=== PATIENT | female | born 1940 | race Caucasian/White ===

== ENCOUNTER → 2017-10-23 08:30 | Outpatient (CLI) | payer MEDICARE, SELFPAY ==
[2017-10-23 12:29] LABS: Absolute Lymphocyte Count 3.02 X10^3/ul (0.83-4.51); Absolute Neutrophil Count 4.3 X10^3/uL (2.0-7.7); Basophil# 0.04 X10^3/uL; Basophil% 0.5 % (0-1); Eosinophils% 2.4 % (0-5); Hematocrit 40.4 % (37-47); Hemoglobin 13.6 g/dl (12.0-15.0); Lymphocyte # 3.02 X10^3/ul (4.0); Lymphocyte % 36.7 % (19-41); Mean Corp Hgb Conc 33.7 g/gl (32-36); Mean Corpuscular Hgb 28.6 pg (27.0-32.0); Mean Corpuscular Volume 85.1 fL (81-99); Monocyte# 0.61 X10^3/uL; Monocyte% 7.4 % (0-10); Neutrophil # 4.33 X10^3/uL (2.7-7.7); Neutrophil % 52.8 % (47-70); Platelet Count 252 K/mm3 (150-450); RBC Distribution Width CV 14.7 % (11.6-14.6); RBC Distribution Width SD 44.9 fl (35.1-43.9); Red Blood Count 4.75 M/mm3 (4.2-5.4); White Blood Count 8.2 K/mm3 (4.4-11.0)
[2017-10-23 12:44] LABS: POSITIVE COUNT NO; POSITIVE DIFFERENTIAL NO; POSITIVE MORPHOLOGY NO
[2017-10-23 13:09] LABS: ALB/GLOB Ratio 1.1 RATIO (0.9-2.4); AST(SGOT) 16 U/L (15-37); Alanine Aminotransfer ALT/SGPT 32 U/L (13-56); Albumin, Serum 3.6 g/dL (3.2-5.0); Alkaline Phosphatase 85 U/L (45-117); Anion Gap 11 (5-15); BUN 12 mg/dL (7-18); BUN/Creat Ratio 17.2 RATIO (10-20); Calcium,Total 8.6 mg/dL (8.5-10.1); Chloride 99 mmol/L (98-107); Cholesterol 186 mg/dL (200); EST Glomerular Filtration Rate 86 mL/min (>60); Est Glom Filt Rate - Afr Amer 104 mL/min (>60); Globulin 3.3 g/dL (2.2-4.2); Glucose 109 mg/dL (74-106); High Density Lipoprotein 68 mg/dL; Potassium 3.7 mmol/L (3.5-5.1); Protein, Total 6.9 g/dL (6.4-8.2); Sodium Level 135 mmol/L (136-145); Thyroid Stim Hormone (TSH) 3.43 uIU/mL (0.358-3.74); Triglycerides 59 mg/dL; Very Low Density Lipoprotein 12 mg/dL (5-40)
== END ==
PROVIDERS: Family Provider Family Medicine; PCP Family Medicine; Visit Provider Family Medicine
DX: I10 Essential (primary) hypertension (principal); R53.83 Other fatigue; E78.5 Hyperlipidemia, unspecified; Z51.81 Encounter for therapeutic drug level monitoring
CPT/HCPCS: 36415; 80053; 80061; 84443; 85025

== ENCOUNTER → 2018-10-04 09:23 | Outpatient (CLI) | payer MEDICARE, SELFPAY ==
[2018-10-04 12:41] LABS: Absolute Lymphocyte Count 2.63 X10^3/ul (0.83-4.51); Absolute Neutrophil Count 4.4 X10^3/uL (2.0-7.7); Basophil# 0.04 X10^3/uL; Basophil% 0.5 % (0-1); Eosinophil# 0.22 X10^3/uL; Eosinophils% 2.8 % (0-5); Hematocrit 42.3 % (37-47); Hemoglobin 13.9 g/dl (12.0-15.0); Lymphocyte # 2.63 X10^3/ul (4.0); Lymphocyte % 33.4 % (19-41); Mean Corp Hgb Conc 32.9 g/gl (32-36); Mean Corpuscular Hgb 28.8 pg (27.0-32.0); Mean Corpuscular Volume 87.6 fL (81-99); Mean Platelet Vol. 9.7 fl (6.2-12.0); Monocyte# 0.61 X10^3/uL; Monocyte% 7.7 % (0-10); Neutrophil # 4.37 X10^3/uL (2.7-7.7); Neutrophil % 55.5 % (47-70); Platelet Count 267 K/mm3 (150-450); RBC Distribution Width CV 13.7 % (11.6-14.6); RBC Distribution Width SD 43.7 fl (35.1-43.9); Red Blood Count 4.83 M/mm3 (4.2-5.4); White Blood Count 7.9 K/mm3 (4.4-11.0)
[2018-10-04 12:42] LABS: POSITIVE COUNT NO; POSITIVE DIFFERENTIAL NO; POSITIVE MORPHOLOGY NO
[2018-10-04 12:57] LABS: AST(SGOT) 14 U/L (15-37); Alanine Aminotransfer ALT/SGPT 27 U/L (13-56); Albumin, Serum 3.5 g/dL (3.2-5.0); Alkaline Phosphatase 84 U/L (45-117); Anion Gap 8 (5-15); BUN 11 mg/dL (7-18); BUN/Creat Ratio 16.2 RATIO (10-20); Calcium,Total 8.3 mg/dL (8.5-10.1); Chloride 103 mmol/L (98-107); Cholesterol 191 mg/dL (200); Creatinine, Serum 0.68 mg/dL (0.55-1.02); EST Glomerular Filtration Rate 88 mL/min (>60); Est Glom Filt Rate - Afr Amer 107 mL/min (>60); Globulin 3.5 g/dL (2.2-4.2); Glucose 105 mg/dL (74-106); High Density Lipoprotein 63 mg/dL; Potassium 3.6 mmol/L (3.5-5.1); Sodium Level 136 mmol/L (136-145); Thyroid Stim Hormone (TSH) 2.52 uIU/mL (0.358-3.74); Triglycerides 73 mg/dL; Very Low Density Lipoprotein 15 mg/dL (5-40)
== END ==
PROVIDERS: Family Provider Family Medicine; PCP Family Medicine; Visit Provider Family Medicine
DX: E04.9 Nontoxic goiter, unspecified (principal); I10 Essential (primary) hypertension; E78.5 Hyperlipidemia, unspecified; Z51.81 Encounter for therapeutic drug level monitoring
CPT/HCPCS: 36415; 80053; 80061; 84443; 85025

== ENCOUNTER → 2019-05-25 | Outpatient (CLI) | payer MEDICARE, SELFPAY ==
[2019-05-25 11:05] LABS: Bacteria 0 SEEN /hpf (None Seen); Mucous, Urine 0 SEEN /hpf (<or=2+); Red Blood Cells-Urine 0 SEEN /hpf (0-5); Squamous Epithelial Cells - UA 0 SEEN /hpf (5-10)
[2019-05-25 12:31] LABS: Color, Urine Yellow (Yellow); Glucose, Dipstick Normal (Normal); Ketone-Dipstick Negative (Negative); Leukocyte Esterase-Dipstick 25 /ul (Negative); Nitrite-Dipstick Negative (Negative); Occult Blood-Urine Negative /ul (Negative); Protein-Dipstick Negative (Negative); Urine Bilirubin Dipstick Negative (Negative); Urine Clarity Clear (Clear); Urine Urobilinogen Normal (Normal)
[2019-05-25 12:48] LABS: White Blood Cells 0-5 SEEN /hpf (0-5)
[2019-05-25 12:56] LABS: ALB/GLOB Ratio 1.1 RATIO (0.9-2.4); AST(SGOT) 11 U/L (15-37); Alanine Aminotransfer ALT/SGPT 25 U/L (13-56); Albumin, Serum 3.7 g/dL (3.2-5.0); Alkaline Phosphatase 91 U/L (45-117); Anion Gap 6 (5-15); BUN 12 mg/dL (7-18); Calcium,Total 8.9 mg/dL (8.5-10.1); Chloride 101 mmol/L (98-107); EST Glomerular Filtration Rate 85 mL/min (>60); Est Glom Filt Rate - Afr Amer 103 mL/min (>60); Globulin 3.5 g/dL (2.2-4.2); Glucose 113 mg/dL (74-106); Potassium 3.9 mmol/L (3.5-5.1); Protein, Total 7.2 g/dL (6.4-8.2); Sodium Level 135 mmol/L (136-145)
== END | disposition home or self-care (01) ==
LOC: BFHLAB 11:01
PROVIDERS: Family Provider Family Medicine; PCP Family Medicine; Visit Provider Family Medicine
DX: I10 Essential (primary) hypertension (principal); R30.0 Dysuria; Z51.81 Encounter for therapeutic drug level monitoring
CPT/HCPCS: 36415; 80053; 81001; 87086; 87088; 87186

== ENCOUNTER → 2020-03-26 12:07 | Outpatient (CLI) | payer MEDICARE, SELFPAY ==
[2020-03-26 15:05] LABS: Absolute Lymphocyte Count 2.19 X10^3/uL (0.83-4.51); Basophil# 0.05 X10^3/uL; Basophil% 0.6 % (0-1); Eosinophil# 0.13 X10^3/uL; Eosinophils% 1.4 % (0-5); Hematocrit 42.9 % (37-47); Hemoglobin 14.3 g/dL (12.0-15.0); Lymphocyte # 2.19 X10^3/ul (4.0); Lymphocyte % 24.3 % (19-41); Mean Corp Hgb Conc 33.3 g/dL (32-36); Mean Corpuscular Hgb 28.5 pg (27.0-32.0); Mean Corpuscular Volume 85.6 fL (81-99); Mean Platelet Vol. 9.3 fl (6.2-12.0); Monocyte# 0.63 X10^3/uL; NRBC Flagged by Analyzer 0 % (0-5); Neutrophil % 66.5 % (47-70); Platelet Count 294 K/mm3 (150-450); RBC Distribution Width CV 13.5 % (11.6-14.6); Red Blood Count 5.01 M/mm3 (4.2-5.4)
[2020-03-26 15:31] LABS: ALB/GLOB Ratio 1.1 RATIO (0.9-2.4); AST(SGOT) 14 U/L (15-37); Alanine Aminotransfer ALT/SGPT 36 U/L (13-56); Albumin, Serum 3.9 g/dL (3.2-5.0); Alkaline Phosphatase 89 U/L (45-117); Anion Gap 4 (5-15); BUN 10 mg/dL (7-18); BUN/Creat Ratio 16.1 RATIO (10-20); Calcium,Total 8.9 mg/dL (8.5-10.1); Chloride 94 mmol/L (98-107); Creatinine, Serum 0.62 mg/dL (0.55-1.02); EST Glomerular Filtration Rate 98 mL/min (>60); Est Glom Filt Rate - Afr Amer 119 mL/min (>60); Globulin 3.6 g/dL (2.2-4.2); Glucose 119 mg/dL (74-106); Iron 66 ug/dL (50-170); Magnesium 2.4 mg/dL (1.6-2.6); Potassium 3.9 mmol/L (3.5-5.1); Protein, Total 7.5 g/dL (6.4-8.2); Sodium Level 127 mmol/L (136-145)
== END ==
PROVIDERS: PCP Family Medicine; Visit Provider Family Medicine
DX: D64.9 Anemia, unspecified (principal); R06.00 Dyspnea, unspecified; R00.2 Palpitations; Z51.81 Encounter for therapeutic drug level monitoring
CPT/HCPCS: 36415; 80053; 83540; 83735; 85025

== ENCOUNTER → 2020-03-30 09:13 | Outpatient (CLI) | payer MEDICARE, SELFPAY | PROVIDERS: PCP Family Medicine; Referring Provider Family Medicine; Visit Provider Family Medicine | DX: R00.2 Palpitations (principal) | CPT/HCPCS: 93225; 93226 ==

== ENCOUNTER → 2020-12-03 10:31 | Outpatient (CLI) | payer MEDICARE, SELFPAY ==
[2020-12-03 12:22] LABS: Absolute Lymphocyte Count 3.02 X10^3/uL (0.83-4.51); Absolute Neutrophil Count 4.7 X10^3/uL (2.0-7.7); Basophil# 0.05 X10^3/uL; Basophil% 0.6 % (0-1); Eosinophil# 0.31 X10^3/uL; Eosinophils% 3.6 % (0-5); Hematocrit 40.9 % (37-47); Hemoglobin 13.1 g/dL (12.0-15.0); Lymphocyte # 3.02 X10^3/ul (4.0); Lymphocyte % 34.6 % (19-41); Mean Corpuscular Hgb 28.2 pg (27.0-32.0); Mean Platelet Vol. 9.5 fl (6.2-12.0); Monocyte# 0.65 X10^3/uL; Monocyte% 7.5 % (0-10); NRBC Flagged by Analyzer 0 % (0-5); Neutrophil # 4.67 X10^3/uL (2.7-7.7); Neutrophil % 53.5 % (47-70); Platelet Count 297 K/mm3 (150-450); RBC Distribution Width CV 13.7 % (11.6-14.6); RBC Distribution Width SD 44.5 fl (35.1-43.9); Red Blood Count 4.65 M/mm3 (4.2-5.4); White Blood Count 8.7 K/mm3 (4.4-11.0)
[2020-12-03 12:48] LABS: ALB/GLOB Ratio 1.1 RATIO (0.9-2.4); AST(SGOT) 15 U/L (15-37); Alanine Aminotransfer ALT/SGPT 34 U/L (13-56); Albumin, Serum 3.7 g/dL (3.2-5.0); Alkaline Phosphatase 82 U/L (45-117); Anion Gap 4 (5-15); BUN 15 mg/dL (7-18); BUN/Creat Ratio 21.6 RATIO (10-20); Calcium,Total 8.8 mg/dL (8.5-10.1); Chloride 99 mmol/L (98-107); Cholesterol 189 mg/dL (200); EST Glomerular Filtration Rate 86 mL/min (>60); Est Glom Filt Rate - Afr Amer 104 mL/min (>60); Globulin 3.5 g/dL (2.2-4.2); Glucose 109 mg/dL (74-106); High Density Lipoprotein 73 mg/dL; Potassium 3.7 mmol/L (3.5-5.1); Protein, Total 7.2 g/dL (6.4-8.2); Sodium Level 133 mmol/L (136-145); Thyroid Stim Hormone (TSH) 2.12 uIU/mL (0.358-3.74); Triglycerides 65 mg/dL; Very Low Density Lipoprotein 13 mg/dL (5-40)
== END ==
PROVIDERS: PCP Family Medicine; Referring Provider Family Medicine; Visit Provider Family Medicine
DX: I10 Essential (primary) hypertension (principal); E04.9 Nontoxic goiter, unspecified; R00.2 Palpitations
CPT/HCPCS: 36415; 80053; 80061; 84443; 85025

== ENCOUNTER → 2021-06-13 08:48 | Outpatient (CLI) | payer MEDICARE, SELFPAY | PROVIDERS: PCP Family Medicine; Referring Provider Family Medicine; Visit Provider Family Medicine | DX: Z20.828 Contact with and (suspected) exposure to other viral communicable diseases (principal) | CPT/HCPCS: 87635; U0005; U0003 ==

== ENCOUNTER 2021-06-22 17:47 | Emergency (ER) | payer MEDICARE, SELFPAY ==
[2021-06-22 17:48] VITALS: BP 178/89; PULSE 71; RESP 20; TEMP 36.9; O2SAT 97; BMI 33.3
--- NOTE | 2021-06-22 17:58 | EKG12_ITS ---
Test Reason : Blood Pressure : / mmHG Vent. Rate : 070 BPM Atrial Rate : 070 BPM P-R Int : 188 ms QRS Dur : 104 ms QT Int : 404 ms P-R-T Axes : 076 -59 084 degrees QTc Int : 436 ms Normal sinus rhythm Left anterior fascicular block Abnormal ECG Confirmed by TK JENKINS, LIVE ([id number]), digital editor MYRIAM CHRISTIANSON ([id number]) on 06/25/2021 11:28:34 AM Referred By: CHATO Confirmed By:LIVE FREY MD
[2021-06-22 18:45] VITALS: BP 167/75; PULSE 64; RESP 15; O2SAT 99
--- NOTE | 2021-06-22 19:46 | EX.ED.DYSGE1 ---
HPI History of Present Illness Chief Complaint: Hypertension Detail of Chief Complaint: Elevated blood pressure and palpitations Informant: patient Onset/Context/Timing Onset: Today and Hours Context: Sudden Onset Timing: Intermittent Quality: Highest systolic pressure was 202 and fastest heart rate was 67 Location: Home Current Severity: Mild Maximum Severity: Moderate Worsened by: Nothing Relieved by: Nothing Associated Symptoms Associated Symptoms: No other symptoms Narrative Narrative: Patient is a 80-year-old woman with history of hypertension who presents because of systolic blood pressure of 202 and palpitations. Her fastest heart rate was 67. This concerns her. She was informed this is normal. She denies headache. She denies double vision, blurred vision loss of vision. Denies ringing in ears or decreased hearing. Denies trouble speech or swallowing. Denies chest discomfort or cardiac symptoms. No shortness of breath, orthopnea or PND. She denies abdominal pain or back pain. Denies nausea or vomiting. She denies dysuria, frequency, urgency or hematuria. She denies paresthesia, anesthesia motors. Denies trouble with balance. She has had problems with balance over the years due to head trauma. Has not had a recent fall. Her gait was observed and is not ataxic and she does not appear to be unsteady. Prior similar symptoms: Yes Recent Illness/Hospitalization: No [facility] Medical History Arthritis Diverticula of colon Former smoker Hypertension PVC (premature ventricular contraction) Sleep apnea Home Medications losartan 100 mg PO DAILY 12/14/15 [History Last Taken 11/06/16] metoprolol succinate 100 mg PO DAILY 12/14/15 [History Last Taken 11/06/16] amlodipine 5 mg PO DAILY 06/22/21 [History Last Taken Unknown] fluticasone propionate 2 spray INTRANASAL DAILY 06/22/21 [History Last Taken Unknown] hydrochlorothiazide 25 mg PO DAILY 06/22/21 [History Last Taken Unknown] Allergy/AdvReac Type Severity Reaction Status Date / Time benazepril HCl Allergy Other Verified 06/22/21 18:46 [From Lotensin] felodipine Allergy Other Verified 06/22/21 18:46 fexofenadine HCl Allergy Other Verified 06/22/21 18:46 [From Uyen] ramipril [From Altace] Allergy Other Verified 06/22/21 18:46 tolterodine tartrate Allergy Other Verified 06/22/21 18:46 [From Detrol] verapamil HCl Allergy Other Verified 06/22/21 18:46 [From Covera-HS] AUGMENTED BETAMETHASONE Allergy Other Uncoded 06/22/21 18:46 DIPROP Surgical History History of colon resection Social History (Updated 06/22/21 @ 19:[address] Ganga Acharya MD) household members: spouse Smoking Status: Former smoker alcohol intake: current alcohol intake frequency: other substance use type: does not use ROS ROS ED Constitutional Constitutional ED: Denies chills, fever(s), subjective, sweats or weight loss Eyes Eyes: Denies blurry vision, change in vision or diplopia ENT ENT ED: Denies ear pain, rhinorrhea or sore throat Cardiovascular Cardiovascular: Reports palpitations; Denies chest pain, orthopnea, paroxysmal nocturnal dyspnea or racing heartbeat Respiratory/Chest Respiratory/Chest: Denies cough, dyspnea, dyspnea on exertion, orthopnea or paroxysmal nocturnal dyspnea Gastrointestinal Gastrointestinal: Denies abdominal pain, diarrhea, nausea or vomiting Genitourinary Genitourinary ED: Denies dysuria, hematuria or urinary frequency Musculoskeletal Musculoskeletal: Denies arthralgias, back pain, myalgias or neck pain Integumentary Denies rash Neurologic Neurologic: Denies headache(s), paresthesias or weakness Endocrine Endocrinology: Denies polydipsia, polyphagia or polyuria Hematologic/Lymphatic Hematologic/Lymphatic: Denies anemia, easy bleeding or easy bruising Allergic/Immunologic Allergic/Immunologic ED: Denies mouth swelling or tongue swelling EXAM Physical Exam Const Vital Signs: 06/22/21 17:48 06/22/21 18:45 06/22/21 18:46 Temperature 98.4 F Temperature Source Temporal Pulse Rate 71 64 Respiratory Rate 20 H 15 Respiratory Effort Normal Respiratory Pattern Normal Blood Pressure 178/89 H 167/75 H Blood Pressure Mean 118 105 Pulse Ox 97 99 Oxygen Delivery Method Room Air Room Air 06/22/21 20:28 Temperature Temperature Source Pulse Rate 65 Respiratory Rate 12 Respiratory Effort Respiratory Pattern Blood Pressure 177/65 H Blood Pressure Mean 102 Pulse Ox 97 Oxygen Delivery Method Room Air Positive well nourished, well developed and obese General Appearance ED: well developed and NAD Nutritional Appearance: obese HEENT HEENT Narrative: Head is atraumatic normocephalic. Ears normal. Nares patent. Posterior pharyngeal erythema exudate. Uvula midline. Neck no lymphadenopathy, supple and no JVD Neck Narrative: There is no bruit right or left. Resp normal respiratory effort and clear to auscultation bilaterally Cardio regular rate, regular rhythm, S1 normal heart sound, S2 normal heart sound and no murmurs GI normal to inspection, nondistended, normoactive bowel sounds, non-tender and non-distended GI Narrative: There is no palp pulsatile mass. There is no abdominal bruit. Palpation: soft Back/Spine no CVA tenderness Cervical Spine: Negative for cervical spine tenderness Thoracic Spine / Upper Back: Negative for thoracic spinal tenderness or paraspinal muscle tenderness Extremity normal to inspection General Extremety ED: Negative for edema or tenderness General Extremity: Negative for edema Neuro oriented x3, CN's II-XII intact bilaterally and no sensory deficits noted Neuro Narrative: Gait observed and unremarkable Sensorium / Orientation: alert Motor Exam: strength 5/5 throughout Psych mental status grossly normal Mood & Affect: anxious Skin no rashes or lesions noted, no wounds and skin turgor normal MDM MDM MDM Narrative Medical decision making narrative: Patient's main concern now of fatigue will obtain TSH rule out hypothyroidism. BMP to assess electrolytes and specifically potassium. She was placed on a monitor. EKG was obtained and reveals a normal sinus rhythm rate of 70. There is a left anterior fascicular block. WI interval is 188 ms. QRS duration 104 ms. QT duration 4 and 4 ms. [place] to the left. Lab Data Attestation: I reviewed the patient's lab results. Lab results narrative: White count is slightly low at 11.6, which is nonspecific. Electrolyte panel was a sodium 131 and chloride of 95. She is on a thiazide diuretic. Labs: Laboratory Results - last 24 hr 06/22/21 06/22/21 20:06 20:06 WBC 11.6 H RBC 4.84 Hgb 13.7 Hct 40.8 MCV 84.3 MCH 28.3 MCHC 33.6 RDW Std Deviation 41.2 RDW Coeff of Milena 13.3 Plt Count 293 MPV 8.7 Immature Gran % (Auto) 0.300 Neut % (Auto) 70.7 H Lymph % (Auto) 21.0 [place] % (Auto) 6.6 Eos % (Auto) 1.0 Baso % (Auto) 0.4 Absolute Neuts (auto) 8.2 H Absolute Lymphs (auto) 2.42 Nucleated RBC % 0 Sodium 131 L Potassium 3.6 Chloride 95 L Carbon Dioxide 26.0 Anion Gap 10 BUN 13 Creatinine 0.76 Estim Creat Clear Calc 35.88 Est GFR (MDRD) Af Amer 93 Est GFR (MDRD) Non-Af 77 BUN/Creatinine Ratio 17.0 Glucose 112 H Calcium 8.8 TSH 1.42 EKG Initial EKG: Attestation: I personally reviewed and interpreted this EKG as follows: Interpretation: Sinus Rhythm (Documented in the MDM narrative) Treatment and Re-Evaluation Comments:: Patient has asymptomatic hypertension. She also is experiencing palpitations. She had a recent Holter monitor revealed PACs. Since patient has no evidence of endorgan injury her pressure is slightly elevated but not significantly we will have her follow-up with her primary care physician. She was informed no further intervention is needed at this time. Discharge Plan Triage Chief Complaint: Hypertension ED Provider: Ganga Acharya Dx/Rx/DC Orders Clinical Impression: Asymptomatic hypertension Instructions: ED Hypertension, Established Prescriptions: No Action metoprolol succinate 50 MG tablet 100 mg PO DAILY RF: 0 losartan 100 MG tablet 100 mg PO DAILY RF: 0 amlodipine 5 mg tablet 5 mg PO DAILY RF: 0 hydrochlorothiazide 25 mg tablet 25 mg PO DAILY RF: 0 fluticasone propionate 50 mcg/actuation spray,suspension 2 spray INTRANASAL DAILY RF: 0 Primary Care Provider: Quiana Healy Referrals: Quiana Healy DO [Primary Care Provider] - 5-7 Days Disposition Disposition: Home, Self Care
[2021-06-22 20:12] LABS: Absolute Lymphocyte Count 2.42 X10^3/uL (0.83-4.51); Absolute Neutrophil Count 8.2 X10^3/uL (2.0-7.7); Basophil# 0.05 X10^3/uL; Basophil% 0.4 % (0-1); Eosinophil# 0.11 X10^3/uL; Hematocrit 40.8 % (37-47); Hemoglobin 13.7 g/dL (12.0-15.0); Lymphocyte # 2.42 X10^3/ul (0.83-4.51); Mean Corp Hgb Conc 33.6 g/dL (32-36); Mean Corpuscular Hgb 28.3 pg (27.0-32.0); Mean Corpuscular Volume 84.3 fL (81-99); Mean Platelet Vol. 8.7 fl (6.2-12.0); Monocyte# 0.76 X10^3/uL; Monocyte% 6.6 % (0-10); NRBC Flagged by Analyzer 0 % (0-5); Neutrophil # 8.17 X10^3/uL (2.7-7.7); Neutrophil % 70.7 % (47-70); Platelet Count 293 K/mm3 (150-450); RBC Distribution Width CV 13.3 % (11.6-14.6); RBC Distribution Width SD 41.2 fl (35.1-43.9); Red Blood Count 4.84 M/mm3 (4.2-5.4); White Blood Count 11.6 K/mm3 (4.4-11.0)
[2021-06-22 20:28] VITALS: BP 177/65; PULSE 65; RESP 12; O2SAT 97
[2021-06-22 20:36] LABS: Anion Gap 10 (5-15); BUN 13 mg/dL (7-18); Calcium,Total 8.8 mg/dL (8.5-10.1); Chloride 95 mmol/L (98-107); Creatinine, Serum 0.76 mg/dL (0.55-1.02); EST Glomerular Filtration Rate 77 mL/min (>60); Est Glom Filt Rate - Afr Amer 93 mL/min (>60); Estimated Creatinine Clearance 35.88 ml/min; Glucose 112 mg/dL (74-106); Potassium 3.6 mmol/L (3.5-5.1); Sodium Level 131 mmol/L (136-145); Thyroid Stim Hormone (TSH) 1.42 uIU/mL (0.358-3.74)
[2021-06-22 21:33] VITALS: BP 153/65; PULSE 62; RESP 16; O2SAT 97
== END 2021-06-22 21:34 | disposition home or self-care (01) ==
PROVIDERS: Emergency Provider Emergency Medicine; PCP Family Medicine
DX: I10 Essential (primary) hypertension (principal); E66.9 Obesity, unspecified; G47.30 Sleep apnea, unspecified; Z79.899 Other long term (current) drug therapy; Z87.891 Personal history of nicotine dependence
CPT/HCPCS: 80048; 84443; 85025; 93005; 99284; A4216

== ENCOUNTER 2021-10-25 05:02 | Emergency (ER) | payer MEDICARE, SELFPAY ==
[2021-10-25 05:02] VITALS: BP 176/101; PULSE 85; RESP 13; TEMP 36.7; O2SAT 97; BMI 31.8
--- NOTE | 2021-10-25 05:21 | RAD_ITS ---
STUDY: X-RAY CHEST REASON FOR EXAM: Female, 80 years old. chest pain TECHNIQUE: AP COMPARISON: 11/06/2016. FINDINGS: The lungs are clear and expanded. There is no demonstrated pleural abnormality. Normal size heart. Normal mediastinum and ellen. Normal visualized pulmonary arteries. Normal visualized aortic arch and descending thoracic aorta. There are diffuse degenerative changes of the visualized thoracic spine. Normal visualized ribs, clavicles, and shoulders. There is no demonstrated abnormality of the visualized soft tissue structures of the upper abdomen. RAD/Chest 1 View (Portable) IMPRESSION: Negative x-ray examination of the chest. No interval change. Electronically Signed: Vick Damon MD at 6:13 EST ,
--- NOTE | 2021-10-25 05:21 | EKG12_ITS ---
Test Reason : CP Blood Pressure : / mmHG Vent. Rate : 072 BPM Atrial Rate : 072 BPM P-R Int : 176 ms QRS Dur : 096 ms QT Int : 408 ms P-R-T Axes : 065 -44 057 degrees QTc Int : 446 ms Sinus rhythm with occasional Premature ventricular complexes Left axis deviation Abnormal ECG Confirmed by TK JENKINS, LIVE ([id number]), editor producer MYRIAM CHRISTIANSON ([id number]) on 10/28/2021 12:01:05 PM Referred By: BELL Confirmed By:LIVE FREY MD
[2021-10-25 05:27] LABS: Absolute Lymphocyte Count 3.13 X10^3/uL (0.83-4.51); Absolute Neutrophil Count 6.9 X10^3/uL (2.0-7.7); Basophil# 0.05 X10^3/uL; Basophil% 0.5 % (0-1); Eosinophil# 0.12 X10^3/uL; Eosinophils% 1.1 % (0-5); Hematocrit 43.1 % (37-47); Lymphocyte # 3.13 X10^3/ul (0.83-4.51); Lymphocyte % 28.3 % (19-41); Mean Corp Hgb Conc 34.8 g/dL (32-36); Mean Corpuscular Hgb 29.4 pg (27.0-32.0); Mean Corpuscular Volume 84.3 fL (81-99); Monocyte# 0.84 X10^3/uL; Monocyte% 7.6 % (0-10); NRBC Flagged by Analyzer 0 % (0-5); Neutrophil # 6.89 X10^3/uL (2.7-7.7); Neutrophil % 62.1 % (47-70); Platelet Count 310 K/mm3 (150-450); RBC Distribution Width CV 12.5 % (11.6-14.6); RBC Distribution Width SD 38.1 fl (35.1-43.9); Red Blood Count 5.11 M/mm3 (4.2-5.4); White Blood Count 11.1 K/mm3 (4.4-11.0)
[2021-10-25] MEDS: Aspirin 325 MG Tablet PO (05:29)
--- NOTE | 2021-10-25 05:37 | EDS_ITS ---
HPI History of Present Illness Chief Complaint: Chest Pain Narrative Narrative: Patient is an 80-year-old female with past medical history of hypertension and PVCs. She states she went to bed last night normally and then awoke around 2 AM to use the bathroom. She states at that time she noticed a vague left-sided chest discomfort in her left breast. She states that the pain did not radiate in order to cause nausea vomiting diaphoresis or shortness of breath. She states that she was able to go back to sleep but would occasionally wake up and noticed the pain in that region. She states that she is concerned this could be cardiac because of her history of hypertension and the fact that the pain has been persistent throughout the morning she presents for evaluation [facility] Medical History Arthritis Diverticula of colon Former smoker Hypertension PVC (premature ventricular contraction) Sleep apnea Home Medications losartan 100 mg PO DAILY 12/14/15 [History Last Taken 11/06/16] metoprolol succinate 100 mg PO DAILY 12/14/15 [History Last Taken 11/06/16] amlodipine 5 mg PO DAILY 06/22/21 [History Last Taken Unknown] fluticasone propionate 2 spray INTRANASAL DAILY 06/22/21 [History Last Taken Unknown] hydrochlorothiazide 25 mg PO DAILY 06/22/21 [History Last Taken Unknown] citalopram mg 10/25/21 [History Last Taken Unknown] Allergy/AdvReac Type Severity Reaction Status Date / Time benazepril HCl Allergy Other Verified 10/25/21 06:26 [From Lotensin] felodipine Allergy Other Verified 10/25/21 06:26 fexofenadine HCl Allergy Other Verified 10/25/21 06:26 [From Uyen] ramipril [From Altace] Allergy Other Verified 10/25/21 06:26 tolterodine tartrate Allergy Other Verified 10/25/21 06:26 [From Detrol] verapamil HCl Allergy Other Verified 10/25/21 06:26 [From Covera-HS] AUGMENTED BETAMETHASONE Allergy Other Uncoded 10/25/21 06:26 DIPROP Surgical History History of colon resection Social History (Updated 06/22/21 @ 19:[address] Ganga Acharya MD) household members: spouse Smoking Status: Former smoker alcohol intake: current alcohol intake frequency: other substance use type: does not use ROS ROS ED Constitutional Constitutional ED: Denies chills or fever(s) ENT ENT ED: Denies sore throat Cardiovascular Cardiovascular: Reports chest pain and palpitations; Denies racing heartbeat Respiratory/Chest Respiratory/Chest: Denies cough or dyspnea Gastrointestinal Gastrointestinal: Denies abdominal pain, diarrhea, nausea or vomiting Genitourinary Genitourinary ED: Denies dysuria Musculoskeletal Musculoskeletal: Denies myalgias Integumentary Denies rash Neurologic Neurologic: Denies headache(s) Hematologic/Lymphatic Hematologic/Lymphatic: Denies easy bleeding or easy bruising EXAM Physical Exam Const Vital Signs: 10/25/21 05:02 10/25/21 05:06 10/25/21 06:28 Temperature 98.1 F Temperature Source Temporal Pulse Rate 85 55 L Respiratory Rate 13 13 Respiratory Pattern Normal Blood Pressure 176/101 H 199/74 H Blood Pressure Mean 126 115 Pulse Ox 97 97 Oxygen Delivery Method Room Air Room Air 10/25/21 07:22 Temperature Temperature Source Pulse Rate 56 L Respiratory Rate 13 Respiratory Pattern Blood Pressure 142/56 H Blood Pressure Mean 84 Pulse Ox 95 Oxygen Delivery Method Positive well nourished and well developed General Appearance ED: well developed HEENT Reports dry mucous membranes Mouth ED: Yes dry mucous membranes Mouth: dry mucous membranes Eyes PERRL and EOMs intact bilaterally Neck supple and no JVD Neck Narrative: No carotid bruit noted Chest Wall Chest Narrative: Patient has fibrocystic change to the left breast without obvious abscess cellulitis or breast infection noted Resp normal respiratory effort and clear to auscultation bilaterally Cardio regular rate and regular rhythm Rate: other Other Details: Radial pulses are +2-4 bilaterally are equal and symmetric GI normal to inspection, nondistended, normoactive bowel sounds, non-tender, non- distended and no masses GI Narrative: No voluntary guarding or rigidity no pulsatile mass Auscultation: normoactive bowel sounds Palpation: soft Extremity normal to inspection Extremity Narrative: No asymmetric edema no pitting edema negative Homans' sign bilaterally Neuro oriented x3 and CN's II-XII intact bilaterally Sensorium / Orientation: alert Motor Exam: strength 5/5 throughout Psych mental status grossly normal Skin no rashes or lesions noted MDM MDM MDM Narrative Medical decision making narrative: Patient presented to the ER mildly hypertensive but does have a history of this and has not taken her morning time medication. Her chest pain does not radiate it is not caused nausea vomiting diaphoresis or shortness of breath but she does have mild to moderate risk factors for CAD so a basic cardiac work-up will be obtained. With the hypertension she has no changes to suggest endorgan damage but that will be evaluated within the cardiac work-up. While the patient was waiting she became very anxious and her blood pressure did begin to climb. Therefore she was given hydralazine clonidine and a little bit of Ativan. With this medication blood pre ssure improved. The chest x-ray revealed no acute lung pathology. The initial and delta troponin were within normal limits and on reevaluation patient reported feeling better. Therefore at this time I do not feel there is need for admission as her EKG is sinus and her initial and delta troponin do not show any derangements and her symptoms have resolved. Also with her hypertension she has no signs of endorgan damage and therefore can be discharged and continue her normal medication. Lab Data Attestation: I reviewed the patient's lab results. Labs: Laboratory Results - last 24 hr 10/25/21 10/25/21 10/25/21 05:05 05:05 07:08 WBC 11.1 H RBC 5.11 Hgb 15.0 Hct 43.1 MCV 84.3 MCH 29.4 MCHC 34.8 RDW Std Deviation 38.1 RDW Coeff of Milena 12.5 Plt Count 310 MPV 9.0 Immature Gran % (Auto) 0.400 Neut % (Auto) 62.1 Lymph % (Auto) 28.3 [place] % (Auto) 7.6 Eos % (Auto) 1.1 Baso % (Auto) 0.5 Absolute Neuts (auto) 6.9 Absolute Lymphs (auto) 3.13 Nucleated RBC % 0 Sodium 130 L Potassium 3.8 Chloride 97 L Carbon Dioxide 26.0 Anion Gap 7 BUN 12 Creatinine 0.63 Estim Creat Clear Calc 35.88 Est GFR (MDRD) Af Amer 117 Est GFR (MDRD) Non-Af 96 BUN/Creatinine Ratio 19.1 Glucose 131 H Calcium 8.8 Magnesium 2.4 Troponin I High Sens 17 19 Radiography Diagnostic Testing: Clinical Impression(s) from Imaging Studies Chest X-Ray 10/25/21 05:21 IMPRESSION: Negative x-ray examination of the chest. No interval change. Electronically Signed: Vick Damon MD at 6:13 EST , Discharge Plan Triage Chief Complaint: Chest Pain ED Provider: Candelario Orosco Dx/Rx/DC Orders Clinical Impression: Nonspecific chest pain, Accelerated hypertension Instructions: ED Hypertension, Established, ED Chest Pain [facility] Prescriptions: No Action metoprolol succinate 50 MG tablet 100 mg PO DAILY RF: 0 losartan 100 MG tablet 100 mg PO DAILY RF: 0 amlodipine 5 mg tablet 5 mg PO DAILY RF: 0 hydrochlorothiazide 25 mg tablet 25 mg PO DAILY RF: 0 fluticasone propionate 50 mcg/actuation spray,suspension 2 spray INTRANASAL DAILY RF: 0 citalopram 10 mg tablet RF: 0 Primary Care Provider: Quiana Healy Referrals: Quiana Healy DO [Primary Care Provider] - Activity Restrictions/Additional Instructions: Please continue your medications as directed by your family doctor and return to the ER should you have any further concerns Disposition Disposition: Home, Self Care
[2021-10-25 05:56] LABS: Anion Gap 7 (5-15); BUN 12 mg/dL (7-18); BUN/Creat Ratio 19.1 RATIO (10-20); Calcium,Total 8.8 mg/dL (8.5-10.1); Chloride 97 mmol/L (98-107); Creatinine, Serum 0.63 mg/dL (0.55-1.02); EST Glomerular Filtration Rate 96 mL/min (>60); Est Glom Filt Rate - Afr Amer 117 mL/min (>60); Estimated Creatinine Clearance 35.88 ml/min; Glucose 131 mg/dL (74-106); Magnesium 2.4 mg/dL (1.6-2.6); Potassium 3.8 mmol/L (3.5-5.1); Sodium Level 130 mmol/L (136-145); Troponin-I HS 17 pg/mL (3.0-54.0)
[2021-10-25] MEDS: cloNIDine HCl 0.1 MG Tablet PO (06:21)
[2021-10-25] MEDS: hydrALAZINE 20 MG/ML Vial IV (06:24)
[2021-10-25 06:28] VITALS: BP 199/74; PULSE 55; RESP 13; O2SAT 97
[2021-10-25] MEDS: LORazepam 2 MG/ML Syringe 0.5 MG IV (06:47)
[2021-10-25 07:22] VITALS: BP 142/56; PULSE 56; RESP 13; O2SAT 95
[2021-10-25 07:30] LABS: Troponin-I HS 19 pg/mL (3.0-54.0)
[2021-10-25 07:45] VITALS: BP 142/56; PULSE 54; RESP 14; O2SAT 94
== END 2021-10-25 07:45 | disposition home or self-care (01) ==
PROVIDERS: Emergency Provider Emergency Medicine; PCP Family Medicine; Visit Provider Emergency Medicine
DX: R07.9 Chest pain, unspecified (principal); I10 Essential (primary) hypertension; G47.30 Sleep apnea, unspecified; Z87.891 Personal history of nicotine dependence; Z79.899 Other long term (current) drug therapy
CPT/HCPCS: 71045; 80048; 83735; 84484; 85025; 93005; 96374; 96375; 99284; J7040; A4216

== ENCOUNTER 2021-10-26 14:50 | Emergency (ER) | payer MEDICARE, SELFPAY ==
[2021-10-26] VITALS (10 sets, daily range): BP systolic 172–248; BP diastolic 68–87; PULSE 52–62; RESP 13–18; TEMP 36.2; O2SAT 96–98; BMI 31.3
--- NOTE | 2021-10-26 15:24 | EX.ED.DYSGE1 ---
HPI History of Present Illness Chief Complaint: Hypertension Narrative Narrative: Patient is basically asymptomatic. She feels jittery. She took her blood pressure at home and it was high, she has a history of hypertension she has maxed out on losartan, she is on hydralazine and metoprolol succinate 100 mg daily. She was seen here 2 days ago and had a work-up and her blood pressure did improve and she was sent home. She has not seen her PCP since then and now is back with her hypertension. She is denying vision changes. No headache. She has no chest pain or shortness of breath. No back pain or tearing sensation no lower extremity edema. [facility] Medical History Arthritis Diverticula of colon Former smoker Hypertension PVC (premature ventricular contraction) Sleep apnea Home Medications losartan 100 mg PO DAILY 12/14/15 [History Last Taken 11/06/16] metoprolol succinate 100 mg PO DAILY 12/14/15 [History Last Taken 11/06/16] fluticasone propionate 2 spray INTRANASAL DAILY 06/22/21 [History Last Taken Unknown] citalopram 10 mg PO DAILY 10/25/21 [History Last Taken Unknown] hydralazine 10 mg PO Q6H 10/26/21 [History Last Taken Unknown] hydrochlorothiazide 25 mg PO QODAY #14 tab 10/26/21 [Rx Last Taken Unknown] losartan 25 mg PO DAILY 10/26/21 [History Last Taken Unknown] Allergy/AdvReac Type Severity Reaction Status Date / Time benazepril HCl Allergy Other Verified 10/25/21 06:26 [From Lotensin] felodipine Allergy Other Verified 10/25/21 06:26 fexofenadine HCl Allergy Other Verified 10/25/21 06:26 [From Uyen] ramipril [From Altace] Allergy Other Verified 10/25/21 06:26 tolterodine tartrate Allergy Other Verified 10/25/21 06:26 [From Detrol] verapamil HCl Allergy Other Verified 10/25/21 06:26 [From Covera-HS] AUGMENTED BETAMETHASONE Allergy Other Uncoded 10/25/21 06:26 DIPROP Surgical History History of colon resection Social History household members: spouse Smoking Status: Former smoker alcohol intake: current alcohol intake frequency: other substance use type: does not use ROS ROS ED ROS Narrative Past medical history: Reviewed, hypertension and depression Medications: Reviewed, see HPI Social history: Noncontributory Review of systems: All systems negative except as indicated General: No fever. Feeling of shakiness. Eyes: No visual changes ENT: No upper airway congestion, normal voice Neck: No neck pain Cardiovascular: No chest pain Respiratory: No shortness of breath or cough Gastrointestinal: No abdominal pain, nausea vomiting or diarrhea Genitourinary: No dysuria Musculoskeletal: Denies myalgias no difficulty with ambulation Skin: No rash Neurological: No memory loss, confusion or any focal weakness Psych: No recent behavioral changes Hematologic: No easy bleeding or easy bruising EXAM Physical Exam Narrative Exam Narrative: Physical exam General: Well nourished, Well developed, No Acute Distress Head: Normocephalic, Atraumatic Eyes: Conjunctiva not pale ENT: Moist mucous membranes Neck: Supple, Nontender, No lymphadenopathy Cardiovascular: Regular rate, Regular rhythm Respiratory: No distress, CTA bilaterally Abdomen: Soft, Nontender, Nondistended Back: Nontender, Normal Inspection. Negative for: CVA tenderness Extremities: Nontender, No edema Skin: Normal color, No rash Neurological: Alert, Normal Strength, Normal Sensation Psychological: Normal affect Const Vital Signs: 10/26/21 14:50 10/26/21 14:59 10/26/21 15:11 Temperature 97.1 F L Temperature Source Temporal Pulse Rate 62 58 L Respiratory Rate 15 Respiratory Effort Normal Respiratory Pattern Normal Blood Pressure 248/83 H 243/80 H Blood Pressure Mean 138 134 Pulse Ox 97 Oxygen Delivery Method Room Air 10/26/21 15:31 10/26/21 16:03 10/26/21 16:28 Temperature Temperature Source Pulse Rate 59 L 56 L 57 L Respiratory Rate 14 16 Respiratory Effort Respiratory Pattern Blood Pressure 193/73 H 198/78 H 219/80 H Blood Pressure Mean 113 118 126 Pulse Ox Oxygen Delivery Method 10/26/21 17:30 10/26/21 17:55 10/26/21 18:33 Temperature Temperature Source Pulse Rate 54 L 52 L 53 L Respiratory Rate 18 18 13 Respiratory Effort Respiratory Pattern Blood Pressure 212/87 H 196/70 H 180/68 H Blood Pressure Mean 128 112 105 Pulse Ox 97 98 96 Oxygen Delivery Method Room Air Room Air Room Air MDM MDM MDM Narrative Medical decision making narrative: Patient was slightly anxious, I also gave her antihypertensives. Her blood pressure has improved. She appears well she has no chest pain shortness of breath or any symptoms at this time. She had a recent work-up just 2 days ago including CBC CMP and troponins, I do not believe these need to be repeated today. Fainting changes they are to return. I will add hydrochlorothiazide to her regimen. Discharge Plan Triage Chief Complaint: Hypertension ED Provider: Grabiel Fox Dx/Rx/DC Orders Clinical Impression: Hypertension Instructions: ED High Blood Pressure Hypertension Prescriptions: New hydrochlorothiazide 25 mg tablet 25 mg PO QODAY Qty: 14 RF: 0 No Action metoprolol succinate 50 MG tablet 100 mg PO DAILY RF: 0 losartan 100 MG tablet 100 mg PO DAILY RF: 0 fluticasone propionate 50 mcg/actuation spray,suspension 2 spray INTRANASAL DAILY RF: 0 citalopram 10 mg tablet 10 mg PO DAILY RF: 0 hydralazine 10 mg tablet 10 mg PO Q6H RF: 0 losartan 25 mg tablet 25 mg PO DAILY RF: 0 Primary Care Provider: Quiana Healy Referrals: Quiana Healy DO [Primary Care Provider] - 2 Days
[2021-10-26] MEDS: Metoprolol Tartrate 100 MG Tablet PO (15:32)
--- NOTE | 2021-10-26 15:35 | ED.RN ---
Confirmed with Dr. Fox regarding beta kindra being given with patient HR in high 50's (59 currently); he is aware of HR and also requested medication to still be given.
[2021-10-26] MEDS: LORazepam 0.5 MG Tablet PO (16:43)
--- NOTE | 2021-10-28 12:40 | CASEMGMT ---
IGNACIA ORONA ED follow-up: Date of ER visit: 10/26/2021 Presenting ER complaint: hypertension IGNACIA ORONA placed call to patient's telephone number listed on demographics and patient answered. IGNACIA ORONA introduced self and role at [facility]. Patient reports feeling tired today and relates feeling to recent medication change. 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 Patient denies chest pain or shortness of breath. Reports monitoring BP, though she has not checked BP yet today. BP 173/73 yesterday. Patient has follow-up appointment scheduled for Monday 10/30 with PCP. Patient encouraged to keep log of BP readings to take with her to follow-up appointment. Instructed on red flag signs and symptoms to monitor for. Voiced understanding. Patient denies questions, needs or concerns. IGNACIA Stubbs CM
== END 2021-10-26 19:24 | disposition home or self-care (01) ==
PROVIDERS: Emergency Provider Emergency Medicine; PCP Family Medicine; Visit Provider Emergency Medicine
DX: I10 Essential (primary) hypertension (principal); G47.30 Sleep apnea, unspecified; Z87.891 Personal history of nicotine dependence
CPT/HCPCS: 99283; J7030; A4216

== ENCOUNTER 2021-10-29 08:00 | Emergency (ER) | payer MEDICARE, SELFPAY ==
[2021-10-29 08:01] VITALS: PULSE 67; RESP 15; TEMP 35.8; O2SAT 100; BMI 31.3
[2021-10-29 08:10] VITALS: BP 218/76; PULSE 66; O2SAT 97
--- NOTE | 2021-10-29 08:22 | EX.ED.DYSGE1 ---
HPI History of Present Illness Chief Complaint: Hypertension Informant: patient and spouse/S.O. Narrative Narrative: Patient states is her blood pressure is elevated. She is on hydralazine, metoprolol and I believe losartan also. She was started on a low-dose of hydrochlorothiazide every other day just recently. She woke up this morning and she just felt a little shaky. This is not a focal neurologic deficit. She states her face feels puffy and she has a shaky feeling all through her body. This is typical symptoms that she has when her blood pressure is up. She measured her blood pressure and is about 220. About an hour and a half ago she took her metoprolol and hydralazine. She is not having neurologic symptoms, chest pain, dyspnea. She has been working to get this blood pressure under control for quite some time. She has been seen here recently. She states that when her blood pressure goes up she gets scared and nervous and she thinks that makes it worse. The medicines do help it but not quickly. [facility] Medical History Arthritis Diverticula of colon Former smoker Hypertension PVC (premature ventricular contraction) Sleep apnea Home Medications losartan 100 mg PO DAILY 12/14/15 [History Last Taken 11/06/16] metoprolol succinate 100 mg PO DAILY 12/14/15 [History Last Taken 11/06/16] fluticasone propionate 2 spray INTRANASAL DAILY 06/22/21 [History Last Taken Unknown] citalopram 10 mg PO DAILY 10/25/21 [History Last Taken Unknown] hydralazine 10 mg PO Q6H 10/26/21 [History Last Taken Unknown] hydrochlorothiazide 25 mg PO QODAY #14 tab 10/26/21 [Rx Last Taken Unknown] losartan 25 mg PO DAILY 10/26/21 [History Last Taken Unknown] Allergy/AdvReac Type Severity Reaction Status Date / Time benazepril HCl Allergy Other Verified 10/25/21 06:26 [From Lotensin] felodipine Allergy Other Verified 10/25/21 06:26 fexofenadine HCl Allergy Other Verified 10/25/21 06:26 [From Uyen] ramipril [From Altace] Allergy Other Verified 10/25/21 06:26 tolterodine tartrate Allergy Other Verified 10/25/21 06:26 [From Detrol] verapamil HCl Allergy Other Verified 10/25/21 06:26 [From Covera-HS] AUGMENTED BETAMETHASONE Allergy Other Uncoded 10/25/21 06:26 DIPROP Surgical History History of colon resection Social History household members: spouse Smoking Status: Former smoker alcohol intake: current alcohol intake frequency: other substance use type: does not use ROS ROS ED Constitutional Constitutional ED: Denies fever(s) Eyes Eyes: Denies blurry vision, change in vision or diplopia ENT ENT ED: Denies rhinorrhea Cardiovascular Cardiovascular: Denies chest pain, orthopnea, palpitations or racing heartbeat Respiratory/Chest Respiratory/Chest: Denies cough, dyspnea, dyspnea on exertion or orthopnea Gastrointestinal Gastrointestinal: Denies nausea or vomiting Genitourinary Genitourinary ED: Denies urinary frequency Musculoskeletal Musculoskeletal: Denies arthralgias or myalgias Integumentary Denies rash Neurologic Neurologic: Denies headache(s), paresthesias or weakness Psychiatric Psychiatric: Reports anxiety Endocrine Endocrinology: Denies polydipsia or polyuria Allergic/Immunologic Allergic/Immunologic ED: Denies mouth swelling or urticaria EXAM Physical Exam Const Vital Signs: 10/29/21 08:01 10/29/21 08:10 10/29/21 08:11 Temperature 96.5 F L Temperature Source Temporal Pulse Rate 67 66 Respiratory Rate 15 Respiratory Effort Normal Non-Labored Respiratory Pattern Normal Blood Pressure 218/76 H Blood Pressure Mean 123 Pulse Ox 100 97 Oxygen Delivery Method Room Air Room Air 10/29/21 08:53 10/29/21 09:20 Temperature Temperature Source Pulse Rate 54 L 54 L Respiratory Rate 12 7 L Respiratory Effort Respiratory Pattern Blood Pressure 190/64 H 203/74 H Blood Pressure Mean 106 117 Pulse Ox 95 95 Oxygen Delivery Method Room Air Room Air Positive well nourished and well developed General Appearance ED: well developed and NAD; Negative for cyanotic or diaphoretic HEENT Reports moist mucous membranes Negative for trauma Eyes General Eye ED: Negative for pale conjunctiva or scleral icterus Neck no JVD Chest Wall inspection of chest normal Resp normal respiratory effort and clear to auscultation bilaterally Effort and Inspection: Negative for pain with movement Auscultation: Negative for rales, rhonchi or wheezes Cardio regular rate Rate: other Other Details: Heart rate is at the slower end at approximately 60. GI normal to inspection, nondistended, normoactive bowel sounds and non-tender Palpation: soft Back/Spine no CVA tenderness Extremity normal to inspection General Extremety ED: Negative for tenderness Neuro oriented x3 and no sensory deficits noted Sensorium / Orientation: alert; Negative for orientation impaired, lethargic or stuporous Motor Exam: Negative for general weakness or strength abnormal Psych mental status grossly normal Skin no rashes or lesions noted MDM MDM MDM Narrative Medical decision making narrative: Patient had recently had her medicines. Her blood pressure is 218/76. It is rechecked at 199/65. She has a heart rate in the low 60s. I do not think I can increase her metoprolol. She has isolated systolic hypertension. This is quite difficult to manage. She had a recent blood work that was normal. We will watch her here. At this point, I will not add further medications. I will see how her medications do. She really needs aggressive outpatient management and follow-up. Patient's had several blood pressures in the 190s over 60s. I do not think this requires treatment. She has had recent blood work. She has years of hypertension. She has follow-up tomorrow with her primary physician. She has further testing on the of this month and sees cardiology on the . I think she is safe for discharge. She will continue her medications. This patient really has isolated systolic hypertension. She is essentially asymptomatic and has had recent work-up with blood work. She has good follow-up. I do not think we need to repeat work-up at this time. Discharge Plan Triage Chief Complaint: Hypertension ED Provider: John Medina Dx/Rx/DC Orders Clinical Impression: Hypertension Instructions: ED High Blood Pressure Hypertension Prescriptions: No Action metoprolol succinate 50 MG tablet 100 mg PO DAILY RF: 0 losartan 100 MG tablet 100 mg PO DAILY RF: 0 fluticasone propionate 50 mcg/actuation spray,suspension 2 spray INTRANASAL DAILY RF: 0 citalopram 10 mg tablet 10 mg PO DAILY RF: 0 hydralazine 10 mg tablet 10 mg PO Q6H RF: 0 losartan 25 mg tablet 25 mg PO DAILY RF: 0 hydrochlorothiazide 25 mg tablet 25 mg PO QODAY Qty: 14 RF: 0 Primary Care Provider: Quiana Healy Referrals: Quiana Healy DO [Primary Care Provider] - As soon as possible Disposition Disposition: Home, Self Care
[2021-10-29 08:53] VITALS: BP 190/64; PULSE 54; RESP 12; O2SAT 95
[2021-10-29 09:20] VITALS: BP 203/74; PULSE 54; RESP 7; O2SAT 95
[2021-10-29 10:18] VITALS: BP 189/77; PULSE 51; RESP 13; O2SAT 97
== END 2021-10-29 10:19 | disposition home or self-care (01) ==
PROVIDERS: Emergency Provider Emergency Medicine; PCP Family Medicine; Visit Provider Emergency Medicine
DX: I10 Essential (primary) hypertension (principal); G47.30 Sleep apnea, unspecified; Z87.891 Personal history of nicotine dependence
CPT/HCPCS: 99282; A4216

== ENCOUNTER 2021-11-05 11:05 | Inpatient (IN) | payer MEDICARE, SELFPAY ==
[2021-11-05] VITALS (8 sets, daily range): BP systolic 91–208; BP diastolic 50–78; PULSE 49–91; RESP 11–16; TEMP 35.9–36.6; O2SAT 96–99; BMI 30.8; BMI 30.4
--- NOTE | 2021-11-05 11:55 | EKG12_ITS ---
Test Reason : Blood Pressure : / mmHG Vent. Rate : 047 BPM Atrial Rate : 047 BPM P-R Int : 214 ms QRS Dur : 096 ms QT Int : 480 ms P-R-T Axes : 074 -38 049 degrees QTc Int : 424 ms Sinus bradycardia with 1st degree A-V block Left axis deviation Abnormal ECG Confirmed by TK JENKINS, LIVE ([id number]), restaurant expeditor MYRIAM CHRISTIANSON ([id number]) on 11/06/2021 9:48:34 AM Referred By: GRABIEL Confirmed By:LIVE FREY MD
--- NOTE | 2021-11-05 11:55 | CT_ITS ---
STUDY: CT BRAIN WITHOUT CONTRAST REASON FOR EXAM: Female, 80 years old. CONFUSION RADIATION DOSAGE (If Supplied By Facility): CTDIvol = ( 44.99 ) mGy, DLP = ( 796.11 ) mGycm TECHNIQUE: Transaxial CT imaging of the brain was performed without administration of intravenous contrast material. Individualized dose optimization techniques were used for this CT. COMPARISON: No relevant priors. FINDINGS: Normal soft tissue structures. Normal calvarium. There is mild cerebral atrophy with widening of the extra-axial spaces and ventricular dilatation. There are areas of decreased attenuation within the white matter tracts of the supratentorial brain, consistent with microvascular disease changes. Normal basal ganglia and thalami. Normal brainstem. Normal cerebellum. There is no intracranial hemorrhage. There are no findings of an acute ischemic infarction. Atherosclerotic calcification of the cavernous portions of the internal carotid arteries bilaterally. Normal visualized paranasal sinuses. CT/Brain/Head without Contrast IMPRESSION: Chronic involutional changes of the brain. Electronically Signed: Shorty Church MD at 13:48 EST ,
--- NOTE | 2021-11-05 11:56 | EX.ED.DYSGE1 ---
HPI History of Present Illness Chief Complaint: Confusion Narrative Narrative: Patient presents with her daughter who is also her out patient therapist for confusion that happened over the last few days. They were at her kidney doctors office where she had confusion and a blank stare for approximately 5 minutes. She did not have a syncopal episode or collapse. They state that she started signing papers and the first 1 was signed correctly, the second started going up and the third 1 down. She was unresponsive and would not speak, and would not answer. Her daughter states that yesterday everything was fine but the day before she might have been more confused where she could not remember the medications that she was taking and she usually does. Patient denies any headache. No paresthesias. While she states she feels back to normal, she feels very tired. She has had problems with her blood pressure in the sense that she was told to have a target blood pressure one to take her medication. She started taking clonidine when her blood pressure ranges from 1 40-1 60 systolic. She took 1 this morning before she went to the physician's office. Her daughter states that her blood pressure was 121 systolic at the doctor's office. They present her because of this confusion and blank stare with unresponsiveness for 5 minutes that has resolved. [facility] Medical History (Updated 11/05/21 @ 14:52 by Lamont Frankel MD) Anxiety Arthritis Diverticula of colon Former smoker Hypertension PVC (premature ventricular contraction) Sleep apnea Home Medications losartan 100 mg PO DAILY 12/14/15 [History Last Taken 11/06/16] metoprolol succinate 100 mg PO DAILY 12/14/15 [History Last Taken 11/06/16] fluticasone propionate 2 spray INTRANASAL DAILY 06/22/21 [History Last Taken Unknown] citalopram 10 mg PO DAILY 10/25/21 [History Last Taken Unknown] hydralazine 10 mg PO Q6H 10/26/21 [History Last Taken Unknown] hydrochlorothiazide 25 mg PO QODAY #14 tab 10/26/21 [Rx Last Taken Unknown] losartan 25 mg PO DAILY 10/26/21 [History Last Taken Unknown] ciprofloxacin HCl [Cipro] 500 mg PO BID 11/05/21 [History Last Taken Unknown] clonidine HCl 0.1 mg PO Q4H PRN PRN 11/05/21 [History Last Taken Unknown] Allergy/AdvReac Type Severity Reaction Status Date / Time benazepril HCl Allergy Other Verified 11/05/21 11:06 [From Lotensin] felodipine Allergy Other Verified 11/05/21 11:06 fexofenadine HCl Allergy Other Verified 11/05/21 11:06 [From Uyen] ramipril [From Altace] Allergy Other Verified 11/05/21 11:06 tolterodine tartrate Allergy Other Verified 11/05/21 11:06 [From Detrol] verapamil HCl Allergy Other Verified 11/05/21 11:06 [From Covera-HS] AUGMENTED BETAMETHASONE Allergy Other Uncoded 11/05/21 11:06 DIPROP Surgical History History of colon resection Social History household members: spouse Smoking Status: Former smoker alcohol intake: current alcohol intake frequency: other substance use type: does not use ROS ROS ED ROS Narrative Constitutional: No fever, no chills. HEENT: No sore throat. No neck pain. No loss of vision. No rhinorrhea. Cardiovascular: No chest pain. No palpitations. No pedal edema. Respiratory: No cough, no shortness of breath. Abdominal: No abdominal pain. No nausea. No vomiting. Genitourinary: No dysuria. No hematuria. Musculoskeletal: No myalgias. No arthralgias. Neurologic: No headaches. No dizziness. No lightheadedness. Unresponsive for 5 minutes at doctor's office. Positive blank stare. Reported confusion. Skin: No rash. No change in color. Psychiatric: No depression. No anxiety. EXAM Physical Exam Narrative Exam Narrative: Afebrile. Vital signs noted. HEENT: Normocephalic. Atraumatic. PERRL, EOMI. Neck soft and supple. No point tenderness or step off. Cardiovascular: Regular rate and rhythm. No murmurs, rubs, or gallops appreciated. Respiratory: No tachypnea. Lungs clear to auscultation bilaterally. Gastrointestinal: Abdomen soft, nontender, with normoactive bowel sounds. No rebound or guarding. Neurological: Awake. Alert. Oriented x3. Nonfocal, nonlateralizing. NIH stroke scale is 0. Skin: No rash. Normal color. No pallor. Musculoskeletal: No pedal edema. Full range of motion extremities. Const Vital Signs: 11/05/21 11:06 11/05/21 13:42 11/05/21 14:34 Temperature 96.7 F L 97.8 F Temperature Source Temporal Temporal Pulse Rate 91 52 L 49 L Respiratory Rate 16 14 11 L Blood Pressure 91/55 L 159/69 H 208/78 H Blood Pressure Mean 67 99 121 Pulse Ox 96 99 99 Oxygen Delivery Method Room Air Room Air Room Air MDM MDM MDM Narrative Medical decision making narrative: Comprehensive work-up was pursued. Her EKG demonstrates sinus bradycardia with first-degree AV block but no acute ST changes. She has normal white count of 10.1, hemoglobin slightly elevated at 15.3. Her sodium is low at 124. She had a history of hyponatremia and that is why she was at the kidney doctors according to her daughter. She has normal potassium of 3.6. Chloride low at 89. Glucose appropriately elevated at 115 with a normal anion gap of 7. Lactic acid is normal at 0.6. Urinalysis shows no evidence of infection with 0-5 WBCs which is within normal limits and negative leukocyte esterase and negative nitrites. Her chest x-ray shows no acute process. CT of the brain shows chronic involutional changes. At this point in time, her confusion may have been from her low sodium. Her blood pressure is now elevated at 199. This may be rebound hypertension from her clonidine, and she also states that she is mildly anxious. She was given hydralazine 10 mg intravenously as she usually takes hydralazine 4 times a day. I will discuss patient with the hospitalist for admission. I discussed patient with Dr. Briscoe. She will be admitted to the PCU. She is in stable condition. Lab Data Labs: Laboratory Results - last 24 hr 11/05/21 11/05/21 11/05/21 13:19 13:32 13:32 WBC 10.1 RBC 5.25 Hgb 15.3 H Hct 43.4 MCV 82.7 MCH 29.1 MCHC 35.3 RDW Std Deviation 37.3 RDW Coeff of Milena 12.2 Plt Count 317 MPV 8.7 Immature Gran % (Auto) 0.300 Neut % (Auto) 75.9 H Lymph % (Auto) 13.3 L [place] % (Auto) 8.7 Eos % (Auto) 1.3 Baso % (Auto) 0.5 Absolute Neuts (auto) 7.6 Absolute Lymphs (auto) 1.34 Nucleated RBC % 0 Sodium 124 L Potassium 3.6 Chloride 89 L Carbon Dioxide 28.0 Anion Gap 7 BUN 13 Creatinine 0.82 Estim Creat Clear Calc 43.76 Est GFR (MDRD) Af Amer 85 Est GFR (MDRD) Non-Af 71 BUN/Creatinine Ratio 15.8 Glucose 115 H Lactic Acid Calcium 8.6 Total Bilirubin 0.50 AST 16 ALT 28 Alkaline Phosphatase 86 Total Protein 7.2 Albumin 3.8 Globulin 3.4 Albumin/Globulin Ratio 1.1 Urine Color Yellow Urine Clarity Clear Urine pH 6.0 Ur Specific [place] 1.010 Urine Protein 15 H Urine Glucose (UA) Normal Urine Ketones 5 H Urine Occult Blood Negative Urine Nitrite Negative Urine Bilirubin Negative Urine Urobilinogen Normal Ur Leukocyte Esterase Negative Urine RBC 0 SEEN Urine WBC 0-5 SEEN Ur Squamous Epith Cells 5-10 SEEN Urine Bacteria 1+ Urine Mucus 0 SEEN 11/05/21 13:32 WBC RBC Hgb Hct MCV MCH MCHC RDW Std Deviation RDW Coeff of Milena Plt Count MPV Immature Gran % (Auto) Neut % (Auto) Lymph % (Auto) [place] % (Auto) Eos % (Auto) Baso % (Auto) Absolute Neuts (auto) Absolute Lymphs (auto) Nucleated RBC % Sodium Potassium Chloride Carbon Dioxide Anion Gap BUN Creatinine Estim Creat Clear Calc Est GFR (MDRD) Af Amer Est GFR (MDRD) Non-Af BUN/Creatinine Ratio Glucose Lactic Acid 0.6 Calcium Total Bilirubin AST ALT Alkaline Phosphatase Total Protein Albumin Globulin Albumin/Globulin Ratio Urine Color Urine Clarity Urine pH Ur Specific [place] Urine Protein Urine Glucose (UA) Urine Ketones Urine Occult Blood Urine Nitrite Urine Bilirubin Urine Urobilinogen Ur Leukocyte Esterase Urine RBC Urine WBC Ur Squamous Epith Cells Urine Bacteria Urine Mucus Radiography Diagnostic Testing: Clinical Impression(s) from Imaging Studies Brain CT 11/05/21 11:55 IMPRESSION: Chronic involutional changes of the brain. Electronically Signed: Shorty Church MD at 13:48 EST , Chest X-Ray 11/05/21 12:40 IMPRESSION: No acute abnormality is seen. Electronically Signed: Shorty Church MD at 12:50 EST , Discharge Plan Dx/Rx/DC Orders Clinical Impression: Confusion, Hyponatremia, Altered mental status, unspecified Disposition Disposition: Acute Care Hospital [facility]
--- NOTE | 2021-11-05 12:40 | RAD_ITS ---
STUDY: X-RAY CHEST REASON FOR EXAM: Female, 80 years old. Episode of confusion. Generalized weakness. TECHNIQUE: Single AP portable view of the chest. COMPARISON: Comparison is made with prior study 10/25/2021. FINDINGS: The lungs are clear and expanded. There is no demonstrated pleural abnormality. Normal size heart. Normal mediastinum and ellen. Normal visualized pulmonary arteries. There is atherosclerotic tortuosity of the aortic arch and descending thoracic aorta. There are diffuse degenerative changes of the visualized thoracic spine. There is degenerative osteoarthritis of the bilateral shoulders. There is no demonstrated abnormality of the visualized soft tissue structures of the upper abdomen. RAD/Chest 1 View (Portable) IMPRESSION: No acute abnormality is seen. Electronically Signed: Shorty Church MD at 12:50 EST ,
[2021-11-05 13:46] LABS: Absolute Lymphocyte Count 1.34 X10^3/uL (0.83-4.51); Absolute Neutrophil Count 7.6 X10^3/uL (2.0-7.7); Basophil# 0.05 X10^3/uL; Basophil% 0.5 % (0-1); Eosinophil# 0.13 X10^3/uL; Eosinophils% 1.3 % (0-5); Hematocrit 43.4 % (37-47); Hemoglobin 15.3 g/dL (12.0-15.0); Lymphocyte # 1.34 X10^3/ul (0.83-4.51); Lymphocyte % 13.3 % (19-41); Mean Corp Hgb Conc 35.3 g/dL (32-36); Mean Corpuscular Hgb 29.1 pg (27.0-32.0); Mean Corpuscular Volume 82.7 fL (81-99); Mean Platelet Vol. 8.7 fl (6.2-12.0); Monocyte# 0.88 X10^3/uL; Monocyte% 8.7 % (0-10); NRBC Flagged by Analyzer 0 % (0-5); Neutrophil # 7.64 X10^3/uL (2.7-7.7); Neutrophil % 75.9 % (47-70); Platelet Count 317 K/mm3 (150-450); RBC Distribution Width CV 12.2 % (11.6-14.6); RBC Distribution Width SD 37.3 fl (35.1-43.9); Red Blood Count 5.25 M/mm3 (4.2-5.4); White Blood Count 10.1 K/mm3 (4.4-11.0)
[2021-11-05] MEDS: 0.9% Normal Saline 1,000 ML 1000 ML IV (13:46)
[2021-11-05 13:50] LABS: Color, Urine Yellow (Yellow); Glucose, Dipstick Normal (Normal); Ketone-Dipstick 5 mg/dl (Negative); Leukocyte Esterase-Dipstick Negative /ul (Negative); Mucous, Urine 0 SEEN /hpf (<or=2+); Nitrite-Dipstick Negative (Negative); Occult Blood-Urine Negative /ul (Negative); Protein-Dipstick 15 mg/dl (Negative); Red Blood Cells-Urine 0 SEEN /hpf (0-5); Urine Bilirubin Dipstick Negative (Negative); Urine Clarity Clear (Clear); Urine Urobilinogen Normal (Normal)
[2021-11-05 13:53] LABS: ALB/GLOB Ratio 1.1 RATIO (0.9-2.4); AST(SGOT) 16 U/L (15-37); Alanine Aminotransfer ALT/SGPT 28 U/L (13-56); Albumin, Serum 3.8 g/dL (3.2-5.0); Alkaline Phosphatase 86 U/L (45-117); Anion Gap 7 (5-15); BUN 13 mg/dL (7-18); BUN/Creat Ratio 15.8 RATIO (10-20); Calcium,Total 8.6 mg/dL (8.5-10.1); Chloride 89 mmol/L (98-107); Creatinine, Serum 0.82 mg/dL (0.55-1.02); EST Glomerular Filtration Rate 71 mL/min (>60); Est Glom Filt Rate - Afr Amer 85 mL/min (>60); Estimated Creatinine Clearance 43.76 ml/min; Globulin 3.4 g/dL (2.2-4.2); Glucose 115 mg/dL (74-106); Potassium 3.6 mmol/L (3.5-5.1); Protein, Total 7.2 g/dL (6.4-8.2); Sodium Level 124 mmol/L (136-145)
[2021-11-05 13:56] LABS: Bacteria 1+ /hpf (None Seen); White Blood Cells 0-5 SEEN /hpf (0-5)
[2021-11-05 13:57] LABS: Squamous Epithelial Cells - UA 5-10 SEEN /hpf (5-10)
[2021-11-05 14:05] LABS: Lactic Acid 0.6 mmol/L (0.4-1.9)
--- NOTE | 2021-11-05 14:26 | HP.PCM.HOS_ITS ---
HPI - General General Date of Admission: 11/05/21 HPI Narrative NORM MOSES, is a 80 F with a PMH as outlined who presents via the ED with a complaint of altered mental status. She was at her materials planning manager's for hyponatremia follow up. She got confused in the materials planning manager's office; she got confused whilst signing some papers. She was initially able to sign some documents, but subsequently her signing became altered. She was also noted to be unresponsive for a few mins, but subsequently came to. She has a history of high blood pressure and says her PCP gave her clonidine tablets to take when her BP was running high, >160 systolic, according to patient. She took her metoprolol a nd losartan this morning; she checked her BP about an hour later and it was still elevated, so she took a clonidine tablet today. She later felt weak and dizzy in the materials planning manager's office, and was noted to be confused, as described above. Her BP was checked and it had dropped to 90s systolic. Her symptoms subseqeuntly improved. She also says she is being treated for a kidney infection on the basis of a urinalysis done, according to patient and her daughter, and has been on ciprofloxacin. She had no associated fever, chills, nausea, vomiting, tremors, mouth droop, numbness or tingling or weakness. Review of systems was otherwise negative. Vitals showed BP of 159/69, MO of 52, RR of 14 and she was saturating at 99% on room air. CBC was unremarkable and BMP showed sodium of 124, potassium of 3.6, chloride of 89 and Cr of 0.82. Urinalysis showed 1+ bacteria but no wbc or leucocyte esterase. CT of the brain showed only chronic involutional changes, and showed no acute intracranial patho logy. She is being admitted to be managed for acute metabolic encephalopathy, and hyponatremia. [facility] Medical History (Updated 11/05/21 @ 14:52 by Lamont Frankel MD) Anxiety Arthritis Diverticula of colon Former smoker Hypertension PVC (premature ventricular contraction) Sleep apnea Home Medications losartan 100 mg PO DAILY 12/14/15 [History Last Taken 11/06/16] metoprolol succinate 100 mg PO DAILY 12/14/15 [History Last Taken 11/06/16] citalopram 10 mg PO DAILY 10/25/21 [History Last Taken Unknown] hydralazine 10 mg PO Q6H 10/26/21 [History Last Taken Unknown] hydrochlorothiazide 25 mg PO QODAY #14 tab 10/26/21 [Rx Last Taken Unknown] losartan 25 mg PO DAILY 10/26/21 [History Last Taken Unknown] ciprofloxacin HCl [Cipro] 500 mg PO BID 11/05/21 [History Last Taken Unknown] clonidine HCl 0.1 mg PO Q4H PRN PRN 11/05/21 [History Last Taken Unknown] Allergy/AdvReac Type Severity Reaction Status Date / Time benazepril HCl Allergy Other Verified 11/05/21 11:06 [From Lotensin] felodipine Allergy Other Verified 11/05/21 11:06 fexofenadine HCl Allergy Other Verified 11/05/21 11:06 [From Uyen] hydralazine Allergy Rash Verified 11/05/21 15:22 ramipril [From Altace] Allergy Other Verified 11/05/21 11:06 tolterodine tartrate Allergy Other Verified 11/05/21 11:06 [From Detrol] verapamil HCl Allergy Other Verified 11/05/21 11:06 [From Covera-HS] AUGMENTED BETAMETHASONE Allergy Other Uncoded 11/05/21 11:06 DIPROP Surgical History History of colon resection Social History household members: spouse Smoking Status: Former smoker alcohol intake: current alcohol intake frequency: other substance use type: does not use ROS Constitutional Constitutional: Denies chills, fatigue, fever(s), malaise or weakness Eyes Eyes: Denies change in vision ENT HEENT: Denies dysphagia, headache(s), hearing loss, nasal congestion, nasal discharge or sore throat Cardiovascular Cardiovascular: Denies chest pain, dyspnea on exertion, edema, lightheadedness, orthopnea, palpitations, paroxysmal nocturnal dyspnea, rapid heart rate or syncope Respiratory/Chest Respiratory/Chest: Denies cough, dyspnea, productive cough, shortness of breath at rest or shortness of breath with exertion Gastrointestinal Gastrointestinal: Denies abdominal pain, diarrhea, dyspepsia, nausea or vomiting Genitourinary Genitourinary: Denies burning urination, dysuria or urinary frequency Musculoskeletal Musculoskeletal: Denies arthralgias, back pain or myalgias Neurologic Neurologic: Reports confusion; Denies dizziness, focal weakness, headache(s), numbness, paresthesias, seizure-like activity, seizures, syncope, tingling or tremor(s) Psychiatric Psychiatric: Denies anxiety Endocrine Endocrinology: Denies change in body appearance Hematologic/Lymphatic Hematologic/Lymphatic: Denies anemia Vital Signs Vital Signs Vital Signs: 11/05/21 11:06 11/05/21 13:42 Temperature 96.7 F L Temperature Source Temporal Pulse Rate 91 52 L Respiratory Rate 16 14 Blood Pressure 91/55 L 159/69 H Blood Pressure Mean 67 99 Pulse Ox 96 99 Oxygen Delivery Method Room Air Room Air Weight Weight: 174 lb 0.013 oz Body Mass Index (BMI) 30.8 Physical Exam Const alert and no apparent distress General Appearance: cooperative HEENT normocephalic, head/scalp atraumatic and hearing grossly normal bilaterally HEENT Narrative: dry oral mucosal membranes Eyes PERRL, EOMs intact bilaterally and conjunctivae normal Neck no lymphadenopathy, supple and no JVD Resp normal respiratory effort, no retractions, no use of accessory muscles and clear to auscultation bilaterally Cardio regular rate, regular rhythm, S1 normal heart sound, S2 normal heart sound and no murmurs GI normal to inspection, nondistended, normoactive bowel sounds, soft to palpation, non-tender and non-distended Extremity normal to inspection, full ROM and no clubbing, cyanosis or edema Peripheral Pulses: Yes pulses 2+ throughout Skin no rashes or lesions noted Neuro oriented x3, CN's II-XII intact bilaterally and moves all extremities Sensorium / Orientation: awake and alert Psych Mood & Affect: anxious Results Lab / Micro Data Result Diagrams: 11/05/21 13:32 11/05/21 13:32 Labs: Laboratory Results - last 24 hr 11/05/21 13:19: Urine Color Yellow, Urine Clarity Clear, Urine pH 6.0, Ur Specific [place] 1.010, Urine Protein 15 H, Urine Glucose (UA) Normal, Urine Ketones 5 H, Urine Occult Blood Negative, Urine Nitrite Negative, Urine Bilirubin Negative, Urine Urobilinogen Normal, Ur Leukocyte Esterase Negative, Urine RBC 0 SEEN, Urine WBC 0-5 SEEN, Ur Squamous Epith Cells 5-10 SEEN, Urine Bacteria 1+, Urine Mucus 0 SEEN 11/05/21 13:32: WBC 10.1, RBC 5.25, Hgb 15.3 H, Hct 43.4, MCV 82.7, MCH 29.1, MCHC 35.3, RDW Std Deviation 37.3, RDW Coeff of Milena 12.2, Plt Count 317, MPV 8.7, Immature Gran % (Auto) 0.300, Neut % (Auto) 75.9 H, Lymph % (Auto) 13.3 L, [place] % (Auto) 8.7, Eos % (Auto) 1.3, Baso % (Auto) 0.5, Absolute Neuts (auto) 7.6, Absolute Lymphs (auto) 1.34, Nucleated RBC % 0 11/05/21 13:32: Sodium 124 L, Potassium 3.6, Chloride 89 L, Carbon Dioxide 28.0, Anion Gap 7, BUN 13, Creatinine 0.82, Estim Creat Clear Calc 43.76, Est GFR (MDRD) Af Amer 85, Est GFR (MDRD) Non-Af 71, BUN/Creatinine Ratio 15.8, Glucose 115 H, Calcium 8.6, Total Bilirubin 0.50, AST 16, ALT 28, Alkaline Phosphatase 86, Total Protein 7.2, Albumin 3.8, Globulin 3.4, Albumin/Globulin Ratio 1.1 11/05/21 13:32: Lactic Acid 0.[address] 11/05/21 11:55 IMPRESSION: Chronic involutional changes of the brain. Electronically Signed: Shorty Church MD at 13:48 EST , Chest X-Ray 11/05/21 12:40 IMPRESSION: No acute abnormality is seen. Electronically Signed: Shorty Church MD at 12:50 EST , Assessment & Plan Assessment/Plan (1) Hyponatremia: (2) Acute metabolic encephalopathy: PLAN: #Acute metabolic encephalopathy * I suspect this is likely due to hypotension from her BP meds as her BP dropped to 90s systolic after she took her clonidine tablet; her BP was apparently elevated in the 180s before she took the clonidine. Hyponatremia may also be contributing to her brief encephalopathy * had a brief episode of staring and being unresponsive and that quickly resolved * admit to PCU * CT of the brain showed no acute intracranial pathology * I think a seizure is quite unlikely since she has other clear precipitating factors * check orthostatics * PT/OT consult * fall precautions * hydrate with iVF * #Hyponatremia: Na is 124. This is chronic. Hydrate with IVF and trend. consult nephrology. Hold HCTZ #Hypertension: * poorly controlled. * on losartan and metoprolol as well as HCTZ and PO hydralazine. Hold HCTZ due to hyponatremia. * IV hydralazine prn * hold clonidine as it can drop her BP quite steeply. * will hold PO hydralazine as patient has a rash on her face and there is concern about possible drug induced lupus. * continue losartan and metoprolol. IV hydralazine prn * #Bradycardia: HR was down in the 50s, but came up to 66. Will monitor. EKG showed first degree AV block. #Anxiety * patient is very anxious, and this appears to contribute to her poorly controlled BP * on citalopram * PO ativan prn * DVT prophylaxis: lovenox Code status: full code * Patient and daughter counseled extensively about different types of CODE STATUS including full code, DNR CCA and DNR CCA. Patient elects to be full code. * Total [id number] time 16 minutes. Charges/Coding Visit Charges OBSV E&M: 79889 Initial observation care L2 Procedures Hospitalists Procedures: 12564 Advncd Care Plan 30 Min
[2021-11-05] MEDS: hydrALAZINE 20 MG/ML Vial 10 MG IV (14:40)
[2021-11-05] MEDS: 0.9% Normal Saline 1,000 ML 125 ML IV ×2 (16:25→23:07)
[2021-11-05 16:39] LABS: Osmolality, Serum 263 mOsm/KG (280-301)
[2021-11-05] MEDS: LORazepam 1 MG Tablet PO (16:59)
[2021-11-05 17:18] LABS: Osmolality, Urine 163 mOsm/KG; Urine Sodium 43 mmol/L (Not Establ.)
[2021-11-06] VITALS (7 sets, daily range): BP systolic 159–177; BP diastolic 61–64; PULSE 56–75; RESP 16–18; TEMP 36.8–36.9; O2SAT 96–98
--- NOTE | 2021-11-06 07:23 | PN.HOSP_ITS ---
Objective Data Objective Data Vital Signs: Vital Signs Temp Pulse Resp BP Pulse Ox 98.2 F 61 16 164/64 H 97 11/06/21 04:00 11/06/21 04:00 11/06/21 04:00 11/06/21 04:00 11/06/21 04:00 Oxygen Delivery Method Room Air Weight: 172 lb 3.2 oz Body Mass Index (BMI) 30.4 Intake & Output: Intake and Output for Last 24 Hours 11/04/21 11/05/21 11/06/21 23:59 23:59 23:59 Intake Total 2077.5 / 2217.5 140 / 140 Balance 2077.5 / 2217.5 140 / 140 Lab / Micro Data Result Diagrams: 11/05/21 13:32 11/05/21 13:32 Labs: Laboratory Results - last 24 hr 11/05/21 13:19: Urine Color Yellow, Urine Clarity Clear, Urine pH 6.0, Ur Specific [place] 1.010, Urine Protein 15 H, Urine Glucose (UA) Normal, Urine Ketones 5 H, Urine Occult Blood Negative, Urine Nitrite Negative, Urine Bilirubin Negative, Urine Urobilinogen Normal, Ur Leukocyte Esterase Negative, Urine RBC 0 SEEN, Urine WBC 0-5 SEEN, Ur Squamous Epith Cells 5-10 SEEN, Urine Bacteria 1+, Urine Mucus 0 SEEN 11/05/21 13:32: WBC 10.1, RBC 5.25, Hgb 15.3 H, Hct 43.4, MCV 82.7, MCH 29.1, MC HC 35.3, RDW Std Deviation 37.3, RDW Coeff of Milena 12.2, Plt Count 317, MPV 8.7, Immature Gran % (Auto) 0.300, Neut % (Auto) 75.9 H, Lymph % (Auto) 13.3 L, [place] % (Auto) 8.7, Eos % (Auto) 1.3, Baso % (Auto) 0.5, Absolute Neuts (auto) 7.6, Absolute Lymphs (auto) 1.34, Nucleated RBC % 0 11/05/21 13:32: Sodium 124 L, Potassium 3.6, Chloride 89 L, Carbon Dioxide 28.0, Anion Gap 7, BUN 13, Creatinine 0.82, Estim Creat Clear Calc 43.76, Est GFR (MDRD) Af Amer 85, Est GFR (MDRD) Non-Af 71, BUN/Creatinine Ratio 15.8, Glucose 115 H, Calcium 8.6, Total Bilirubin 0.50, AST 16, ALT 28, Alkaline Phosphatase 86, Total Protein 7.2, Albumin 3.8, Globulin 3.4, Albumin/Globulin Ratio 1.1 11/05/21 13:32: Lactic Acid 0.6 11/05/21 15:19: Serum Osmolality 263 L 11/05/21 17:05: Urine Osmolality 163, Ur Random Sodium 43 Radiography Diagnostic Testing: Radiology Impression Brain CT 11/05/21 11:55 IMPRESSION: Chronic involutional changes of the brain. Electronically Signed: Shorty Church MD at 13:48 EST , Chest X-Ray 11/05/21 12:40 IMPRESSION: No acute abnormality is seen. Electronically Signed: Shorty Church MD at 12:50 EST , Physical Exam Const alert and no apparent distress General Appearance: cooperative HEENT normocephalic, head/scalp atraumatic and hearing grossly normal bilaterally Eyes PERRL, EOMs intact bilaterally and conjunctivae normal Neck no lymphadenopathy, supple and no JVD Resp normal respiratory effort, no retractions, no use of accessory muscles and clear to auscultation bilaterally Cardio regular rate, regular rhythm, S1 normal heart sound, S2 normal heart sound and no murmurs GI normal to inspection, nondistended, normoactive bowel sounds, soft to palpation, non-tender and non-distended Extremity normal to inspection, full ROM and no clubbing, cyanosis or edema Skin no rashes or lesions noted Neuro oriented x3, CN's II-XII intact bilaterally and moves all extremities Sensorium / Orientation: awake and alert Psych affect normal Mood & Affect: anxious Assessment & Plan Assessment/Plan (1) Hyponatremia: (2) Acute metabolic encephalopathy: PLAN: #Acute metabolic encephalopathy * I suspect this is likely due to hypotension from her BP meds as her BP dropped to 90s systolic after she took her clonidine tablet; her BP was apparently elevated in the 180s before she took the clonidine. Hyponatremia may also be contributing to her brief encephalopathy * had a brief episode of staring and being unresponsive and that quickly resolved * admit to PCU * CT of the brain showed no acute intracranial pathology * I think a seizure is quite unlikely since she has other clear precipitating factors * check orthostatics * PT/OT consult * fall precautions * hydrate with iVF * #Hyponatremia: Na is 124. This is chronic. Hydrate with IVF and trend. consult nephrology. Hold HCTZ #Hypertension: * poorly controlled. * on losartan and metoprolol as well as HCTZ and PO hydralazine. Hold HCTZ due to hyponatremia. * IV hydralazine prn * hold clonidine as it can drop her BP quite steeply. * will hold PO hydralazine as patient has a rash on her face and there is concern about possible drug induced lupus. * continue losartan and metoprolol. IV hydralazine prn * #Bradycardia: HR was down in the 50s, but came up to 66. Will monitor. EKG showed first degree AV block. #Anxiety * patient is very anxious, and this appears to contribute to her poorly controlled BP * on citalopram * PO ativan prn * DVT prophylaxis: lovenox Code status: full code * Patient and daughter counseled extensively about different types of CODE STATUS including full code, DNR CCA and DNR CCA. Patient elects to be full code. * Total [id number] time 16 minutes.
--- NOTE | 2021-11-06 08:00 | RDU_ITS ---
Reason For Study: Uncontrolled hypertension Right Renal Artery Left Renal Artery Right renal artery ostium Left renal artery ostium 129/20.7 134.8/27.7 RSV/EDV. PSV/EDV. Right renal artery proximal Left renal artery proximal PSV/EDV 162.7/30 PSV/EDV. 146.1/22.6 . Right renal artery mid 168.8/19.5 Left renal artery mid 139.7/33.4 PSV/EDV. PSV/EDV . Right renal artery distal Left renal artery distal 94.8/21.7 135.8/23.9 PSV/EDV. PSV/EDV. Right RAR 2.01. Left RAR 1.74. Right Renal Parenchyma Left Renal Parenchyma Upper Pole Medula 26.7/7.5 PSV/EDV. Left upper pole medulla 24/7.6 Right upper pole medulla EDR 0.28 . PSV/EDV . Right upper pole medulla R.I. Left upper pole medulla EDR 0.32 . 0.72 . Left upper pole medulla R.I. 0.68 . Upper [place] Cortx 18.5/5.7 PSV/EDV. UP Cortex 15.9/4.9 PSV/EDV. Right upper pole cortex EDR 0.31 . Left upper pole cortex EDR 0.31 . Right upper pole cortex R.I. 0.69 . Left upper pole cortex R.I. 0.69 . Right lower Pole medulla 28.5/6.6 Left lower Pole medulla 23.3/7.3 PSV/EDV . PSV/EDV . Right lower pole medulla EDR 0.23 . Left lower pole medulla EDR 0.31 . Right lower pole medulla R.I. Left lower pole medulla R.I. 0.69 . 0.77 . Lower Pole Cortx 14.7/4.9 PSV/EDV. Lower Pole Cortex 21.2/5.7 PSV/EDV. Left lower pole cortex EDR 0.33 . Right lower pole cortex EDR 0.27 . Left lower pole cortex R.I. 0.67 . Right lower pole cortex R.I. 0.73 . Left Renal Hilar Right Renal Hilar LT Hilar avg 63.8/18.1 PSV/EDV . Right Hilar avg 72.3/7.6 PSV/EDV. Left hilar acceleration time 30 Right hilar acceleration time 40 m/sec. m/sec. Left Renal Dimensions Right Renal Dimensions Left kidney size 12.13 cm . Right kidney size 11.72 cm . Left cortical dimension 1.25 cm . Right cortical dimension 1.37 cm . Aorta Proximal abdominal aorta 1.20 x 1.22 cm . Proximal abdominal aorta peak systolic velocity is 83.9 cm/sec . Distal abdominal aorta 1.11 x 1.11 cm . Distal abdominal aorta peak systolic velocity is 94.8 cm/sec . VL/Renal Artery Duplex Ultrasound Interpretation Summary Maximal aortic diameter proximally at 1.2 x 1.22 cm in diameter with normal claudia w rate at that location. Less than 60% stenosis right renal artery Maintained right renal length of 11.72 cm Less than 60% stenosis left renal artery Maintained left renal length of 12.13 cm Ordering Physician: Charis Biswas Referring Physician: Quiana Healy Performed By: Irma Lassiter RVT
[2021-11-06 08:21] LABS: Absolute Lymphocyte Count 1.06 X10^3/uL (0.83-4.51); Absolute Neutrophil Count 4.9 X10^3/uL (2.0-7.7); Basophil# 0.03 X10^3/uL; Basophil% 0.4 % (0-1); Eosinophil# 0.14 X10^3/uL; Eosinophils% 2.1 % (0-5); Hematocrit 36.3 % (37-47); Hemoglobin 12.9 g/dL (12.0-15.0); Lymphocyte # 1.06 X10^3/ul (0.83-4.51); Lymphocyte % 15.7 % (19-41); Mean Corp Hgb Conc 35.5 g/dL (32-36); Mean Corpuscular Hgb 29.3 pg (27.0-32.0); Mean Corpuscular Volume 82.3 fL (81-99); Mean Platelet Vol. 8.8 fl (6.2-12.0); Monocyte% 8.9 % (0-10); NRBC Flagged by Analyzer 0 % (0-5); Neutrophil # 4.89 X10^3/uL (2.7-7.7); Neutrophil % 72.5 % (47-70); Platelet Count 266 K/mm3 (150-450); RBC Distribution Width CV 12.5 % (11.6-14.6); RBC Distribution Width SD 37.7 fl (35.1-43.9); Red Blood Count 4.41 M/mm3 (4.2-5.4); White Blood Count 6.8 K/mm3 (4.4-11.0)
--- NOTE | 2021-11-06 08:48 | CON.PCM.RE_ITS ---
Assessment & Plan Assessment/Plan (1) Confusion: PLAN: resolved. CT head no acute findings. Suspect due to bradycardia, hypotension from clonidine (2) Altered mental status, unspecified: PLAN: likely due to hypotension, bradycardia, medication induced on clonidine (3) Hyponatremia: PLAN: suspect due to thiazide diuretics. Agree with stopping HCTZ that was recently started (4) Hypertension: PLAN: uncontrolled past month. Check for secondary causes: DST for hypercortisolism, fractionated metanephrine, normetanephrine for pheo, renal duplex r/o YULY. (5) Bradycardia: PLAN: likely due to clonidine. Avoid for now HPI Consult Data Date of Consult: 11/06/21 HPI Narrative Reason for Consultation: uncontrolled hypertension, hyponatremia HPI Narrative: NORM MOSES, is a 80 F who was sent to ER from my office yesterday for acute mental status change. She was scheduled as initial consultation for uncontrolled hypertension and hyponatremia but was sent directly to ER for disorientation to time, unable to follow commands, change in handwriting as she was signing forms with her daughter present. She had generalized weakness, had trouble comprehending and answering questions. Complained of lightheadedness, near syncope. According to her daughter present, she was seen in ED 3 times past two weeks on 10/25, 10/26 and 10/29 and discharged to home. She has a history of hypertension but uncontrolled past month. She was started back on HCTZ and clonidine was added by pcp to be taken as needed. Daughter states she took a dose of clonidine before coming to the office yesterday. Pulse rate has been in the 40's at home. SBP in ED was in the 90's systolic. CT head no acute findings. Renal function stable but sodium level low at 124. HCTZ discontinued on admission along with hydralazine due to facial rash thought due to drug induced lupus by hospitalist. [facility] Medical History (Updated 11/06/21 @ 10:[address] Charis Biswas DO) Anxiety Arthritis Diverticula of colon Former smoker Hypertension PVC (premature ventricular contraction) Sleep apnea Home Medications losartan 100 mg PO DAILY 12/14/15 [History Last Taken 11/06/16] citalopram 10 mg PO DAILY 10/25/21 [History Last Taken Unknown] carvedilol 6.25 mg PO BID #60 tab 11/06/21 [Rx Last Taken Unknown] Allergy/AdvReac Type Severity Reaction Status Date / Time benazepril HCl Allergy Other Verified 11/05/21 11:06 [From Lotensin] felodipine Allergy Other Verified 11/05/21 11:06 fexofenadine HCl Allergy Other Verified 11/05/21 11:06 [From Uyen] hydralazine Allergy Rash Verified 11/05/21 15:22 ramipril [From Altace] Allergy Other Verified 11/05/21 11:06 tolterodine tartrate Allergy Other Verified 11/05/21 11:06 [From Detrol] verapamil HCl Allergy Other Verified 11/05/21 11:06 [From Covera-HS] AUGMENTED BETAMETHASONE Allergy Other Uncoded 11/05/21 11:06 DIPROP Surgical History History of colon resection Social History household members: spouse Smoking Status: Former smoker alcohol intake: current alcohol intake frequency: other substance use type: does not use ROS Review of Systems ROS Unobtainable: other Details: acute MS change yesterday in the office back to baseline today Constitutional Constitutional: Reports weakness; Denies chills or fever(s) Eyes Eyes: Denies blurry vision ENT HEENT: Reports dry mouth Cardiovascular Cardiovascular: Denies chest pain Respiratory/Chest Respiratory/Chest: Denies shortness of breath at rest Gastrointestinal Gastrointestinal: Denies diarrhea, nausea or vomiting Genitourinary Genitourinary: Denies difficulty urinating Musculoskeletal Musculoskeletal: Reports other Details: unsteady gait Integumentary Integumentary: Denies rash Neurologic Neurologic: Reports confusion and other Details: lightheaded Psychiatric Psychiatric: Reports anxiety Endocrine Endocrinology: Reports fatigue Hematologic/Lymphatic Hematologic/Lymphatic: Denies easy bruising Physical Exam Const alert, oriented x3 and no apparent distress HEENT normocephalic Eyes EOMs intact bilaterally Neck supple and no JVD Resp clear to auscultation bilaterally Cardio regular rate GI non-tender and non-distended Palpation: soft no CVA tenderness Back/Spine normal ROM Extremity no clubbing, cyanosis or edema Skin no rashes or lesions noted and no wounds Neuro no focal motor deficits Sensorium / Orientation: awake and alert Psych cooperative Lab / Micro Data Result Diagrams: 11/06/21 08:02 11/06/21 08:02 Labs: Laboratory Results - last 24 hr 11/05/21 13:19: Urine Color Yellow, Urine Clarity Clear, Urine pH 6.0, Ur Specific [place] 1.010, Urine Protein 15 H, Urine Glucose (UA) Normal, Urine Ketones 5 H, Urine Occult Blood Negative, Urine Nitrite Negative, Urine Bilirubin Negative, Urine Urobilinogen Normal, Ur Leukocyte Esterase Negative, Urine RBC 0 SEEN, Urine WBC 0-5 SEEN, Ur Squamous Epith Cells 5-10 SEEN, Urine Bacteria 1+, Urine Mucus 0 SEEN 11/05/21 13:32: WBC 10.1, RBC 5.25, Hgb 15.3 H, Hct 43.4, MCV 82.7, MCH 29.1, MCHC 35.3, RDW Std Deviation 37.3, RDW Coeff of Milena 12.2, Plt Count 317, MPV 8.7, Immature Gran % (Auto) 0.300, Neut % (Auto) 75.9 H, Lymph % (Auto) 13.3 L, [place] % (Auto) 8.7, Eos % (Auto) 1.3, Baso % (Auto) 0.5, Absolute Neuts (auto) 7.6, Absolute Lymphs (auto) 1.34, Nucleated RBC % 0 11/05/21 13:32: Sodium 124 L, Potassium 3.6, Chloride 89 L, Carbon Dioxide 28.0, Anion Gap 7, BUN 13, Creatinine 0.82, Estim Creat Clear Calc 43.76, Est GFR (MDRD) Af Amer 85, Est GFR (MDRD) Non-Af 71, BUN/Creatinine Ratio 15.8, Glucose 115 H, Calcium 8.6, Total Bilirubin 0.50, AST 16, ALT 28, Alkaline Phosphatase 86, Total Protein 7.2, Albumin 3.8, Globulin 3.4, Albumin/Globulin Ratio 1.1 11/05/21 13:32: Lactic Acid 0.6 11/05/21 15:19: Serum Osmolality 263 L 11/05/21 17:05: Urine Osmolality 163, Ur Random Sodium 43 11/06/21 08:02: WBC 6.8, RBC 4.41, Hgb 12.9, Hct 36.3 L, MCV 82.3, MCH 29.3, MCHC 35.5, RDW Std Deviation 37.7, RDW Coeff of [place] 12.5, Plt Count 266, MPV 8.8, Immature Gran % (Auto) 0.400, Neut % (Auto) 72.5 H, Lymph % (Auto) 15.7 L, [place] % (Auto) 8.9, Eos % (Auto) 2.1, Baso % (Auto) 0.4, Absolute Neuts (auto) 4 .9, Absolute Lymphs (auto) 1.06, Nucleated RBC % [address] 11/05/21 11:55 IMPRESSION: Chronic involutional changes of the brain. Electronically Signed: Shorty Church MD at 13:48 EST , Chest X-Ray 11/05/21 12:40 IMPRESSION: No acute abnormality is seen. Electronically Signed: Shorty Church MD at 12:50 EST ,
[2021-11-06 08:51] LABS: Anion Gap 6 (5-15); BUN 10 mg/dL (7-18); BUN/Creat Ratio 14.2 RATIO (10-20); Calcium,Total 8.1 mg/dL (8.5-10.1); Chloride 99 mmol/L (98-107); EST Glomerular Filtration Rate 85 mL/min (>60); Est Glom Filt Rate - Afr Amer 102 mL/min (>60); Estimated Creatinine Clearance 35.88 ml/min; Glucose 108 mg/dL (74-106); Potassium 3.7 mmol/L (3.5-5.1); Sodium Level 129 mmol/L (136-145)
[2021-11-06] MEDS: Losartan Potassium 100 MG Tablet PO (09:37)
[2021-11-06] MEDS: Enoxaparin 40 MG/0.4 ML Syringe SC (09:37)
[2021-11-06] MEDS: Metoprolol(XL)Succ 100 MG Tablet PO (09:37)
[2021-11-06] MEDS: Citalopram 10 MG Tablet PO (09:37)
--- NOTE | 2021-11-06 10:30 | CASEMGMT ---
IGNACIA ORONA assessment: Face to Face with patient for initial transition planning/care coordination assessment. IGNACIA ORONA introduced self and role at [facility], pt voices understanding and consents to assessment. Pt is sitting up in bed in no distress on room air. Pt is A/Ox4 and answers all questions appropriately. Care providers, pharmacy, and demographics verified. Presentation: Pt w/ episode of confusion while at nephro office-pt unable to write, speak clearly, weak-Pt now A/Ox4 and sx resolved Admitting dx: Hyponatremia, acute metabolic encephalopathy PCP: Niraj Specialists: True nephro; Arnulfo, cardio Preferred Pharmacy: [facility] Insurance: [employer] Prescription Benefit: [employer] Living Will/HPOA: Pt does not have LW/HPOA on file at [facility]. LNOK: Aniceto Porter, ; Mayela Mazariegos, daughter Living Arrangements: Pt lives with in 2 story home with bedroom on 2nd floor but pt states has been sleeping on couch d/t recent issues. Pt states is independent with ADL's. Transportation: Pt states drives self and states no transportation concerns. DME/HHC: Pt has a w/c and walking stick and states no need for any further DME. Pt states no hx of HHC or SNF in the past. Pt states no concerns with going home at time of discharge. Pt is retired. Pt states does not smoke cigarettes but does drink a 4-6oz glass wine about 5 nights/week. Pt voices no further concerns/needs. CM to follow for any further discharge planning/needs. Advised pt to ask for CM if any further questions/concerns/needs arise, voices understanding. Pt Goal: Home Plan: [place] IGNACIA ORONA
--- NOTE | 2021-11-06 10:36 | DCINST_ITS ---
Discharge Instructions Diet Discharge Diet: Low fat / Low cholesterol Dressing / Incision Call your doctor if you observe: Fever of 101 or Higher, Coldness, Increased Pain, Numbness or Tingling, Change in Color, Inability to urinate, Inability to have a bowel movement, Using more than 1 pad per hour, Shortness of breath, Dizziness, Fainting spells, Swelling in the ankles, Chest pain, Prolonged hiccupping, Increased palpitations (irregular heartbeat), Calf discomfort and Un controlled pain Follow Up Care Test Results: Test results from this visit will be discussed in further detail at your follow-up appointment, if applicable. Discharge Plan Admission Admit Date/Time: 11/05/21 15:24 Primary Reason for Your Visit: Attending Provider: Bubba Cooney Primary Care Provider: uQiana Healy Consulting Providers: Charis Biswas Discharge Orders/Prescriptions Prescriptions: New hydralazine 25 mg tablet 25 mg PO TID Qty: 60 RF: 0 Continued metoprolol succinate 50 MG tablet 100 mg PO DAILY RF: 0 losartan 100 MG tablet 100 mg PO DAILY RF: 0 citalopram 10 mg tablet 10 mg PO DAILY RF: 0 Discontinued hydralazine 10 mg tablet 10 mg PO Q6H RF: 0 losartan 25 mg tablet 25 mg PO DAILY RF: 0 hydrochlorothiazide 25 mg tablet 25 mg PO QODAY Qty: 14 RF: 0 clonidine HCl 0.1 mg tablet 0.1 mg PO Q4H PRN PRN (Reason: Anxiety) RF: 0 ciprofloxacin HCl [Cipro] 500 mg Tablet 500 mg PO BID RF: 0 Referrals / Follow Up: Quiana Healy DO [Primary Care Provider] - In 1 Week Disposition Disposition (needs filled in before D/C Order can be placed): Home, Self Care
--- NOTE | 2021-11-06 10:46 | DS.PCM_ITS ---
Providers Date of Admission: 11/05/21 Date of Discharge: 11/06/21 Primary Care Physician: Dr. Quiana Healy, Consultations 11/05/21 17:39 Consult: Nephrology Routine Consulting Provider: Charis Biswas Reason for Consult: hyponatremia EMERGENT Consult: No MD Notified: Yes Date Notified: 11/05/21 Time Notified: 17:39 Method of Notification: Text Reason For Visit: HYPONATREMIA, ACUTE METABOLIC ENCEPHALOPATHY Diagnosis Discharge Diagnosis (1) Confusion: Status: Acute Code(s): R41.0 - Disorientation, unspecified (2) Altered mental status, unspecified: Status: Acute Code(s): R41.82 - Altered mental status, unspecified (3) Hyponatremia: Status: Acute Code(s): E87.1 - Hypo-osmolality and hyponatremia (4) Hypertension: Status: Chronic Code(s): I10 - Essential (primary) hypertension (5) Bradycardia: Status: Acute Code(s): R00.1 - Bradycardia, unspecified Medications at Discharge Home Medications losartan 100 mg PO DAILY 12/14/15 citalopram 10 mg PO DAILY 10/25/21 carvedilol 6.25 mg PO BID #60 tab 11/06/21 Hospital Course Summary of Care Provided Hospital Course: This is a 80-year-old female with multiple comorbidities was admitted with altered mental status during office visit of applications sales representative Dr. Biswas for hyponatremia. She was confused and disoriented. She has history of hypertension with high blood pressure, SBP more than 160 MAG and is on clonidine which she took twice as a repeat blood pressure was still high after an hour. Blood pressure in applications sales representative office was less than 90 systolic patient felt weak and dizzy therefore admitted in PCU. Her further hospital course, evaluation, assessment and plan as follows #Acute metabolic encephalopathy most likely due to hypotension/metabolic encephalopathy as mentioned above. On pvc monitor patient sinus rhythm. Clonidine and HCTZ discontinued. Patient also had brief episode of staring look and being unresponsive which quickly resolved. Clinically, seizure was ruled out. CT of the brain did not show acute intracranial pathology. Orthostatic blood pressure shows drop from lying position to standing but no orthostatic increase in heart rate, actually dropped down. Patient was treated with IV fluid. Patient evaluated PT and OT. #Hyponatremia: Na is 124. This is chronic. Hydrate with IVF and trend. consult nephrology. HCTZ discontinued. Further discussion with the patient's daughter near the bedside. Patient cannot have clonidine, hydralazine and HCTZ. 3. Hypertension with mild sinus bradycardia: Poorly controlled. HCTZ and clonidine discontinued. She was started on hydralazine about a week ago and is developing a rash on the face. She has started hydralazine 10 mg every 6 hourly. Metoprolol discontinued and started on Coreg 6.25 mg p.o. twice daily as patient heart rate runs 50s to 60s per minute. Bradycardia might be related to clonidine. Losartan continued 100 mg daily. Follow with PCP and applications sales representative for better control of blood pressure. #Anxiety patient anxious by nature. On citalopram p.o. Ativan as needed. DVT prophylaxis: lovenox Code status: full code Discharge medication reconciliation done. Discharge follow-up instructions completed. Discharge process discussed with the patient and all questions were answered to patient's satisfaction. Patient was admitted as inpatient but was discharged because of sooner recovery than expected at time of admission. Discharge medication, hypotension and bradycardia discussed with the patient's daughter in detail. Total time spent, exact 35 minutes on discharge meds reconciliation, examination, coordination of care with nurses and ancillary staff, review of imaging and blood test and discussion with the patient on follow-up instructions. Physical Exam Narrative Seen and examined in the morning. Discussed with the applications sales representative Dr. Biswas. Patient had drop in blood pressure probably due to clonidine and she is also on HCTZ therefore HCTZ and clonidine discontinued. Patient also hyponatremic which is chronic. Physical exam General: Alert, Oriented x3, Cooperative HEENT: Atraumatic, PERRLA, EOMI, Normocephalic Oral: No Gingival or Mucosal Lesions/ Ulcerations Neck: Supple, No JVD, Negative Carotid Bruits Lungs: Air entry diminished in bilateral lung bases. No crepitation/rhonchi Cardiovascular: Regular rate, Regular Rhythm, Normal S1, Normal S2, No murmurs Abdomen: Bowel Sounds Present, Soft, Non Tender, Non-Distended : No renal angle tenderness. No suprapubic tenderness. Extremities: Mild pitting bilateral ankle edema, Capillary Refill Less than 3 Seconds Skin: Erythematous rash over face getting better Musculoskeletal: No Tenderness to Palpation of Joints or Extremities Neurological: Cranial nerves II-XII grossly intact, DTR 2+/4 and Symmetrical, Neuro grossly intact Psych/Mental Status: Normal Affect, Appropriate Weight / BMI Weight Weight: 172 lb 3.2 oz Body Mass Index (BMI) 30.4 ABG / Lab / Microbiology Data Result Diagrams: 11/06/21 08:02 11/06/21 08:02 Laboratory: Laboratory Results - last 24 hr 11/05/21 13:19: Urine Color Yellow, Urine Clarity Clear, Urine pH 6.0, Ur Specific [place] 1.010, Urine Protein 15 H, Urine Glucose (UA) Normal, Urine Ketones 5 H, Urine Occult Blood Negative, Urine Nitrite Negative, Urine Bilirubin Negative, Urine Urobilinogen Normal, Ur Leukocyte Esterase Negative, Urine RBC 0 SEEN, Urine WBC 0-5 SEEN, Ur Squamous Epith Cells 5-10 SEEN, Urine Bacteria 1+, Urine Mucus 0 SEEN 11/05/21 13:32: WBC 10.1, RBC 5.25, Hgb 15.3 H, Hct 43.4, MCV 82.7, MCH 29.1, MCHC 35.3, RDW Std Deviation 37.3, RDW Coeff of Milena 12.2, Plt Count 317, MPV 8.7, Immature Gran % (Auto) 0.300, Neut % (Auto) 75.9 H, Lymph % (Auto) 13.3 L, [place] % (Auto) 8.7, Eos % (Auto) 1.3, Baso % (Auto) 0.5, Absolute Neuts (auto) 7.6, Absolute Lymphs (auto) 1.34, Nucleated RBC % 0 11/05/21 13:32: Sodium 124 L, Potassium 3.6, Chloride 89 L, Carbon Dioxide 28.0, Anion Gap 7, BUN 13, Creatinine 0.82, Estim Creat Clear Calc 43.76, Est GFR (MDRD) Af Amer 85, Est GFR (MDRD) Non-Af 71, BUN/Creatinine Ratio 15.8, Glucose 115 H, Calcium 8.6, Total Bilirubin 0.50, AST 16, ALT 28, Alkaline Phosphatase 86, Total Protein 7.2, Albumin 3.8, Globulin 3.4, Albumin/Globulin Ratio 1.1 11/05/21 13:32: Lactic Acid 0.6 11/05/21 15:19: Serum Osmolality 263 L 11/05/21 17:05: Urine Osmolality 163, Ur Random Sodium 43 11/06/21 08:02: WBC 6.8, RBC 4.41, Hgb 12.9, Hct 36.3 L, MCV 82.3, MCH 29.3, MCHC 35.5, RDW Std Deviation 37.7, RDW Coeff of Milena 12.5, Plt Count 266, MPV 8.8, Immature Gran % (Auto) 0.400, Neut % (Auto) 72.5 H, Lymph % (Auto) 15.7 L, [place] % (Auto) 8.9, Eos % (Auto) 2.1, Baso % (Auto) 0.4, Absolute Neuts (auto) 4.9, Absolute Lymphs (auto) 1.06, Nucleated RBC % 0 11/06/21 08:02: Sodium 129 L, Potassium 3.7, Chloride 99, Carbon Dioxide 24.0, Anion Gap 6, BUN 10, Creatinine 0.70, Estim Creat Clear Calc 35.88, Est GFR (MDRD) Af Amer 102, Est GFR (MDRD) Non-Af 85, BUN/Creatinine Ratio 14.2, Glucose 108 H, Calcium 8.1 L 11/06/21 08:02: Cortisol 3.90 Radiography Diagnostic Testing: Radiology Impression Brain CT 11/05/21 11:55 IMPRESSION: Chronic involutional changes of the brain. Electronically Signed: Shorty Church MD at 13:48 EST , Chest X-Ray 11/05/21 12:40 IMPRESSION: No acute abnormality is seen. Electronically Signed: Shorty Church MD at 12:50 EST , D/C Instructions Discharge Diet: Low fat / Low cholesterol Call your doctor if you observe: Fever of 101 or Higher, Coldness, Increased Pain, Numbness or Tingling, Change in Color, Inability to urinate, Inability to have a bowel movement, Using more than 1 pad per hour, Shortness of breath, Dizziness, Fainting spells, Swelling in the ankles, Chest pain, Prolonged hiccupping, Increased palpitations (irregular heartbeat), Calf discomfort and Uncontrolled pain Meaningful Use Info Meaningful Use Diagnoses (Choose all that apply): None applicable Discharge Plan Admission Admit Date/Time: 11/05/21 15:24 Primary Reason for Your Visit: Acute metabolic encephalopathy, hyponatremia Attending Provider: Bubba Cooney Primary Care Provider: Quiana Healy Consulting Providers: Charis Biswas Discharge Orders/Prescriptions Prescriptions: New carvedilol 6.25 mg tablet 6.25 mg PO BID Qty: 60 RF: 0 Continued losartan 100 MG tablet 100 mg PO DAILY RF: 0 citalopram 10 mg tablet 10 mg PO DAILY RF: 0 Discontinued metoprolol succinate 50 MG tablet 100 mg PO DAILY RF: 0 hydralazine 10 mg tablet 10 mg PO Q6H RF: 0 losartan 25 mg tablet 25 mg PO DAILY RF: 0 hydrochlorothiazide 25 mg tablet 25 mg PO QODAY Qty: 14 RF: 0 clonidine HCl 0.1 mg tablet 0.1 mg PO Q4H PRN PRN (Reason: Anxiety) RF: 0 ciprofloxacin HCl [Cipro] 500 mg Tablet 500 mg PO BID RF: 0 Referrals / Follow Up: Charis Biswas DO [STAFF PHYSICIAN] - Within 2 Weeks (For hyponatremia) Josh Arredondo MD [STAFF PHYSICIAN] - Within 1 Month Quiana Healy DO [Primary Care Provider] - In 1 Week Disposition Disposition (needs filled in before D/C Order can be placed): Home, Self Care Charges/Coding Visit Charges Inpatient E&M: 33374 Disch Hosp
--- NOTE | 2021-11-06 13:53 | CHAPLAIN ---
Type of Pastoral Visit _x__ Initial Visit ___ Follow-up Visit ___ On-call Visit ___ General Patient Visit ___ Spiritual Assessment ___ Family Conference ___ Bereavement ___ Rapid Response ___ Code Blue ___ Other (describe below) Pastoral Care Referral From _x__ Patient ___ Family ___ Nurse ___ Physician ___ Fruit Rancher ___ Environmental Engineering Professor ___ Other (describe below) Sacrament/Intervention _x__ Active listening ___ Anointing ___ Pentecostalism ___ Bereavement ___ Communion ___ Piedad exploration ___ ___ Life review _x__ Prayer ___ Reconciliation ___ Sacrament of Sick ___ Supportive presence ___ Wedding ___ Other (describe below) Pastoral Comments patient states she is doing better and is not as anxious as before (since she had anxiety meds); pt says that all tests so far have been good and she hopes to go home today; no other needs; prayer given
== END 2021-11-06 14:34 | disposition home or self-care (01) | DRG 640 ==
LOC: ED 14:52 → PCU 15:05
PROVIDERS: Internal Medicine Nephrology; Admitting Provider Student in an Organized Health Care Education/Training Program; Emergency Provider Emergency Medicine; PCP Family Medicine; Visit Provider Internal Medicine
DX: E87.1 Hypo-osmolality and hyponatremia (principal); G93.41 Metabolic encephalopathy; I44.0 Atrioventricular block, first degree; I10 Essential (primary) hypertension; F41.9 Anxiety disorder, unspecified; M19.90 Unspecified osteoarthritis, unspecified site; G47.30 Sleep apnea, unspecified; R00.1 Bradycardia, unspecified; I95.2 Hypotension due to drugs; L27.0 Generalized skin eruption due to drugs and medicaments taken internally; Z87.891 Personal history of nicotine dependence; Z79.899 Other long term (current) drug therapy; T46.5X5A Adverse effect of other antihypertensive drugs, initial encounter
CPT/HCPCS: 36415; 70450; 71045; 80048; 80053; 81001; 82533; 83605; 83930; 83935; 84300; 85025; 93005; 93975; 97162; 97165; 99285; J7030; A4216

== ENCOUNTER 2021-11-08 09:17 | Outpatient (CLI) | payer MEDICARE, SELFPAY ==
--- NOTE | 2021-11-08 09:24 | STEWCON_ITS ---
Reason For Study: Chest Pain; HTN Stress Results Protocol: Dobutamine Protocol With Definity Maximum Predicted HR: 138 bpm Target HR: 117 bpm % Maximum Predicted HR: 112 % Heart Stage Duration Rate BP Comment (mm:ss) (bpm) BP 182/101; Recheck After Laying On Left Side 164/76 And Then Baseline 154 77/ 154/77; Dr Arredondo Aware of BP's; 8 ML Diluted Definity Given DSE 10 MCG 3:25 69 180/78No Chest Pain DSE 20 MCG 3:00 109 174/60No Chest Pain DSE 30 MCG 3:11 106 145/67No Chest Pain; Flushed; Slightly Nauseated DSE 40 HR 116 And Then Dropped To 86; BP 75/38; Nauseated; Flushed- MCG 4:32 116 75/38 Dobutamine Stopped; BP Then 154/76 Recovery 67 145/76No Chest Pain Stress Duration: 14:08 mm:ss Maximum Stress HR: 154 bpm METS: 1 Baseline Echocardiogram Findings Stress Echo Wall motion Data Resting WM Intermediate WM Stress WM ECHO/Stress Test Echo W/Contrast Interpretation Summary Dobutamine stress echocardiogram. 80-year-old lady with a history of chest pain pain Stress protocol: Resting EKG demonstrates normal sinus rhythm with a rate of 64 bpm normal inter vals are noted resting blood pressure is 154/77 mmHg. Occasional premature ventricular complex es noted.. Dobutamine was infused starting at 10 mics per KG per minute and increasing in 3-minute al iquots to a peak of 40 mics per KG per minute. Continuous EKG monitoring was performed. The patient maintained sinus rhythm throughout the recording. The maximum heart rate was 116 bpm which was 8 4% of maximum predicted heart rate the maximum workload was 1 metabolic equivalent. The peak blood pressure was 200/70 mmHg. There were no ST or T wave changes noted to suggest ischemia with dobutamine infusion. At peak infusion the blood pressure dropped associated with patient developing nausea and the dobutamine infusion was stopped. At recovery heart rate was noted to be 67 bpm with a blood pressure of 145/76 mmHg. Dobutamine stress echocardiogram. Resting echocardiographic images demonstrated a hyperdynamic ventricle with an estimated ejection fraction of 70% with dobutamine infusion s tarting and Definity contrast. At low-dose and peak infusion there was near chamber obliteration not ed. No new wall motion abnormalities were noted to suggest ischemia. Conclusion: Dobutamine stress echocardiogram with no evidence of ischemia. Hyperdynamic ventricle noted Ordering Physician: Quiana Healy Referring Physician: Josh Arredondo Performed By: Meli Guillen, DIVINE, RVT
== END 2021-11-08 23:59 | disposition home or self-care (01) ==
LOC: CVS 09:19
PROVIDERS: PCP Family Medicine; Referring Provider Family Medicine; Visit Provider Family Medicine
DX: R07.9 Chest pain, unspecified (principal); I10 Essential (primary) hypertension
CPT/HCPCS: 93017; 93350; J7040; Q9957; A4216; C8928

== ENCOUNTER 2021-11-12 15:16 | Emergency (ER) | payer MEDICARE, SELFPAY ==
[2021-11-12] VITALS (7 sets, daily range): BP systolic 146–224; BP diastolic 64–97; PULSE 56–74; RESP 11–16; TEMP 35.6; O2SAT 96–98; BMI 30.1
--- NOTE | 2021-11-12 16:41 | EKG12_ITS ---
Test Reason : CP Blood Pressure : / mmHG Vent. Rate : 060 BPM Atrial Rate : 060 BPM P-R Int : 194 ms QRS Dur : 092 ms QT Int : 420 ms P-R-T Axes : 080 -56 065 degrees QTc Int : 420 ms Normal sinus rhythm Left anterior fascicular block Abnormal ECG Confirmed by KERLINE JENKINS, LUDA ([id number]), business editor MYRIAM CHRISTIANSON ([id number]) on 11/14/2021 9:38:09 AM Referred By: MATT/ROCIO Confirmed By:LUDA CHURCHILL MD
--- NOTE | 2021-11-12 16:51 | EDS_ITS ---
HPI History of Present Illness Chief Complaint: Hypertension Informant: patient Narrative Narrative: Patient returns the emergency room for evaluation of hypertension. She has had now 5 visits to the emergency room in the last 3 weeks secondary to blood pressure issues. Her medications have been adjusted multiple times. Most recent visit was on November 05 where she was admitted overnight. She is currently on Coreg 6.25 mg twice daily and losartan 100 mg daily. Patient states that her target systolic blood pressures between 140 and 160. The last several days blood pressures have been doing well. Yesterday they were elevated to 170-180 range. Today she had 3 readings in a row between 194 and 223 systolic. Patient called her PCPs office who asked her to come to the emergency room. [facility] Medical History Anxiety Arthritis Diverticula of colon Former smoker Hypertension PVC (premature ventricular contraction) Sleep apnea Home Medications losartan 100 mg PO DAILY 12/14/15 [History Last Taken 11/12/21] citalopram 10 mg PO DAILY 10/25/21 [History Last Taken 11/12/21] carvedilol 6.25 mg PO BID #60 tab 11/06/21 [Rx Last Taken 11/12/21] Allergy/AdvReac Type Severity Reaction Status Date / Time benazepril HCl Allergy Other Verified 11/12/21 15:17 [From Lotensin] felodipine Allergy Other Verified 11/12/21 15:17 fexofenadine HCl Allergy Other Verified 11/12/21 15:17 [From Uyen] hydralazine Allergy Rash Verified 11/12/21 15:17 ramipril [From Altace] Allergy Other Verified 11/12/21 15:17 tolterodine tartrate Allergy Other Verified 11/12/21 15:17 [From Detrol] verapamil HCl Allergy Other Verified 11/12/21 15:17 [From Covera-HS] AUGMENTED BETAMETHASONE Allergy Other Uncoded 11/12/21 15:17 DIPROP Surgical History History of colon resection Social History household members: spouse Smoking Status: Former smoker alcohol intake: current alcohol intake frequency: other substance use type: does not use ROS ROS ED Constitutional Constitutional ED: Denies chills or fever(s) Eyes Eyes: Denies change in vision ENT ENT ED: Denies sore throat Cardiovascular Cardiovascular: Denies chest pain or palpitations Respiratory/Chest Respiratory/Chest: Denies cough or dyspnea Gastrointestinal Gastrointestinal: Denies abdominal pain, nausea or vomiting Genitourinary Genitourinary ED: Denies dysuria Musculoskeletal Musculoskeletal: Reports myalgias; Denies back pain Integumentary Denies rash Neurologic Neurologic: Denies headache(s), paresthesias or weakness Psychiatric Psychiatric: Reports anxiety; Denies depression Allergic/Immunologic Allergic/Immunologic ED: Denies urticaria EXAM Physical Exam Const Vital Signs: 11/12/21 15:17 11/12/21 16:15 11/12/21 17:30 Temperature 96.1 F L Temperature Source Temporal Pulse Rate 66 Respiratory Rate 14 Respiratory Effort Normal Non-Labored Blood Pressure 217/97 H 224/83 H Blood Pressure Mean 137 130 Pulse Ox 96 Oxygen Delivery Method Room Air 11/12/21 18:25 11/12/21 19:35 11/12/21 19:43 Temperature Temperature Source Pulse Rate 56 L 57 L 65 Respiratory Rate 11 L 16 16 Respiratory Effort Blood Pressure 201/95 H 215/87 H 181/74 H Blood Pressure Mean 130 129 109 Pulse Ox 98 98 97 Oxygen Delivery Method Room Air Room Air Room Air 11/12/21 19:58 Temperature Temperature Source Pulse Rate 74 Respiratory Rate 16 Respiratory Effort Blood Pressure 173/78 H Blood Pressure Mean 109 Pulse Ox 97 Oxygen Delivery Method Positive well nourished and well developed General Appearance ED: well developed HEENT Reports moist mucous membranes Eyes PERRL and EOMs intact bilaterally Neck supple Chest Wall inspection of chest normal and palpation of chest normal Resp normal respiratory effort and clear to auscultation bilaterally Cardio regular rate GI non-tender Palpation: soft Extremity normal to inspection General Extremety ED: Negative for edema General Extremity: Negative for edema Neuro oriented x3 Sensorium / Orientation: alert Psych mental status grossly normal Skin no rashes or lesions noted MDM MDM MDM Narrative Medical decision making narrative: Patient's recent visits reviewed. Lab work and urinalysis ordered. Patient given p.o. Ativan as she states this is helped her blood pressure in the past. Lab Data Labs: Laboratory Results - last 24 hr 11/12/21 11/12/21 11/12/21 17:00 17:04 17:04 WBC 11.3 H RBC 5.06 Hgb 14.9 Hct 40.6 MCV 80.2 L MCH 29.4 MCHC 36.7 H RDW Std Deviation 36.1 RDW Coeff of Milena 12.6 Plt Count 277 MPV 8.3 Immature Gran % (Auto) 0.400 Neut % (Auto) 67.2 Lymph % (Auto) 19.5 [place] % (Auto) 7.9 Eos % (Auto) 4.4 Baso % (Auto) 0.6 Absolute Neuts (auto) 7.6 Absolute Lymphs (auto) 2.20 Nucleated RBC % 0 Sodium 130 L Potassium 3.7 Chloride 96 L Carbon Dioxide 27.0 Anion Gap 7 BUN 9 Creatinine 0.66 Estim Creat Clear Calc 35.88 Est GFR (MDRD) Af Amer 109 Est GFR (MDRD) Non-Af 90 BUN/Creatinine Ratio 13.6 Glucose 123 H Calcium 9.2 Urine Color Yellow Urine Clarity Clear Urine pH 7.0 Ur Specific [place] 1.010 Urine Protein Negative Urine Glucose (UA) Normal Urine Ketones Negative Urine Occult Blood Negative Urine Nitrite Negative Urine Bilirubin Negative Urine Urobilinogen Normal Ur Leukocyte Esterase Negative Urine RBC 0 SEEN Urine WBC 0 SEEN Ur Squamous Epith Cells 0 SEEN Urine Bacteria 0 SEEN Urine Mucus 0 SEEN Radiography Diagnostic Testing: Clinical Impression(s) from Imaging Studies Venous Duplex 11/12/21 18:48 IMPRESSION: There is no demonstrated deep venous thrombosis. Electronically Signed: Willie Randall MD at 19:28 EDT , Treatment and Re-Evaluation Narrative: Lab work is unremarkable. She has chronic hyponatremia not changed from baseline. Urinalysis reveals no infection. In spite of the Ativan patient's blood pressure remained elevated in the 200-230 systolic range. Unfortunately her heart rate remains in the mid to upper 50s. She has been on hydralazine in the past and it was stopped during her recent hospital stay due to concern of rash on her face. Patient has similar erythema on her face today in spite of not being on the medication for the last week. She believes it is secondary to the surgical facemask that she is wearing in the medical settings. Patient is given a dose of IV hydralazine. Blood pressure is improved to 173/78. She did become concerned about possible blood clot in her right leg as she was complaining of some pain in her right calf. Venous ultrasound was obtained and reveals no evidence of DVT. I spoke with the patient's PCP. She is to continue her Coreg and losartan. If her systolic blood pressure is over 160 she is to take her hydralazine that was recently discontinued. Discharge Plan Triage Chief Complaint: Hypertension ED Provider: Amelie Simpson Dx/Rx/DC Orders Clinical Impression: Hypertension Instructions: ED Hypertension, Established Prescriptions: No Action losartan 100 MG tablet 100 mg PO DAILY RF: 0 citalopram 10 mg tablet 10 mg PO DAILY RF: 0 carvedilol 6.25 mg tablet 6.25 mg PO BID Qty: 60 RF: 0 Primary Care Provider: Quiana Healy Referrals: Quiana Healy DO [Primary Care Provider] - 1-2 Weeks Activity Restrictions/Additional Instructions: Continue your Coreg and losartan as previously prescribed. If your blood pressure is greater than 160 systolic, take the hydralazine that was recently stopped. Disposition Disposition: Home, Self Care
[2021-11-12] MEDS: LORazepam 0.5 MG Tablet PO (16:58)
[2021-11-12 17:11] LABS: Bacteria 0 SEEN /hpf (None Seen); Mucous, Urine 0 SEEN /hpf (<or=2+); Red Blood Cells-Urine 0 SEEN /hpf (0-5); Squamous Epithelial Cells - UA 0 SEEN /hpf (5-10); White Blood Cells 0 SEEN /hpf (0-5)
[2021-11-12 17:25] LABS: Color, Urine Yellow (Yellow); Glucose, Dipstick Normal (Normal); Ketone-Dipstick Negative (Negative); Leukocyte Esterase-Dipstick Negative /ul (Negative); Nitrite-Dipstick Negative (Negative); Occult Blood-Urine Negative /ul (Negative); Protein-Dipstick Negative (Negative); Urine Bilirubin Dipstick Negative (Negative); Urine Clarity Clear (Clear); Urine Urobilinogen Normal (Normal)
[2021-11-12 17:27] LABS: Absolute Neutrophil Count 7.6 X10^3/uL (2.0-7.7); Basophil# 0.07 X10^3/uL; Basophil% 0.6 % (0-1); Eosinophils% 4.4 % (0-5); Hematocrit 40.6 % (37-47); Hemoglobin 14.9 g/dL (12.0-15.0); Lymphocyte % 19.5 % (19-41); Mean Corp Hgb Conc 36.7 g/dL (32-36); Mean Corpuscular Hgb 29.4 pg (27.0-32.0); Mean Corpuscular Volume 80.2 fL (81-99); Mean Platelet Vol. 8.3 fl (6.2-12.0); Monocyte# 0.89 X10^3/uL; Monocyte% 7.9 % (0-10); NRBC Flagged by Analyzer 0 % (0-5); Neutrophil # 7.61 X10^3/uL (2.7-7.7); Neutrophil % 67.2 % (47-70); Platelet Count 277 K/mm3 (150-450); RBC Distribution Width CV 12.6 % (11.6-14.6); RBC Distribution Width SD 36.1 fl (35.1-43.9); Red Blood Count 5.06 M/mm3 (4.2-5.4); White Blood Count 11.3 K/mm3 (4.4-11.0)
[2021-11-12 17:40] LABS: Anion Gap 7 (5-15); BUN 9 mg/dL (7-18); BUN/Creat Ratio 13.6 RATIO (10-20); Calcium,Total 9.2 mg/dL (8.5-10.1); Chloride 96 mmol/L (98-107); Creatinine, Serum 0.66 mg/dL (0.55-1.02); EST Glomerular Filtration Rate 90 mL/min (>60); Est Glom Filt Rate - Afr Amer 109 mL/min (>60); Estimated Creatinine Clearance 35.88 ml/min; Glucose 123 mg/dL (74-106); Potassium 3.7 mmol/L (3.5-5.1); Sodium Level 130 mmol/L (136-145)
--- NOTE | 2021-11-12 18:31 | ED.RN ---
provider aware of BP.
--- NOTE | 2021-11-12 18:48 | US_ITS ---
STUDY: VENOUS DOPPLER ULTRASOUND - RIGHT LOWER EXTREMITY REASON FOR EXAM: Female, 80 years old. LEG PAIN AND SWELLING RT POSTERIOR CALF PAIN- and quot;UNCOMFORTABLE FEELING and quot; PER PT TECHNIQUE: Ultrasound evaluation of the deep vein system to include stewart-scale imaging and compression was performed. Stewart-scale imaging and Doppler sonographic evaluation, including duplex spectral analysis and qualitative color flow sonography, was performed. COMPARISON: None. FINDINGS: Common Femoral Vein: Normal compression, spontaneity and augmentation. Normal color Doppler. Common Femoral Vein/Greater Saphenous Junction: Normal compression, spontaneity and augmentation. Normal color Doppler. Superficial Femoral Proximal: Normal compression, spontaneity and augmentation. Normal color Doppler. Superficial Femoral Middle: Normal compression, spontaneity and augmentation. Normal color Doppler. Superficial Femoral Distal: Normal compression, spontaneity and augmentation. Normal color Doppler. Popliteal Vein: Normal compression, spontaneity and augmentation. Normal color Doppler. Posterior Tibial Vein: Normal compression, spontaneity and augmentation. Normal color Doppler. Peroneal Vein: Normal compression, spontaneity and augmentation. Normal color Doppler. There is no demonstrated deep venous thrombosis. US/Venous Duplex Imag/Limited/Uni IMPRESSION: There is no demonstrated deep venous thrombosis. Electronically Signed: Willie Randall MD at 19:28 EDT ,
[2021-11-12] MEDS: hydrALAZINE 20 MG/ML Vial 10 MG IV (19:29)
--- NOTE | 2021-11-13 11:30 | CASEMGMT ---
IGNACIA ORONA ED follow-up: Date of ER visit: 11/12/2021 Presenting ER complaint: hypertension IGNACIA ORONA placed call to patient's telephone number listed on demographics and patient answered. IGNACIA ORONA introduced self and role at [facility]. Patient states Doing a little bit better today. Reports blood pressure remains elevated this morning - 187/81 and 164/74. Patient reports taking Rx Hydralazine as instructed for SBP > 160 just prior to call. Patient requests that IGNACIA ORONA speak with patient's daughter Mayela. Mayela reports keeping BP log. Patient and daughter encouraged to schedule follow-up appointment with PCP. Patient states she has an appointment scheduled for next month. IGNACIA ORONA emphasized importance of close follow-up given recent hospitalization, medication adjustments and five ER visits within the past 3 weeks for blood pressure issues. Daughter voiced understanding and states she will contact PCP office immediately following our call. Patient and daughter deny questions, needs or concerns. IGNACIA Stubbs CM
== END 2021-11-12 20:18 | disposition home or self-care (01) ==
PROVIDERS: Emergency Provider Emergency Medicine; PCP Family Medicine; Visit Provider Emergency Medicine
DX: I10 Essential (primary) hypertension (principal); G47.30 Sleep apnea, unspecified; Z87.891 Personal history of nicotine dependence; Z79.899 Other long term (current) drug therapy
CPT/HCPCS: 80048; 81001; 85025; 93005; 93971; 96374; 99285; A4216

== ENCOUNTER 2021-11-15 15:59 | Inpatient (IN) | payer MEDICARE, SELFPAY ==
[2021-11-15] VITALS (14 sets, daily range): BP systolic 124–231; BP diastolic 55–90; PULSE 56–75; RESP 14–22; TEMP 36.1–36.6; O2SAT 93–98; BMI 30.1
--- NOTE | 2021-11-15 16:56 | EKG12_ITS ---
Test Reason : Blood Pressure : / mmHG Vent. Rate : 059 BPM Atrial Rate : 059 BPM P-R Int : 188 ms QRS Dur : 090 ms QT Int : 432 ms P-R-T Axes : 056 -50 047 degrees QTc Int : 427 ms Sinus bradycardia Left anterior fascicular block Abnormal ECG Confirmed by BRIDGETT JENKINS, MICHELLE ([id number]), graphic editor MYRIAM CHRISTIANSON ([id number]) on 11/18/2021 11:16:54 A M Referred By: AMELIA Confirmed By:RAMILA URIAS MD
--- NOTE | 2021-11-15 17:09 | EX.ED.DYSGE1 ---
HPI <LENNIE Mejias - Last Filed: 11/15/21 19:54> History of Present Illness Chief Complaint: Hypertension Narrative Narrative: 80-year-old female with history of HTN presents with elevated BP. This is her 6th ER visit for this issue recently. She has a long history of hypertension but it is been hard to control over the last 3 weeks. She has had multiple changes to her medications over this time period. Today was the first time doubling her carvedilol dose to 12.5 mg twice a day. She also takes losartan 100 mg once daily and hydralazine 10 mg if SBP is over 100. She took all of these and the prn hydralazine today around 11 AM this morning but her SBP is still over 200. She is asymptomatic. No headache, vision changes, nausea, vomiting, chest pain, shortness of breath, abdominal or flank pain. She was referred to the catia designer for this issue but missed the appointment and was rescheduled for 11/28. PFSH <LENNIE Mejias - Last Filed: 11/15/21 19:54> [facility] Medical History Anxiety Arthritis Diverticula of colon Former smoker Hypertension Hypertension PVC (premature ventricular contraction) Sleep apnea Home Medications losartan 100 mg PO DAILY 12/14/15 [History Last Taken 11/12/21] citalopram 20 mg PO DAILY 10/25/21 [History Last Taken 11/12/21] carvedilol 12.5 mg PO BID 11/15/21 [History Last Taken Unknown] Allergy/AdvReac Type Severity Reaction Status Date / Time benazepril HCl Allergy Other Verified 11/15/21 16:00 [From Lotensin] felodipine Allergy Other Verified 11/15/21 16:00 fexofenadine HCl Allergy Other Verified 11/15/21 16:00 [From Uyen] ramipril [From Altace] Allergy Other Verified 11/15/21 16:00 tolterodine tartrate Allergy Other Verified 11/15/21 16:00 [From Detrol] verapamil HCl Allergy Other Verified 11/15/21 16:00 [From Covera-HS] AUGMENTED BETAMETHASONE Allergy Other Uncoded 11/15/21 16:00 DIPROP Family History Other Aortic aneurysm Hypertension Surgical History History of colon resection Social History household members: spouse Smoking Status: Former smoker alcohol intake: current alcohol intake frequency: other substance use type: does not use ROS <LENNIE Mejias - Last Filed: 11/15/21 19:54> ROS ED ROS Narrative Constitutional: Negative for fever, chills, malaise. Eyes: Negative for visual change. ENT: Negative for sore throat, rhinorrhea. CVS: Negative for palpitations, chest pain, syncope. Respiratory: Negative for shortness of breath, cough, orthopnea. GI: Negative for abdominal pain, nausea, vomiting, diarrhea, constipation, melena, hematochezia. : Negative for dysuria, hematuria or frequency. Neuro: Negative for headache, motor/sensory dysfunction. Skin: Negative for rash, abscess, or wound. Musc: Negative for joint pain, swelling, trauma. Heme: Negative for easy bruising, bleeding, lymphadenopathy. EXAM <LENNIE Mejias - Last Filed: 11/15/21 19:54> Physical Exam Narrative Exam Narrative: CONST: Patient sitting in no acute distress. EYES: Normal inspection. ENT: Normal inspection, moist mucous membranes. NECK: Normal inspection. RESP: No respiratory distress, CTAB. CVS: Regular rate and rhythm, no murmur, no gallop. ABD: Soft and nontender, no guarding or rebound, nondistended. Back: Normal inspection. SKIN: Color normal, no rash, warm, dry, intact. EXTREMITIES: Normal appearance, no pedal edema. 2+ radial and DP pulses. NEURO: Oriented x4. PSYCH: Normal affect. Const Vital Signs: 11/15/21 16:01 11/15/21 17:02 11/15/21 17:28 Temperature 97.8 F Temperature Source Temporal Pulse Rate 66 Respiratory Rate 16 Respiratory Pattern Normal Blood Pressure 221/90 H 231/84 H Blood Pressure Mean 133 133 Pulse Ox 96 Oxygen Delivery Method Room Air 11/15/21 19:02 11/15/21 19:33 11/15/21 19:41 Temperature Temperature Source Pulse Rate 59 L Respiratory Rate Respiratory Pattern Blood Pressure 225/82 H 226/75 H 229/76 H Blood Pressure Mean 129 125 127 Pulse Ox 98 Oxygen Delivery Method <Lamont Frankel MD - Last Filed: 11/15/21 22:46> Physical Exam Const Vital Signs: 11/15/21 16:01 11/15/21 17:02 11/15/21 17:28 Temperature 97.8 F Temperature Source Temporal Pulse Rate 66 Respiratory Rate 16 Respiratory Pattern Normal Blood Pressure 221/90 H 231/84 H Blood Pressure Mean 133 133 Pulse Ox 96 Oxygen Delivery Method Room Air 11/15/21 19:02 11/15/21 19:33 11/15/21 19:41 Temperature Temperature Source Pulse Rate 59 L Respiratory Rate Respiratory Pattern Blood Pressure 225/82 H 226/75 H 229/76 H Blood Pressure Mean 129 125 127 Pulse Ox 98 Oxygen Delivery Method MDM <LENNIE Mejias - Last Filed: 11/15/21 19:54> [facility] MDM Narrative Medical decision making narrative: Patient with chronic hypertension presents with HTN. She appears well nontoxic. BP is 221/90, HR is 60, otherwise normal. Her medical exam is unremarkable. Labs only remarkable for sodium of 125 but she has had chronic hyponatremia. There is no evidence of endorgan damage. EKG is nonischemic. She was given IV hydralazine 10 mg bolus x2 with no significant improvement in her BP. Heart rate is low 60s so I do not want to give other agents. Due to her multiple visits and inability to reduce her BP I feel she needs admitted. Case was discussed with the hospitalist who recommended admission to the ICU. He states he will take care of further BP medication orders. Diagnoses 1. Hypertensive urgency 2. Hyponatremia Lab Data Labs: Laboratory Results - last 24 hr 11/15/21 11/15/21 17:23 17:23 WBC 10.6 RBC 4.87 Hgb 14.0 Hct 39.9 MCV 81.9 MCH 28.7 MCHC 35.1 RDW Std Deviation 37.9 RDW Coeff of Milena 12.6 Plt Count 341 MPV 8.4 Immature Gran % (Auto) 0.300 Neut % (Auto) 65.9 Lymph % (Auto) 19.3 [place] % (Auto) 8.9 Eos % (Auto) 5.0 Baso % (Auto) 0.6 Absolute Neuts (auto) 7.0 Absolute Lymphs (auto) 2.04 Nucleated RBC % 0 Sodium 125 L Potassium 3.7 Chloride 94 L Carbon Dioxide 26.0 Anion Gap 5 BUN 8 Creatinine 0.54 L Estim Creat Clear Calc 35.88 Est GFR (MDRD) Af Amer 138 Est GFR (MDRD) Non-Af 114 BUN/Creatinine Ratio 14.7 Glucose 127 H Calcium 9.1 Troponin I High Sens 20 <Lamont Frankel MD - Last Filed: 11/15/21 22:46> MDM MDM Narrative Medical decision making narrative: ATTENDING NOTE: Dr. Frankel: The patient was seen in conjunction with the PA-C/nurse practitioner. I performed a history and physical, and agree with the management of this patient. I agree with noted documentation and plan. I discussed the plan of care and final disposition with the physician associate/nurse practitioner. Uncontrolled blood pressure. Multiple ED visits. Asymptomatic. Afebrile. Vital signs noted. Regular rate and rhythm. Lungs clear to auscultation bilaterally. Abdomen soft and nontender. Awake, alert. Check labs. IV hydralazine. Admit.. Lab Data Attestation: I reviewed the patient's lab results. Labs: Laboratory Results - last 24 hr 11/15/21 11/15/21 17:23 17:23 WBC 10.6 RBC 4.87 Hgb 14.0 Hct 39.9 MCV 81.9 MCH 28.7 MCHC 35.1 RDW Std Deviation 37.9 RDW Coeff of Milena 12.6 Plt Count 341 MPV 8.4 Immature Gran % (Auto) 0.300 Neut % (Auto) 65.9 Lymph % (Auto) 19.3 [place] % (Auto) 8.9 Eos % (Auto) 5.0 Baso % (Auto) 0.6 Absolute Neuts (auto) 7.0 Absolute Lymphs (auto) 2.04 Nucleated RBC % 0 Sodium 125 L Potassium 3.7 Chloride 94 L Carbon Dioxide 26.0 Anion Gap 5 BUN 8 Creatinine 0.54 L Estim Creat Clear Calc 35.88 Est GFR (MDRD) Af Amer 138 Est GFR (MDRD) Non-Af 114 BUN/Creatinine Ratio 14.7 Glucose 127 H Calcium 9.1 Troponin I High Sens 20 Discharge Plan Disposition Disposition: Acute Care Hospital [facility] Discharge Date/Time: 11/15/21 20:19
[2021-11-15 17:34] LABS: Absolute Lymphocyte Count 2.04 X10^3/uL (0.83-4.51); Basophil# 0.06 X10^3/uL; Basophil% 0.6 % (0-1); Eosinophil# 0.53 X10^3/uL; Hematocrit 39.9 % (37-47); Lymphocyte # 2.04 X10^3/ul (0.83-4.51); Lymphocyte % 19.3 % (19-41); Mean Corp Hgb Conc 35.1 g/dL (32-36); Mean Corpuscular Hgb 28.7 pg (27.0-32.0); Mean Corpuscular Volume 81.9 fL (81-99); Mean Platelet Vol. 8.4 fl (6.2-12.0); Monocyte# 0.94 X10^3/uL; Monocyte% 8.9 % (0-10); NRBC Flagged by Analyzer 0 % (0-5); Neutrophil # 6.99 X10^3/uL (2.7-7.7); Neutrophil % 65.9 % (47-70); Platelet Count 341 K/mm3 (150-450); RBC Distribution Width CV 12.6 % (11.6-14.6); RBC Distribution Width SD 37.9 fl (35.1-43.9); Red Blood Count 4.87 M/mm3 (4.2-5.4); White Blood Count 10.6 K/mm3 (4.4-11.0)
[2021-11-15 17:53] LABS: Anion Gap 5 (5-15); BUN 8 mg/dL (7-18); BUN/Creat Ratio 14.7 RATIO (10-20); Calcium,Total 9.1 mg/dL (8.5-10.1); Chloride 94 mmol/L (98-107); Creatinine, Serum 0.54 mg/dL (0.55-1.02); EST Glomerular Filtration Rate 114 mL/min (>60); Est Glom Filt Rate - Afr Amer 138 mL/min (>60); Estimated Creatinine Clearance 35.88 ml/min; Glucose 127 mg/dL (74-106); Potassium 3.7 mmol/L (3.5-5.1); Sodium Level 125 mmol/L (136-145); Troponin-I HS 20 pg/mL (3.0-54.0)
[2021-11-15] MEDS: hydrALAZINE 20 MG/ML Vial 10 MG IV ×2 (19:12→19:38)
[2021-11-15] MEDS: LORazepam 2 MG/ML Syringe 0.5 MG IV (19:53)
--- NOTE | 2021-11-15 20:03 | PCM.HP.STD ---
[facility] - General General Date of Admission: 11/15/21 HPI Narrative NORM MOSES, is a 80 F with a significant history of hypertension; and anxiety disorder on citalopram who presents to the emergency department with elevated blood pressures. Within the the past months patient has been to emergency department and hospital for multiple episodes of hypertension and complications from hypertension. On his presentation patient is asymptomatic with her hypertension. On the day of presentation her blood pressure was 214/88 and repeat was 215/86. Her pulse at that time was 56; and repeat was 57. Patient called her PCP and was instructed to take her as needed 10 mg of hydralazine. Later on her blood pressure increased to 217/92 for which reason patient came to the emergency department. Recently patient carvedilol has been increased from 6.25 mg twice daily to 12.5 mg twice daily. Also citalopram for anxiety has been increased from 10 mg daily to 20 mg daily. Her losartan 100 mg every morning has been changed to 100 mg every night. Recently because she developed butterfly rash and swollen eyes she was instructed to stop her hydralazine. However after stopping the hydralazine with her butterfly rash did not improve. Subsequently butterfly rash was attributed to possibly the use of mask and PCP has okayed patient to continue using hydralazine as needed. [facility] Medical History Anxiety Arthritis Diverticula of colon Former smoker Hypertension Hypertension PVC (premature ventricular contraction) Sleep apnea Home Medications losartan 100 mg PO DAILY 12/14/15 [History Last Taken 11/12/21] citalopram 20 mg PO DAILY 10/25/21 [History Last Taken 11/12/21] carvedilol 12.5 mg PO BID 11/15/21 [History Last Taken Unknown] Allergy/AdvReac Type Severity Reaction Status Date / Time benazepril HCl Allergy Other Verified 11/15/21 16:00 [From Lotensin] felodipine Allergy Other Verified 11/15/21 16:00 fexofenadine HCl Allergy Other Verified 11/15/21 16:00 [From Uyen] ramipril [From Altace] Allergy Other Verified 11/15/21 16:00 tolterodine tartrate Allergy Other Verified 11/15/21 16:00 [From Detrol] verapamil HCl Allergy Other Verified 11/15/21 16:00 [From Covera-HS] AUGMENTED BETAMETHASONE Allergy Other Uncoded 11/15/21 16:00 DIPROP Family History Other Aortic aneurysm Hypertension Surgical History History of colon resection Social History household members: spouse Smoking Status: Former smoker alcohol intake: current alcohol intake frequency: other substance use type: does not use ROS ROS Narrative Constitutional: Denies fever, chills, fatigue, anorexia and change in weight Eyes: Denies blurry vision, change in eye color, change in vision, discharge from eye(s), double vision, erythema, eye pain, loss of vision or other HEENT: Denies abnormal hearing, dysphagia, ear pain, epistaxis, headache(s), hearing loss, nasal congestion, nasal discharge, post nasal drip, sinus pressure, sore throat or other Cardiovascular: Denies chest pain or palpitations. Denies dyspnea on exertion, orthopnea and paroxysmal nocturnal dyspnea Respiratory/Chest: Denies cough, excessive phlegm production, shortness of breath with exertion and wheezing Gastrointestinal: Denies abdominal pain, coffee ground emesis, constipation, diarrhea, dyspepsia, hematemesis, hematochezia, loose stools, melena, nausea, vomiting or other Genitourinary: Denies burning urination, difficulty urinating, dysuria, hematuria, nocturia, urinary frequency, urinary hesitancy, urinary incontinence, urinary urgency or other Musculoskeletal: Denies arthralgias, back pain, joint pain, joint stiffness, joint swelling, myalgias, neck pain or other Neurologic: Denies abnormal gait, abnormal speech, confusion, disequilibrium, dizziness, focal weakness, headache(s), numbness, paresthesias, seizure-like activity, seizures, syncope, tingling, tremor(s) or other Psychiatric: Denies anxiety, depression, homicidal ideation, suicidal ideation or other Endocrinology: Denies change in body appearance, cold intolerance, excessive sweating, heat intolerance, polydipsia, polyuria or other Hematologic/Lymphatic: Denies anemia, easy bleeding, easy bruising, lymphadenopathy or other Integumentary: Facial rash. Allergic/Immunologic: Denies rhinitis, hives, eczema, or other Vital Signs Vital Signs Vital Signs: 11/15/21 16:01 11/15/21 17:02 11/15/21 17:28 Temperature 97.8 F Temperature Source Temporal Pulse Rate 66 Respiratory Rate 16 Respiratory Pattern Normal Blood Pressure 221/90 H 231/84 H Blood Pressure Mean 133 133 Pulse Ox 96 Oxygen Delivery Method Room Air 11/15/21 19:02 11/15/21 19:33 11/15/21 19:41 Temperature Temperature Source Pulse Rate 59 L Respiratory Rate Respiratory Pattern Blood Pressure 225/82 H 226/75 H 229/76 H Blood Pressure Mean 129 125 127 Pulse Ox 98 Oxygen Delivery Method Weight Weight: 77.111 kg Body Mass Index (BMI) 30.1 Physical Exam Narrative Physical exam: General: Well-nourished, well-developed. Head: Normocephalic, atraumatic, no tenderness Eyes: PERRLA, EOMI ENT, no trauma, moist mucous membranes, no rhinorrhea Neck: Nontender, full range of motion, no spinal tenderness, deformities, step-off CVS: Regular rate and rhythm. S1-S2 present. No murmur, gallop or rub. Respiratory : clear to auscultation bilaterally, chest wall nontender, no wheezing Abdomen: Soft, nontender, nondistended, normal bowel sounds, no masses : Deferred Back: Nontender, no CVA tenderness, no midline spinal tenderness, deformities, step-offs Extremities: Nontender full range of motion, no trauma Skin: Normal color, no trauma, abrasions Neuro: Alert, oriented, cranial nerves II through XII grossly intact. Psychiatry: Normal mood. Normal affect. Not depressed. Not anxious. Results Lab / Micro Data Result Diagrams: 11/15/21 17:23 11/15/21 17:23 Labs: Laboratory Results - last 24 hr 11/15/21 17:23: WBC 10.6, RBC 4.87, Hgb 14.0, Hct 39.9, MCV 81.9, MCH 28.7, MCHC 35.1, RDW Std Deviation 37.9, RDW Coeff of Milena 12.6, Plt Count 341, MPV 8.4, Immature Gran % (Auto) 0.300, Neut % (Auto) 65.9, Lymph % (Auto) 19.3, [place] % (Auto) 8.9, Eos % (Auto) 5.0, Baso % (Auto) 0.6, Absolute Neuts (auto) 7.0, Absolute Lymphs (auto) 2.04, Nucleated RBC % 0 11/15/21 17:23: Sodium 125 L, Potassium 3.7, Chloride 94 L, Carbon Dioxide 26.0, Anion Gap 5, BUN 8, Creatinine 0.54 L, Estim Creat Clear Calc 35.88, Est GFR (MDRD) Af Amer 138, Est GFR (MDRD) Non-Af 114, BUN/Creatinine Ratio 14.7, Glucose 127 H, Calcium 9.1, Troponin I High Sens 20 Assessment & Plan Assessment/Plan (1) Hypertensive urgency: PLAN: Hypertensive urgency Highest systolic blood pressure on presentation was 231. Patient received hydralazine 10 mg x 2 at the emergency department. Also she was given lorazepam IV at emergency department. Of note in the past hydrochlorothiazide was discontinued secondary to hyponatremia. Also clonidine was discontinued in the past secondary to hypotension and bradycardia. Admit to the the intensive care unit. Continue all home blood pressure medications. Reduce blood pressure to 65 to 75% of MAP. Renal artery ultrasound done on 11/06/2021 was reviewed. Renal artery duplex showed renal artery stenosis of less than 50% bilaterally. EKG tracing reviewed showed sinus bradycardia with a rate of 59 with left axis deviation. Hyponatremia On presentation sodium was 125, chronic. Trend. DVT prophylaxis with Lovenox. Charges/Coding Visit Charges Inpatient E&M: 62362 Init Hosp L2
--- NOTE | 2021-11-15 20:15 | ED.RN ---
Report called to Ruth in ICU. No further questions at this time.
[2021-11-15] MEDS: Losartan Potassium 100 MG Tablet PO (21:59)
[2021-11-15] MEDS: Carvedilol 12.5 MG Tablet PO (21:59)
[2021-11-16] VITALS (24 sets, daily range): BP systolic 81–175; BP diastolic 45–81; PULSE 53–72; RESP 13–20; TEMP 36.1–37; O2SAT 92–98
[2021-11-16] MEDS: 0.9% Normal Saline 1,000 ML 999 ML IV (01:28)
--- NOTE | 2021-11-16 02:26 | NURSING ---
Pt complaining of pain at IV site with fluid bolus running. IV flushes well, does not appear to be infiltrated. Attempted to place another IV x2 unsuccessful. Fluid bolus paused. BP increased. Will continue to monitor.
[2021-11-16 04:04] LABS: Anion Gap 6 (5-15); BUN 12 mg/dL (7-18); BUN/Creat Ratio 19.4 RATIO (10-20); Calcium,Total 8.4 mg/dL (8.5-10.1); Chloride 96 mmol/L (98-107); Creatinine, Serum 0.62 mg/dL (0.55-1.02); EST Glomerular Filtration Rate 98 mL/min (>60); Est Glom Filt Rate - Afr Amer 119 mL/min (>60); Estimated Creatinine Clearance 35.88 ml/min; Glucose 123 mg/dL (74-106); Potassium 3.5 mmol/L (3.5-5.1); Sodium Level 128 mmol/L (136-145)
[2021-11-16] MEDS: Acetaminophen 325 MG Tablet 650 MG PO (07:56)
[2021-11-16] MEDS: Enoxaparin 40 MG/0.4 ML Syringe SC (08:27)
[2021-11-16] MEDS: Isosorbide Mononitrate 30 MG Tablet PO (08:28)
[2021-11-16] MEDS: Citalopram 20 MG Tablet PO (08:29)
[2021-11-16] MEDS: Carvedilol 12.5 MG Tablet PO ×2 (08:29→21:50)
--- NOTE | 2021-11-16 09:03 | PN.HOSP_ITS ---
Subjective Subjective Doing well, denies any shortness of breath, lightheadedness, dizziness or chest pain. She is dates that she thinks that maybe 60% of her issues with her blood pressure are her anxiety, she does seem like the person who watches her blood pressures acutely at home and it is little change because her blood pressure to go up in a panic. Objective Data Objective Data Vital Signs: Vital Signs Temp Pulse Resp BP Pulse Ox 97.3 F L 67 13 175/81 H 96 11/16/21 08:00 11/16/21 08:00 11/16/21 08:00 11/16/21 08:00 11/16/21 08:00 Oxygen Delivery Method Room Air Weight: 169 lb 12.095 oz Body Mass Index (BMI) 30.0 Intake & Output: Intake and Output for Last 24 Hours 11/15/21 11/16/21 11/17/21 03:59 03:59 03:59 Intake Total 532.8 / 532.8 467.2 / 467.2 Balance 532.8 / 532.8 467.2 / 467.2 Lab / Micro Data Result Diagrams: 11/15/21 17:23 11/16/21 03:35 Labs: Laboratory Results - last 24 hr 11/15/21 17:23: WBC 10.6, RBC 4.87, Hgb 14.0, Hct 39.9, MCV 81.9, MCH 28.7, MCHC 35.1, RDW Std Deviation 37.9, RDW Coeff of Milena 12.6, Plt Count 341, MPV 8.4, Immature Gran % (Auto) 0.300, Neut % (Auto) 65.9, Lymph % (Auto) 19.3, [place] % (Auto) 8.9, Eos % (Auto) 5.0, Baso % (Auto) 0.6, Absolute Neuts (auto) 7.0, Absolute Lymphs (auto) 2.04, Nucleated RBC % 0 11/15/21 17:23: Sodium 125 L, Potassium 3.7, Chloride 94 L, Carbon Dioxide 26.0, Anion Gap 5, BUN 8, Creatinine 0.54 L, Estim Creat Clear Calc 35.88, Est GFR (MDRD) Af Amer 138, Est GFR (MDRD) Non-Af 114, BUN/Creatinine Ratio 14.7, Glucose 127 H, Calcium 9.1, Troponin I High Sens 20 11/16/21 03:35: Sodium 128 L, Potassium 3.5, Chloride 96 L, Carbon Dioxide 26.0, Anion Gap 6, BUN 12, Creatinine 0.62, Estim Creat Clear Calc 35.88, Est GFR (MDRD) Af Amer 119, Est GFR (MDRD) Non-Af 98, BUN/Creatinine Ratio 19.4, Glucose 123 H, Calcium 8.4 L Physical Exam Const alert, oriented x3 and no apparent distress General Appearance: cooperative HEENT normocephalic and moist oral mucous membranes Eyes PERRL, EOMs intact bilaterally and conjunctivae normal Neck supple and no JVD Resp normal respiratory effort, no retractions, no use of accessory muscles and clear to auscultation bilaterally Auscultation: Negative for crackles, rales, rhonchi or wheezes Cardio regular rate, regular rhythm, S1 normal heart sound, S2 normal heart sound and no murmurs GI soft to palpation, non-tender and non-distended; Negative for hepatosplenomegaly Extremity no clubbing, cyanosis or edema Skin no rashes or lesions noted Neuro no focal motor deficits and no sensory deficits noted Psych affect normal Appearance: appropriate Assessment & Plan Assessment/Plan (1) Hypertensive urgency: PLAN: 1. Hypertensive urgency ?She is presented to ER multiple times in the last couple weeks secondary to high blood pressures. This time she presented while being asymptomatic because of her blood pressure sitting in over 200. ?She is allergic to TIERA inhibitors as well as calcium channel blockers ?Her Coreg was recently increased from 6.25 mg to 12.5 mg twice daily. ?We will also start her on Imdur 30 mg daily and will continue with her other blood occasions and monitor ?As needed hydralazine ?She recently had a stress echo on 11/08/2021 with an EF of 70% ?Urine sample on 11/12/2021 was negative for any protein in her urine ?She endorses the fact that probably 60% of her problem with her blood pressure is needed and she was recently increased on her citalopram from 10 mg to 20 mg daily DVT: Lovenox Charges/Coding Visit Charges Inpatient E&M: 32095 Subs Hosp L2
--- NOTE | 2021-11-16 15:46 | CASEMGMT ---
RN CM chart review: Patient was admitted 11/05-11/06/21 for Acute encephalopathy, hyponatremia, and hypertension. See RN CM assessment from 11/06/21. Patient was discharged to home. Patient was seen in ED on 11/12/21 for HTN. Patient has been keeping log of BP readings at home. Patient called and updated PCP on 11/15/21 of elevated readings and referred to ED. Patient admitted for hypertension urgency. Medications being adjusted. Patient has follow-up with [facility] on 11/27/21. Patient to discharge home with follow-up plans in place.
[2021-11-16] MEDS: Losartan Potassium 100 MG Tablet PO (21:50)
[2021-11-17] VITALS (7 sets, daily range): BP systolic 106–183; BP diastolic 52–74; PULSE 58–75; RESP 16–18; TEMP 36.1–36.9; O2SAT 94–97
[2021-11-17 06:16] LABS: Anion Gap 5 (5-15); BUN 11 mg/dL (7-18); BUN/Creat Ratio 17.9 RATIO (10-20); Calcium,Total 8.8 mg/dL (8.5-10.1); Chloride 99 mmol/L (98-107); Creatinine, Serum 0.62 mg/dL (0.55-1.02); EST Glomerular Filtration Rate 99 mL/min (>60); Est Glom Filt Rate - Afr Amer 119 mL/min (>60); Estimated Creatinine Clearance 35.88 ml/min; Glucose 113 mg/dL (74-106); Potassium 3.5 mmol/L (3.5-5.1); Sodium Level 130 mmol/L (136-145)
[2021-11-17] MEDS: Enoxaparin 40 MG/0.4 ML Syringe SC (08:34)
[2021-11-17] MEDS: Citalopram 20 MG Tablet PO (08:34)
[2021-11-17] MEDS: Isosorbide Mononitrate 30 MG Tablet PO (08:34)
[2021-11-17] MEDS: Carvedilol 12.5 MG Tablet PO (08:35)
[2021-11-17] MEDS: Acetaminophen 325 MG Tablet 650 MG PO (08:38)
--- NOTE | 2021-11-17 13:55 | PCM.DC ---
Discharge Instructions Diet Discharge Diet: Low fat / Low cholesterol Activity Discharge Activity: Return to Normal Activity Dressing / Incision Call your doctor if you observe: Fever of 101 or Higher, Shortness of breath, Dizziness, Fainting spells, Swelling in the ankles, Chest pain and Increased palpitations (irregular heartbeat) Follow Up Care Test Results: Test results from this visit will be discussed in further detail at your follow-up appointment, if applicable. Discharge Plan Admission Admit Date/Time: 11/15/21 19:51 Attending Provider: Otto De La Torre Primary Care Provider: Quiana Healy Instructions Additional Instructions / Restrictions: Try not to take her blood pressure at all while at home as this seems to lead to a significant amount of stress. However if you do find that you are having anxiety secondary to not checking her blood pressure then you can check your blood pressure twice a week. Follow-up with your PCP in 3 to 5 days. Recommend that you find a therapist for your anxiety. Also you still have lab work that is pending unfortunately this was a send out and may take up to a week to come back. Your primary care physician should be able to follow-up with these and notify you of the results. Discharge Orders/Prescriptions Prescriptions: New isosorbide mononitrate 30 mg Tablet Extended Release 24 Hr 30 mg PO DAILY 30 Days Qty: 30 RF: 0 Continued losartan 100 MG tablet 100 mg PO DAILY RF: 0 citalopram 10 mg tablet 20 mg PO DAILY RF: 0 carvedilol 6.25 mg tablet 12.5 mg PO BID RF: 0 Referrals / Follow Up: Quiana Healy DO [Primary Care Provider] - Within 1 Week Disposition Disposition (needs filled in before D/C Order can be placed): Home, Self Care
--- NOTE | 2021-11-17 14:00 | DS.PCM_ITS ---
Providers Date of Admission: 11/15/21 Primary Care Physician: Dr. Quiana Healy DO Reason For Visit: HYPERTENSIVE URGENCY Diagnosis Discharge Diagnosis (1) Hypertensive urgency: Status: Acute Code(s): I16.0 - Hypertensive urgency Medications at Discharge Home Medications losartan 100 mg PO DAILY 12/14/15 citalopram 20 mg PO DAILY 10/25/21 carvedilol 12.5 mg PO BID 11/15/21 isosorbide mononitrate 30 mg PO DAILY 30 Days #30 tab 11/17/21 Hospital Course Operations None Procedures None Summary of Care Provided Minutes Spent on Discharge: 52 Hospital Course: Per HPI: NORM MOSES, is a 80 F with a significant history of hypertension; and anxiety disorder on citalopram who presents to the emergency department with elevated blood pressures. Within the the past months patient has been to emergency department and hospital for multiple episodes of hypertension and complications from hypertension. On his presentation patient is asymptomatic with her hypertension. On the day of presentation her blood pressure was 214/88 and repeat was 215/86. Her pulse at that time was 56; and repeat was 57. Patient called her PCP and was instructed to take her as needed 10 mg of hydralazine. Later on her blood pressure increased to 217/92 for which reason patient came to the emergency department. Recently patient carvedilol has been increased from 6.25 mg twice daily to 12.5 mg twice daily. Also citalopram for anxiety has been increased from 10 mg daily to 20 mg daily. Her losartan 100 mg every morning has been changed to 100 mg every night. Recently because she developed butterfly rash and swollen eyes she was i nstructed to stop her hydralazine. However after stopping the hydralazine with her butterfly rash did not improve. Subsequently butterfly rash was attributed to possibly the use of mask and PCP has okayed patient to continue using hydralazine as needed. Hospital Course: 1. Hypertensive urgency/anxiety?80-year-old female with a history of hypertension anxiety presented to the hospital multiple times over the last month or 2 due to her blood pressure and anxiety over that issue. She recently had a stress echo which was unremarkable with an EF of 70%, she had renal artery duplex which demonstrated a less than 60% stenosis in both of her renal arteries. Urine catecholamines are pending from this admission however these labs are a send out and will take up to potentially a week to get back. I did add Imdur 30 mg daily to her medication regimen. This morning prior to her medications should her systolic blood pressure was 180, after medications she was down about 106. With either of these blood pressure she was asymptomatic. She was recently increased in her Coreg from 6.25 mg to 12.5 mg which will be continued. We will also continue with her losartan at night but discussed with her that she does not need to do hydralazine as needed while at home. Of note her heart rate while here in the hospital has always been less than 70 and usually in the mid to low 60s, therefore I do not think that we can move up on the Coreg all that much. If she does tolerate the Imdur as an outpatient, then we do have room for that to go up. I also had a significant discussion with her about the contribution of anxiety to her blood pressure medications and her gen eral unhappiness at home. I discussed with her the need to find a therapist, to have a better handle on her anxiety and to find coping techniques. We do have room to increase her citalopram as an outpatient as well. I told her that I did not want her to check her blood pressure while at home unless she was symptomatic with headaches, blurry vision, or lightheadedness. I did discuss with her, however, that if she is finding that she has significant anxiety because she does not know what her blood pressure is then I feel like she should be able to check her blood pressure maximum of twice a week. I discussed with her the plan for discharge today and she expressed understanding of the risk and benefits of going home and she is okay with going home today. Physical Exam Const alert, oriented x3 and no apparent distress General Appearance: cooperative HEENT normocephalic and moist oral mucous membranes Eyes PERRL, EOMs intact bilaterally and conjunctivae normal Neck supple and no JVD Resp normal respiratory effort, no retractions, no use of accessory muscles and clear to auscultation bilaterally Auscultation: Negative for crackles, rales, rhonchi or wheezes Cardio regular rate, regular rhythm, S1 normal heart sound, S2 normal heart sound and no murmurs GI soft to palpation, non-tender and non-distended; Negative for hepatosplenomegaly Extremity no clubbing, cyanosis or edema Skin no rashes or lesions noted Neuro no focal motor deficits and no sensory deficits noted Psych affect normal Appearance: appropriate Weight / BMI Weight Weight: 172 lb 9.951 oz Body Mass Index (BMI) 30.0 ABG / Lab / Microbiology Data Result Diagrams: 11/15/21 17:23 11/17/21 04:21 Laboratory: Laboratory Results - last 24 hr 11/17/21 04:21: Sodium 130 L, Potassium 3.5, Chloride 99, Carbon Dioxide 26.0, Anion Gap 5, BUN 11, Creatinine 0.62, Estim Creat Clear Calc 35.88, Est GFR (MDRD) Af Amer 119, Est GFR (MDRD) Non-Af 99, BUN/Creatinine Ratio 17.9, Glucose 113 H, Calcium 8.8 D/C Instructions Discharge Diet: Low fat / Low cholesterol Call your doctor if you observe: Fever of 101 or Higher, Shortness of breath, Dizziness, Fainting spells, Swelling in the ankles, Chest pain and Increased palpitations (irregular heartbeat) Meaningful Use Info Meaningful Use Diagnoses (Choose all that apply): None applicable Discharge Plan Admission Admit Date/Time: 11/15/21 19:51 Attending Provider: Otto De La Torre Primary Care Provider: Quiana Healy Instructions Additional Instructions / Restrictions: Try not to take her blood pressure at all while at home as this seems to lead to a significant amount of stress. However if you do find that you are having anxiety secondary to not checking her blood pressure then you can check your blood pressure twice a week. Follow-up with your PCP in 3 to 5 days. Recommend that you find a therapist for your anxiety. Also you still have lab work that is pending unfortunately this was a send out and may take up to a week to come back. Your primary care physician should be able to follow-up with these and notify you of the results. Discharge Orders/Prescriptions Prescriptions: New isosorbide mononitrate 30 mg Tablet Extended Release 24 Hr 30 mg PO DAILY 30 Days Qty: 30 RF: 0 Continued losartan 100 MG tablet 100 mg PO DAILY RF: 0 citalopram 10 mg tablet 20 mg PO DAILY RF: 0 carvedilol 6.25 mg tablet 12.5 mg PO BID RF: 0 Referrals / Follow Up: Quiana Healy DO [Primary Care Provider] - Within 1 Week Disposition Disposition (needs filled in before D/C Order can be placed): Home, Self Care Charges/Coding Visit Charges Inpatient E&M: 46634 Disch Hosp
[2021-11-22 16:09] LABS: Epinephrine, Pl 191 pg/mL (0-62); Norepinephrine, Pl 530 pg/mL (0-874)
[2021-11-22 16:55] LABS: Dopamine, Pl <30 pg/mL (0-48)
== END 2021-11-17 15:17 | disposition home or self-care (01) | DRG 305 ==
LOC: ED 20:10 → ICU 11-16 06:56 → PCU 11-17 13:59 → ICU 11-18 10:21
PROVIDERS: Admitting Provider Hospitalist; Emergency Provider Physician Assistant; PCP Family Medicine; Visit Provider Family Medicine
DX: I16.0 Hypertensive urgency (principal); E87.1 Hypo-osmolality and hyponatremia; I70.1 Atherosclerosis of renal artery; F41.9 Anxiety disorder, unspecified; I10 Essential (primary) hypertension; G47.30 Sleep apnea, unspecified; M19.90 Unspecified osteoarthritis, unspecified site; Z87.891 Personal history of nicotine dependence; Z79.899 Other long term (current) drug therapy
CPT/HCPCS: 36415; 80048; 81001; 82384; 84484; 85025; 93005; 93971; 96374; 97802; 99285; J7030; A4216

== ENCOUNTER 2021-11-20 11:04 | Outpatient (CLI) | payer MEDICARE, SELFPAY ==
[2021-11-20 13:02] LABS: Anion Gap 7 (5-15); BUN 8 mg/dL (7-18); BUN/Creat Ratio 13.9 RATIO (10-20); Calcium,Total 8.8 mg/dL (8.5-10.1); Chloride 95 mmol/L (98-107); Creatinine, Serum 0.58 mg/dL (0.55-1.02); EST Glomerular Filtration Rate 107 mL/min (>60); Est Glom Filt Rate - Afr Amer 129 mL/min (>60); Glucose 141 mg/dL (74-106); Sodium Level 127 mmol/L (136-145)
== END 2021-11-20 23:59 | disposition home or self-care (01) ==
LOC: POLAB3 11:05
PROVIDERS: PCP Family Medicine; Visit Provider Internal Medicine Nephrology
DX: R89.1 Abnormal level of hormones in specimens from other organs, systems and tissues (principal)
CPT/HCPCS: 36415; 80048

== ENCOUNTER 2021-11-26 08:02 | Outpatient (CLI) | payer MEDICARE, SELFPAY ==
[2021-11-27 12:09] LABS: DHEA Sulfate 45.6 ug/dL (13.9-142.8)
[2021-11-27 13:58] LABS: Adrenocorticotropic Hormone < 1.5 pg/mL (7.2-63.3)
== END 2021-11-26 23:59 | disposition home or self-care (01) ==
LOC: LAB 08:04
PROVIDERS: PCP Family Medicine; Referring Provider Internal Medicine Nephrology; Visit Provider Internal Medicine Nephrology
DX: E87.1 Hypo-osmolality and hyponatremia (principal); R89.1 Abnormal level of hormones in specimens from other organs, systems and tissues
CPT/HCPCS: 36415; 82024; 82533; 82627; 82626

== ENCOUNTER → 2021-12-24 | Outpatient (CLI) | payer MEDICARE, SELFPAY ==
[2021-12-24 11:45] LABS: Hemoglobin A1c 5.8 % (3.8-5.6)
[2021-12-24 11:49] LABS: ALB/GLOB Ratio 1.1 RATIO (0.9-2.4); AST(SGOT) 11 U/L (15-37); Alanine Aminotransfer ALT/SGPT 22 U/L (13-56); Albumin, Serum 3.2 g/dL (3.2-5.0); Alkaline Phosphatase 71 U/L (45-117); Anion Gap 5 (5-15); BUN 12 mg/dL (7-18); BUN/Creat Ratio 18.1 RATIO (10-20); Calcium,Total 8.4 mg/dL (8.5-10.1); Chloride 101 mmol/L (98-107); Creatinine, Serum 0.66 mg/dL (0.55-1.02); EST Glomerular Filtration Rate 90 mL/min (>60); Est Glom Filt Rate - Afr Amer 109 mL/min (>60); Globulin 2.8 g/dL (2.2-4.2); Glucose 95 mg/dL (74-106); Potassium 4.3 mmol/L (3.5-5.1); Sodium Level 133 mmol/L (136-145)
== END | disposition home or self-care (01) ==
PROVIDERS: PCP Family Medicine; Visit Provider Family Medicine
DX: R73.02 Impaired glucose tolerance (oral) (principal); E87.1 Hypo-osmolality and hyponatremia
CPT/HCPCS: 36415; 80053; 83036

== ENCOUNTER → 2022-02-28 | Outpatient (CLI) | payer MEDICARE, SELFPAY | END | disposition home or self-care (01) | PROVIDERS: PCP Family Medicine; Referring Provider Family Medicine; Visit Provider Family Medicine | DX: R30.0 Dysuria (principal) | CPT/HCPCS: 87077; 87086; 87088; 87186 ==

== ENCOUNTER → 2022-03-12 | Outpatient (CLI) | payer MEDICARE, SELFPAY | END | disposition home or self-care (01) | LOC: LABSPEC 03-13 08:13 | PROVIDERS: PCP Family Medicine; Visit Provider Family Medicine | DX: N39.0 Urinary tract infection, site not specified (principal) | CPT/HCPCS: 87077; 87086; 87088; 87186 ==

== ENCOUNTER → 2022-04-08 | Outpatient (CLI) | payer MEDICARE, SELFPAY ==
[2022-04-08 18:23] LABS: Urine Sodium 25 mmol/L (Not Establ.)
[2022-04-08 18:30] LABS: Anion Gap 4 (5-15); BUN 16 mg/dL (7-18); Calcium,Total 8.7 mg/dL (8.5-10.1); Chloride 102 mmol/L (98-107); Creatinine, Serum 0.89 mg/dL (0.55-1.02); EST Glomerular Filtration Rate 64 mL/min (>60); Est Glom Filt Rate - Afr Amer 78 mL/min (>60); Glucose 106 mg/dL (74-106); Potassium 3.6 mmol/L (3.5-5.1); Sodium Level 138 mmol/L (136-145)
== END | disposition home or self-care (01) ==
LOC: MTLAB 14:44
PROVIDERS: PCP Family Medicine; Referring Provider Internal Medicine Nephrology; Visit Provider Internal Medicine Nephrology
DX: I10 Essential (primary) hypertension (principal); E87.1 Hypo-osmolality and hyponatremia
CPT/HCPCS: 36415; 80048; 84300

== ENCOUNTER → 2022-04-16 | Outpatient (CLI) | payer MEDICARE, SELFPAY | END | disposition home or self-care (01) | PROVIDERS: PCP Family Medicine; Visit Provider Family Medicine | DX: Z20.822 Contact with and (suspected) exposure to COVID-19 (principal) | CPT/HCPCS: 87635; U0003; U0005 ==

== ENCOUNTER → 2022-04-21 | Outpatient (CLI) | payer MEDICARE, SELFPAY ==
--- NOTE | 2022-04-21 12:03 | US_ITS ---
STUDY: RENAL ULTRASOUND - COMPLETE REASON FOR EXAM: Female, 81 years old. UTI. TECHNIQUE: Ultrasound evaluation of the kidneys was performed with real-time and static cabrera-scale imaging. COMPARISON: CT of the abdomen and pelvis, 09/20/2016. Renal artery duplex, 11/06/2021. FINDINGS: RIGHT KIDNEY: Normal location of the right kidney, which is normal in size. The right kidney measures 11.3 cm. There is a normal cortex of the right kidney. The renal cortex measures 1.2 cm. Again seen are parapelvic renal cysts. There are no right renal calculi. There is no right hydronephrosis. DISTAL RIGHT URETER: There is non-visualization of the distal right ureter. There is no demonstrated right ureterovesical junction calculus. There is no demonstrated right ureteral jet. LEFT KIDNEY: Normal location of the left kidney, which is normal in size. The left kidney measures 12.2 cm. There is a normal cortex of the left kidney. The renal cortex measures 1.3 cm. Again seen are parapelvic cysts. There are no left renal calculi. There is no left hydronephrosis. DISTAL LEFT URETER: There is non-visualization of the distal left ureter. There is no demonstrated left ureterovesical junction calculus. There is no demonstrated left ureteral jet. BLADDER: The poorly distended urinary bladder has a volume of 78 ml. There is a normal wall thickness of the distended urinary bladder. There is no demonstrated mass within the urinary bladder. There are no demonstrated bladder calculi. US/Kidney and Bladder IMPRESSION: Stable bilateral parapelvic cysts. There is no other evidence of renal or urinary bladder abnormality. Electronically Signed: Mariusz Sanford DO at 22:20 EDT ,
== END | disposition home or self-care (01) ==
LOC: US 12:02
PROVIDERS: PCP Family Medicine; Referring Provider Urology; Visit Provider Urology
DX: N39.0 Urinary tract infection, site not specified (principal)
CPT/HCPCS: 76770

== ENCOUNTER → 2022-06-23 | Outpatient (CLI) | payer MEDICARE, SELFPAY | END | disposition home or self-care (01) | PROVIDERS: PCP Family Medicine; Referring Provider Internal Medicine Cardiovascular Disease; Visit Provider Internal Medicine Cardiovascular Disease | DX: I10 Essential (primary) hypertension (principal) | CPT/HCPCS: 93788 ==

== ENCOUNTER → 2022-07-17 | Outpatient (CLI) | payer MEDICARE, SELFPAY ==
[2022-07-17 14:24] LABS: Bacteria 0 SEEN /hpf (None Seen); Mucous, Urine 0 SEEN /hpf (<or=2+); Red Blood Cells-Urine 0 SEEN /hpf (0-5)
[2022-07-17 14:49] LABS: Hemoglobin 12.6 g/dL (12.0-15.0); Mean Corp Hgb Conc 31.5 g/dL (32-36); Mean Corpuscular Hgb 27.2 pg (27.0-32.0); Mean Corpuscular Volume 86.2 fL (81-99); Mean Platelet Vol. 9.1 fl (6.2-12.0); Platelet Count 264 K/mm3 (150-450); RBC Distribution Width CV 14.7 % (11.6-14.6); RBC Distribution Width SD 46.5 fl (35.1-43.9); Red Blood Count 4.64 M/mm3 (4.2-5.4); White Blood Count 9.5 K/mm3 (4.4-11.0)
[2022-07-17 14:51] LABS: Color, Urine Yellow (Yellow); Glucose, Dipstick Normal (Normal); Nitrite-Dipstick Negative (Negative); Urine Clarity Cloudy (Clear)
[2022-07-17 14:54] LABS: Squamous Epithelial Cells - UA 0-5 SEEN /hpf (5-10); White Blood Cells 5-10 SEEN /hpf (0-5)
[2022-07-17 15:01] LABS: Ketone-Dipstick Negative (Negative); Leukocyte Esterase-Dipstick 500 /ul (Negative); Occult Blood-Urine Negative /ul (Negative); Protein-Dipstick 15 mg/dl (Negative); Urine Urobilinogen Normal (Normal)
[2022-07-17 15:02] LABS: Urine Bilirubin Dipstick Negative (Negative)
[2022-07-17 15:12] LABS: Anion Gap 6 (5-15); BUN 18 mg/dL (7-18); Calcium,Total 8.8 mg/dL (8.5-10.1); Chloride 101 mmol/L (98-107); Creatinine, Serum 0.75 mg/dL (0.55-1.02); EST Glomerular Filtration Rate 78 mL/min (>60); Est Glom Filt Rate - Afr Amer 95 mL/min (>60); Glucose 103 mg/dL (74-106); Potassium 4.5 mmol/L (3.5-5.1); Sodium Level 137 mmol/L (136-145)
== END | disposition home or self-care (01) ==
LOC: LAB 14:09
PROVIDERS: PCP Family Medicine; Referring Provider Physician Assistant Medical; Visit Provider Physician Assistant Medical
DX: I10 Essential (primary) hypertension (principal); I95.9 Hypotension, unspecified
CPT/HCPCS: 36415; 80048; 81001; 85027

== ENCOUNTER → 2022-12-11 | Outpatient (CLI) | payer MEDICARE, SELFPAY ==
[2022-12-11 12:58] LABS: Anion Gap 3 (5-15); BUN 23 mg/dL (7-18); BUN/Creat Ratio 26.3 RATIO (10-20); Calcium,Total 8.6 mg/dL (8.5-10.1); Chloride 105 mmol/L (98-107); Creatinine, Serum 0.87 mg/dL (0.55-1.02); EST Glomerular Filtration Rate 66 mL/min (>60); Est Glom Filt Rate - Afr Amer 79 mL/min (>60); Glucose 105 mg/dL (74-106); Potassium 3.9 mmol/L (3.5-5.1); Sodium Level 136 mmol/L (136-145)
== END | disposition home or self-care (01) ==
LOC: LAB 11:46
PROVIDERS: PCP Family Medicine; Referring Provider Internal Medicine Nephrology; Visit Provider Internal Medicine Nephrology
DX: I10 Essential (primary) hypertension (principal)
CPT/HCPCS: 36415; 80048

== ENCOUNTER → 2023-02-19 | Outpatient (CLI) | payer MEDICARE, SELFPAY | END | disposition home or self-care (01) | PROVIDERS: PCP Family Medicine; Visit Provider Family Medicine | DX: R39.15 Urgency of urination (principal) | CPT/HCPCS: 87086; 87088 ==

== ENCOUNTER → 2023-07-02 | Outpatient (CLI) | payer MEDICARE, SELFPAY ==
[2023-07-02 15:17] LABS: Hematocrit 39.8 % (37-47); Hemoglobin 13.1 g/dL (12.0-15.0); Mean Corp Hgb Conc 32.9 g/dL (32-36); Mean Corpuscular Hgb 28.3 pg (27.0-32.0); Mean Platelet Vol. 9.3 fl (6.2-12.0); Platelet Count 264 K/mm3 (150-450); RBC Distribution Width CV 14.1 % (11.6-14.6); RBC Distribution Width SD 43.9 fl (35.1-43.9); Red Blood Count 4.63 M/mm3 (4.2-5.4); White Blood Count 9.7 K/mm3 (4.4-11.0)
[2023-07-02 16:02] LABS: Anion Gap 4 (5-15); BUN 15 mg/dL (7-18); BUN/Creat Ratio 21.5 RATIO (10-20); Calcium,Total 8.9 mg/dL (8.5-10.1); Chloride 101 mmol/L (98-107); EST Glomerular Filtration Rate 85 mL/min (>60); Est Glom Filt Rate - Afr Amer 103 mL/min (>60); Glucose 97 mg/dL (74-106); Sodium Level 134 mmol/L (136-145)
== END | disposition home or self-care (01) ==
PROVIDERS: PCP Family Medicine; Visit Provider Physician Assistant Medical
DX: N32.81 Overactive bladder (principal); R30.0 Dysuria
CPT/HCPCS: 36415; 80048; 85027; 87086; 87088

== ENCOUNTER → 2023-07-08 | Outpatient (CLI) | payer MEDICARE, SELFPAY | END | disposition home or self-care (01) | PROVIDERS: PCP Family Medicine; Referring Provider Physician Assistant Medical; Visit Provider Physician Assistant Medical | DX: R55 Syncope and collapse (principal); R00.2 Palpitations | CPT/HCPCS: 93225; 93226 ==

== ENCOUNTER → 2023-12-23 | Outpatient (CLI) | payer MEDICARE, SELFPAY ==
[2023-12-23 12:47] LABS: Absolute Lymphocyte Count 2.37 X10^3/uL (0.83-4.51); Absolute Neutrophil Count 4.4 X10^3/uL (2.0-7.7); Basophil# 0.05 X10^3/uL; Basophil% 0.7 % (0-1); Eosinophil# 0.23 X10^3/uL; Hematocrit 40.7 % (37-47); Hemoglobin 13.3 g/dL (12.0-15.0); Lymphocyte # 2.37 X10^3/ul (0.83-4.51); Mean Corp Hgb Conc 32.7 g/dL (32-36); Mean Corpuscular Hgb 27.7 pg (27.0-32.0); Mean Corpuscular Volume 84.8 fL (81-99); Mean Platelet Vol. 9.5 fl (6.2-12.0); Monocyte# 0.56 X10^3/uL; Monocyte% 7.3 % (0-10); NRBC Flagged by Analyzer 0 % (0-5); Neutrophil # 4.42 X10^3/uL (2.7-7.7); Neutrophil % 57.7 % (47-70); Platelet Count 273 K/mm3 (150-450); RBC Distribution Width CV 13.3 % (11.6-14.6); RBC Distribution Width SD 41.2 fl (35.1-43.9); White Blood Count 7.7 K/mm3 (4.4-11.0)
[2023-12-23 13:18] LABS: AST(SGOT) 13 U/L (15-37); Alanine Aminotransfer ALT/SGPT 25 U/L (13-56); Albumin, Serum 3.3 g/dL (3.2-5.0); Alkaline Phosphatase 74 U/L (45-117); Anion Gap 6 (5-15); BUN 15 mg/dL (7-18); Calcium,Total 8.9 mg/dL (8.5-10.1); Chloride 107 mmol/L (98-107); Cholesterol 182 mg/dL (200); Creatinine, Serum 0.72 mg/dL (0.55-1.02); EST Glomerular Filtration Rate 83 mL/min (>60); Est Glom Filt Rate - Afr Amer 100 mL/min (>60); Free T3 2.5 pg/mL (2.18-3.98); Globulin 3.3 g/dL (2.2-4.2); Glucose 114 mg/dL (74-106); High Density Lipoprotein 68 mg/dL; Potassium 3.9 mmol/L (3.5-5.1); Protein, Total 6.6 g/dL (6.4-8.2); Sodium Level 140 mmol/L (136-145); T4 Free Direct 1.15 ng/dL (0.76-1.46); Thyroid Stim Hormone (TSH) 2.41 uIU/mL (0.358-3.74); Triglycerides 56 mg/dL; Very Low Density Lipoprotein 11 mg/dL (5-40)
[2023-12-23 13:25] LABS: Hemoglobin A1c 5.7 % (3.8-5.6)
== END | disposition home or self-care (01) ==
LOC: BFHLAB 09:23
PROVIDERS: PCP Family Medicine; Visit Provider Family Medicine
DX: I10 Essential (primary) hypertension (principal); Z51.81 Encounter for therapeutic drug level monitoring; R73.01 Impaired fasting glucose; E04.9 Nontoxic goiter, unspecified
CPT/HCPCS: 36415; 80053; 80061; 83036; 84439; 84443; 84481; 85025

== ENCOUNTER → 2024-02-10 | Outpatient (CLI) | payer MEDICARE, SELFPAY ==
--- NOTE | 2024-02-10 15:25 | RAD_ITS ---
STUDY: X-RAY - PELVIS AND RIGHT HIP REASON FOR EXAM: Female, 83 years old. Pain. TECHNIQUE: 3 views of the pelvis and hip. COMPARISON: Pelvis x-ray dated September 17, 2016 FINDINGS: Normal bowel gas pattern with air seen to the rectosigmoid. Surgical sutures projected over the the mid and a focal 4 mm in diameter soft tissue calcification projected over the gluteus muscle on the right. Osteopenia. Mild arthrosis of both sacroiliac joints. Mild arthrosis of the symphysis pubis. Mild arthrosis of both hips. RAD/HIP, UNI W/ Pelvis 2-3 Views IMPRESSION: Osteopenia with osteoarthritic changes. No significant changes since the prior study. No other abnormality. Electronically Signed: Sebastián Dumont MD at 9:43 EDT ,
--- NOTE | 2024-02-10 15:25 | RAD_ITS ---
STUDY: X-RAY - LUMBAR SPINE REASON FOR EXAM: Female, 83 years old. Right hip pain. TECHNIQUE: 4 view(s) of the lumbar spine were obtained. COMPARISON: None FINDINGS: Osteopenia. Slight increased lordosis. Mild dextroscoliosis. 8 mm of anterolisthesis of L4 on L5. Diffuse mild lower thoracic and lumbosacral facet sclerosis. Diffuse mild intervertebral disc space narrowing with osteophytes most marked in the lower thoracic spine. Minimal osteophyte formation in the lumbosacral spine. Vascular calcification. RAD/L/S Spine Min 4 Views IMPRESSION: Osteopenia with mild dextroscoliosis and diffuse mild lower thoracic and lumbosacral spondylosis. Electronically Signed: Sebastián Dumont MD at 9:45 EDT ,
== END | disposition home or self-care (01) ==
PROVIDERS: PCP Family Medicine; Referring Provider Family Medicine; Visit Provider Family Medicine
DX: M25.551 Pain in right hip (principal); M51.16 Intervertebral disc disorders with radiculopathy, lumbar region
CPT/HCPCS: 72110; 73502

== ENCOUNTER → 2024-05-10 | Outpatient (CLI) | payer MEDICARE, SELFPAY | END | disposition home or self-care (01) | LOC: BFHLAB 15:52 | PROVIDERS: PCP Family Medicine; Referring Provider Family Medicine; Visit Provider Family Medicine | DX: R19.7 Diarrhea, unspecified (principal) | CPT/HCPCS: 83630; 87177; 87209; 87493; 87506 ==

== ENCOUNTER → 2024-06-20 | Outpatient (CLI) | payer MEDICARE, SELFPAY ==
--- NOTE | 2024-06-20 16:05 | RAD_ITS ---
INDICATION: ASSESS FOR COPD EXAMINATION/TECHNIQUE: X-RAY - XR Chest 2 Views COMPARISON: 11/05/2021 FINDINGS: LIFE-SUPPORT AND LINES: 1. None HEART AND VESSELS: The cardiac silhouette, pulmonary vasculature have normal appearance. No evidence of congestive failure. LUNGS AND PLEURAL SPACES: Lungs are clear. No focal infiltrate, consolidation or effusions. No evidence of pneumothorax. There are coarse markings at the RIGHT lung base which appear chronic and stable allowing for differences in inspiratory effort.. MEDIASTINUM AND HILAR REGIONS: No masses adenopathy noted. No areas of calcification. Visualized upper airway is normal in position. BONY ELEMENTS: No acute bony changes noted. RAD/Chest PA and Lateral IMPRESSION: 1. No evidence of acute cardiopulmonary process Electronically Signed: Kenyon Bazzi MD at 17:09 EDT ,
== END | disposition home or self-care (01) ==
PROVIDERS: PCP Family Medicine; Referring Provider Nurse Practitioner Family; Visit Provider Nurse Practitioner Family
DX: I49.3 Ventricular premature depolarization (principal); R94.31 Abnormal electrocardiogram [ECG] [EKG]
CPT/HCPCS: 71046

== ENCOUNTER → 2024-11-21 | Outpatient (CLI) | payer MEDICARE, SELFPAY ==
[2024-11-21 15:28] LABS: Absolute Lymphocyte Count 2.33 X10^3/uL (0.83-4.51); Absolute Neutrophil Count 7.5 X10^3/uL (2.0-7.7); Basophil# 0.05 X10^3/uL; Basophil% 0.5 % (0-1); Eosinophil# 0.12 X10^3/uL; Eosinophils% 1.1 % (0-5); Hematocrit 39.5 % (37-47); Hemoglobin 13.8 g/dL (12.0-15.0); Lymphocyte # 2.33 X10^3/ul (0.83-4.51); Lymphocyte % 21.2 % (19-41); Mean Corp Hgb Conc 34.9 g/dL (32-36); Mean Corpuscular Hgb 28.2 pg (27.0-32.0); Mean Corpuscular Volume 80.6 fL (81-99); Mean Platelet Vol. 8.9 fl (6.2-12.0); Monocyte% 8.2 % (0-10); NRBC Flagged by Analyzer 0 % (0-5); Neutrophil # 7.54 X10^3/uL (2.7-7.7); Neutrophil % 68.6 % (47-70); Platelet Count 342 K/mm3 (150-450); RBC Distribution Width CV 13.2 % (11.6-14.6); RBC Distribution Width SD 38.5 fl (35.1-43.9)
[2024-11-21 18:31] LABS: Magnesium 2.1 mg/dL (1.5-2.2)
[2024-11-21 18:50] LABS: ALB/GLOB Ratio 1.8 RATIO (0.9-2.4); AST(SGOT) 22 U/L (<=31); Alanine Aminotransfer ALT/SGPT 23 U/L (<=34); Albumin, Serum 4.1 g/dL (3.4-4.8); Alkaline Phosphatase 74 U/L (35-104); Anion Gap 11 (5-15); BUN 11 mg/dL (4-19); BUN/Creat Ratio 18.1 RATIO (10-20); Calcium,Total 9.1 mg/dL (7.6-11.0); Carbon Dioxide 23.1 mmol/L (21.0-32.0); Chloride 88 mmol/L (98-108); Creatinine, Serum 0.59 mg/dL (0.70-1.20); EST Glomerular Filtration Rate 88 (>60); Globulin 2.3 g/dL (2.2-4.2); Glucose 121 mg/dL (70-99); Potassium 4.4 mmol/L (3.3-5.1); Protein, Total 6.4 g/dL (5.9-8.4); Sodium Level 122 mmol/L (133-145); Total Bilirubin 0.53 mg/dL (0.00-1.30)
== END | disposition home or self-care (01) ==
LOC: BFHLAB 13:57
PROVIDERS: PCP Family Medicine; Visit Provider Family Medicine
DX: R42 Dizziness and giddiness (principal); Z51.81 Encounter for therapeutic drug level monitoring
CPT/HCPCS: 36415; 80053; 83735; 85025

== ENCOUNTER → 2024-11-23 | Outpatient (CLI) | payer MEDICARE, SELFPAY ==
[2024-11-23 16:27] LABS: Color, Urine Yellow (Yellow); Glucose, Dipstick Normal (Normal); Ketone-Dipstick Negative (Negative); Leukocyte Esterase-Dipstick 500 /ul (Negative); Nitrite-Dipstick Negative (Negative); Occult Blood-Urine Negative /ul (Negative); Protein-Dipstick 15 mg/dl (Negative); Urine Bilirubin Dipstick Negative (Negative); Urine Clarity Clear (Clear); Urine Urobilinogen Normal (Normal)
== END | disposition home or self-care (01) ==
LOC: LABSPEC 11:41
PROVIDERS: PCP Family Medicine; Visit Provider Family Medicine
DX: E87.1 Hypo-osmolality and hyponatremia (principal); R30.0 Dysuria
CPT/HCPCS: 81002; 87086; 87088

== ENCOUNTER 2024-11-24 22:03 | Inpatient (IN) | payer MEDICARE, SELFPAY ==
[2024-11-24 22:04] VITALS: BP 157/94; PULSE 77; RESP 18; TEMP 36.4; O2SAT 98
[2024-11-24 22:06] VITALS: BMI 28.3
--- NOTE | 2024-11-24 22:06 | EKG12_ITS ---
Test Reason : ABN. LABS Blood Pressure : */* mmHG Vent. Rate : 65 BPM Atrial Rate : 65 BPM P-R Int : 194 ms QRS Dur : 96 ms QT Int : 420 ms P-R-T Axes : 53 -68 53 degrees QTcB Int : 436 ms Normal sinus rhythm Left anterior fascicular block Minimal voltage criteria for LVH, may be normal variant ( Nasir product ) Abnormal ECG Confirmed by TK JENKINS, LIVE ([id number]), photographic editor ANJANA FELIX ([id number]) on 11/25/2024 8:25:10 AM Referred By: SHAWN Confirmed By: LIVE FREY MD
--- NOTE | 2024-11-24 22:38 | EX.ED.DYSGE1 ---
HPI History of Present Illness Chief Complaint: Abn Labs Narrative Narrative: Patient is a 84-year-old female with a past medical history of CARLA, anxiety, and hypertension who presents to the emergency department the chief complaint of low sodium. Patient states that she has not been feeling well recently and her blood physician checked her blood work and noted that her sodium was low. They repeated this blood work today and noted that it was lower which then she was advised to come to the emergency department to be evaluated. Patient denies any alcohol use, drug use, and states that she does not smoke. Patient has no other complaints outside of nausea and generalized weakness. PFSH PFSH Medical History Obesity Venous insufficiency of right lower extremity Nonrheumatic mitral (valve) prolapse Abnormal mammogram of left breast Obstructive sleep apnea Goiter Umbilical hernia Essential hypertension Anxiety Diverticula of colon Arthritis Former smoker Home Medications ?Medication ?Instructions ?Recorded ?Last Taken ?Type vibegron 75 mg tablet (Gemtesa) 75 mg PO DAILY 04/28/23 Unknown History Lactobacillus 1 cap PO DAILY 03/23/24 Unknown History acidophilus-Bifidobac.animalis 2.5 billion cell capsule (Daily Probiotic) carvedilol 6.25 mg tablet 6.25 mg PO BID 03/23/24 Unknown History d-mannose 500 mg capsule 500 mg PO BID 03/23/24 Unknown History isosorbide mononitrate 30 mg 15 mg PO QDAY 03/23/24 Unknown History tablet,extended release 24 hr losartan 50 mg tablet 50 mg PO BID bp #180 tabs 05/16/24 Unknown Rx amlodipine 2.5 mg tablet 2.5 mg PO DAILY #90 tabs 11/15/24 Unknown Rx Allergy/AdvReac Type Severity Reaction Status Date / Time amoxicillin (From Augmentin) Allergy Intermediate Mild rash Verified 11/24/24 22:04 clavulanic acid (From Allergy Intermediate Mild rash Verified 11/24/24 22:04 Augmentin) benazepril HCl (From Allergy Other Verified 11/24/24 22:04 Lotensin) betamethasone (From Allergy NEEDS Verified 11/24/24 22:04 Diprolene) FOLLOW-UP felodipine Allergy Other Verified 11/24/24 22:04 fexofenadine HCl (From Allergy Other Verified 11/24/24 22:04 Uyen) ramipril (From Altace) Allergy Other Verified 11/24/24 22:04 tolterodine tartrate (From Allergy Other Verified 11/24/24 22:04 Detrol) verapamil HCl (From Allergy Other Verified 11/24/24 22:04 Covera-HS) lisinopril AdvReac Intermediate cough Verified 11/24/24 22:04 Family History Mother CVA (cerebral vascular accident) Hypertension History of DVT (deep vein thrombosis) Brother History of DVT (deep vein thrombosis) Other Aortic aneurysm Surgical History H/O myringotomy (05/18/19) History of colon surgery Hx of cataract surgery Social History household members: spouse Smoking Status: Former smoker alcohol intake: current alcohol intake frequency: other substance use type: does not use ROS ROS ED ROS Narrative Constitutional: Denies fever, chills, headaches, lightness, dizziness Eyes: Denies double vision blurry vision Cardiovascular: Denies chest pain or palpitations Respiratory: Denies coughing wheezing shortness of breath Abdomen: Complains of nausea denies abdominal pain vomiting diarrhea : States that she recently was treated for urinary tract infection is doing better Neurological: Denies numbness, tingling Musculoskeletal: Denies back pain Skin: Denies rashes or lesions EXAM Physical Exam Narrative Exam Narrative: General: Patient was lying in bed rest comfortably did not appear to be in acute distress Head: Atraumatic, normocephalic Eyes: PERRL bilateral, EOMI bilateral, no conjunctival injection noted Neck: Soft, supple, trachea midline Cardiovascular: Regular rate and rhythm no murmurs gallops rubs noted Respiratory: Clear to auscultation bilaterally Abdomen: Soft, nondistended, no tenderness palpation Extremities: +4/5 strength noted in the bilateral upper and lower extremities, no pedal edema on exam Neurological: Patient follow commands and that she was at [facility] years 2024 Skin: Warm, dry, intact no rashes or lesions noted Const Vital Signs: 11/24/24 22:04 11/24/24 22:24 11/25/24 00:03 Temperature 97.5 F L Temperature Source Temporal Pulse Rate 77 72 Respiratory Rate 18 15 Blood Pressure 157/94 H 162/73 H Blood Pressure Mean 115 102 Pulse Ox 98 Oxygen Delivery Method Room Air Room Air 11/25/24 02:07 Temperature 97 F L Temperature Source Pulse Rate 65 Respiratory Rate 15 Blood Pressure 170/74 H Blood Pressure Mean 106 Pulse Ox 97 Oxygen Delivery Method MDM MDM MDM Narrative Medical decision making narrative: Patient is a 84-year-old female who presented to the emergency department chief complaint of hyponatremia. On the differential diagnose includes but limited to hypervolemic hyponatremia, SIADH, dehydration. Once workup is obtained reviewed she will be reevaluated. Patient be given a liter of IV fluids. Patient's CBC was reviewed and showed a white blood count 11,000, hemoglobin 14.7, plate count 354. Patient's sodium here in the emergency department was noted be 121 earlier today was 118, potassium normal 3.9, creatinine of 0.67. Patient's serum osmolality was 254, proBNP was 173. Patient's chest x-ray reviewed by myself by radiology showed no acute findings. At this point time will discuss case with hospitalist for her admission for hyponatremia, generalized weakness and not feeling well. Patient's EKG was reviewed and showed sinus rhythm with a rate of 65 bpm. Discussed case with hospitalist Dr. Cardenas who accept patient for admission he is recommending a CT scan of chest abdomen pelvis which were ordered. Patient was notified that should be admitted with all question concerns answered at bedside. Lab Data Labs: Laboratory Results - last 24 hr 11/24/24 22:14 WBC 11.6 H RBC 5.17 Hgb 14.7 Hct 40.9 MCV 79.1 L MCH 28.4 MCHC 35.9 RDW Std Deviation 36.9 RDW Coeff of Milena 13.0 Plt Count 354 MPV 8.4 Immature Gran % (Auto) 0.300 Neut % (Auto) 64.2 Lymph % (Auto) 24.9 [place] % (Auto) 8.7 Eos % (Auto) 1.5 Baso % (Auto) 0.4 Absolute Neuts (auto) 7.4 Absolute Lymphs (auto) 2.88 Nucleated RBC % 0 Sodium 121 L Potassium 3.9 Chloride 88 L Carbon Dioxide 19.9 L Anion Gap 14 BUN 9 Creatinine 0.67 L Estim Creat Clear Calc 48.23 L Est GFR (MDRD) Non-Af 85 BUN/Creatinine Ratio 13.2 Glucose 124 H Calcium 9.2 NT pro BNP II 173 Radiography Diagnostic Testing: Clinical Impression(s) from Imaging Studies Chest X-Ray 11/24/24 22:45 IMPRESSION: NO ACUTE FINDINGS. Reading Location: [facility] Discharge Plan Triage Chief Complaint: Abn Labs ED Provider: Nayan Dixon Dx/Rx/DC Orders Clinical Impression: Acute hyponatremia, Generalized weakness Prescriptions: No Action d-mannose 500 mg capsule 500 mg PO BID Gemtesa 75 mg tablet 75 mg PO DAILY carvedilol 6.25 mg tablet 6.25 mg PO BID Rx Instructions: must administer with a meal/food isosorbide mononitrate 30 mg tablet extended release 24 hr 15 mg PO QDAY Daily Probiotic 2.5 billion cell capsule 1 cap PO DAILY losartan 50 mg tablet 50 mg PO BID Qty: 180 3RF amlodipine 2.5 mg tablet 2.5 mg PO DAILY Qty: 90 3RF Primary Care Provider: Quiana Healy Referrals: Quiana Healy DO [Primary Care Provider] - Print Language: Yi Disposition Disposition: Acute Care Hospital [facility]
--- NOTE | 2024-11-24 22:45 | RAD_ITS ---
PROCEDURE: CHEST PA AND LATERAL 11/24/2024 REASON FOR EXAM: 84-year-old female, hyponatremia. TECHNIQUE: Frontal and lateral views of the chest. COMPARISON: Chest radiograph 06/20/2024. FINDINGS: Hardware: None. Heart: The heart size is normal. Mediastinum: The mediastinal contour is unremarkable. Lungs: Mild atelectasis/scarring within the right middle lobe. No focal consolidation, pleural effusion or pneumothorax. Bones: Degenerative changes are identified within the thoracic spine. Arthrosis of the bilateral glenohumeral joints. RAD/Chest PA and Lateral IMPRESSION: NO ACUTE FINDINGS. Reading Location: [id number]
[2024-11-24 22:51] LABS: Absolute Lymphocyte Count 2.88 X10^3/uL (0.83-4.51); Absolute Neutrophil Count 7.4 X10^3/uL (2.0-7.7); Basophil# 0.05 X10^3/uL; Basophil% 0.4 % (0-1); Eosinophil# 0.17 X10^3/uL; Eosinophils% 1.5 % (0-5); Hematocrit 40.9 % (37-47); Hemoglobin 14.7 g/dL (12.0-15.0); Lymphocyte # 2.88 X10^3/ul (0.83-4.51); Lymphocyte % 24.9 % (19-41); Mean Corp Hgb Conc 35.9 g/dL (32-36); Mean Corpuscular Hgb 28.4 pg (27.0-32.0); Mean Corpuscular Volume 79.1 fL (81-99); Mean Platelet Vol. 8.4 fl (6.2-12.0); Monocyte# 1.01 X10^3/uL; Monocyte% 8.7 % (0-10); NRBC Flagged by Analyzer 0 % (0-5); Neutrophil % 64.2 % (47-70); Platelet Count 354 K/mm3 (150-450); RBC Distribution Width SD 36.9 fl (35.1-43.9); Red Blood Count 5.17 M/mm3 (4.2-5.4); White Blood Count 11.6 K/mm3 (4.4-11.0)
[2024-11-24] MEDS: 0.9% Normal Saline (1000mL) 1,000 ML 999 ML IV (23:18)
[2024-11-25 00:03] VITALS: BP 162/73; PULSE 72; RESP 15
[2024-11-25 00:05] LABS: Pro- Brain NATRIURETIC PEPTIDE 173 pg/mL (<=1800)
[2024-11-25 00:09] LABS: Anion Gap 14 (5-15); BUN 9 mg/dL (4-19); BUN/Creat Ratio 13.2 RATIO (10-20); Calcium,Total 9.2 mg/dL (7.6-11.0); Carbon Dioxide 19.9 mmol/L (21.0-32.0); Chloride 88 mmol/L (98-108); Creatinine, Serum 0.67 mg/dL (0.70-1.20); EST Glomerular Filtration Rate 85 (>60); Estimated Creatinine Clearance 48.23 ml/min (50-250); Glucose 124 mg/dL (70-99); Potassium 3.9 mmol/L (3.3-5.1); Sodium Level 121 mmol/L (133-145)
[2024-11-25 02:07] VITALS: BP 170/74; PULSE 65; RESP 15; TEMP 36.1; O2SAT 97
--- NOTE | 2024-11-25 02:29 | PCM.HP.STD ---
[facility] - General General Date of Admission: 11/25/24 Date of Service: 11/25/24 Chief Complaint: Low Sodium on Outpatient Labs. [facility] Narrative NORM MOSES, is a 84 F with a past medical history of essential hypertension; on carvedilol, losartan and amlodipine, history of goiter, overweight; with BMI of 28.4 this admission, CARLA; on CPAP, former tobacco abuse, history of nonrheumatic mitral valve prolapse, history of venous insufficiency of RLE, history of colonic diverticulosis; with subsequent colon surgery to drain a diverticular abscess, history of umbilical hernia, history of abnormal mammogram of the Left breast, history of myringotomy (2019), history of cataract surgery, OAB; on vibegron, history of anxiety and OA who presents to [facility] ER complaining of a Critical Hyponatremia of 118 mmol/L incidentally noted on outpatient labs. Ms. Moses reports her symptoms began approximately 3-4 days prior to admission when she began to feel unwell so she went to her PCP and when her labs were checked she was noted to have a low sodium of 120 mmol/L. Her symptoms persisted and when she followed up with him yesterday her sodium had dropped to 118 mmol/L so she was instructed to come in to the hospital for further evaluation and treatment. She admits to associated nausea and generalized weakness along with uncontrolled hypertension in the ~200 mmHg systolic. A review of her records shows transient low sodiums but only down to 125 mmol/L in October 2021 before rebounding to 133 mmol/L - 140 mmol/L as of December 23, 2023. She admits to routine free-water intake of ~64 oz. daily. She denies alcohol use, drug use or recent tobacco abuse. There was no report of fever, chills, nausea, vomiting, headache, seizures, paresthesias, visual changes, SOB, cough, chest pain or rash. In the ER she was diagnosed with Severe Hyponatremia of 121 mmol/L present on admission likely due to Water Intoxication with mild Leukocytosis of 11.6K present on admission complicated by Uncontrolled Hypertension of 170/104 mmHg noted shortly after admission and she was then admitted to the PCU for ongoing care for a stay that is expected to be greater than 2 midnights. [facility] Medical History Obesity Venous insufficiency of right lower extremity Nonrheumatic mitral (valve) prolapse Abnormal mammogram of left breast Obstructive sleep apnea Goiter Umbilical hernia Essential hypertension Anxiety Diverticula of colon Arthritis Former smoker Home Medications ?Medication ?Instructions ?Recorded ?Last Taken ?Type vibegron 75 mg tablet (Gemtesa) 75 mg PO DAILY 04/28/23 Unknown History Lactobacillus 1 cap PO DAILY 03/23/24 Unknown History acidophilus-Bifidobac.animalis 2.5 billion cell capsule (Daily Probiotic) carvedilol 6.25 mg tablet 6.25 mg PO BID 03/23/24 Unknown History d-mannose 500 mg capsule 500 mg PO BID 03/23/24 Unknown History isosorbide mononitrate 30 mg 15 mg PO QDAY 03/23/24 Unknown History tablet,extended release 24 hr losartan 50 mg tablet 50 mg PO BID bp #180 tabs 05/16/24 Unknown Rx amlodipine 2.5 mg tablet 2.5 mg PO DAILY #90 tabs 11/15/24 Unknown Rx Allergy/AdvReac Type Severity Reaction Status Date / Time amoxicillin (From Augmentin) Allergy Intermediate Mild rash Verified 11/24/24 22:04 clavulanic acid (From Allergy Intermediate Mild rash Verified 11/24/24 22:04 Augmentin) benazepril HCl (From Allergy Other Verified 11/24/24 22:04 Lotensin) betamethasone (From Allergy NEEDS Verified 11/24/24 22:04 Diprolene) FOLLOW-UP felodipine Allergy Other Verified 11/24/24 22:04 fexofenadine HCl (From Allergy Other Verified 11/24/24 22:04 Uyen) ramipril (From Altace) Allergy Other Verified 11/24/24 22:04 tolterodine tartrate (From Allergy Other Verified 11/24/24 22:04 Detrol) verapamil HCl (From Allergy Other Verified 11/24/24 22:04 Covera-HS) lisinopril AdvReac Intermediate cough Verified 11/24/24 22:04 Family History Mother CVA (cerebral vascular accident) Hypertension History of DVT (deep vein thrombosis) Brother History of DVT (deep vein thrombosis) Other Aortic aneurysm Surgical History H/O myringotomy (09/18/19) History of colon surgery Hx of cataract surgery Social History household members: spouse Smoking Status: Former smoker alcohol intake: current alcohol intake frequency: other substance use type: does not use ROS ROS Narrative Review of Systems: Constitutional: Patient denies fever or chills. Eyes: Patient denies changes in vision or discharge from eyes. ENT: Patient denies runny nose, sore throat or ear pain. Resp: Patient denies SOB or cough. CV: Patient denies chest pain, palpitations, heart racing or LE edema. GI: Patient admits to nausea but she denies vomiting, diarrhea or constipation. : Patient denies dysuria or hematuria. MSK: Patient admits to generalized weakness but she denies arthralgias or myalgias. Skin: Patient denies rash, abscess, wounds or jaundice. Psych: Patient denies symptoms of uncontrolled depression or anxiety. Neuro: Patient denies headache, paresthesias or focal neurologic deficits. Allergy: Patient denies lip swelling, tongue swelling or urticaria. Hematology: Patient denies east bleeding or easy bruisability. Endocrinology: Patient denies polyuria, polydipsia or polyphagia. 14 point ROS otherwise negative except for positives noted above as per HPI. Vital Signs Vital Signs Vital Signs: 11/24/24 22:04 11/24/24 22:24 11/25/24 00:03 Temperature 97.5 F L Temperature Source Temporal Pulse Rate 77 72 Respiratory Rate 18 15 Blood Pressure 157/94 H 162/73 H Blood Pressure Mean 115 102 Pulse Ox 98 Oxygen Delivery Method Room Air Room Air 11/25/24 02:07 Temperature 97 F L Temperature Source Pulse Rate 65 Respiratory Rate 15 Blood Pressure 170/74 H Blood Pressure Mean 106 Pulse Ox 97 Oxygen Delivery Method Weight Weight: 160 lb 4.417 oz Body Mass Index (BMI) 28.3 Physical Exam Const alert, oriented x3, no apparent distress, average body habitus and healthy appearing General Appearance: cooperative HEENT normocephalic, head/scalp atraumatic, hearing grossly normal bilaterally and moist oral mucous membranes Eyes PERRL and EOMs intact bilaterally Neck no lymphadenopathy and supple Resp normal respiratory effort, no retractions, no use of accessory muscles and clear to auscultation bilaterally Cardio regular rate and regular rhythm GI normal to inspection, nondistended, normoactive bowel sounds, soft to palpation, non-tender and non-distended Extremity normal to inspection, full ROM and no clubbing, cyanosis or edema Skin Skin Narrative: Patient has no evidence of rash, abscess, wounds or jaundice. Neuro oriented x3, CN's II-XII intact bilaterally, moves all extremities and no focal motor deficits Sensorium / Orientation: awake, alert, oriented to person, oriented to place and oriented to time Speech: speech normal Psych affect normal Results Medical Records Data Attestation: I reviewed the patient's medical records Lab / Micro Data Attestation: I reviewed the patient's lab results. 11/24/24 22:14 11/24/24 22:14 Labs: Laboratory Results - last 24 hr 11/24/24 22:14: WBC 11.6 H, RBC 5.17, Hgb 14.7, Hct 40.9, MCV 79.1 L, MCH 28.4, MCHC 35.9, RDW Std Deviation 36.9, RDW Coeff of Milena 13.0, Plt Count 354, MPV 8.4, Immature Gran % (Auto) 0.300, Neut % (Auto) 64.2, Lymph % (Auto) 24.9, [place] % (Auto) 8.7, Eos % (Auto) 1.5, Baso % (Auto) 0.4, Absolute Neuts (auto) 7.4, Absolute Lymphs (auto) 2.88, Nucleated RBC % 0, Sodium 121 L, Potassium 3.9, Chloride 88 L, Carbon Dioxide 19.9 L, Anion Gap 14, BUN 9, Creatinine 0.67 L, Estim Creat Clear Calc 48.23 L, Est GFR (MDRD) Non-Af 85, BUN/Creatinine Ratio 13.2, Glucose 124 H, Calcium 9.2, NT pro BNP II 173 Imaging Radiology Impression Chest X-Ray 11/24/24 22:45 IMPRESSION: NO ACUTE FINDINGS. Reading Location: [id number] Imaging Services [address] [place], [place] [address] CT Chest, Abd, Pel w/Contrast MR#: [id number] Acct: [id number] Name: NORM MOSES Rep #: [id number] : 1940 F 84 From: Simba Carlisle MD PCP: Dr. Quiana Healy DO Status: ADM IN Study: CT Chest, Abd, Pel w/Contrast Date of Exam: 11/25/24 Exam# [id number] Ordering Dr: Nayan Dixon DO PROCEDURE: CT CHEST, ABD, PEL W/CONTRAST 11/25/2024 REASON FOR EXAM: HYPONATREMIA TECHNIQUE: Chest, abdomen and pelvis CT with intravenous contrast. Coronal and Sagittal reconstruction series were provided. One or more dose reduction techniques were used (e.g., Automated exposure control, adjustment of the mA and/or kV according to patient size, use of iterative reconstruction technique. CONTRAST: 99 cc Isovue 370 RADIATION DOSE SUMMARY: CTDlvol: 10.17, 19.49 mGy DLP: 1249.51 mGycm COMPARISON: None. FINDINGS: CT CHEST: The central airways appear patent. The lungs are clear. Ectatic thoracic aorta appears within limits and visualized great vessels. No pericardial or pleural effusion. No adenopathy. No large central or hilar saddle pulmonary embolism. Right shoulder severe appearing osteoarthrosis. CT ABDOMEN/PELVIS: The liver, adrenal glands, gallbladder, kidneys, pancreas and spleen appear within limits. No bowel dilation or free air. Normal caliber appendix without secondary signs. Aortoiliac atherosclerotic change without abdominal aortic aneurysm. No adenopathy. The uterus and adnexa appear within limits. The bladder appears mildly distended without evidence of wall thickening or surrounding inflammatory change. Associated mild bilateral hydroureteronephrosis. Symmetric appearing nephrograms without perinephric stranding, edema. No evidence of urothelial thickening. What appears to be a possible bladder diverticulum at the left dome of the bladder measuring 3 x 2 x 2.4 cm axial 70, coronal 50 and sagittal 100 with appearance of possible small areas of wall punctate calcification. No free fluid seen. Lower lumbar spondylosis. Mild anterolisthesis L4 on L5. Multilevel facet degenerative changes. CT/CT Chest, Abd, Pel w/Contrast IMPRESSION: No evidence of acute process within the chest. The bladder appears mildly distended without evidence of wall thickening or surrounding inflammatory change. Associated mild bilateral hydroureteronephrosis. Symmetric appearing nephrograms without perinephric stranding, edema. No evidence of urothelial thickening. What appears to be a possible bladder diverticulum at the left dome of the bladder measuring 3 x 2 x 2.4 cm axial 70, coronal 50 and sagittal 100 with appearance of possible small areas of wall punctate calcification. No free fluid seen. Reading Location: [id number] CC: Dr. Quiana Healy DO; Dr. Nayan Dixon DO ~ Supercalender Operator: Signed Assessment & Plan Assessment/Plan (1) Acute hyponatremia: (2) Water intoxication: (3) Nausea: (4) Uncontrolled hypertension: (5) Leukocytosis: QUALIFIERS: Leukocytosis type: unspecified Qualified Code(s): D72.829 - Elevated white blood cell count, unspecified (6) Generalized weakness: PLAN: Plan 1. Severe Hyponatremia of 121 mmol/L present on admission - Admit to PCU. Continue NS IVF and recheck BMP q. 6 hours to aim for correction of no > 8-10 mmol/L per day. Give acetaminophen prn for pain or fever. 2. Water Intoxication likely causing #1 with associated Nausea - Patient counseled to cut free water intake by ~50% to prevent recurrence. Give ondansetron IV prn for nausea and vomiting. 3. Uncontrolled Hypertension due to relative volume overload complicating #1 & #2 - Maintain home regimen plus give one dose of IV furosemide to promote excretion of dilute urine. 4. Mild Leukocytosis of 11.6K present on admission due to suspected acute phase reactant due #1 - #3 - Check CBC daily to follow trend. UA negative for infection but does show signs of colonization. 5. Generalized Weakness attributable to #1 - #4 - PT/OT and Case Management to consult and treat on rounds in the AM for further recommendations with help appreciated in advance. 6. History of goiter - Noted. CT pending to reassess. Check TSH. 7. Overweight; with BMI of 28.4 this admission plus CARLA; on CPAP - Weight loss will be recommended. Resume nocturnal CPAP. 8. Former tobacco abuse - Noted. 9. History of nonrheumatic mitral valve prolapse - Noted. Check echocardiogram to evaluate LVEF in light of #3. 10. History of venous insufficiency of RLE - Noted. 11. History of colonic diverticulosis; with subsequent colon surgery to drain a diverticular abscess - Noted. 12. History of umbilical hernia - Noted. 13. History of abnormal mammogram of the Left breast - Noted. 14. History of myringotomy (2019) - Noted for the sake of completeness. 15. History of cataract surgery - Noted. 16. OAB; on vibegron - Continue current treatment. 17. History of anxiety - Stable with patient currently not on treatment. 18. OA - Give acetaminophen prn. who presents to [facility] ER complaining of a Critical Hyponatremia of 118 mmol/L incidentally noted on outpatient labs. 19. DVT prophylaxis - Lovenox 40 mg sq daily plus SCD's. Total time: Approximately (but not less than) 75 minutes. Charges/Coding Visit Charges Inpatient E&M: 81766 Init Hosp L3
[2024-11-25 03:28] VITALS: BMI 31.4
[2024-11-25 03:28] LABS: Mucous, Urine 0 SEEN /hpf (<or=2+); Squamous Epithelial Cells - UA 0 SEEN /hpf (5-10)
[2024-11-25 03:30] LABS: Hemoglobin A1c 5.9 % (<=5.6)
[2024-11-25 03:30] LABS: Color, Urine Straw (Yellow); Glucose, Dipstick Normal (Normal); Ketone-Dipstick 5 mg/dl (Negative); Leukocyte Esterase-Dipstick 25 /ul (Negative); Nitrite-Dipstick Negative (Negative); Occult Blood-Urine 10 /ul (Negative); Protein-Dipstick Negative (Negative); Urine Bilirubin Dipstick Negative (Negative); Urine Clarity Clear (Clear); Urine Urobilinogen Normal (Normal)
[2024-11-25 03:47] LABS: Bacteria RARE /hpf (None Seen); Red Blood Cells-Urine 0-5 SEEN /hpf (0-5); White Blood Cells 0-5 SEEN /hpf (0-5)
[2024-11-25] MEDS: 0.9% Normal Saline (1000mL) 1,000 ML 70 ML IV (03:54)
[2024-11-25 04:07] VITALS: BP 164/91; PULSE 74; RESP 18; TEMP 36.6; O2SAT 98
[2024-11-25] MEDS: 0.9% Saline Lock 10 ML Syringe IV (04:20)
[2024-11-25] MEDS: Furosemide 20 MG/2 ML VIAL IV (04:20)
[2024-11-25 06:00] VITALS: BMI 31.5
--- NOTE | 2024-11-25 07:17 | PCM.PN.HOSP ---
Reason for Visit Reason for Visit: Diagnoses Elevated white blood cell count, unspecified (11/25/24) Hypo-osmolality and hyponatremia (11/25/24) Other fluid overload (11/25/24) Essential (primary) hypertension (11/25/24) Nausea (11/25/24) Weakness (11/25/24) Subjective Subjective No new issues. Objective Data Objective Data Vital Signs: Vital Signs Temp Pulse Resp BP Pulse Ox O2 Del Method 36.6 C 74 18 164/91 H 98 Room Air 11/25/24 04:07 11/25/24 04:07 11/25/24 04:07 11/25/24 04:07 11/25/24 04:07 11/25/24 04:22 Oxygen Delivery Method Room Air Weight: 80.7 kg Body Mass Index (BMI) 31.5 Intake & Output: Intake and Output for Last 24 Hours 11/23/24 11/24/24 11/25/24 23:59 23:59 23:59 Intake Total 1240 / 1240 Output Total 550 / 550 Balance 690 / 690 Lab / Micro Data 11/25/24 07:07 11/25/24 07:07 Labs: Laboratory Results - last 24 hr 11/24/24 22:14: WBC 11.6 H, RBC 5.17, Hgb 14.7, Hct 40.9, MCV 79.1 L, MCH 28.4, MCHC 35.9, RDW Std Deviation 36.9, RDW Coeff of Milena 13.0, Plt Count 354, MPV 8.4, Immature Gran % (Auto) 0.300, Neut % (Auto) 64.2, Lymph % (Auto) 24.9, [place] % (Auto) 8.7, Eos % (Auto) 1.5, Baso % (Auto) 0.4, Absolute Neuts (auto) 7.4, Absolute Lymphs (auto) 2.88, Nucleated RBC % 0, Sodium 121 L, Potassium 3.9, Chloride 88 L, Carbon Dioxide 19.9 L, Anion Gap 14, BUN 9, Creatinine 0.67 L, Estim Creat Clear Calc 48.23 L, Est GFR (MDRD) Non-Af 85, BUN/Creatinine Ratio 13.2, Glucose 124 H, Hemoglobin A1c 5.9, Calcium 9.2, Magnesium 2.0, NT pro BNP II 173, TSH 3.550 11/25/24 03:15: Urine Color Straw, Urine Clarity Clear, Urine pH 7.0, Ur Specific [place] 1.010, Urine Protein Negative, Urine Glucose (UA) Normal, Urine Ketones 5 H, Urine Occult Blood 10 H, Urine Nitrite Negative, Urine Bilirubin Negative, Urine Urobilinogen Normal, Ur Leukocyte Esterase 25 H, Urine RBC 0-5 SEEN, Urine WBC 0-5 SEEN, Ur Squamous Epith Cells 0 SEEN, Urine Bacteria RARE, Urine Mucus 0 SEEN Radiography Diagnostic Testing: Radiology Impression Chest X-Ray 11/24/24 22:45 IMPRESSION: NO ACUTE FINDINGS. Reading Location: [facility] Chest/Abdomen/Pelvis CT 11/25/24 02:28 IMPRESSION: No evidence of acute process within the chest. The bladder appears mildly distended without evidence of wall thickening or surrounding inflammatory change. Associated mild bilateral hydroureteronephrosis. Symmetric appearing nephrograms without perinephric stranding, edema. No evidence of urothelial thickening. What appears to be a possible bladder diverticulum at the left dome of the bladder measuring 3 x 2 x 2.4 cm axial 70, coronal 50 and sagittal 100 with appearance of possible small areas of wall punctate calcification. No free fluid seen. Reading Location: [facility] Physical Exam Const Constitutional Narrative: up in bed non-toxic. afebrile. Psych affect normal Assessment & Plan Assessment/Plan (1) Acute hyponatremia: PLAN: 2/2 polydipsia + SIADH. improved with NS CT C/A/P: showed no masses, but bladder distention and mild bilateral hydroureteronephrosis. TSH WNL. Check cortisol. Advised fluid restriction 1.5 liters/day and liberal salt intake. PLAN: Plan HTN: continue amlodipine, carvedilol, isosorbide, losartan VTE prophylaxis: LMWH
[2024-11-25 07:27] LABS: Absolute Lymphocyte Count 2.29 X10^3/uL (0.83-4.51); Absolute Neutrophil Count 6.6 X10^3/uL (2.0-7.7); Basophil# 0.04 X10^3/uL; Basophil% 0.4 % (0-1); Eosinophil# 0.11 X10^3/uL; Eosinophils% 1.1 % (0-5); Hemoglobin 14.3 g/dL (12.0-15.0); Lymphocyte # 2.29 X10^3/ul (0.83-4.51); Lymphocyte % 22.6 % (19-41); Mean Corp Hgb Conc 36.7 g/dL (32-36); Mean Corpuscular Hgb 28.6 pg (27.0-32.0); Mean Platelet Vol. 8.1 fl (6.2-12.0); Monocyte% 10.9 % (0-10); NRBC Flagged by Analyzer 0 % (0-5); Neutrophil # 6.55 X10^3/uL (2.7-7.7); Neutrophil % 64.6 % (47-70); Platelet Count 311 K/mm3 (150-450); RBC Distribution Width CV 13.1 % (11.6-14.6); RBC Distribution Width SD 37.2 fl (35.1-43.9); White Blood Count 10.1 K/mm3 (4.4-11.0)
[2024-11-25 08:32] LABS: Cholesterol 158 mg/dL (<=200); High Density Lipoprotein 73 mg/dL; Low Density Lipoprotein Calc. 77 mg/dL; Phosphorus 2.7 mg/dL (2.7-4.5); Triglycerides 38 mg/dL; Very Low Density Lipoprotein 8 mg/dL (5-40); cholesterol:hdl ratio screen 2.15
[2024-11-25 08:47] LABS: Vitamin B12 1895 pg/mL (180-914)
[2024-11-25 08:54] LABS: ALB/GLOB Ratio 1.8 RATIO (0.9-2.4); AST(SGOT) 18 U/L (<=31); Alanine Aminotransfer ALT/SGPT 21 U/L (<=34); Albumin, Serum 4.1 g/dL (3.4-4.8); Alkaline Phosphatase 68 U/L (35-104); Anion Gap 10 (5-15); BUN 7 mg/dL (4-19); Calcium,Total 8.8 mg/dL (7.6-11.0); Carbon Dioxide 23.8 mmol/L (21.0-32.0); Chloride 94 mmol/L (98-108); Creatinine, Serum 0.67 mg/dL (0.70-1.20); EST Glomerular Filtration Rate 85 (>60); Estimated Creatinine Clearance 50.78 ml/min (50-250); Globulin 2.2 g/dL (2.2-4.2); Glucose 139 mg/dL (70-99); Potassium 3.4 mmol/L (3.3-5.1); Protein, Total 6.3 g/dL (5.9-8.4); Sodium Level 128 mmol/L (133-145); Total Bilirubin 0.38 mg/dL (0.00-1.30)
[2024-11-25] MEDS: Losartan Potassium 50 MG Tablet PO (09:13)
[2024-11-25] MEDS: Enoxaparin 40 MG/0.4 ML Syringe SC (09:13)
[2024-11-25] MEDS: Vibegron 75 MG TABLET PO (09:13)
[2024-11-25] MEDS: amLODIPine 2.5 MG Tablet PO (09:15)
[2024-11-25] MEDS: Lactobacillis Acidophilus 1 CAP PO (09:15)
[2024-11-25] MEDS: Isosorbide Mononitrate 30 MG Tablet 15 MG PO (09:15)
[2024-11-25] MEDS: Carvedilol 6.25 MG Tablet PO (09:15)
[2024-11-25 09:18] VITALS: BP 152/82; PULSE 65; RESP 18; TEMP 36.4; O2SAT 100
--- NOTE | 2024-11-25 09:55 | CASEMGMT ---
IG[facility] Face to Face with patient for initial transition planning/care coordination assessment. RN CM introduced self and role at [facility]. Patient lying in bed, alert and oriented. Patient willing to participate in assessment and is able to answer all questions appropriately. Care providers, pharmacy, and demographics verified. Strata: 1 PCP: Niraj Specialists: [facility] urologist Preferred Pharmacy: [facility] Insurance: [employer] Prescription Benefit: yes Living Will/HPOA: none LNOK: sons, daughter Living Arrangements: Patient lives alone in a 2 story home with bed and bath on first floor, 3 steps and railing to enter the home. Patient states she is independent at home. Transportation: daughter, DIL, Son DME/HHC: Patient has shower chair, grab bars, cane, walker at home. No previous HHC or SNF. Patient wishes to discharge home, denies need for home health at this time. Will monitor progress with therapy. Patient states she has no further needs or concerns at this time. CM to follow for discharge planning needs that may arise. Disposition Plan: Patient to discharge home with family support and follow-up plans in place. Irma MADDEN, RN, CM
[2024-11-25 10:33] LABS: FOLATES,SERUM (FOLIC ACID) 8.68 ng/mL (4.60-34.80)
--- NOTE | 2024-11-25 11:38 | DS.PCM_ITS ---
Providers Date of Admission: 11/25/24 Primary Care Physician: Dr. Quiana Healy, DO Consultations 11/25/24 03:27 Consult: Nephrology Routine Consulting Provider: Latosha Bee Reason for Consult: Hyponatremia. 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 improved with NS CT C/A/P: showed no masses, but bladder distention and mild bilateral hydroureteronephrosis. TSH WNL. Check cortisol. Advised fluid restriction 1.5 liters/day and liberal salt intake. Plan HTN: continue amlodipine, carvedilol, isosorbide, losartan VTE prophylaxis: LMWH Medications at Discharge Home Medications vibegron 75 mg tablet (Gemtesa) 75 mg PO DAILY 04/28/23 Lactobacillus acidophilus-Bifidobac.animalis 2.5 billion cell capsule (Daily Probiotic) 1 cap PO DAILY 03/23/24 carvedilol 6.25 mg tablet 6.25 mg PO BID 03/23/24 d-mannose 500 mg capsule 500 mg PO BID 03/23/24 isosorbide mononitrate 30 mg tablet,extended release 24 hr 15 mg PO QDAY 03/23/24 losartan 50 mg tablet 50 mg PO BID bp #180 tabs 05/16/24 amlodipine 2.5 mg tablet 2.5 mg PO DAILY #90 tabs 11/15/24 Hospital Course Operations None Procedures None Summary of Care Provided Minutes Spent on Discharge: 32 Weight / BMI Weight Weight: 80.7 kg Body Mass Index (BMI) 31.5 ABG / Lab / Microbiology Data 11/25/24 07:07 11/25/24 07:07 Laboratory: Laboratory Results - last 24 hr 11/24/24 22:14: WBC 11.6 H, RBC 5.17, Hgb 14.7, Hct 40.9, MCV 79.1 L, MCH 28.4, MCHC 35.9, RDW Std Deviation 36.9, RDW Coeff of Milena 13.0, Plt Count 354, MPV 8.4, Immature Gran % (Auto) 0.300, Neut % (Auto) 64.2, Lymph % (Auto) 24.9, [place] % (Auto) 8.7, Eos % (Auto) 1.5, Baso % (Auto) 0.4, Absolute Neuts (auto) 7.4, Absolute Lymphs (auto) 2.88, Nucleated RBC % 0, Sodium 121 L, Potassium 3.9, C hloride 88 L, Carbon Dioxide 19.9 L, Anion Gap 14, BUN 9, Creatinine 0.67 L, E stim Creat Clear Calc 48.23 L, Est GFR (MDRD) Non-Af 85, BUN/Creatinine Ratio 13.2, Glucose 124 H, Hemoglobin A1c 5.9, Calcium 9.2, Magnesium 2.0, NT pro BNP II 173, TSH 3.550 11/25/24 03:15: Urine Color Straw, Urine Clarity Clear, Urine pH 7.0, Ur Specific [place] 1.010, Urine Protein Negative, Urine Glucose (UA) Normal, Urine Ketones 5 H, Urine Occult Blood 10 H, Urine Nitrite Negative, Urine Bilirubin Negative, Urine Urobilinogen Normal, Ur Leukocyte Esterase 25 H, Urine RBC 0-5 SEEN, Urine WBC 0-5 SEEN, Ur Squamous Epith Cells 0 SEEN, Urine Bacteria RARE, Urine Mucus 0 SEEN 11/25/24 07:07: WBC 10.1, RBC 5.00, Hgb 14.3, Hct 39.0, MCV 78.0 L, MCH 28.6, M CHC 36.7 H, RDW Std Deviation 37.2, RDW Coeff of Milena 13.1, Plt Count 311, MPV 8.1, Immature Gran % (Auto) 0.400, Neut % (Auto) 64.6, Lymph % (Auto) 22.6, [place] % (Auto) 10.9 H, Eos % (Auto) 1.1, Baso % (Auto) 0.4, Absolute Neuts (auto) 6.6, Absolute Lymphs (auto) 2.29, Nucleated RBC % 0, Sodium 128 L, Potassium 3.4, C hloride 94 L, Carbon Dioxide 23.8, Anion Gap 10, BUN 7, Creatinine 0.67 L, Estim Creat Clear Calc 50.78, Est GFR (MDRD) Non-Af 85, BUN/Creatinine Ratio 10.0, G lucose 139 H, Calcium 8.8, Phosphorus 2.7, Total Bilirubin 0.38, AST 18, ALT 21, Alkaline Phosphatase 68, Total Protein 6.3, Albumin 4.1, Globulin 2.2, Albumin/Globulin Ratio 1.8, Triglycerides 38, Cholesterol 158, LDL Cholesterol, Calc 77, VLDL Cholesterol 8, HDL Cholesterol 73, Cholesterol/HDL Ratio 2.15, V itamin B12 1895 H, Serum Folate 8.68, Cortisol AM Sample 14.30 Radiography Diagnostic Testing: Radiology Impression Chest X-Ray 11/24/24 22:45 IMPRESSION: NO ACUTE FINDINGS. Reading Location: [facility] Chest/Abdomen/Pelvis CT 11/25/24 02:28 IMPRESSION: No evidence of acute process within the chest. The bladder appears mildly distended without evidence of wall thickening or surrounding inflammatory change. Associated mild bilateral hydroureteronephrosis. Symmetric appearing nephrograms without perinephric stranding, edema. No evidence of urothelial thickening. What appears to be a possible bladder diverticulum at the left dome of the bladder measuring 3 x 2 x 2.4 cm axial 70, coronal 50 and sagittal 100 with appearance of possible small areas of wall punctate calcification. No free fluid seen. Reading Location: [id number] D/C Instructions Discharge Diet: No restrictions DC O2, CPAP, BIPAP Needs Home O2 Discharge instructions: No Meaningful Use Info Meaningful Use Meaningful Use Diagnoses (Choose all that apply): None applicable Ischemic Stroke Statin Dosing Therapy Reference: STATIN DOSE THERAPY REFERENCE: * Patients > 75 years receive moderate or high dose statin therapy. * Patients 75 years or YOUNGER should receive HIGH intensity statin dose unless contraindicated. You will be required to document reason for non-treatment if statin daily dose does not meet guidelines. HIGH DOSE STATIN THERAPY DAILY Atorvastatin > than or = to 40 mg Rosuvastatin > than or = to 20 mg Amlodipine + Atorvastatin > than or = to 2.5/40 mg Ezetimibe + Simvastatin 10/80 mg Simvastatin 80mg Discharge Plan Admission Admit Date/Time: 11/25/24 02:46 Primary Reason for Your Visit: hyponatremia Attending Provider: Juan Sanchez Primary Care Provider: Quiana Healy Consulting Providers: Sacha Kay; Latosha Bee Instructions Patient Instructions: Hyponatremia Dc Additional Instructions / Restrictions: Your sodium level was low. Likely due to excessive fluid intake. It is recommended to limit your total fluid intake to 1.5 liters/day and adding more salt to your food. Please follow up with you primary care doctor for follow up labs next week. Discharge Orders/Prescriptions Prescriptions: Continued d-mannose 500 mg capsule 500 mg PO BID Gemtesa 75 mg tablet 75 mg PO DAILY carvedilol 6.25 mg tablet 6.25 mg PO BID Rx Instructions: must administer with a meal/food isosorbide mononitrate 30 mg tablet extended release 24 hr 15 mg PO QDAY Daily Probiotic 2.5 billion cell capsule 1 cap PO DAILY losartan 50 mg tablet 50 mg PO BID Qty: 180 3RF amlodipine 2.5 mg tablet 2.5 mg PO DAILY Qty: 90 3RF Referrals / Follow Up: Quiana Healy DO [Primary Care Provider] - Disposition Disposition (needs filled in before D/C Order can be placed): Home, Self Care Charges/Coding Visit Charges Inpatient E&M: 52748 Disch Hosp >30min
[2024-11-25 13:42] LABS: Anion Gap 15 (5-15); BUN 10 mg/dL (4-19); BUN/Creat Ratio 14.9 RATIO (10-20); Calcium,Total 8.2 mg/dL (7.6-11.0); Carbon Dioxide 16.7 mmol/L (21.0-32.0); Chloride 94 mmol/L (98-108); Creatinine, Serum 0.67 mg/dL (0.70-1.20); EST Glomerular Filtration Rate 85 (>60); Estimated Creatinine Clearance 50.78 ml/min (50-250); Glucose 131 mg/dL (70-99); Potassium 3.4 mmol/L (3.3-5.1); Sodium Level 126 mmol/L (133-145)
--- NOTE | 2024-11-25 13:45 | CASEMGMT ---
IGNACIA ORONA NOTE: Per Alma BETH, she assisted pt OOB and ambulated her in room, to door and back to bed, w/SBA. IGNACIA ORONA to room. Pt resting in bed. SonVahe, @ bedside. Introduced self and role. Discussed discharge and any needs. Per son, pt will be discharging to his home for awhile before returning home. Discussed HHC and OP therapy and made aware if MCR's homebound criteria. Pt decline OP therapy and is not homebound. Made aware if she changes her mind about OP therapy, to f/u with PCP. She voices understanding. Pt and son aware to f/u with Dr Healy next week and for labwork. They deny having other discharge needs/concerns. Melanie TONYN IGNACIA CM
[2024-11-25 13:58] VITALS: BP 106/65; PULSE 67; RESP 17; TEMP 36.7; O2SAT 98
--- NOTE | 2024-11-25 14:20 | CHAPLAIN ---
Type of Pastoral Visit _x__ Initial Visit ___ Follow-up Visit ___ On-call Visit ___ General Patient Visit ___ Spiritual Assessment ___ Family Conference ___ Bereavement ___ Rapid Response ___ Code Blue ___ Other (describe below) Pastoral Care Referral From _x__ Patient ___ Family ___ Nurse ___ Physician ___ Senior Mortgage Loan Processor ___ Cdl Truck Driver ___ Other (describe below) Sacrament/Intervention _x__ Active listening ___ Anointing ___ Evangelical ___ Bereavement ___ Communion ___ Piedad exploration ___ ___ Life review _x__ Prayer ___ Reconciliation ___ Sacrament of Sick _x__ Supportive presence ___ Wedding ___ Other (describe below) Pastoral Comments patient is to be discharged today and she is now eating her lunch; pt states that since she is going home, it is just a prayer that is needed; pt is a bit anxious about going home but will have her son with her; pt expresses thanks for the prayer
== END 2024-11-25 15:01 | disposition home or self-care (01) | DRG 644 ==
LOC: ED 11-25 02:31 → PCU 11-25 03:07
PROVIDERS: Admitting Provider Internal Medicine; Emergency Provider Emergency Medicine; PCP Family Medicine
DX: E22.2 Syndrome of inappropriate secretion of antidiuretic hormone (principal); N13.30 Unspecified hydronephrosis; E87.79 Other fluid overload; I10 Essential (primary) hypertension; I34.1 Nonrheumatic mitral (valve) prolapse; D72.829 Elevated white blood cell count, unspecified; R11.0 Nausea; F41.9 Anxiety disorder, unspecified; G47.33 Obstructive sleep apnea (adult) (pediatric); I87.2 Venous insufficiency (chronic) (peripheral); K57.30 Diverticulosis of large intestine without perforation or abscess without bleeding; K42.9 Umbilical hernia without obstruction or gangrene; E66.3 Overweight; Z79.899 Other long term (current) drug therapy; Z87.891 Personal history of nicotine dependence; Z68.28 Body mass index [BMI] 28.0-28.9, adult; R53.81 Other malaise; Z99.89 Dependence on other enabling machines and devices; Z98.890 Other specified postprocedural states; R92.8 Other abnormal and inconclusive findings on diagnostic imaging of breast; Z96.22 Myringotomy tube(s) status; N32.81 Overactive bladder; R63.1 Polydipsia; N32.3 Diverticulum of bladder
CPT/HCPCS: 36415; 71046; 71260; 74177; 80048; 80053; 80061; 81001; 81002; 82533; 82607; 82746; 83036; 83735; 83880; 83930; 83935; 84100; 84300; 84443; 85025; 87086; 87088; 93005; 97802; 99284; Q9967; A4216; J1940

== ENCOUNTER → 2024-11-24 | Outpatient (CLI) | payer MEDICARE, SELFPAY ==
[2024-11-24 18:25] LABS: Urine Sodium 35 mmol/L (Not Establ.)
[2024-11-24 18:52] LABS: Osmolality, Serum 254 mOsm/KG (280-301)
[2024-11-24 20:26] LABS: Anion Gap 12 (5-15); BUN 10 mg/dL (4-19); BUN/Creat Ratio 17.4 RATIO (10-20); Calcium,Total 8.6 mg/dL (7.6-11.0); Chloride 86 mmol/L (98-108); Creatinine, Serum 0.57 mg/dL (0.70-1.20); EST Glomerular Filtration Rate 88 (>60); Glucose 98 mg/dL (70-99); Potassium 4.6 mmol/L (3.3-5.1); Sodium Level 118 mmol/L (133-145)
[2024-11-24 20:58] LABS: Osmolality, Urine 192 mOsm/KG
== END | disposition home or self-care (01) ==
LOC: BFHLAB 13:04
PROVIDERS: PCP Family Medicine; Referring Provider Family Medicine; Visit Provider Family Medicine
DX: E87.1 Hypo-osmolality and hyponatremia (principal)
CPT/HCPCS: 36415; 80048; 83930; 83935; 84300

== ENCOUNTER → 2024-12-05 | Outpatient (CLI) | payer MEDICARE, SELFPAY ==
[2024-12-05 19:02] LABS: ALB/GLOB Ratio 1.6 RATIO (0.9-2.4); AST(SGOT) 17 U/L (<=31); Alanine Aminotransfer ALT/SGPT 26 U/L (<=34); Albumin, Serum 3.8 g/dL (3.4-4.8); Alkaline Phosphatase 73 U/L (35-104); Anion Gap 12 (5-15); BUN 12 mg/dL (4-19); BUN/Creat Ratio 19.2 RATIO (10-20); Carbon Dioxide 21.8 mmol/L (21.0-32.0); Chloride 94 mmol/L (98-108); Creatinine, Serum 0.65 mg/dL (0.70-1.20); EST Glomerular Filtration Rate 86 (>60); Globulin 2.4 g/dL (2.2-4.2); Glucose 156 mg/dL (70-99); Protein, Total 6.2 g/dL (5.9-8.4); Sodium Level 127 mmol/L (133-145); Total Bilirubin 0.41 mg/dL (0.00-1.30)
== END | disposition home or self-care (01) ==
LOC: BFHLAB 14:07
PROVIDERS: PCP Family Medicine; Visit Provider Family Medicine
DX: I10 Essential (primary) hypertension (principal); E87.1 Hypo-osmolality and hyponatremia; R30.0 Dysuria
CPT/HCPCS: 80053; 87086; 87088

== ENCOUNTER → 2025-01-02 | Outpatient (CLI) | payer MEDICARE, SELFPAY ==
[2025-01-02 18:03] LABS: Anion Gap 11 (5-15); BUN 15 mg/dL (4-19); BUN/Creat Ratio 20.1 RATIO (10-20); Carbon Dioxide 23.8 mmol/L (21.0-32.0); Chloride 94 mmol/L (98-108); Creatinine, Serum 0.77 mg/dL (0.70-1.20); EST Glomerular Filtration Rate 75 (>60); Glucose 112 mg/dL (70-99); Sodium Level 129 mmol/L (133-145)
[2025-01-02 18:04] LABS: Phosphorus 3.4 mg/dL (2.7-4.5)
== END | disposition home or self-care (01) ==
LOC: MTLAB 14:50
PROVIDERS: PCP Family Medicine; Referring Provider Family Medicine; Visit Provider Family Medicine
DX: E87.1 Hypo-osmolality and hyponatremia (principal); N18.31 Chronic kidney disease, stage 3a
CPT/HCPCS: 36415; 80048; 84100

== ENCOUNTER → 2025-01-03 | Outpatient (CLI) | payer MEDICARE, SELFPAY | END | disposition home or self-care (01) | LOC: LABSPEC 12:15 | PROVIDERS: PCP Family Medicine; Referring Provider Family Medicine; Visit Provider Family Medicine | DX: R30.0 Dysuria (principal) | CPT/HCPCS: 87086 ==

== ENCOUNTER → 2025-02-07 | Outpatient (CLI) | payer MEDICARE, SELFPAY | END | disposition home or self-care (01) | LOC: LABSPEC 08:56 | PROVIDERS: PCP Family Medicine; Visit Provider Family Medicine | DX: R30.0 Dysuria (principal) | CPT/HCPCS: 87086; 87088 ==

== ENCOUNTER → 2025-02-22 | Outpatient (CLI) | payer MEDICARE, SELFPAY ==
[2025-02-22 16:07] LABS: Urine Sodium 70 mmol/L (Not Establ.)
[2025-02-22 17:42] LABS: Anion Gap 10 (5-15); BUN 13 mg/dL (4-19); BUN/Creat Ratio 20.1 RATIO (10-20); Calcium,Total 9.2 mg/dL (7.6-11.0); Carbon Dioxide 25.8 mmol/L (21.0-32.0); Chloride 99 mmol/L (98-108); Creatinine, Serum 0.67 mg/dL (0.70-1.20); EST Glomerular Filtration Rate 85 (>60); Glucose 96 mg/dL (70-99); Potassium 4.3 mmol/L (3.3-5.1); Sodium Level 135 mmol/L (133-145)
--- OUTSIDE RECORDS SUMMARY | 2025-02-22 22:37 | XMS RPT_ITS | CCD ---
Author Organization [facility] Care Team Providers Care Credit Card Specialist Name Role Phone KINDRA CAMPBELL Unavailable Unavailable KINDRA CAMPBELL Unavailable Unavailable Dr. Quiana Healy Primary Care Provider Dr. Simba Lechuga Attending Provider Dr. Charis Biswas Referring Provider [phone] MD Lamont Frankel Emergency Provider Dr. Sweta Briscoe Admit Provider Dr. Charis Biswas Other Provider Dr. Bubba Cooney Attending Provider Dr. Bubba Cooney Other Provider Dr. Josh Arredondo Attending Provider LENNIE Thorpe Emergency Provider Dr. Mike Faith Admit Provider Dr. Mike Faith Attending Provider Dr. Mike Faith Other Provider Dr. Otto De La Torre Attending Provider Dr. Otto De La Torre Other Provider Michelle Martinez Attending Provider Unavailable Dr. Quiana Healy Referring Provider [phone] Dr. Quiana Healy Primary Care Provider [phone] LENNIE Thorpe Emergency Provider [phone] Mike Faith Admit Provider Dr. Otto De La Torre Attending Provider Dr. Otto De La Torre Other Provider Dr. Josh Arredondo Attending Provider Niraj, Dr. Araya Primary Care Provider Niraj, Dr. Araya Referring Provider Dr. Josh Arredondo Attending Provider Richardys, Dr. Araya Primary Care Provider Niraj, Dr. Araya Referring Provider LENNIE Holley Attending Provider Niraj, Dr. Araya Primary Care Provider Niraj, Dr. Araya Referring Provider LENNIE Holley Attending Provider Clare Zhu Attending Provider Unavailable Niraj, Dr. Araya Primary Care Provider NoltLe Attending Provider Unavailable Niraj DO, Dr. Araya Primary Care Provider Niraj BETANCOURT, Dr. Araya Attending Provider Niraj BETANCOURT, Dr. Araya Referring Provider Dr. Nayan Dixon DO Emergency Provider Dr. Sacha Kay DO Admit Provider Unavail able Kay DO, Dr. Goncalves Attending Provider Unav ailable Kay DO, Dr. Goncalves Other Provider Unavail able Laura BETANCOURT, Dr. Martinez Attending Provider Malys, Quiana Attending Unavailable Malys, Quiana Primary Care Unavailable Malys, Quiana Primary Care Unavailable Malys, Quiana Attending Unavailable Malys, Quiana Primary Care Unavailable Malys, Quiana Attending Unavailable Malys, Quiana Referring Unavailable Malys, Quiana Primary Care Unavailable Malys, Quiana Attending Unavailable Malys, Quiana Referring Unavailable Fransico Dimas Attending Unavailable Malys, Quiana Primary Care Unavailable Malys, Quiana Primary Care Unavailable Sacha Kay Admitting Unavailable Sacah Kay Consulting Unavailable Sacha Kay Attending Unavailable Laura, Juan Consulting Unavailable Alyson Holley Attending Unavail able Malys, Quiana Primary Care Unavailable Malys, Quiana Referring Unavailable Malys, Quiana Primary Care Unavailable Malys, Quiana Attending Unavailable Malys, Quiana Primary Care Unavailable Malys, Quiana Attending Unavailable Malys, Quiana Referring Unavailable Malys, Quiana Primary Care Unavailable Mode, Meli Attending Unavailable Mode, Meli Referring Unavailable Malys, Quiana Primary Care Unavailable Malys, Quiana Attending Unavailable Malys, Quiana Primary Care Unavailable Jopperi, Juan Attending Unavailable Sacha Kay Admitting Unavailable Sacha Kay Consulting Unavailable Malys, Quiana Primary Care Unavailable Malys, Quiana Attending Unavailable Malys, Quiana Primary Care Unavailable Malys, Quiana Attending Unavailable Malys, Quiana Referring Unavailable Allergies Allergy Classification Reported Allergen(s) Allergy Type Date of Onset Reaction(s) Facility (1 source) AMOXICILLIN-POT CLAVULANATE; Translations: [AMOXICILLIN-POT CLAVULANATE] Propensity to adverse reactions to drug (disorder) 7 [facility] Other [place] [facility] (20 sources) Amoxicillin Drug Allergy 2 Mild rash [facility] (20 sources) benazepril; Translations: [benazepril HCl] Drug Allergy 2 [facility] (20 sources) Clavulanate Drug Allergy 2 Mild rash [facility] (20 sources) Felodipine Drug Allergy 2 [facility] (20 sources) fexofenadine; Translations: [fexofenadine HCl] Drug Allergy 2 [facility] (20 sources) Lisinopril Drug Allergy 2 cough [facility] (20 sources) Ramipril Drug Allergy 2 [facility] (20 sources) tolterodine; Translations: [tolterodine tartrate] Drug Allergy 2 [facility] (20 sources) Verapamil; Translations: [verapamil HCl] Drug Allergy 2 [facility] (8 sources) AUGMENTED BETAMETHASONE DIPROP Allergy to substance 2 Other [facility] Work Phone: (12 sources) Betamethasone Drug Allergy 3 NEEDS FOLLOW-UP [facility] (1 source) Amoxicillin Drug Allergy 5 [facility] (1 source) Betamethasone Drug Allergy 5 [facility] (1 source) Clavulanate Drug Allergy 5 [facility] (1 source) Felodipine Drug Allergy 5 [facility] (1 source) Lisinopril Drug Allergy 5 [facility] (1 source) Ramipril Drug Allergy 5 [facility] Medications Current Medications Medication Drug Class(es) Dates Sig (Normalized) Sig (Original) carvedilol 6.25 mg oral tablet (20 sources) alpha-Adrenergic Griffin, beta-Adrenergic Griffin Start: 03-23-2024 take 1 tablet by mouth twice daily at mealtime Carvedilol 6.25 mg tablet Active 6.25 mg PO TWICE A DAY March 23, 2024 1:32pm must administer with a meal/food Start: 12-08-2023 End: 03-23-2024 Carvedilol 6.25 mg tablet Discontinued 0 PO TWICE A DAY December 08, 2023 12:00am March 23, 2024 1:35pm Taking 3.125 mg QAM, 6.25 mg QPM orally twice a day; must administer with a meal/food Start: 12-08-2023 Carvedilol Act jeff 0 PO TWICE A DAY December 08, 2023 12:00am Taking 3.125 mg QAM, 6.25 mg QPM orally twice a day; must administer with a meal/food Start: 08-12-2023 End: 12-08-2023 take 1 tablet by mouth twice daily Carvedilol 12.5 mg tablet Discontinued 12.5 mg PO TWICE A DAY 180 December 08, 2023 2:39pm December 08, 2023 3:27pm Start: 04-28-2023 End: 08-12-2023 Carvedilol 25 mg tablet Discontinued 12.5 mg PO TWICE A DAY April 28, 2023 2:48pm August 12, 2023 12:50pm Start: 04-28-2023 End: 08-12-2023 take 12.5 mg by mouth twice daily Carvedilol Discontinued 12.5 MG PO TWICE A DAY April 28, 2023 2:48pm August 12, 2023 12:50pm Start: 11-27-2021 End: 04-28-2023 take 1 tablet by mouth twice daily Carvedilol 25 mg tablet Discontinued 25 mg PO TWICE A DAY 180 2022 4:17pm April 28, 2023 2:50pm Start: 11-27-2021 End: 11-27-2021 take 1 tablet by mouth twice daily Carvedilol 12.5 mg tablet Discontinued 12.5 mg PO TWICE A DAY November 27, 2021 12:00am November 27, 2021 1:42pm Start: 11-15-2021 End: 11-22-2021 take 2 tablets by mouth twice daily at mealtime Carvedilol 6.25 mg tablet Discontinued 12.5 mg PO TWICE A DAY November 15, 2021 9:17pm November 22, 2021 1:12pm must administer with a meal/food Start: 11-15-2021 End: 11-22-2021 take 12.5 mg by mouth twice daily at mealtime Carvedilol Discontinued 12.5 MG PO TWICE A DAY November 15, 2021 9:17pm November 22, 2021 1:12pm must administer with a meal/food Start: 11-06-2021 End: 11-15-2021 take 1 tablet by mouth twice daily at mealtime Carvedilol 6.25 mg tablet Discontinued 6.25 mg PO TWICE A DAY 60 November 06, 2021 1:00am November 15, 2021 9:17pm must administer with a meal/food D-Mannose (20 sources) Start: 03-23-2024 take 1 capsule by [facility] twice daily D-Mannose 500 mg capsule Active 500 mg PO TWICE A DAY March 23, 2024 1:33pm Start: 01-20-2023 End: 03-23-2024 take 1 capsule by mouth once daily D-Mannose 500 mg capsule Discontinued 1000 mg PO DAILY January 20, 2023 11:43am March 23, 2024 1:35pm Start: 01-20-2023 take 1000 mg by mout h once daily D-Mannose Active 1000 MG PO DAILY January 20, 2023 10:43am Start: 01-20-2023 take 1000 mg by mout h once daily D-Mannose Active 1000 MG PO DAILY January 20, 2023 11:43am Start: 12-11-2022 End: 01-20-2023 take 1 capsule by mouth once D-Mannose 500 mg capsule Discontinued 1000 mg PO December 11, 2022 11:08am January 20, 2023 11:44am Start: 12-11-2022 End: 01-20-2023 take 1000 mg by mouth once D-Mannose Discontinued 1000 MG PO December 11, 2022 10:08am January 20, 2023 10:44am Start: 12-11-2022 End: 01-20-2023 take 1000 mg by mouth once D-Mannose Discontinued 1000 MG PO December 11, 2022 11:08am January 20, 2023 11:44am Start: 06-10-2022 End: 12-11-2022 take 1 capsule by mouth once D-Mannose 500 mg capsule Discontinued 500 mg PO June 10, 2022 12:00am December 11, 2022 11:09am Start: 06-10-2022 End: 12-11-2022 take 500 mg by mouth once D-Mannose Discontinued 500 M G PO June 09, 2022 11:00pm December 11, 2022 10:09am Start: 06-10-2022 End: 12-11-2022 take 500 mg by mouth once D-Mannose Discontinued 500 M G PO June 10, 2022 12:00am December 11, 2022 11:09am Start: 06-10-2022 take 500 mg by mouth once D-Ma nnose Active 500 MG PO June 10, 2022 12:00am 24 hr isosorbide mononitrate 30 mg extended release oral tablet (20 sources) Nitrate Vasodilator Start: 03-23-2024 take 1 tablet by mouth once daily, then take 2 tablets by mouth every twenty-four hours Isosorbide Mononitrate 30 mg tablet extended release 24 hr Active 15 mg PO daily March 23, 2024 12:00am Start: 11-17-2021 End: 08-12-2023 take 1 tablet by mouth once daily, then take 1 tablet by mouth every twenty-four hours Isosorbide Mononitrate 30 mg Tablet Extended Release 24 Hr Discontinued 30 mg PO DAILY November 17, 2021 12:00am August 12, 2023 12:48pm L. Acidophilus/Bifid. Animalis (Daily Probiotic) 2.5 billion cell capsule (9 sources) Start: 03-23-2024 take 2.5 capsules by mouth once daily L. Acidophilus/Bifid. Animalis (Daily Probiotic) 2.5 billion cell capsule Active 1 NMA PO DAILY March 23, 2024 12:00am losartan potassium 50 mg oral tablet (20 sources) Angiotensin 2 Receptor Griffin Start: 08-12-2023 End: 05-16-2024 take 1 tablet by mouth twice daily Losartan 50 mg tablet Active 50 mg PO TWICE A DAY May 16, 2024 2:30pm Start: 11-22-2021 End: 11-27-2021 Losartan 25 mg tablet Discon tinued 25 mg PO .COMPLEX November 22, 2021 12:00am November 27, 2021 1:19pm 25 mg PO take daily with a 100 mg tablet to = 125 mg; Start: 10-26-2021 End: 11-06-2021 take 1 tablet by mouth once daily Losartan 25 mg tablet Discontinued 25 mg PO DAILY October 26, 2021 1:00am November 06, 2021 11:38am Start: 12-14-2015 End: 08-12-2023 take 1 tablet by mouth at bedtime Losartan 100 mg tablet Discontinued 100 mg PO AT BEDTIME July 02, 2022 3:40pm August 12, 2023 12:49pm Vibegron (20 sources) Start: 04-28-2023 take 1 tablet by digna th once daily Vibegron (Gemtesa) 75 mg tablet Active 75 mg PO DAILY April 28, 2023 12:00am Start: 04-28-2023 take 1 tablet by digna th once daily Vibegron (Gemtesa) 75 mg tablet Active 75 MG PO DAILY April 28, 2023 12:00am Start: 04-28-2023 take 1 tablet by digna th once daily Vibegron (Gemtesa) 75 mg tablet Active 75 MG PO DAILY April 27, 2023 11:00pm Start: 06-10-2022 End: 12-11-2022 take 1 tablet by mouth once daily Vibegron (Gemtesa) 75 mg tablet Discontinued 75 mg PO DAILY June 10, 2022 12:00am December 11, 2022 11:09am Start: 06-10-2022 End: 12-11-2022 take 1 tablet by mouth once daily Vibegron (Gemtesa) 75 mg tablet Discontinued 75 MG PO DAILY June 09, 2022 11:00pm December 11, 2022 10:09am Start: 06-10-2022 End: 12-11-2022 take 1 tablet by mouth once daily Vibegron (Gemtesa) 75 mg tablet Discontinued 75 MG PO DAILY June 10, 2022 12:00am December 11, 2022 11:09am Start: 06-10-2022 take 1 tablet by digna th once daily Vibegron (Gemtesa) 75 mg tablet Active 75 MG PO DAILY June 10, 2022 12:00am Completed/Discontinued Medications Medication Drug Class(es) Dates Sig (Normalized) Sig (Original) amLODIPine 2.5 mg oral tablet (20 sources) Dihydropyridine Calcium Channel Griffin Start: 12-11-2022 End: 11-15-2024 take 1 tablet by mouth once daily Amlodipine 2.5 mg tablet Discontinued 2.5 mg PO DAILY November 30, 2023 1:54pm November 15, 2024 11:58am Start: 06-10-2022 End: 12-11-2022 take 1 tablet by mouth once daily Amlodipine 5 mg tablet Discontinued 5 mg PO DAILY June 10, 2022 12:00am December 11, 2022 11:22am calcium ascorbate 500 mg oral tablet (9 sources) Start: 03-23-2024 End: 11-24-2024 take 1 tablet by mouth once daily Ascorbate Calcium (Vitamin C) 500 mg tablet Discontinued 500 mg PO DAILY March 23, 2024 12:00am November 24, 2024 10:29pm ciprofloxacin 500 mg oral tablet (20 sources) Quinolone Antimicrobial Start: 11-05-2021 End: 11-06-2021 take 1 tablet by mouth twice daily Ciprofloxacin Hcl (Cipro) 500 mg Tablet Discontinued 500 mg PO TWICE A DAY November 05, 2021 1:00am November 06, 2021 11:37am citalopram 10 mg oral tablet (20 sources) Serotonin Reuptake Inhibitor Start: 01-20-2023 End: 11-24-2024 take 1 tablet by mouth once daily Citalopram 10 mg tablet Discontinued 10 mg PO DAILY January 20, 2023 11:44am November 24, 2024 10:30pm Start: 10-25-2021 End: 01-20-2023 take 2 tablets by mouth once daily Citalopram 10 mg tablet Discontinued 20 mg PO DAILY October 25, 2021 1:00am January 20, 2023 11:44am Start: 10-25-2021 End: 01-20-2023 take 20 mg by mouth once daily Citalopram Discontinued 20 MG PO DAILY October 25, 2021 1:00am January 20, 2023 11:44am cloNIDine hydrochloride 0.1 mg oral tablet (20 sources) Central alpha-2 Adrenergic Agonist Start: 11-05-2021 End: 11-06-2021 take 1 tablet by mouth every four hours as needed for anxiety Clonidine Hcl 0.1 mg tablet Discontinued 0.1 mg PO EVERY 4 HOURS NEEDED as needed for Anxiety November 05, 2021 1:00am November 06, 2021 11:38am fluticasone propionate 0.05 mg/actuat metered dose nasal spray (20 sources) Corticosteroid Start: 11-22-2021 End: 06-10-2022 Fluticasone Propionate 50 mcg/actuation spray,suspension Discontinued 2 NMA INTRANASAL DAILY November 22, 2021 12:00am June 10, 2022 11:06am administer into each nostril Start: 11-22-2021 End: 06-10-2022 take 1 spray(s) nasal route once daily Fluticasone Propionate Discontinued 2 SPRAY INTRANASAL DAILY November 22, 2021 12:00am June 10, 2022 11:06am administer into each nostril hydrALAZINE hydrochloride 10 mg oral tablet (20 sources) Arteriolar Vasodilator Start: 03-23-2024 End: 11-24-2024 take 1 tablet by mouth three times daily as needed Hydralazine 10 mg tablet Discontinued 10 mg PO THREE TIMES A DAY as needed for with food March 23, 2024 1:33pm November 24, 2024 10:30pm Start: 04-28-2023 End: 03-23-2024 take 1 tablet by mouth twice daily Hydralazine 10 mg tablet Discontinued 10 mg PO TWICE A DAY April 28, 2023 3:15pm March 23, 2024 1:35pm Start: 03-13-2023 End: 04-28-2023 take 5 mg by mouth twice daily Hydralazine 10 mg table t Discontinued 5 mg PO TWICE A DAY March 13, 2023 3:50pm April 28, 2023 3:15pm Start: 03-13-2023 End: 04-28-2023 take 5 mg by mouth twice daily Hydralazine Discontinue d 5 MG PO TWICE A DAY March 13, 2023 3:50pm April 28, 2023 3:15pm Start: 07-17-2022 End: 03-13-2023 take 1 tablet by mouth twice daily Hydralazine 10 mg tablet Discontinued 10 mg PO TWICE A DAY July 17, 2022 1:58pm March 13, 2023 3:50pm Start: 07-02-2022 End: 07-17-2022 take 1 tablet by mouth three times daily Hydralazine 10 mg tablet Discontinued 10 mg PO THREE TIMES A DAY July 02, 2022 3:35pm July 17, 2022 2:07pm Start: 11-22-2021 End: 07-02-2022 take 1 tablet by mouth four times daily in the morning, then take 2 tablets by mouth four times daily in the evening Hydralazine 10 mg tablet Discontinued 0 PO .QID June 10, 2022 11:10am July 02, 2022 3:36pm one tablet in the AM, at noon, and 2 tablets in the PM orally QID; Start: 10-26-2021 End: 11-06-2021 take 1 tablet by mouth every six hours Hydralazine 10 mg tablet Discontinued 10 mg PO EVERY 6 HOURS October 26, 2021 1:00am November 06, 2021 11:40am hydroCHLOROthiazide 25 mg oral tablet (20 sources) Thiazide Diuretic Start: 10-26-2021 End: 11-06-2021 take 1 tablet by mouth every other day Hydrochlorothiazide 25 mg tablet Discontinued 25 mg PO EVERY OTHER DAY October 26, 2021 1:00am November 06, 2021 11:38am LORazepam 0.5 mg oral tablet (20 sources) Benzodiazepine Start: 01-20-2023 End: 03-23-2024 take 1 tablet by mouth twice daily as needed for anxiety Lorazepam 0.5 mg tablet Discontinued 0.5 mg PO TWICE A DAY as needed for anxiety January 20, 2023 11:43am March 23, 2024 1:35pm Start: 11-27-2021 End: 01-20-2023 take 1 tablet by mouth once daily as needed for anxiety Lorazepam 0.5 mg tablet Discontinued 0.5 mg PO DAILY as needed for anxiety November 27, 2021 12:00am January 20, 2023 11:44am 24 hr metoprolol succinate 100 mg extended release oral tablet (20 sources) beta-Adrenergic Griffin Start: 11-22-2021 End: 11-27-2021 take 1 tablet by mouth once daily Metoprolol Succinate 100 mg tablet extended release 24 hr Discontinued 100 mg PO DAILY November 22, 2021 12:00am November 27, 2021 1:17pm Start: 12-14-2015 End: 11-06-2021 take 2 tablets by mouth once daily Metoprolol Succinate 50 MG tablet Discontinued 100 mg PO DAILY December 14, 2015 12:00am November 06, 2021 12:29pm Start: 12-14-2015 End: 11-06-2021 take 100 mg by mouth once daily Metoprolol Succinate Discontinued 100 MG PO DAILY December 14, 2015 12:00am November 06, 2021 12:29pm nitrofurantoin, macrocrystals 25 mg / nitrofurantoin, monohydrate 75 mg oral capsule (12 sources) Nitrofuran Antibacterial Start: 07-17-2022 End: 07-24-2022 take 1 capsule by mouth every twelve hours at mealtime Nitrofurantoin Monohyd/M-Cryst (Macrobid) 100 mg capsule Discontinued 100 mg PO Q12H 14 7 July 17, 2022 1:00am July 23, 2022 1:00am July 24, 2022 1:04am must administer with a meal/food 24 hr oxybutynin chloride 15 mg extended release oral tablet (12 sources) Cholinergic Muscarinic Antagonist Start: 12-11-2022 End: 04-28-2023 take 1 tablet by mouth once daily Oxybutynin Chloride 15 mg tablet extended release 24hr Discontinued 15 mg PO DAILY December 11, 2022 12:00am April 28, 2023 2:49pm On Hold: Dr. Maria trying to eliminate dizziness spironolactone 25 mg oral tablet (20 sources) Aldosterone Antagonist Start: 11-22-2021 End: 11-27-2021 take 1 tablet by mouth once daily Spironolactone 25 mg tablet Discontinued 25 mg PO DAILY November 22, 2021 12:00am November 27, 2021 1:19pm Problems Active Problems Problem Classification Problem Date Documented Da te Episodic/Chronic Cardiac dysrhythmias (1 source) Ventricular premature depolarization; Translations: [Ventricular premature depolarization] Onset: 10-13-2024 Chronic Cardiac dysrhythmias (20 sources) Palpitations; Translations: [Palpitations] Episodic Conditions associated with dizziness or vertigo (1 source) Dizziness and giddiness; Translations: [Dizziness and giddiness] Onset: 11-26-2024 Episodic Diseases of white blood cells (17 sources) Leukocytosis; Translations: [Elevated white blood cell count, unspecified] Onset: 11-30-2024 11-25-2024 Chronic Essential hypertension (20 sources) Malignant hypertension; 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] Onset: 11-30-2024 Chronic Fluid and electrolyte disorders (20 sources) Hyponatremia; Translations: [Hypo-osmolality and hyponatremia] Onset: 11-30-2024 Episodic Genitourinary symptoms and ill-defined conditions (20 sources) Cloudy urine; Translations: [Unspecified abnormal findings in urine] Onset: 02-13-2025 07-17-2022 Episodic Heart valve disorders (20 sources) Mitral valve prolapse; Translations: [Nonrheumatic mitral (valve) prolapse] 11-26-2021 Chronic Hypertension with complications and secondary hypertension (20 sources) Hypertensive urgency ; Translations: [Hypertensive urgency] Chronic Malaise and fatigue (20 sources) Fatigue; Translations: [Other fatigue] Onset: 11-30-2024 10-01-2016 Episodic Nausea and vomiting (17 sources) Nausea; Translations: [Nausea] Onset: 11-30-2024 11-25-2024 Episodic Nonspecific chest pain (20 sources) Chest pain; Translations: [Chest pain, unspecified] 11-02-2021 Episodic Other circulatory disease (12 sources) Low blood pressure; Translations: [Hypotension, unspecified] 07-17-2022 Episodic Other nervous system disorders (20 sources) Metabolic encephalopathy; Translations: [Metabolic encephalopathy] 11-14-2021 Chronic Other nervous system disorders (3 sources) Metabolic encephalopathy; Translations: [Metabolic encephalopathy] Chronic Other nutritional; endocrine; and metabolic disorders (20 sources) Obesity; Translations: [Obesity, unspecified] 11-26-2021 Chronic Residual codes; unclassified (20 sources) Obstructive sleep apnea syndrome; Translations: [Obstructive sleep apnea (adult) (pediatric)] 11-26-2021 Chronic Residual codes; unclassified (20 sources) Confusional state; Translations: [Disorientation, unspecified] 11-14-2021 Episodic Residual codes; unclassified (20 sources) Altered mental status; Translations: [Altered mental status, unspecified] 11-14-2021 Episodic Residual codes; unclassified (3 sources) Altered mental status, unspecified; Translations: [Altered mental status] Episodic Residual codes; unclassified (3 sources) Disorientation, unspecified; Translations: [Unspecified psychosis] Episodic Syncope (11 sources) Near syncope; Translations: [Syncope and collapse] 06-29-2023 Episodic Past or Other Problems Problem Classification Problem Date Documented Da te Episodic/Chronic Abdominal hernia (1 source) Incisional hernia without obstruction or gangrene; Translations: [Incisional hernia without obstruction or gangrene] Onset: 07-29-2017 Episodic Other gastrointestinal disorders (2 sources) Diarrhea, unspecified; Translations: [Diarrhea, unspecified] Onset: 05-12-2024 Episodic Results Test Name Value Interpretation Reference Range Facility Urine Cultureon 02-09-2025 [facility] Mixed Gram Positive Organisms Ralph Count 11,000-25,000 [facility] Mixed contaminants. Submit a new specimen if indicated. Normal [facility] Comment on above: Performed By: #### L 506.0200, L501.9520, L501.5200, L501.9985 #### [facility] [address] [place], [place], [id number] Urine cultureOrdered By: Alayna Healy on 02-07-2025 Bacteria identified Cx Nom (U) Positive Abnormal [facility] Urine Cultureon 01-05-2025 [facility] Culture exhibits no growth. Normal [facility] Comment on above: Performed By: #### L 506.0200, L501.9520, L501.5200, L501.9985 #### [facility] [address] [place], [address] Urine cultureOrdered By: Alayna Healy on 01-03-2025 Bacteria identified Cx Nom (U) Culture exhibits no growth. [facility] Anion gap in Serum or Plasma Ordered By: Quiana Healy on 01-02-2025 Anion gap [Moles/Vol] 11 mmol/L 5-15 [facility] BUN/creatinine ratioOrdered By: Quiana Healy on 01-02-2025 Urea nitrogen/Creatinine [Mass ratio] 20.1 mg/mg High - [facility] Basic Metabolic Profile (BMP )on 01-02-2025 BUN/CRE 20.1 RATIO High - [facility] Comment on above: Performed By: #### L 500.2500, L501.2300 #### [facility] [address] [place], [address] Calcium [Mass/Vol] 9.0 mg/dL Normal 7.6-11.0 [facility] Comment on above: Performed By: #### L 500.2500, [id number] #### [facility] [address] [place], [address] Chloride [Moles/Vol] 94 mmol/L Low 98-108 [facility] Comment on above: Performed By: #### L 500.2500, [id number] #### [facility] [address] [place], [address] CO2 [Moles/Vol] 23.8 mmol/L Normal 21.0-32.0 [facility] Comment on above: Performed By: #### L 500.2500, [id number] #### [facility] [address] [place], [address] Creatinine [Mass/Vol] 0.77 mg/dL Normal 0.70-1.20 [facility] Comment on above: Performed By: #### L 500.2500, [id number] #### [facility] [address] [place], [address] GAP 11 Normal 5-15 [facility] Comment on above: Performed By: #### L 500.2500, L501.2300 #### [facility] [address] [place], [address] GFR/1.73 sq M.predicted among non-blacks MDRD (S/P/Bld) [Vol rate/Area] 75 mL/min/{1.73_m2} Normal >60 [facility] Comment on above: Result Comment: mL/m in/1.73m2 CKD-EPI Creatinine Equation (2020) Performed By: #### L 500.2500, L501.2300 #### [facility] [address] [place], [address] Glucose [Mass/Vol] 112 mg/dL High 70-99 [facility] [facility] Comment on above: Performed By: #### L 500.2500, L501.2300 #### [facility] [address] [place], [address] Potassium [Moles/Vol] 4.0 mmol/L Normal 3.3-5.1 [facility] Comment on above: Performed By: #### L 500.2500, L501.2300 #### [facility] [address] [place], [address] Sodium [Moles/Vol] 129 mmol/L Low 133-145 [facility] Comment on above: Performed By: #### L 500.2500, L501.2300 #### [facility] [address] [place], [address] Urea nitrogen [Mass/Vol] 15 mg/dL Normal 4-19 [facility] Comment on above: Performed By: #### L 500.2500, L501.2300 #### [facility] [address] [place], [place], [id number] Carbon dioxide, total [Moles /volume] in Central venous bloodOrdered By: Quiana Healy on 01-02-2025 CO2 [Moles/Vol] 23.8 mmol/L 21.0-32.0 [facility] Chloride assayOrdered By: Randa Healy on 01-02-2025 Chloride [Moles/Vol] 94 mmol/L Low 98-108 [facility] Glomerular filtration rate ( GFR) estimation/1.73 sq m using serum, plasma, or whole bOrdered By: Quaina Healy on 01-02-2025 GFR/1.73 sq M.predicted among non-blacks MDRD (S/P/Bld) [Vol rate/Area] 75 mL/min/{1.73_m2} >60 [facility] Comment on above: mL/min/1.73m2 CKD-EP I Creatinine Equation (2020) Phosphoruson 01-02-2025 Phosphate [Mass/Vol] 3.4 mg/dL Normal 2.7-4.5 [facility] Comment on above: Performed By: #### L 500.2500, L501.2308 #### [facility] [address] [place], [place], [id number] Potassium measurement (mass/ volume)Ordered By: Quiana Healy on 01-02-2025 Potassium (Unsp spec) [Mass/Vol] 4.0 mmol/L 3.3-5.1 [facility] Serum creatinine measurement (mass/volume)Ordered By: Quiana Healy on 01-02-2025 Creatinine [Mass/Vol] 0.77 mg/dL 0.70-1.20 [facility] Serum glucose measurement (m ass/volume)Ordered By: Quiana Healy on 01-02-2025 Glucose [Mass/Vol] 112 mg/dL High 70-99 [facility] Serum or plasma calcium isela urement (mass/volume)Ordered By: Quiana Healy on 01-02-2025 Calcium [Mass/Vol] 9.0 mg/dL 7.6-11.0 [facility] Serum or plasma urea nitroge n measurement (mass/volume)Ordered By: Quiana Healy on 01-02-2025 Urea nitrogen [Mass/Vol] 15 mg/dL 4-19 [facility] Sodium levelOrdered By: Quiana Healy on 01-02-2025 Sodium [Moles/Vol] 129 mmol/L Low 133-145 [facility] Urine Cultureon 12-07-2024 [facility] Mixed Gram Positive Organisms Ralph Count 11,000-25,000 [facility] Mixed contaminants. Submit a new specimen if indicated. Normal [facility] Comment on above: Performed By: #### L 503.7505 #### [facility] [address] [place], [address] Anion gap in Serum or Plasma Ordered By: Quiana Healy on 12-05-2024 Anion gap [Moles/Vol] 12 mmol/L 5-15 [facility] BUN/creatinine ratioOrdered By: Quiana Healy on 12-05-2024 Urea nitrogen/Creatinine [Mass ratio] 19.2 mg/mg 10-20 [facility] Bilirubin, totalOrdered By: Quiana eHaly on 12-05-2024 Bilirubin [Mass/Vol] 0.41 mg/dL 0.00-1.30 [facility] Carbon dioxide, total [Moles /volume] in Central venous bloodOrdered By: Quiana Healy on 12-05-2024 CO2 [Moles/Vol] 21.8 mmol/L 21.0-32.0 [facility] Chloride assayOrdered By: Randa Healy on 12-05-2024 Chloride [Moles/Vol] 94 mmol/L Low 98-108 [facility] Comprehensive Metabolic Prof ilon 12-05-2024 Albumin [Mass/Vol] 3.8 g/dL Normal 3.4-4.8 [facility] Comment on above: Performed By: #### L 506.0200, L501.9520, L501.5200, L501.9985 #### [facility] [address] [place], [address] Albumin/Globulin [Mass ratio] 1.6 {ratio} Normal 0.9-2.4 [facility] Comment on above: Performed By: #### L 506.0200, L501.9520, L501.5200, L501.9985 #### [facility] [address] [place], [address] ALK PHOS 73 U/L Normal 35-104 [facility] Comment on above: Performed By: #### L 506.0200, L501.9520, L501.5200, L501.9985 #### [facility] [address] [place], [address] ALT [Catalytic activity/Vol] 26 U/L Normal <=34 [facility] Comment on above: Performed By: #### L 506.0200, L501.9520, L501.5200, L501.9985 #### [facility] [address] [place], [address] AST [Catalytic activity/Vol] 17 U/L Normal <=31 [facility] Comment on above: Performed By: #### L 506.0200, L501.9520, L501.5200, L501.9985 #### [facility] [address] [place], [address] Bilirubin [Mass/Vol] 0.41 mg/dL Normal 0.00-1.30 [facility] Comment on above: Performed By: #### L 506.0200, L501.9520, L501.5200, L501.9985 #### [facility] [address] [place], [address] BUN/CRE 19.2 RATIO Normal 10-20 [facility] Comment on above: Performed By: #### L 506.0200, L501.9520, L501.5200, L501.9985 #### [facility] [address] [place], [address] Calcium [Mass/Vol] 9.0 mg/dL Normal 7.6-11.0 [facility] Comment on above: Performed By: #### L 506.0200, L501.9520, L501.5200, L501.9985 #### [facility] [address] [place], [address] Chloride [Moles/Vol] 94 mmol/L Low 98-108 [facility] Comment on above: Performed By: #### L 506.0200, L501.9520, L501.5200, L501.9985 #### [facility] [address] [place], [address] CO2 [Moles/Vol] 21.8 mmol/L Normal 21.0-32.0 [facility] Comment on above: Performed By: #### L 506.0200, L501.9520, L501.5200, L501.9985 #### [facility] [address] [place], [address] Creatinine [Mass/Vol] 0.65 mg/dL Low 0.70-1.20 [facility] Comment on above: Performed By: #### L 506.0200, L501.9520, L501.5200, L501.9985 #### [facility] [address] [place], [address] GAP 12 Normal 5-15 [facility] Comment on above: Performed By: #### L 506.0200, L501.9520, L501.5200, L501.9985 #### [facility] [address] [place], [address] GFR/1.73 sq M.predicted among non-blacks MDRD (S/P/Bld) [Vol rate/Area] 86 mL/min/{1.73_m2} Normal >60 [facility] Comment on above: Result Comment: mL/m in/1.73m2 CKD-EPI Creatinine Equation (2020) Performed By: #### L 506.0200, L501.9520, L501.5200, L501.9985 #### [facility] [address] [place], [address] Globulin (S) [Mass/Vol] 2.4 g/dL Normal 2.2-4.2 [facility] Comment on above: Performed By: #### L 506.0200, L501.9520, L501.5200, L501.9985 #### [facility] [address] [place], [address] Glucose [Mass/Vol] 156 mg/dL High 70-99 [facility] Comment on above: Performed By: #### L 506.0200, L501.9520, L501.5200, L501.9985 #### [facility] [address] [place], [address] Potassium [Moles/Vol] 4.0 mmol/L Normal 3.3-5.1 [facility] Comment on above: Performed By: #### L 506.0200, L501.9520, L501.5200, L501.9985 #### [facility] [address] [place], [address] Sodium [Moles/Vol] 127 mmol/L Low 133-145 [facility] Comment on above: Performed By: #### L 506.0200, L501.9520, L501.5200, L501.9985 #### [facility] [address] [place], [address] T PROT 6.2 g/dL Normal 5.9-8.4 [facility] Comment on above: Performed By: #### L 506.0200, L501.9520, L501.5200, L501.9985 #### [facility] [address] [place], [address] Urea nitrogen [Mass/Vol] 12 mg/dL Normal 4-19 [facility] Comment on above: Performed By: #### L 506.0200, L501.9520, L501.5200, L501.9985 #### [facility] [address] [place], [address] GFR/1.73 sq M.predicted michael g non-blacks MDRD (S/P/Bld) [Vol rate/Area]Ordered By: Quiana Healy on 12-05-2024 Estimated GFR (MDRD) Non-Af Amer 86 >60 [facility] Comment on above: mL/min/1.73m2 CKD-EP I Creatinine Equation (2020) Glomerular filtration rate ( GFR) estimation/1.73 sq m using serum, plasma, or whole bOrdered By: Quiana Healy on 12-05-2024 GFR/1.73 sq M.predicted among non-blacks MDRD (S/P/Bld) [Vol rate/Area] 86 mL/min/{1.73_m2} >60 [facility] Comment on above: mL/min/1.73m2 CKD-EP I Creatinine Equation (2020) Laboratory - Chemistry and C hemistry - challengeOrdered By: Quiana Healy on 12-05-2024 AST [Catalytic activity/Vol] 17 U/L <32 [facility] Potassium (Unsp spec) [Mass/ Vol]Ordered By: Quiana Healy on 12-05-2024 Potassium [Moles/Vol] 4.0 mmol/L 3.3-5.1 [facility] Potassium measurement (mass/ volume)Ordered By: Quiana Healy on 12-05-2024 Potassium (Unsp spec) [Mass/Vol] 4.0 mmol/L 3.3-5.1 [facility] Serum creatinine measurement (mass/volume)Ordered By: Quiana Healy on 12-05-2024 Creatinine [Mass/Vol] 0.65 mg/dL Low 0.70-1.20 [facility] Serum globulin measurementOr dered By: Quiana Healy on 12-05-2024 Globulin (S) [Mass/Vol] 2.4 g/dL 2.2-4.2 [facility] Serum glucose measurement (m ass/volume)Ordered By: Quiana Healy on 12-05-2024 Glucose [Mass/Vol] 156 mg/dL High 70-99 [facility] Serum or plasma alanine manriquez otransferase (ALT) measurementOrdered By: Quiana Healy on 12-05-2024 ALT [Catalytic activity/Vol] 26 U/L <35 [facility] Serum or plasma albumin isela urement (mass/volume)Ordered By: Quiana Healy on 12-05-2024 Albumin [Mass/Vol] 3.8 g/dL 3.4-4.8 [facility] Serum or plasma albumin/glob ulin mass ratioOrdered By: Quiana Healy on 12-05-2024 Albumin/Globulin [Mass ratio] 1.6 {ratio} 0.9-2.4 [facility] Serum or plasma alkaline rosa sphatase measurementOrdered By: Quiana Healy on 12-05-2024 ALP [Catalytic activity/Vol] 73 U/L 35-104 [facility] Serum or plasma calcium isela urement (mass/volume)Ordered By: Quiana Healy on 12-05-2024 Calcium [Mass/Vol] 9.0 mg/dL 7.6-11.0 [facility] Serum or plasma urea nitroge n measurement (mass/volume)Ordered By: Quiana Healy on 12-05-2024 Urea nitrogen [Mass/Vol] 12 mg/dL 4-19 [facility] Sodium levelOrdered By: Quiana Healy on 12-05-2024 Sodium [Moles/Vol] 127 mmol/L Low 133-145 [facility] Total proteinOrdered By: Alayna Healy on 12-05-2024 Protein [Mass/Vol] 6.2 g/dL 5.9-8.4 [facility] Urine cultureOrdered By: Alayna Healy on 12-05-2024 Bacteria identified Cx Nom (U) Positive Abnormal [facility] Absolute lymphocyte countOrd ered By: Sacha Kennedy on 11-25-2024 Lymphocytes Auto (Unsp spec) [#/Vol] 2.29 10*3/uL 0.83-4.51 [facility] Absolute neutrophil countOrd ered By: Sacha Kennedy on 11-25-2024 Neutrophils (Bld) [#/Vol] 6.6 10*3/uL 2.0-7.7 [facility] Anion gap in Serum or Plasma Ordered By: Sacha Kennedy on 11-25-2024 Anion gap [Moles/Vol] 15 mmol/L 5- [facility] Automated lymphocyte count a s percentage of total leukocytesOrdered By: Sacha Kennedy on 11-25-2024 Lymphocytes/100 WBC Auto (Unsp spec) 22.6 % [facility] BUN/creatinine ratioOrdered By: Sacha Kennedy on 11-25-2024 Urea nitrogen/Creatinine [Mass ratio] 14.9 mg/mg 10- [facility] Bacteria LM.HPF (Urine sed) [#/Area]Ordered By: Sacha Kennedy on 11-25-2024 Urine Bacteria RARE /hpf None Seen [facility] Basic Metabolic Profile (BMP )on 11-25-2024 BUN Normal 4-19 [facility] Comment on above: Result Comment: Canc elled via OM: Order cancelled - Patient discharged Performed By: #### L 500.2500 #### [facility] [address] [place], [address] BUN/CRE Normal 10- [facility] Comment on above: Result Comment: Canc elled via OM: Order cancelled - Patient discharged Performed By: #### L 500.2500 #### [facility] [address] [place], [address] Calcium Normal 7.6-11.0 [facility] Comment on above: Result Comment: Canc elled via OM: Order cancelled - Patient discharged Performed By: #### L 500.2500 #### [facility] [address] [place], [address] CL Normal 98-108 [facility] Comment on above: Result Comment: Canc elled via OM: Order cancelled - Patient discharged Performed By: #### L 500.2500 #### [facility] [address] [place], [address] CO2 Normal 21.0-32.0 [facility] Comment on above: Result Comment: Canc elled via OM: Order cancelled - Patient discharged Performed By: #### L 500.2500 #### [facility] [address] [place], [address] CREAT,SERUM Normal 0.70-1.20 [facility] Comment on above: Result Comment: Canc elled via OM: Order cancelled - Patient discharged Performed By: #### L 500.2500 #### [facility] [address] [place], [address] eGFR Normal >60 [facility] Comment on above: Result Comment: Canc elled via OM: Order cancelled - Patient discharged Performed By: #### L 500.2500 #### [facility] [address] [place], [address] GAP Normal 5-15 [facility] Comment on above: Result Comment: Canc elled via OM: Order cancelled - Patient discharged Performed By: #### L 500.2500 #### [facility] [address] [place], [address] GLU Normal 70-99 [facility] Comment on above: Result Comment: Canc elled via OM: Order cancelled - Patient discharged Performed By: #### L 500.2500 #### [facility] [address] [place], [address] Potassium Normal 3.3-5.1 [facility] Comment on above: Result Comment: Canc elled via OM: Order cancelled - Patient discharged Performed By: #### L 500.2500 #### [facility] [address] [place], [address] Basic Metabolic Profile (BMP) Normal 133-145 [facility] Comment on above: Result Comment: Canc elled via OM: Order cancelled - Patient discharged Performed By: #### L 500.2500 #### [facility] [address] [place], [address] BUN/CRE 14.9 RATIO Normal 10-20 [facility] Comment on above: Performed By: #### L 506.0200, L501.9520, L501.5200, L501.9985 #### [facility] [address] [place], [address] Calcium [Mass/Vol] 8.2 mg/dL Normal 7.6-11.0 [facility] Comment on above: Performed By: #### L 506.0200, L501.9520, L501.5200, L501.9985 #### [facility] [address] [place], [address] Chloride [Moles/Vol] 94 mmol/L Low 98-108 [facility] Comment on above: Performed By: #### L 506.0200, L501.9520, L501.5200, L501.9985 #### [facility] [address] [place], [address] CO2 [Moles/Vol] 16.7 mmol/L Low 21.0-32.0 [facility] Comment on above: Performed By: #### L 506.0200, L501.9520, L501.5200, L501.9985 #### [facility] [address] [place], [address] Creatinine [Mass/Vol] 0.67 mg/dL Low 0.70-1.20 [facility] Comment on above: Performed By: #### L 506.0200, L501.9520, L501.5200, L501.9985 #### [facility] [address] [place], [address] ECRCL 50.78 ml/min Normal 50-250 [facility] Comment on above: Performed By: #### L 506.0200, L501.9520, L501.5200, L501.9985 #### [facility] [address] [place], [address] GAP 15 Normal 5-15 [facility] Comment on above: Performed By: #### L 506.0200, L501.9520, L501.5200, L501.9985 #### [facility] [address] [place], [address] GFR/1.73 sq M.predicted among non-blacks MDRD (S/P/Bld) [Vol rate/Area] 85 mL/min/{1.73_m2} Normal >60 [facility] Comment on above: Result Comment: mL/m in/1.73m2 CKD-EPI Creatinine Equation (2020) Performed By: #### L 506.0200, L501.9520, L501.5200, L501.9985 #### [facility] [address] [place], [address] Glucose [Mass/Vol] 131 mg/dL High 70-99 [facility] Comment on above: Performed By: #### L 506.0200, L501.9520, L501.5200, L501.9985 #### [facility] [address] [place], [address] Potassium [Moles/Vol] 3.4 mmol/L Normal 3.3-5.1 [facility] Comment on above: Performed By: #### L 506.0200, L501.9520, L501.5200, L501.9985 #### [facility] [address] [place], [address] Sodium [Moles/Vol] 126 mmol/L Low 133-145 [facility] Comment on above: Performed By: #### L 506.0200, L501.9520, L501.5200, L501.9985 #### [facility] [address] [place], [address] Urea nitrogen [Mass/Vol] 10 mg/dL Normal 4-19 [facility] Comment on above: Performed By: #### L 506.0200, L501.9520, L501.5200, L501.9985 #### [facility] [address] [place], [address] BUN/CRE 13.2 RATIO Normal 10-20 [facility] Comment on above: Performed By: #### L 506.0200, L501.9520, L501.5200, L501.9985 #### [facility] [address] [place], [address] Calcium [Mass/Vol] 9.2 mg/dL Normal 7.6-11.0 [facility] Comment on above: Performed By: #### L 506.0200, L501.9520, L501.5200, L501.9985 #### [facility] [address] [place], [address] Chloride [Moles/Vol] 88 mmol/L Low 98-108 [facility] Comment on above: Performed By: #### L 506.0200, L501.9520, L501.5200, L501.9985 #### [facility] [address] [place], [address] CO2 [Moles/Vol] 19.9 mmol/L Low 21.0-32.0 [facility] Comment on above: Performed By: #### L 506.0200, L501.9520, L501.5200, L501.9985 #### [facility] [address] [place], [address] Creatinine [Mass/Vol] 0.67 mg/dL Low 0.70-1.20 [facility] Comment on above: Performed By: #### L 506.0200, L501.9520, L501.5200, L501.9985 #### [facility] [address] [place], [address] ECRCL 48.23 ml/min Low 50-250 [facility] Comment on above: Performed By: #### L 506.0200, L501.9520, L501.5200, L501.9985 #### [facility] [address] [place], [address] GAP 14 Normal 5-15 [facility] Comment on above: Performed By: #### L 506.0200, L501.9520, L501.5200, L501.9985 #### [facility] [address] [place], [address] GFR/1.73 sq M.predicted among non-blacks MDRD (S/P/Bld) [Vol rate/Area] 85 mL/min/{1.73_m2} Normal >60 [facility] Comment on above: Result Comment: mL/m in/1.73m2 CKD-EPI Creatinine Equation (2020) Performed By: #### L 506.0200, L501.9520, L501.5200, L501.9985 #### [facility] [address] [place], [address] Glucose [Mass/Vol] 124 mg/dL High 70-99 [facility] Comment on above: Performed By: #### L 506.0200, L501.9520, L501.5200, L501.9985 #### [facility] [address] [place], [address] Potassium [Moles/Vol] 3.9 mmol/L Normal 3.3-5.1 [facility] Comment on above: Performed By: #### L 506.0200, L501.9520, L501.5200, L501.9985 #### [facility] [address] [place], [address] Sodium [Moles/Vol] 121 mmol/L Low 133-145 [facility] Comment on above: Performed By: #### L 506.0200, L501.9520, L501.5200, L501.9985 #### [facility] [address] [place], [address] Urea nitrogen [Mass/Vol] 9 mg/dL Normal 4-19 [facility] Comment on above: Performed By: #### L 506.0200, L501.9520, L501.5200, L501.9985 #### [facility] [address] [place], [address] Basophil percentageOrdered B y: Sacha Kennedy on 11-25-2024 Basophils/100 WBC (Bld) 0.4 % 0-1 [facility] Bilirubin Test strip Ql (U)O rdered By: Sacha Kennedy on 11-25-2024 Bilirubin Ql (U) Negative Negative [facility] Bilirubin, totalOrdered By: Sacha Kennedy on 11-25-2024 Bilirubin [Mass/Vol] 0.38 mg/dL 0.00-1.30 [facility] CBC W/Diff, Automatedon 10-30 Absolute Lymph 2.29 X10 3/uL Normal 0.83-4.51 [facility] Comment on above: Performed By: #### L 100.0100, L500.4100, L500.4050, L501.2300 #### [facility] [address] [place], [address] Absolute Neut 6.6 X10 3/uL Normal 2.0-7.7 [facility] Comment on above: Performed By: #### L 100.0100, L500.4100, L500.4050, L501.2300 #### [facility] [address] [place], [address] Basophils/100 WBC (Bld) 0.4 % Normal 0-1 [facility] Comment on above: Performed By: #### L 100.0100, L500.4100, L500.4050, L501.2300 #### [facility] [address] [place], [address] Eosinophils/100 WBC (Bld) 1.1 % Normal 0-5 [facility] Comment on above: Performed By: #### L 100.0100, L500.4100, L500.4050, L501.2300 #### [facility] [address] [place], [address] Erythrocyte distribution width (RBC) [Ratio] 13.1 % Normal 11.6-14.6 [facility] Comment on above: Performed By: #### L 100.0100, L500.4100, L500.4050, L501.2300 #### [facility] [address] [place], [address] Hematocrit (Bld) [Volume fraction] 39.0 % Normal 37-47 [facility] Comment on above: Performed By: #### L 100.0100, L500.4100, L500.4050, L501.2300 #### [facility] [address] [place], [address] Hemoglobin (Bld) [Mass/Vol] 14.3 g/dL Normal 12.0-15.0 [facility] Comment on above: Performed By: #### L 100.0100, L500.4100, L500.4050, L501.2300 #### [facility] [address] [place], [address] IG% 0.400 Normal 0.0-0.9 [facility] Comment on above: Result Comment: IG% - Immature Granulocytes (promyelocytes, myelocytes and metamyelocytes) > 1% indicates that a LEFT SHIFT is Present. Performed By: #### L 100.0100, L500.4100, L500.4050, L501.2300 #### [facility] [address] [place], [address] Lymphocytes/100 WBC (Bld) 22.6 % Normal 19-41 [facility] Comment on above: Performed By: #### L 100.0100, L500.4100, L500.4050, L501.2300 #### [facility] [address] [place], [address] MCH (RBC) [Entitic mass] 28.6 pg Normal 27.0-32.0 [facility] Comment on above: Performed By: #### L 100.0100, L500.4100, L500.4050, L501.2300 #### [facility] [address] [place], [address] MCHC (RBC) [Mass/Vol] 36.7 g/dL High 32-36 [facility] Comment on above: Performed By: #### L 100.0100, L500.4100, L500.4050, L501.2300 #### [facility] [address] [place], [address] MCV (RBC) [Entitic vol] 78.0 fL Low 81-99 [facility] Comment on above: Performed By: #### L 100.0100, L500.4100, L500.4050, L501.2300 #### [facility] [address] [place], [address] Monocytes/100 WBC (Bld) 10.9 % High 0-10 [facility] Comment on above: Performed By: #### L 100.0100, L500.4100, L500.4050, L501.2300 #### [facility] [address] [place], [address] Neutrophils/100 WBC (Bld) 64.6 % Normal 47-70 [facility] Comment on above: Performed By: #### L 100.0100, L500.4100, L500.4050, L501.2300 #### [facility] [address] [place], [address] Nucleated RBC (Bld) [#/Vol] 0 10*3/uL Normal 0-5 [facility] Comment on above: Performed By: #### L 100.0100, L500.4100, L500.4050, L501.2300 #### [facility] [address] [place], [address] Platelet mean volume (Bld) [Entitic vol] 8.1 fL Normal 6.2-12.0 [facility] Comment on above: Performed By: #### L 100.0100, L500.4100, L500.4050, L501.2300 #### [facility] [address] [place], [address] Platelets (Bld) [#/Vol] 311 10*3/uL Normal 150-450 [facility] Comment on above: Performed By: #### L 100.0100, L500.4100, L500.4050, L501.2300 #### [facility] [address] [place], [address] RBC (Bld) [#/Vol] 5.00 10*6/uL Normal 4.2-5.4 [facility] Comment on above: Performed By: #### L 100.0100, L500.4100, L500.4050, L501.2300 #### [facility] [address] [place], [address] RDW SD 37.2 fl Normal 35.1-43.9 [facility] Comment on above: Performed By: #### L 100.0100, L500.4100, L500.4050, L501.2300 #### [facility] [address] [place], [address] WBC (Bld) [#/Vol] 10.1 10*3/uL Normal 4.4-11.0 [facility] Comment on above: Performed By: #### L 100.0100, L500.4100, L500.4050, L501.2300 #### [facility] [address] [place], [address] CT Chest, Abd, Pel w/Contras ton 11-25-2024 CT Chest, Abd, Pel w/Contrast [facility] [address] [place] [address] CT Chest, Abd, Pel w/Contrast MR#: [id number] Acct: [id number] Name: NORM PORTER Rep #: [id number] : 1940 F 84 From: Simba Carlisle MD PCP: Dr. Quiana Healy DO Status: ADM IN Study: CT Chest, Abd, Pel w/Contrast Date of Exam: Exam# [id number] Ordering Dr: Nayan Dixon DO PROCEDURE: CT CHEST, ABD, PEL W/CONTRAST 11/25/2024 REASON FOR EXAM: HYPONATREMIA TECHNIQUE: Chest, abdomen and pelvis CT with intravenous contrast. Coronal and Sagittal reconstruction series were provided. One or more dose reduction techniques were used (e.g., Automated exposure control, adjustment of the mA and/or kV according to patient size, use of iterative reconstruction technique. CONTRAST: 99 cc Isovue 370 RADIATION DOSE SUMMARY: CTDlvol: 10.17, 19.49 mGy DLP: 1249.51 mGycm COMPARISON: None. FINDINGS: CT CHEST: The central airways appear patent. The lungs are clear. Ectatic thoracic aorta appears within limits and visualized great vessels. No pericardial or pleural effusion. No adenopathy. No large central or hilar saddle pulmonary embolism. Right shoulder severe appearing osteoarthrosis. CT ABDOMEN/PELVIS: The liver, adrenal glands, gallbladder, kidneys, pancreas and spleen appear within limits. No bowel dilation or free air. Normal caliber appendix without secondary signs. Aortoiliac atherosclerotic change without abdominal aortic aneurysm. No adenopathy. The uterus and adnexa appear within limits. The bladder appears mildly distended without evidence of wall thickening or surrounding inflammatory change. Associated mild bilateral hydroureteronephrosis. Symmetric appearing nephrograms without perinephric stranding, edema. No evidence of urothelial thickening. What appears to be a possible bladder diverticulum at the left dome of the bladder measuring 3 x 2 x 2.4 cm axial 70, coronal 50 and sagittal 100 with appearance of possible small areas of wall punctate calcification. No free fluid seen. Lower lumbar spondylosis. Mild anterolisthesis L4 on L5. Multilevel facet degenerative changes. CT/CT Chest, Abd, Pel w/Contrast IMPRESSION: No evidence of acute process within the chest. The bladder appears mildly distended without evidence of wall thickening or surrounding inflammatory change. Associated mild bilateral hydroureteronephrosis. Symmetric appearing nephrograms without perinephric stranding, edema. No evidence of urothelial thickening. What appears to be a possible bladder diverticulum at the left dome of the bladder measuring 3 x 2 x 2.4 cm axial 70, coronal 50 and sagittal 100 with appearance of possible small areas of wall punctate calcification. No free fluid seen. Reading Location: [id number] CC: Dr. Quiana Healy, DO; Dr. Nayan Dixon, DO Customer Relationship Specialist: Signed Normal [facility] Calculated very low density lipoprotein (VLDL) cholesterol measurementOrdered By: Sacha Kennedy on 11-25-2024 Calculated very low density lipoprotein (VLDL) cholesterol measurement 8 mg/dL 5-40 [facility] VLDL Cholesterol 8 mg/dL 5-40 [facility] Carbon dioxide, total [Moles /volume] in Central venous bloodOrdered By: Sacha Kennedy on 11-25-2024 CO2 [Moles/Vol] 16.7 mmol/L Low 21.0-32.0 [facility] Chloride assayOrdered By: Chin Kennedy on 11-25-2024 Chloride [Moles/Vol] 94 mmol/L Low 98-108 [facility] Comprehensive Metabolic Prof ilon 11-25-2024 Albumin [Mass/Vol] 4.1 g/dL Normal 3.4-4.8 [facility] Comment on above: Performed By: #### L 506.0200, L501.9529, L501.5200, L501.9981 #### [facility] [address] [place], [address] Albumin/Globulin [Mass ratio] 1.8 {ratio} Normal 0.9-2.4 [facility] Comment on above: Performed By: #### L 506.0200, L501.9520, L501.5200, L501.9985 #### [facility] [address] [place], [address] ALK PHOS 68 U/L Normal 35-104 [facility] Comment on above: Performed By: #### L 506.0200, L501.9520, L501.5200, L501.9985 #### [facility] [address] [place], [address] ALT [Catalytic activity/Vol] 21 U/L Normal <=34 [facility] Comment on above: Performed By: #### L 506.0200, L501.9520, L501.5200, L501.9985 #### [facility] [address] [place], [address] AST [Catalytic activity/Vol] 18 U/L Normal <=31 [facility] Comment on above: Performed By: #### L 506.0200, L501.9520, L501.5200, L501.9985 #### [facility] [address] [place], [address] Bilirubin [Mass/Vol] 0.38 mg/dL Normal 0.00-1.30 [facility] Comment on above: Performed By: #### L 506.0200, L501.9520, L501.5200, L501.9985 #### [facility] [address] [place], [address] BUN/CRE 10.0 RATIO Normal 10-20 [facility] Comment on above: Performed By: #### L 506.0200, L501.9520, L501.5200, L501.9985 #### [facility] [address] [place], [address] Calcium [Mass/Vol] 8.8 mg/dL Normal 7.6-11.0 [facility] Comment on above: Performed By: #### L 506.0200, L501.9520, L501.5200, L501.9985 #### [facility] [address] [place], [address] Chloride [Moles/Vol] 94 mmol/L Low 98-108 [facility] Comment on above: Performed By: #### L 506.0200, L501.9520, L501.5200, L501.9985 #### [facility] [address] [place], [address] CO2 [Moles/Vol] 23.8 mmol/L Normal 21.0-32.0 [facility] Comment on above: Performed By: #### L 506.0200, L501.9520, L501.5200, L501.9985 #### [facility] [address] [place], [address] Creatinine [Mass/Vol] 0.67 mg/dL Low 0.70-1.20 [facility] Comment on above: Performed By: #### L 506.0200, L501.9520, L501.5200, L501.9985 #### [facility] [address] [place], [address] ECRCL 50.78 ml/min Normal 50-250 [facility] Comment on above: Performed By: #### L 506.0200, L501.9520, L501.5200, L501.9985 #### [facility] [address] [place], [address] GAP 10 Normal 5-15 [facility] Comment on above: Performed By: #### L 506.0200, L501.9520, L501.5200, L501.9985 #### [facility] [address] [place], [address] GFR/1.73 sq M.predicted among non-blacks MDRD (S/P/Bld) [Vol rate/Area] 85 mL/min/{1.73_m2} Normal >60 [facility] Comment on above: Result Comment: mL/m in/1.73m2 CKD-EPI Creatinine Equation (2020) Performed By: #### L 506.0200, L501.9520, L501.5200, L501.9985 #### [facility] [address] [place], [address] Globulin (S) [Mass/Vol] 2.2 g/dL Normal 2.2-4.2 [facility] Comment on above: Performed By: #### L 506.0200, L501.9520, L501.5200, L501.9985 #### [facility] [address] [place], [address] Glucose [Mass/Vol] 139 mg/dL High 70-99 [facility] Comment on above: Performed By: #### L 506.0200, L501.9520, L501.5200, L501.9985 #### [facility] [address] [place], [address] Potassium [Moles/Vol] 3.4 mmol/L Normal 3.3-5.1 [facility] Comment on above: Performed By: #### L 506.0200, L501.9520, L501.5200, L501.9985 #### [facility] [address] [place], [address] Sodium [Moles/Vol] 128 mmol/L Low 133-145 [facility] Comment on above: Performed By: #### L 506.0200, L501.9520, L501.5200, L501.9985 #### [facility] [address] [place], [address] T PROT 6.3 g/dL Normal 5.9-8.4 [facility] Comment on above: Performed By: #### L 506.0200, L501.9520, L501.5200, L501.9985 #### [facility] [address] [place], [address] Urea nitrogen [Mass/Vol] 7 mg/dL Normal 4-19 [facility] Comment on above: Performed By: #### L 506.0200, L501.9520, L501.5200, L501.9985 #### [facility] [address] [place], [address] Electrocardiogram reportOrde red By: Josh Arredondo on 11-25-2024 EKG study [facility] [address] [place] [address] 12 Lead EKG 11/24/24 2236 MR#: [id number] Acct: [id number] Name: NORM PORTER Rep #:[id number] : 1940 84 From: Josh Arredondo MD Attending Dr: Dr. Juan Sanchez DO Status: ADM IN Ordering Dr: Nayan Dixon DO Date: Location: [facility] Sex: F C Admitted: 11/25/24 Test Reason : ABN. LABS Blood Pressure : */* mmHG Vent. Rate : 65 BPM Atrial Rate : 65 BPM P-R Int : 194 ms QRS Dur : 96 ms QT Int : 420 ms P-R-T Axes : 53 -68 53 degrees QTcB Int : 436 ms Normal sinus rhythm Left anterior fascicular block Minimal voltage criteria for LVH, may be normal variant ( Nasir product ) Abnormal ECG Confirmed by JOSH ARREDONDO MD ([id number]), editor & co founder ANJANA FELIX ([id number]) on 11/25/2024 8:25:10 AM Referred By: SHAWN Confirmed By: JOSH ARREDONDO MD 11/25/24 0825 Date _ Josh Arredondo MD CC: Dr. Juan Sanchez, DO; Dr. Quiana Healy, DO; Dr. Nayan Dixon, DO ~ Signed [facility] Work Phone: Eosinophil percentageOrdered By: Sacha Kennedy on 11-25-2024 Eosinophils/100 WBC (Bld) 1.1 % 0-5 [facility] Epithelial cells.squamous LM Ql (Urine sed)Ordered By: Sacha Kennedy on 11-25-2024 Epithelial cells.squamous LM.HPF (Urine sed) [#/Area] 0 /[HPF] 5-10 [facility] Erythrocyte distribution wid th ratioOrdered By: Sacha Kennedy on 11-25-2024 Erythrocyte distribution width (RBC) [Ratio] 13.1 % 11.6-14.6 [facility] Erythrocyte distribution wid th standard deviationOrdered By: Sacha Kennedy on 11-25-2024 Erythrocyte distribution width (RBC) [Entitic vol] 37.2 fL 35.1-43.9 [facility] Erythrocyte distribution width (RBC) [Ratio] 37.2 fl 35.1-43.9 [facility] Estimation of creatinine emerson aranceOrdered By: Sacha Kennedy on 11-25-2024 Estimated Creatinine Clearance Calc 50.78 ml/min 50-250 [facility] FOLATES,SERUM (FOLIC ACID)on 11-25-2024 FOLATES,SERUM 8.68 ng/mL Normal 4.60-34.80 [facility] Comment on above: Result Comment: Hemo lysis, Results will be affected, Requires Recollection. Performed By: #### L 506.0200, L501.9520, L501.5200, L501.9985 #### [facility] [address] [place], [address] Folate [Moles/Vol]Ordered By : Sacha Kennedy on 11-25-2024 Serum Folate 8.68 ng/mL 4.60-34.80 [facility] Comment on above: Hemolysis, Results w ill be affected, Requires Recollection. Folate [Moles/volume] in Ser um or PlasmaOrdered By: Sacha Kennedy on 11-25-2024 Folate [Moles/Vol] 8.68 ng/mL 4.60-34.80 [facility] Comment on above: Hemolysis, Results w ill be affected, Requires Recollection. GFR/1.73 sq M.predicted michael g non-blacks MDRD (S/P/Bld) [Vol rate/Area]Ordered By: Sacha Kennedy on 11-25-2024 Estimated GFR (MDRD) Non-Af Amer 85 >60 [facility] Comment on above: mL/min/1.73m2 CKD-EP I Creatinine Equation (2020) Glomerular filtration rate ( GFR) estimation/1.73 sq m using serum, plasma, or whole bOrdered By: Sacha Kennedy on 11-25-2024 GFR/1.73 sq M.predicted among non-blacks MDRD (S/P/Bld) [Vol rate/Area] 85 mL/min/{1.73_m2} >60 [facility] Comment on above: mL/min/1.73m2 CKD-EP I Creatinine Equation (2020) Glucose Ql (U)Ordered By: Chin Kennedy on 11-25-2024 Urine Glucose (UA) Normal mg/dl Normal [facility] H AND P Exam - [facility] 11-25-2024 H&P Exam - Hospitalist [facility] Medical Records Department [address] [place] [address] H P Exam - Hospitalist 11/25/24 0229 MR#: [id number] Acct: [id number] Name: NORM PORTER Rep #: [id number] : 1940 84 From: Sacha Kay DO PCP: Dr. Quiana Healy, DO Status:ADM IN Location: [facility] [id number] HPI - General General Date of Admission: 11/25/24 Date of Service: 11/25/24 Chief Complaint: Low Sodium on Outpatient Labs. HPI Narrative NORM PORTER, is a 84 F with a past medical history of essential hypertension; on carvedilol, losartan and amlodipine, history of goiter, overweight; with BMI of 28.4 this admission, CARLA; on CPAP, former tobacco abuse, history of nonrheumatic mitral valve prolapse, history of venous insufficiency of RLE, history of colonic diverticulosis; with subsequent colon surgery to drain a diverticular abscess, history of umbilical hernia, history of abnormal mammogram of the Left breast, history of myringotomy (2019), history of cataract surgery, OAB; on vibegron, history of anxiety and OA who presents to [facility] ER complaining of a Critical Hyponatremia of 118 mmol/L incidentally noted on outpatient labs. Ms. Porter reports her symptoms began approximately 3-4 days prior to admission when she began to feel unwell so she went to her PCP and when her labs were checked she was noted to have a low sodium of 120 mmol/L. Her symptoms persisted and when she followed up with him yesterday her sodium had dropped to 118 mmol/L so she was instructed to come in to the hospital for further evaluation and treatment. She admits to associated nausea and generalized weakness along with uncontrolled hypertension in the 200 mmHg systolic. A review of her records shows transient low sodiums but only down to 125 mmol/L in October 2021 before rebounding to 133 mmol/L - 140 mmol/L as of December 23, 2023. She admits to routine free-water intake of 64 oz. daily. She denies alcohol use, drug use or recent tobacco abuse. There was no report of fever, chills, nausea, vomiting, headache, seizures, paresthesias, visual changes, SOB, cough, chest pain or rash. In the ER she was diagnosed with Severe Hyponatremia of 121 mmol/L present on admission likely due to Water Intoxication with mild Leukocytosis of 11.6K present on admission complicated by Uncontrolled Hypertension of 170/104 mmHg noted shortly after admission and she was then admitted to the PCU for ongoing care for a stay that is expected to be greater than 2 midnights. PFSH Medical History Obesity Venous insufficiency of right lower extremity Nonrheumatic mitral (valve) prolapse Abnormal mammogram of left breast Obstructive sleep apnea Goiter Umbilical hernia Essential hypertension Anxiety Diverticula of colon Arthritis Former smoker Home Medications ???Medication ???Instructions ???Recorded ???Last Taken ???Type vibegron 75 mg tablet (Gemtesa) 75 mg PO DAILY 04/28/23 Unknown Hi story Lactobacillus 1 cap PO DAILY 03/23/24 Unknown Hi story acidophilus-Bifidobac.anima lis 2.5 billion cell capsule (Daily Probiotic) carvedilol 6.25 mg tablet 6.25 mg PO BID 03/23/24 Unknown Hi story d-mannose 500 mg capsule 500 mg PO BID 03/23/24 Unknown His tory isosorbide mononitrate 30 mg 15 mg PO QDAY 03/23/24 Unknown His tory tablet,extended release 24 hr losartan 50 mg tablet 50 mg PO BID bp #180 tabs 05/16/24 Unknown Rx amlodipine 2.5 mg tablet 2.5 mg PO DAILY #90 tabs 11/15/24 Unknown Rx Allergy/AdvReac Type Severity Reaction Status Date / Time amoxicillin (From Augmentin) Allergy Intermediate Mild rash Verified 11/24/24 22:04 clavulanic acid (From Allergy Intermediate Mild rash Verified 11/24/24 22:04 Augmentin) benazepril HCl (From Allergy Other Verified 11/24/24 22:04 Lotensin) betamethasone (From Allergy NEEDS Verified 11/24/24 22:04 Diprolene) FOLLOW-UP felodipine Allergy Other Verified 11/24/24 22:04 fexofenadine HCl (From Allergy Other Verified 11/24/24 22:04 Uyen) ramipril (From Altace) Allergy Other Verified 11/24/24 22:04 tolterodine tartrate (From Allergy Other Verified 11/24/24 22:04 Detrol) verapamil HCl (From Allergy Other Verified 11/24/24 22:04 Covera-HS) lisinopril AdvReac Intermediate cough Verified 11/24/24 22:04 Family History Mother CVA (cerebral vascular accident) Hypertension History of DVT (deep vein thrombosis) Brother History of DVT (deep vein thrombosis) Other Aortic aneurysm Surgical History H/O myringotomy (05/18/19) History of colon surgery Hx of cataract surgery Social History household members: spouse Smoking Status: Forme (more content not included)... Normal [facility] Hematocrit Auto (Bld) [Volum e fraction]Ordered By: Sacha Kennedy on 11-25-2024 Hematocrit (Bld) [Volume fraction] 39.0 % 37-47 [facility] Hemoglobin A1con 11-25-2024 HbA1c (Bld) [Mass fraction] 5.9 % Normal <=5.6 [facility] Comment on above: Performed By: #### L 506.0200, L501.9520, L501.5200, L501.9917 #### [facility] [address] [facility] [place], [place], [address] Hemoglobin measurementOrdere d By: Sacha Kennedy on 11-25-2024 Hemoglobin (Bld) [Mass/Vol] 14.3 g/dL 12.0-15.0 [facility] Immature granulocytes/100 WB C Auto (Bld)Ordered By: Sacha Kennedy on 11-25-2024 Immature granulocytes/100 WBC (Bld) 0.400 % 0.0-0.9 [facility] Comment on above: IG% - Immature Granu locytes (promyelocytes, myelocytes and metamyelocytes) > 1% indicates that a LEFT SHIFT is Present. Ketones Test strip Ql (U)Ord ered By: Sacha Kennedy on 11-25-2024 Ketones Ql (U) 5 mg/dl High Negative [facility] L503.0106on 11-25-2024 Cobalamin (Vitamin B12) [Mass/Vol] 1895 pg/mL High 180-914 [facility] Comment on above: Performed By: #### L 503.7505 #### [facility] [address] [facility] [place], [address] L503.7505on 11-25-2024 Natriuretic peptide B (Bld) [Mass/Vol] 173 pg/mL Normal <=1800 [facility] Comment on above: Result Comment: Hear t Failure Unlikely: < 300 pg/mL Heart Failure Likely < 50 Years: > 450 pg/mL 50-75 Years: > 900 pg/mL >75 Years: > 1800 pg/mL Performed By: #### L 503.7502 #### [facility] [address] [place], [address] L509.6001on 11-25-2024 CORTISOL 14.30 ug/dL Normal 6.02-18.40 [facility] Comment on above: Performed By: #### L 509.6001 #### [facility] [address] [place], [place], [address] LDL calc ser/plasOrdered By: Sacha Kennedy on 11-25-2024 Cholesterol in LDL [Mass/Vol] 77 mg/dL [facility] Comment on above: Ocjozyytkk=573-710 m g/dL & Higher Vnll=830 mg/dL or greater LDL Cholesterol, Calculated 77 mg/dL [facility] Comment on above: Zqrzfxoava=310-480 m g/dL & Higher Sqkx=132 mg/dL or greater Laboratory - Chemistry and C hemistry - challengeOrdered By: Sacha Kennedy on 11-25-2024 AST [Catalytic activity/Vol] 18 U/L <32 [facility] Lipid Profileon 11-25-2024 CHOL:HDL 2.15 Normal [facility] Comment on above: Performed By: #### L 506.0200, L501.9520, L501.5200, L501.9985 #### [facility] [address] [place], [address] Cholesterol [Mass/Vol] 158 mg/dL Normal <=200 [facility] Comment on above: Result Comment: Chol esterol level, Desirable <200 mg/dL Borderline high cholesterol 200-239 mg/dL High cholesterol >=240 mg/dL Recommendations of the NCEP Adult Treatment Panel for the following risk-cutoff thresholds for the [place] population. Performed By: #### L 506.0200, L501.9520, L501.5200, L501.9985 #### [facility] [address] [place], [address] Cholesterol in HDL [Mass/Vol] 73 mg/dL Normal [facility] Comment on above: Result Comment: Alicia onal Cholesterol Education Program (NCEP) guidelines: <40 mg/dL: Low HDL-cholesterol (major risk factor for CHD) >= 60 mg/dL: High HDL-cholesterol (negative risk factor for CHD) HDL-cholesterol is affected by a number of factors, e.g. smoking, exercise, hormones, sex and age. Performed By: #### L 506.0200, L501.9520, L501.5200, L501.9985 #### [facility] [address] [place], [address] Cholesterol in LDL [Mass/Vol] 77 mg/dL Normal [facility] Comment on above: Result Comment: Bord ijoyou=226-205 mg/dL Higher Xxcp=253 mg/dL or greater Performed By: #### L 506.0200, L501.9520, L501.5200, L501.9985 #### [facility] [address] [place], [address] Cholesterol in VLDL [Mass/Vol] 8 mg/dL Normal 5-40 [facility] Comment on above: Performed By: #### L 506.0200, L501.9520, L501.5200, L501.9985 #### [facility] [address] [place], [address] Triglyceride [Mass/Vol] 38 mg/dL Normal [facility] Comment on above: Result Comment: The drugs N-Acetylcysteine and Metamizole may falsely depress this assay. Normal range: <150 mg/dL Borderline High: 150-199 mg/dL High: 200-499 mg/dL Very High: >500 mg/dL Performed By: #### L 506.0200, L501.9520, L501.5200, L501.9985 #### [facility] [address] [place], [address] Lymphocytes Auto (Unsp spec) [#/Vol]Ordered By: Sacha Kennedy on 11-25-2024 Lymphocytes (Bld) [#/Vol] 2.29 10*3/uL 0.83-4.51 [facility] Lymphocytes/100 WBC Auto (Un sp spec)Ordered By: Sacha Kennedy on 11-25-2024 Lymphocytes/100 WBC (Bld) 22.6 % 19-41 [facility] MCV (mean corpuscular volume ) determinationOrdered By: Sacha Kennedy on 11-25-2024 MCV (RBC) [Entitic vol] 78.0 fL Low 81-99 [facility] Magnesiumon 11-25-2024 Magnesium [Mass/Vol] 2.0 mg/dL Normal 1.5-2.2 [facility] Comment on above: Performed By: #### L 506.0200, L501.9520, L501.5200, L501.9985 #### [facility] [address] [place], [address] Mean corpuscular hemoglobin (MCH) determinationOrdered By: Sacha Kennedy on 11-25-2024 MCH (RBC) [Entitic mass] 28.6 pg 27.0-32.0 [facility] Mean corpuscular hemoglobin concentration (MCHC) determinationOrdered By: Sacha Kennedy on 11-25-2024 MCHC (RBC) [Mass/Vol] 36.7 g/dL High 32-36 [facility] Mean platelet volume determi nationOrdered By: Sacha Kennedy on 11-25-2024 Platelet mean volume (Bld) [Entitic vol] 8.1 fL 6.2-12.0 [facility] Microscopic analysis of urin e for red blood cells (RBC)Ordered By: Sacha Kennedy on 11-25-2024 Microscopic analysis of urine for red blood cells (RBC) 0-5 SEEN /hpf 0-5 [facility] Urine RBC 0-5 SEEN /hpf 0-5 [facility] Monocyte percentageOrdered B y: Sacha Kennedy on 11-25-2024 Monocytes/100 WBC (Bld) 10.9 % High 0-10 [facility] Mucus LM Ql (Urine sed)Order ed By: Sacha Kennedy on 11-25-2024 Mucus Ql (Urine sed) 0 SEEN /hpf [facility] Neutrophil percentageOrdered By: Sacha Kennedy on 11-25-2024 Neutrophils/100 WBC (Bld) 64.6 % 47-70 [facility] Nitrite Test strip Ql (U)Ord ered By: Sacha Kennedy on 11-25-2024 Nitrite Ql (U) Negative Negative [facility] No Panel InformationOrdered By: Juan Sanchez on 11-25-2024 Cortisol AM Sample 14.30 ug/dL 6.02-18.40 [facility] Nucleated red blood cell per centageOrdered By: Sacha Kennedy on 11-25-2024 Nucleated RBC/100 WBC (Bld) [Ratio] 0 % 0-5 [facility] Phosphoruson 11-25-2024 Phosphate [Mass/Vol] 2.7 mg/dL Normal 2.7-4.5 [facility] Comment on above: Performed By: #### L 506.0200, L501.9520, L501.5200, L501.9985 #### [facility] [address] [place] [address], [address] Platelet countOrdered By: Chin Kennedy on 11-25-2024 Platelets (Bld) [#/Vol] 311 10*3/uL 150-450 [facility] Potassium (Unsp spec) [Mass/ Vol]Ordered By: Sacha Kennedy on 11-25-2024 Potassium [Moles/Vol] 3.4 mmol/L 3.3-5.1 [facility] Potassium measurement (mass/ volume)Ordered By: Sacha Kennedy on 11-25-2024 Potassium (Unsp spec) [Mass/Vol] 3.4 mmol/L 3.3-5.1 [facility] Protein Test strip Ql (U)Ord ered By: Sacha Kennedy on 11-25-2024 Protein Ql (U) Negative Negative [facility] RBC Auto (Bld) [#/Vol]Ordere d By: Sacha Kennedy on 11-25-2024 RBC (Bld) [#/Vol] 5.00 10*6/uL 4.2-5.4 [facility] Screening total cholesterol/ high density lipoprotein (HDL) cholesterol ratioOrdered By: Sacha Kennedy on 11-25-2024 Cholesterol.total/Naheed sterol in HDL [Mass ratio] 2.15 {ratio} [facility] Serum creatinine measurement (mass/volume)Ordered By: Sacha Kennedy on 11-25-2024 Creatinine [Mass/Vol] 0.67 mg/dL Low 0.70-1.20 [facility] Serum globulin measurementOr dered By: Sacha Kennedy on 11-25-2024 Globulin (S) [Mass/Vol] 2.2 g/dL 2.2-4.2 [facility] Serum glucose measurement (m ass/volume)Ordered By: Sacha Kennedy on 11-25-2024 Glucose [Mass/Vol] 131 mg/dL High 70-99 [facility] Serum or plasma alanine manriquez otransferase (ALT) measurementOrdered By: Sacha Kennedy on 11-25-2024 ALT [Catalytic activity/Vol] 21 U/L <35 [facility] Serum or plasma albumin isela urement (mass/volume)Ordered By: Sacha Kennedy on 11-25-2024 Albumin [Mass/Vol] 4.1 g/dL 3.4-4.8 [facility] Serum or plasma albumin/glob ulin mass ratioOrdered By: Sacha Kennedy on 11-25-2024 Albumin/Globulin [Mass ratio] 1.8 {ratio} 0.9-2.4 [facility] Serum or plasma alkaline rosa sphatase measurementOrdered By: Sacha Kennedy on 11-25-2024 ALP [Catalytic activity/Vol] 68 U/L 35-104 [facility] Serum or plasma calcium isela urement (mass/volume)Ordered By: Sacha Kennedy on 11-25-2024 Calcium [Mass/Vol] 8.2 mg/dL 7.6-11.0 [facility] Serum or plasma cholesterol in HDL measurement (mass/volume)Ordered By: Sacha Kennedy on 11-25-2024 Cholesterol in HDL [Mass/Vol] 73 mg/dL >40 [facility] Comment on above: National Cholesterol Education Program (NCEP) guidelines:<40 mg/dL: Low HDL-cholesterol (major risk factor for CHD)>= 60 mg/dL: High HDL-cholesterol (negative risk factor for CHD)HDL-cholesterol is affected by a number of factors, e.g. smoking, exercise, hormones, sex and age. Serum or plasma cholesterol measurement (mass/volume)Ordered By: Sacha Kennedy on 11-25-2024 Cholesterol [Mass/Vol] 158 mg/dL <201 [facility] Comment on above: Cholesterol level, D esirable <200 mg/dLBorderline high cholesterol 200-239 mg/dLHigh cholesterol >=240 mg/dLRecommendations of the NCEP Adult Treatment Panel for the following risk-cutoff thresholds for the [place] population. Serum or plasma urea nitroge n measurement (mass/volume)Ordered By: Sacha Kennedy on 11-25-2024 Urea nitrogen [Mass/Vol] 10 mg/dL 4-19 [facility] Serum phosphorus measurement Ordered By: Sacha Kennedy on 11-25-2024 Phosphorus Level 2.7 mg/dL 2.7-4.5 [facility] Sodium levelOrdered By: Richard Kennedy on 11-25-2024 Sodium [Moles/Vol] 126 mmol/L Low 133-145 [facility] Squamous epithelial cells de tection in urine sediment by light microscopyOrdered By: Sacha Kennedy on 11-25-2024 Epithelial cells.squamous LM Ql (Urine sed) 0 SEEN /hpf 5-10 [facility] Thyroid Stim Hormone (TSH)on 11-25-2024 TSH 3.550 uIU/mL Normal 0.300-4.20 0 [facility] Comment on above: Performed By: #### L 506.0200, L501.9520, L501.5200, L501.9985 #### [facility] [address] [place], [place], [id number] Total proteinOrdered By: Guanaco Kennedy on 11-25-2024 Protein [Mass/Vol] 6.3 g/dL 5.9-8.4 [facility] Triglycerides measurementOrd ered By: Sacha Kennedy on 11-25-2024 Triglyceride [Mass/Vol] 38 mg/dL <199 [facility] Comment on above: The drugs N-Acetylcy steine and Metamizole may falsely depress this assay. Normal range: <150 mg/dLBorderline High: 150-199 mg/dLHigh: 200-499 mg/dLVery High: >500 mg/dL Urinalysis, Completeon 11-25 BACTERIA RARE Normal None Seen [facility] Comment on above: Order Comment: CLEAN CATCH Performed By: #### L 506.0200, L501.9520, L501.5200, L501.9985 #### [facility] [address] [place], [address] RBC 0-5 SEEN Normal 0-5 [facility] Comment on above: Order Comment: CLEAN CATCH Performed By: #### L 506.0200, L501.9520, L501.5200, L501.9985 #### [facility] [address] [place], [address] WBC 0-5 SEEN Normal 0-5 [facility] Comment on above: Order Comment: CLEAN CATCH Performed By: #### L 506.0200, L501.9520, L501.5200, L501.9985 #### [facility] [address] [place], [address] BILIRUBIN URINE Negative Normal Negative [facility] Comment on above: Order Comment: CLEAN CATCH Performed By: #### L 506.0200, L501.9520, L501.5200, L501.9985 #### [facility] [address] [place], [address] Clarity (U) Clear Normal Clear [facility] Comment on above: Order Comment: CLEAN CATCH Performed By: #### L 506.0200, L501.9520, L501.5200, L501.9985 #### [facility] [address] [place], [address] Color (U) Straw Normal Yellow [facility] Comment on above: Order Comment: CLEAN CATCH Performed By: #### L 506.0200, L501.9520, L501.5200, L501.9985 #### [facility] [address] [place], [address] GLUCOSE, UR Normal Normal Normal [facility] Comment on above: Order Comment: CLEAN CATCH Performed By: #### L 506.0200, L501.9520, L501.5200, L501.9985 #### [facility] [address] [place], [address] KETONE UR 5 mg/dl Abnormal Negative [facility] Comment on above: Order Comment: CLEAN CATCH Performed By: #### L 506.0200, L501.9520, L501.5200, L501.9985 #### [facility] [address] [place], [address] LEUK ESTERASE 25 /ul Abnormal Negative [facility] Comment on above: Order Comment: CLEAN CATCH Performed By: #### L 506.0200, L501.9520, L501.5200, L501.9985 #### [facility] [address] [place], [address] Nitrite Ql (U) Negative Normal Negative [facility] Comment on above: Order Comment: CLEAN CATCH Performed By: #### L 506.0200, L501.9520, L501.5200, L501.9985 #### [facility] [address] [place], [address] OCCULT BLOOD-UR 10 /ul Abnormal Negative [facility] Comment on above: Order Comment: CLEAN CATCH Performed By: #### L 506.0200, L501.9520, L501.5200, L501.9985 #### [facility] [address] [place], [address] pH UR 7.0 Normal 5.0 - 8.0 [facility] Comment on above: Order Comment: CLEAN CATCH Performed By: #### L 506.0200, L501.9520, L501.5200, L501.9985 #### [facility] [address] [place], [address] PROT DIPSTX Negative Normal Negative [facility] Comment on above: Order Comment: CLEAN CATCH Performed By: #### L 506.0200, L501.9520, L501.5200, L501.9985 #### [facility] [address] [place], [address] SP.GR. DIPSTX 1.010 Normal 1.002-1.03 0 [facility] Comment on above: Order Comment: CLEAN CATCH Performed By: #### L 506.0200, L501.9520, L501.5200, L501.9985 #### [facility] [address] [place], [address] UROBILI Normal Normal Normal [facility] Comment on above: Order Comment: CLEAN CATCH Performed By: #### L 506.0200, L501.9520, L501.5200, L501.9985 #### [facility] [address] [place], [address] EPI,SQUAMOUS 0 SEEN Normal 5-10 [facility] Comment on above: Order Comment: CLEAN CATCH Performed By: #### L 506.0200, L501.9520, L501.5200, L501.9985 #### [facility] [address] [place], [address] Mucus Ql (Urine sed) 0 SEEN Normal [facility] Comment on above: Order Comment: CLEAN CATCH Performed By: #### L 506.0200, L501.9520, L501.5200, L501.9985 #### [facility] [address] [place], [address] Urine Cultureon 11-25-2024 URC Mixed Gram Positive Organisms Ralph Count 80,000-100,000 MIXC Mixed contaminants. Submit a new specimen if indicated. Normal [facility] Comment on above: Performed By: #### L 506.0200, L501.9520, L501.5200, L501.9985 #### [facility] [address] [place], [address] Urine blood detectionOrdered By: Sacha Kennedy on 11-25-2024 Urine Occult Blood 10 /ul High Negative [facility] Urine clarityOrdered By: Guanaco Kennedy on 11-25-2024 Clarity (U) Clear Clear [facility] Urine color determinationOrd ered By: Sacha Kennedy on 11-25-2024 Color (U) Straw Yellow [facility] Urine glucose detectionOrder ed By: Sacha Kennedy on 11-25-2024 Glucose Ql (U) Normal mg/dl Normal [facility] Urine leukocyte esterase det ection by dipstickOrdered By: Sacha Kennedy on 11-25-2024 Leukocyte esterase Test strip Ql (U) 25 /ul High Negative [facility] Urine pHOrdered By: Sacha hawley on 11-25-2024 pH (U) 7.0 [pH] 5.0 - 8.0 [facility] Urine sediment bacteria coun t by microscopy (number/high power field)Ordered By: Sacha Kennedy on 11-25-2024 Bacteria LM.HPF (Urine sed) [#/Area] RARE /hpf None Seen [facility] Urine specific gravity measu rementOrdered By: Sacha Kennedy on 11-25-2024 Specific gravity (U) [Rel density] 1.010 1.002-1.03 0 [facility] Urine urobilinogen measureme ntOrdered By: Sacha Kennedy on 11-25-2024 Urobilinogen Ql (U) Normal mg/dl Normal [facility] Urobilinogen Ql (U)Ordered B y: Sacha Kennedy on 11-25-2024 Urine Urobilinogen Normal mg/dl Normal [facility] Vitamin B12 ser/plasOrdered By: Sacha Kennedy on 11-25-2024 Cobalamin (Vitamin B12) [Mass/Vol] 1895 pg/mL High 180-914 [facility] White blood cell (WBC) count Ordered By: Sacha Kennedy on 11-25-2024 WBC (Bld) [#/Vol] 10.1 10*3/uL 4.4-11.0 [facility] White blood cell countOrdere d By: Sacha Kennedy on 11-25-2024 Urine WBC 0-5 SEEN /hpf 0-5 [facility] White blood cell count 0-5 SEEN /hpf 0-5 [facility] 12 Lead EKGon 11-24-2024 12 Lead [facility] [address] [place] [address] 12 Lead EKG 11/24/24 2236 MR#: [id number] Acct: [id number] Name: NORM PORTER Rep #: [id number] : 1940 84 From: Josh Arredondo MD Attending Dr: Dr. Juan Sanchez DO Status: ADM IN Ordering Dr: Nayan Dixon DO Date: 11/24/24 Location: [facility] Sex: F C Admitted: 11/25/24 Test Reason : ABN. LABS Blood Pressure : */* mmHG Vent. Rate : 65 BPM Atrial Rate : 65 BPM P-R Int : 194 ms QRS Dur : 96 ms QT Int : 420 ms P-R-T Axes : 53 -68 53 degrees QTcB Int : 436 ms Normal sinus rhythm Left anterior fascicular block Minimal voltage criteria for LVH, may be normal variant ( [place] product ) Abnormal ECG Confirmed by JOSH ARREDONDO MD ([id number]), editor & co founder ANJANA FELIX ([id number]) on 11/25/2024 8:25:10 AM Referred By: SHAWN Confirmed By: JOSH ARREDONDO MD 11/25/24 0825 Date Josh Arredondo MD CC: Dr. Juan Sanchez DO; Dr. Quiana Healy DO; Dr. Nayan Dixon DO Signed Normal [facility] Absolute neutrophil countOrd ered By: Nayan Dixon on 11-24-2024 Neutrophils (Bld) [#/Vol] 7.4 10*3/uL 2.0-7.7 [facility] Anion gap in Serum or Plasma Ordered By: Nayan Dixon on 11-24-2024 Anion gap [Moles/Vol] 14 mmol/L 01-12 [facility] Anion gap in Serum or Plasma Ordered By: Quiana Healy on 11-24-2024 Anion gap [Moles/Vol] 12 mmol/L 01-12 [facility] BUN/creatinine ratioOrdered By: Nayan Dixon on 11-24-2024 Urea nitrogen/Creatinine [Mass ratio] 13.2 mg/mg 06-19 [facility] BUN/creatinine ratioOrdered By: Quiana Healy on 11-24-2024 Urea nitrogen/Creatinine [Mass ratio] 17.4 mg/mg 06-19 [facility] Basic Metabolic Profile (BMP )on 11-24-2024 BUN/CRE 17.4 RATIO Normal 06-19 [facility] Comment on above: Performed By: #### L 506.0200, L501.9520, L501.5200, L501.9985 #### [facility] [address] [place], [address] Calcium [Mass/Vol] 8.6 mg/dL Normal 7.6-11.0 [facility] Comment on above: Performed By: #### L 506.0200, L501.9520, L501.5200, L501.9985 #### [facility] [address] [place], [address] Chloride [Moles/Vol] 86 mmol/L Low 98-108 [facility] Comment on above: Performed By: #### L 506.0200, L501.9520, L501.5200, L501.9985 #### [facility] [address] [place], [address] CO2 [Moles/Vol] 20.0 mmol/L Low 21.0-32.0 [facility] Comment on above: Performed By: #### L 506.0200, L501.9520, L501.5200, L501.9985 #### [facility] [address] [place], [address] Creatinine [Mass/Vol] 0.57 mg/dL Low 0.70-1.20 [facility] Comment on above: Performed By: #### L 506.0200, L501.9520, L501.5200, L501.9985 #### [facility] [address] [place], [address] GAP 12 Normal 5-15 [facility] Comment on above: Performed By: #### L 506.0200, L501.9520, L501.5200, L501.9985 #### [facility] [address] [place], [address] GFR/1.73 sq M.predicted among non-blacks MDRD (S/P/Bld) [Vol rate/Area] 88 mL/min/{1.73_m2} Normal >60 [facility] Comment on above: Result Comment: mL/m in/1.73m2 CKD-EPI Creatinine Equation (2020) Performed By: #### L 506.0200, L501.9520, L501.5200, L501.9985 #### [facility] [address] [place], [address] Glucose [Mass/Vol] 98 mg/dL Normal 70-99 [facility] Comment on above: Performed By: #### L 506.0200, L501.9520, L501.5200, L501.9985 #### [facility] [address] [place], [address] Potassium [Moles/Vol] 4.6 mmol/L Normal 3.3-5.1 [facility] Comment on above: Performed By: #### L 506.0200, L501.9520, L501.5200, L501.9985 #### [facility] [address] [place], [address] Sodium [Moles/Vol] 118 mmol/L Invalid Interpretation Code 133-145 [facility] Comment on above: Result Comment: Crit ical Result(s) Called DR. HEALY at: 2025 by: JEREMY??Results read back by same. Performed By: #### L 506.0200, L501.9520, L501.5200, L501.9985 #### [facility] [address] [place], [address] Urea nitrogen [Mass/Vol] 10 mg/dL Normal 4-19 [facility] Comment on above: Performed By: #### L 506.0200, L501.9520, L501.5200, L501.9985 #### [facility] [address] [place], [address] Basophil percentageOrdered B y: Nayan Shawn on 11-24-2024 Basophils/100 WBC (Bld) 0.4 % 0-1 [facility] CBC W/Diff, Automatedon 10-30 Absolute Lymph 2.88 X10 3/uL Normal 0.83-4.51 [facility] Comment on above: Performed By: #### L 506.0200, L501.9520, L501.5200, L501.9985 #### [facility] [address] [place], [address] Absolute Neut 7.4 X10 3/uL Normal 2.0-7.7 [facility] Comment on above: Performed By: #### L 506.0200, L501.9520, L501.5200, L501.9985 #### [facility] [address] [place], [address] Basophils/100 WBC (Bld) 0.4 % Normal 0-1 [facility] Comment on above: Performed By: #### L 506.0200, L501.9520, L501.5200, L501.9985 #### [facility] [address] [place], [address] Eosinophils/100 WBC (Bld) 1.5 % Normal 0-5 [facility] Comment on above: Performed By: #### L 506.0200, L501.9520, L501.5200, L501.9985 #### [facility] [address] [place], [address] Erythrocyte distribution width (RBC) [Ratio] 13.0 % Normal 11.6-14.6 [facility] Comment on above: Performed By: #### L 506.0200, L501.9520, L501.5200, L501.9985 #### [facility] [address] [place], [address] Hematocrit (Bld) [Volume fraction] 40.9 % Normal 37-47 [facility] Comment on above: Performed By: #### L 506.0200, L501.9520, L501.5200, L501.9985 #### [facility] [address] [place], [address] Hemoglobin (Bld) [Mass/Vol] 14.7 g/dL Normal 12.0-15.0 [facility] Comment on above: Performed By: #### L 506.0200, L501.9520, L501.5200, L501.9985 #### [facility] [address] [place], [address] IG% 0.300 Normal 0.0-0.9 [facility] Comment on above: Result Comment: IG% - Immature Granulocytes (promyelocytes, myelocytes and metamyelocytes) > 1% indicates that a LEFT SHIFT is Present. Performed By: #### L 506.0200, L501.9520, L501.5200, L501.9985 #### [facility] [address] [place], [address] Lymphocytes/100 WBC (Bld) 24.9 % Normal 19-41 [facility] Comment on above: Performed By: #### L 506.0200, L501.9520, L501.5200, L501.9985 #### [facility] [address] [place], [address] MCH (RBC) [Entitic mass] 28.4 pg Normal 27.0-32.0 [facility] Comment on above: Performed By: #### L 506.0200, L501.9520, L501.5200, L501.9985 #### [facility] [address] [place], [address] MCHC (RBC) [Mass/Vol] 35.9 g/dL Normal 32-36 [facility] Comment on above: Performed By: #### L 506.0200, L501.9520, L501.5200, L501.9985 #### [facility] [address] [place], [address] MCV (RBC) [Entitic vol] 79.1 fL Low 81-99 [facility] Comment on above: Performed By: #### L 506.0200, L501.9520, L501.5200, L501.9985 #### [facility] [address] [place], [address] Monocytes/100 WBC (Bld) 8.7 % Normal 0-10 [facility] Comment on above: Performed By: #### L 506.0200, L501.9520, L501.5200, L501.9985 #### [facility] [address] [place], [address] Neutrophils/100 WBC (Bld) 64.2 % Normal 47-70 [facility] Comment on above: Performed By: #### L 506.0200, L501.9520, L501.5200, L501.9985 #### [facility] [address] [place], [address] Nucleated RBC (Bld) [#/Vol] 0 10*3/uL Normal 0-5 [facility] Comment on above: Performed By: #### L 506.0200, L501.9520, L501.5200, L501.9985 #### [facility] [address] [place], [address] Platelet mean volume (Bld) [Entitic vol] 8.4 fL Normal 6.2-12.0 [facility] Comment on above: Performed By: #### L 506.0200, L501.9520, L501.5200, L501.9985 #### [facility] [address] [place], [address] Platelets (Bld) [#/Vol] 354 10*3/uL Normal 150-450 [facility] Comment on above: Performed By: #### L 506.0200, L501.9520, L501.5200, L501.9985 #### [facility] [address] [place], [address] RBC (Bld) [#/Vol] 5.17 10*6/uL Normal 4.2-5.4 [facility] Comment on above: Performed By: #### L 506.0200, L501.9520, L501.5200, L501.9985 #### [facility] [address] [place], [address] RDW SD 36.9 fl Normal 35.1-43.9 [facility] Comment on above: Performed By: #### L 506.0200, L501.9520, L501.5200, L501.9985 #### [facility] [address] [place], [address] WBC (Bld) [#/Vol] 11.6 10*3/uL High 4.4-11.0 [facility] Comment on above: Performed By: #### L 506.0200, L501.9520, L501.5200, L501.9985 #### [facility] [address] [place], [address] Carbon dioxide, total [Moles /volume] in Central venous bloodOrdered By: Nayan Dixon on 11-24-2024 CO2 [Moles/Vol] 19.9 mmol/L Low 21.0-32.0 [facility] Carbon dioxide, total [Moles /volume] in Central venous bloodOrdered By: Quiana Healy on 11-24-2024 CO2 [Moles/Vol] 20.0 mmol/L Low 21.0-32.0 [facility] Chest PA and Lateralon 11-24 Chest PA and Lateral [facility] Services [address] [place] [address] Chest PA and Lateral MR#: [id number] Acct: [id number] Name: NORM PORTER Rep #: [id number] : 1940 F 84 From: Rocio Gamble nd, MD PCP: Dr. Quiana Healy DO Status: [facility] ER Study: Chest PA and Lateral Date of Exam: 11/24/24 Exam# [id number] Ordering Dr: Nayan Dixon DO PROCEDURE: CHEST PA AND LATERAL 11/24/2024 REASON FOR EXAM: 84-year-old female, hyponatremia. TECHNIQUE: Frontal and lateral views of the chest. COMPARISON: Chest radiograph 06/20/2024. FINDINGS: Hardware: None. Heart: The heart size is normal. Mediastinum: The mediastinal contour is unremarkable. Lungs: Mild atelectasis/scarring within the right middle lobe. No focal consolidation, pleural effusion or pneumothorax. Bones: Degenerative changes are identified within the thoracic spine. Arthrosis of the bilateral glenohumeral joints. RAD/Chest PA and Lateral IMPRESSION: NO ACUTE FINDINGS. Reading Location: [facility] CC: Dr. Quiana Healy DO; Dr. Nayan Dixon DO Customer Relationship Specialist: Signed Normal [facility] Chloride assayOrdered By: Marcos Dixon on 11-24-2024 Chloride [Moles/Vol] 88 mmol/L Low 98-108 [facility] Chloride assayOrdered By: Randa Healy on 11-24-2024 Chloride [Moles/Vol] 86 mmol/L Low 98-108 [facility] Emergency Department Summary on 11-24-2024 Emergency Department Summary [facility] Medical Records Department [address] [place] [address] Emergency Department Summary 11/24/24 MR#: [id number] Acct: [id number] Name: NORM PORTER Rep #: [id number] : 1940 84 From: Nayan Dixon DO PCP: Dr. Quiana Healy, DO Status:REG ER Location: ED HPI History of Present Illness Chief Complaint: Abn Labs Narrative Narrative: Patient is a 84-year-old female with a past medical history of CARLA, anxiety, and hypertension who presents to the emergency department the chief complaint of low sodium. Patient states that she has not been feeling well recently and her blood physician checked her blood work and noted that her sodium was low. They repeated this blood work today and noted that it was lower which then she was advised to come to the emergency department to be evaluated. Patient denies any alcohol use, drug use, and states that she does not smoke. Patient has no other complaints outside of nausea and generalized weakness. PFSH PFSH Medical History Obesity Venous insufficiency of right lower extremity Nonrheumatic mitral (valve) prolapse Abnormal mammogram of left breast Obstructive sleep apnea Goiter Umbilical hernia Essential hypertension Anxiety Diverticula of colon Arthritis Former smoker Home Medications ???Medication ???Instructions ???Recorded ???Last Taken ???Type vibegron 75 mg tablet (Gemtesa) 75 mg PO DAILY 04/28/23 Unknown Hi story Lactobacillus 1 cap PO DAILY 03/23/24 Unknown Hi story acidophilus-Bifidobac.anima lis 2.5 billion cell capsule (Daily Probiotic) carvedilol 6.25 mg tablet 6.25 mg PO BID 03/23/24 Unknown Hi story d-mannose 500 mg capsule 500 mg PO BID 03/23/24 Unknown His tory isosorbide mononitrate 30 mg 15 mg PO QDAY 03/23/24 Unknown His tory tablet,extended release 24 hr losartan 50 mg tablet 50 mg PO BID bp #180 tabs 05/16/24 Unknown Rx amlodipine 2.5 mg tablet 2.5 mg PO DAILY #90 tabs 11/15/24 Unknown Rx Allergy/AdvReac Type Severity Reaction Status Date / Time amoxicillin (From Augmentin) Allergy Intermediate Mild rash Verified 11/24/24 22:04 clavulanic acid (From Allergy Intermediate Mild rash Verified 11/24/24 22:04 Augmentin) benazepril HCl (From Allergy Other Verified 11/24/24 22:04 Lotensin) betamethasone (From Allergy NEEDS Verified 11/24/24 22:04 Diprolene) FOLLOW-UP felodipine Allergy Other Verified 11/24/24 22:04 fexofenadine HCl (From Allergy Other Verified 11/24/24 22:04 Uyen) ramipril (From Altace) Allergy Other Verified 11/24/24 22:04 tolterodine tartrate (From Allergy Other Verified 11/24/24 22:04 Detrol) verapamil HCl (From Allergy Other Verified 11/24/24 22:04 Covera-HS) lisinopril AdvReac Intermediate cough Verified 11/24/24 22:04 Family History Mother CVA (cerebral vascular accident) Hypertension History of DVT (deep vein thrombosis) Brother History of DVT (deep vein thrombosis) Other Aortic aneurysm Surgical History H/O myringotomy (05/18/19) History of colon surgery Hx of cataract surgery Social History household members: spouse Smoking Status: Former smoker alcohol intake: current alcohol intake frequency: other substance use type: does not use ROS ROS ED ROS Narrative Constitutional: Denies fever, chills, headaches, lightness, dizziness Eyes: Denies double vision blurry vision Cardiovascular: Denies chest pain or palpitations Respiratory: Denies coughing wheezing shortness of breath Abdomen: Complains of nausea denies abdominal pain vomiting diarrhea : States that she recently was treated for urinary tract infection is doing better Neurological: Denies numbness, tingling Musculoskeletal: Denies back pain Skin: Denies rashes or lesions EXAM Physical Exam Narrative Exam Narrative: General: Patient was lying in bed rest comfortably did not appear to be in acute distress Head: Atraumatic, normocephalic Eyes: PERRL bilateral, EOMI bilateral, no conjunctival injection noted Neck: Soft, supple, trachea midline Cardiovascular: Regular rate and rhythm no murmurs gallops rubs noted Respiratory: Clear to auscultation bilaterally Abdomen: Soft, nondistended, no tenderness palpation Extremities: +4/5 strength noted in the bilateral upper and lower extremities, no pedal edema on exam Neurological: Patient follow commands and that she was at [facility] years 2024 Skin: Warm, dry, intact no rashes or lesions noted Const Vital Signs: 11/24/24 22:04 11/24/24 22:24 11/25/24 00:03 Temperature 97.5 F L Temperature Source Temporal Pulse Rate 77 72 Respiratory Rate 18 15 Blo (more content not included)... Normal [facility] Eosinophil percentageOrdered By: Nayan Dixon on 11-24-2024 Eosinophils/100 WBC (Bld) 1.5 % 0-5 [facility] Erythrocyte distribution wid th ratioOrdered By: Nayan Dixon on 11-24-2024 Erythrocyte distribution width (RBC) [Ratio] 13.0 % 11.6-14.6 [facility] Erythrocyte distribution wid th standard deviationOrdered By: Nayan Dixon on 11-24-2024 Erythrocyte distribution width (RBC) [Entitic vol] 36.9 fL 35.1-43.9 [facility] Estimation of creatinine emerson aranceOrdered By: Nayan Dixon on 11-24-2024 Estimated Creatinine Clearance Calc 48.23 ml/min Low 50-250 [facility] GFR/1.73 sq M.predicted michael g non-blacks MDRD (S/P/Bld) [Vol rate/Area]Ordered By: Nayan Dixon on 11-24-2024 Estimated GFR (MDRD) Non-Af Amer 85 >60 [facility] Comment on above: mL/min/1.73m2 CKD-EP I Creatinine Equation (2020) GFR/1.73 sq M.predicted michael g non-blacks MDRD (S/P/Bld) [Vol rate/Area]Ordered By: Quiana Healy on 11-24-2024 Estimated GFR (MDRD) Non-Af Amer 88 >60 [facility] Comment on above: mL/min/1.73m2 CKD-EP I Creatinine Equation (2020) Glomerular filtration rate ( GFR) estimation/1.73 sq m using serum, plasma, or whole bOrdered By: Quiana Healy on 11-24-2024 GFR/1.73 sq M.predicted among non-blacks MDRD (S/P/Bld) [Vol rate/Area] 88 mL/min/{1.73_m2} >60 [facility] Comment on above: mL/min/1.73m2 CKD-EP I Creatinine Equation (2020) Hematocrit Auto (Bld) [Volum e fraction]Ordered By: Nayan Dixon on 11-24-2024 Hematocrit (Bld) [Volume fraction] 40.9 % 37-47 [facility] Hemoglobin A1c percentageOrd ered By: Sacha Kennedy on 11-24-2024 HbA1c (Bld) [Mass fraction] 5.9 % >5.7 [facility] Hemoglobin measurementOrdere d By: Nayan Dixon on 11-24-2024 Hemoglobin (Bld) [Mass/Vol] 14.7 g/dL 12.0-15.0 [facility] Immature granulocytes/100 WB C Auto (Bld)Ordered By: Nayan Dixon on 11-24-2024 Immature granulocytes/100 WBC (Bld) 0.300 % 0.0-0.9 [facility] Comment on above: IG% - Immature Granu locytes (promyelocytes, myelocytes and metamyelocytes) > 1% indicates that a LEFT SHIFT is Present. Laboratory - Chemistry and C hemistry - challengeOrdered By: Nayan Dixon on 11-24-2024 Natriuretic peptide B (Bld) [Mass/Vol] 173 pg/mL <1800 [facility] Comment on above: Heart Failure Unlike ly: < 300 pg/mLHeart Failure Likely< 50 Years: > 450 pg/mL50-75 Years: > 900 pg/mL>75 Years: > 1800 pg/mL Lymphocytes Auto (Unsp spec) [#/Vol]Ordered By: Nayan Dixon on 11-24-2024 Lymphocytes (Bld) [#/Vol] 2.88 10*3/uL 0.83-4.51 [facility] Lymphocytes/100 WBC Auto (Un sp spec)Ordered By: Nayan Dixon on 11-24-2024 Lymphocytes/100 WBC (Bld) 24.9 % 19-41 [facility] MCV (mean corpuscular volume ) determinationOrdered By: Nayan Dixon on 11-24-2024 MCV (RBC) [Entitic vol] 79.1 fL Low 81-99 [facility] Magnesium (Unsp spec) [Mass/ Vol]Ordered By: Sacha Kennedy on 11-24-2024 Magnesium [Mass/Vol] 2.0 mg/dL 1.5-2.2 [facility] Magnesium measurement (mass/ volume)Ordered By: Sacha Kennedy on 11-24-2024 Magnesium (Unsp spec) [Mass/Vol] 2.0 mg/dL 1.5-2.2 [facility] Mean corpuscular hemoglobin (MCH) determinationOrdered By: Nayan Dixon on 11-24-2024 MCH (RBC) [Entitic mass] 28.4 pg 27.0-32.0 [facility] Mean corpuscular hemoglobin concentration (MCHC) determinationOrdered By: Nayan Dixon on 11-24-2024 MCHC (RBC) [Mass/Vol] 35.9 g/dL 32-36 [facility] Mean platelet volume determi nationOrdered By: Nayan Dixon on 11-24-2024 Platelet mean volume (Bld) [Entitic vol] 8.4 fL 6.2-12.0 [facility] Monocyte percentageOrdered B y: Nayan Dixon on 11-24-2024 Monocytes/100 WBC (Bld) 8.7 % 0-10 [facility] Neutrophil percentageOrdered By: Nayan Dixon on 11-24-2024 Neutrophils/100 WBC (Bld) 64.2 % 47-70 [facility] Nucleated red blood cell per centageOrdered By: Nayan Dixon on 11-24-2024 Nucleated RBC/100 WBC (Bld) [Ratio] 0 % 0-5 [facility] Osmolality (U) [Osmolality]O rdered By: Quiana Healy on 11-24-2024 Urine Osmolality 192 mOsm/KG >50 [facility] Comment on above: Normal Urine Referen ce Ranges Random: 50 - 1200 mOsm/kg H20 depending on fluid intake Random: >850 mOsm/kg after 12 hour fluid restriction 24 hour: ~300 - 900 mOsm/kg H2O Osmolality urOrdered By: Alayna Healy on 11-24-2024 Osmolality (U) [Osmolality] 192 mOsm/KG >50 [facility] Comment on above: Normal Urine Referen ce Ranges Random: 50 - 1200 mOsm/kg H20 depending on fluid intake Random: >850 mOsm/kg after 12 hour fluid restriction 24 hour: ~300 - 900 mOsm/kg H2O Osmolality, Serumon 11-25-19 25 OSMOLALITY,SER 254 mOsm/KG Low 280-301 [facility] Comment on above: Performed By: #### L 506.0200, L501.9520, L501.5200, L501.9985 #### [facility] [address], [place], [id number] Osmolality, Urineon 11-25-19 25 OSMOLALITY,UR 192 mOsm/KG Normal [facility] Comment on above: Result Comment: Normal Urine Reference Ranges Random: 50 - 1200 mOsm/kg H20 depending on fluid intake Random: >850 mOsm/kg after 12 hour fluid restriction 24 hour: 300 - 900 mOsm/kg H2O Performed By: #### L 506.0200, L501.9520, L501.5200, [id number] #### [facility] [address], [place], [id number] (620) Osmolality, serumOrdered By: Quiana Healy on 11-24-2024 Serum Osmolality 254 mOsm/KG Low 280-301 [facility] Platelet countOrdered By: Marcos Dixon on 11-24-2024 Platelets (Bld) [#/Vol] 354 10*3/uL 150-450 [facility] Potassium (Unsp spec) [Mass/ Vol]Ordered By: Nayan Dixon on 11-24-2024 Potassium [Moles/Vol] 3.9 mmol/L 3.3-5.1 [facility] Potassium (Unsp spec) [Mass/ Vol]Ordered By: Quiana Healy on 11-24-2024 Potassium [Moles/Vol] 4.6 mmol/L 3.3-5.1 [facility] Potassium measurement (mass/ volume)Ordered By: Quiana Healy on 11-24-2024 Potassium (Unsp spec) [Mass/Vol] 4.6 mmol/L 3.3-5.1 [facility] RBC Auto (Bld) [#/Vol]Ordere d By: Nayan Dixon on 11-24-2024 RBC (Bld) [#/Vol] 5.17 10*6/uL 4.2-5.4 [facility] Serum creatinine measurement (mass/volume)Ordered By: Nayan Dixon on 11-24-2024 Creatinine [Mass/Vol] 0.67 mg/dL Low 0.70-1.20 [facility] Serum creatinine measurement (mass/volume)Ordered By: Quiana Healy on 11-24-2024 Creatinine [Mass/Vol] 0.57 mg/dL Low 0.70-1.20 [facility] Serum glucose measurement (m ass/volume)Ordered By: Nayan Dixon on 11-24-2024 Glucose [Mass/Vol] 124 mg/dL High 70-99 [facility] Serum glucose measurement (m ass/volume)Ordered By: Quiana Healy on 11-24-2024 Glucose [Mass/Vol] 98 mg/dL 70-99 [facility] Serum or plasma calcium isela urement (mass/volume)Ordered By: Nayan Dixon on 11-24-2024 Calcium [Mass/Vol] 9.2 mg/dL 7.6-11.0 [facility] Serum or plasma calcium isela urement (mass/volume)Ordered By: Quiana Healy on 11-24-2024 Calcium [Mass/Vol] 8.6 mg/dL 7.6-11.0 [facility] Serum or plasma urea nitroge n measurement (mass/volume)Ordered By: Nayan Dixon on 11-24-2024 Urea nitrogen [Mass/Vol] 9 mg/dL 4- [facility] Serum or plasma urea nitroge n measurement (mass/volume)Ordered By: Quiana Healy on 11-24-2024 Urea nitrogen [Mass/Vol] 10 mg/dL 4- [facility] Sodium levelOrdered By: Eber Dixon on 11-24-2024 Sodium [Moles/Vol] 121 mmol/L Low 133-145 [facility] Sodium levelOrdered By: Quiana Healy on 11-24-2024 Sodium [Moles/Vol] 118 mmol/L Low 133-145 [facility] Comment on above: Critical Result(s) C richard HEALY at: 2025 by: JEREMY Results read back by same. TSH DL <= 0.005 mIU/L QnOrde red By: Sacha Kennedy on 11-24-2024 Thyroid Stimulating Hormone (TSH) 3.550 uIU/mL 0.300-4.20 0 [facility] TSH Qn 3.550 uIU/mL 0.300-4.20 0 [facility] Urinalysis, Routine (Dipstic k)on 11-24-2024 BILIRUBIN URINE Normal Negative [facility] Comment on above: Order Comment: Urine , Random Result Comment: URIN E SODIUM ORDER Performed By: #### L 506.0200, L501.9520, L501.5200, [id number] #### [facility] [address] [place], [address] Clarity (U) Normal Clear [facility] Comment on above: Order Comment: Urine , Random Result Comment: URIN E SODIUM ORDER Performed By: #### L 506.0200, L501.9520, L501.5200, [id number] #### [facility] [address] [place], [address] Color (U) Normal Yellow [facility] Comment on above: Order Comment: Urine , Random Result Comment: URIN E SODIUM ORDER Performed By: #### L 506.0200, L501.9520, L501.5200, [id number] #### [facility] [address] [place], [address] GLUCOSE, UR Normal Normal [facility] Comment on above: Order Comment: Urine , Random Result Comment: URIN E SODIUM ORDER Performed By: #### L 506.0200, L501.9520, L501.5200, [id number] #### [facility] [address] [place], [address] KETONE UR Normal Negative [facility] Comment on above: Order Comment: Urine , Random Result Comment: URIN E SODIUM ORDER Performed By: #### L 506.0200, L501.9520, L501.5200, [id number] #### [facility] [address] [place], [address] LEUK ESTERASE Normal Negative [facility] Comment on above: Order Comment: Urine , Random Result Comment: URIN E SODIUM ORDER Performed By: #### L 506.0200, L501.9520, L501.5200, [id number] #### [facility] [address] [place], [address] Nitrite Ql (U) Normal Negative [facility] Comment on above: Order Comment: Urine , Random Result Comment: URIN E SODIUM ORDER Performed By: #### L 506.0200, L501.9520, L501.5200, [id number] #### [facility] [address] [place], [address] OCCULT BLOOD-UR Normal Negative [facility] Comment on above: Order Comment: Urine , Random Result Comment: URIN E SODIUM ORDER Performed By: #### L 506.0200, L501.9520, L501.5200, [id number] #### [facility] [address] [place], [address] pH UR Normal 5.0 - 8.0 [facility] Comment on above: Order Comment: Urine , Random Result Comment: URIN E SODIUM ORDER Performed By: #### L 506.0200, L501.9520, L501.5200, [id number] #### [facility] [address] [place], [address] PROT DIPSTX Normal Negative [facility] Comment on above: Order Comment: Urine , Random Result Comment: URIN E SODIUM ORDER Performed By: #### L 506.0200, L501.9520, L501.5200, [id number] #### [facility] [address] [place], [address] SP.GR. DIPSTX Normal 1.002-1.03 0 [facility] Comment on above: Order Comment: Urine , Random Result Comment: URIN E SODIUM ORDER Performed By: #### L 506.0200, L501.9520, L501.5200, [id number] #### [facility] [address] [place], [address] UR Preservative Normal [facility] Comment on above: Order Comment: Urine , Random Result Comment: URIN E SODIUM ORDER Performed By: #### L 506.0200, L501.9520, L501.5200, [id number] #### [facility] [address] [place], [address] UROBILI Normal Normal [facility] Comment on above: Order Comment: Urine , Random Result Comment: URIN E SODIUM ORDER Performed By: #### L 506.0200, L501.9520, L501.5200, [id number] #### [facility] [address] [place], [address] Urine Sodiumon 11-24-2024 Sodium (U) [Moles/Vol] 35 mmol/L Normal Not Establ. [facility] Comment on above: Performed By: #### L 506.0200, L501.9520, L501.5200, [id number] #### [facility] [address] [place], [address] Urine sodium measurement (mo les/volume)Ordered By: Quiana Healy on 11-24-2024 Sodium (U) [Moles/Vol] 35 mmol/L Not Establ. [facility] White blood cell (WBC) count Ordered By: Nayan Dixon on 11-24-2024 WBC (Bld) [#/Vol] 11.6 10*3/uL High 4.4-11.0 [facility] Bilirubin Test strip Ql (U)O rdered By: Quiana Healy on 11-23-2024 Bilirubin Ql (U) Negative Negative [facility] Glucose Ql (U)Ordered By: Randa Niraj on 11-23-2024 Urine Glucose (UA) Normal mg/dl Normal [facility] Ketones Test strip Ql (U)Ord ered By: Quiana Healy on 11-23-2024 Ketones Ql (U) Negative Negative [facility] Nitrite Test strip Ql (U)Ord ered By: Quiana Healy on 11-23-2024 Nitrite Ql (U) Negative Negative [facility] Protein Test strip Ql (U)Ord ered By: Quiana Healy on 11-23-2024 Protein Ql (U) 15 mg/dl High Negative [facility] Urinalysis, Routine (Dipstic k)on 11-23-2024 BILIRUBIN URINE Negative Normal Negative [facility] Comment on above: Order Comment: CLEAN CATCH Performed By: #### L 506.0200, L501.9520, L501.5200, [id number] #### [facility] [address] [place], [address] Clarity (U) Clear Normal Clear [facility] Comment on above: Order Comment: CLEAN CATCH Performed By: #### L 506.0200, L501.9520, L501.5200, [id number] #### [facility] [address] [place], [address] Color (U) Yellow Normal Yellow [facility] Comment on above: Order Comment: CLEAN CATCH Performed By: #### L 506.0200, L501.9520, L501.5200, [id number] #### [facility] [address] [place], [address] GLUCOSE, UR Normal Normal Normal [facility] Comment on above: Order Comment: CLEAN CATCH Performed By: #### L 506.0200, L501.9520, L501.5200, [id number] #### [facility] [address] [place], [address] KETONE UR Negative Normal Negative [facility] Comment on above: Order Comment: CLEAN CATCH Performed By: #### L 506.0200, [id number], L501.5200, [id number] #### [facility] [address] [place], [address] LEUK ESTERASE 500 /ul Abnormal Negative [facility] Comment on above: Order Comment: CLEAN CATCH Performed By: #### L 506.0200, L501.9520, L501.5200, [id number] #### [facility] [address] [place], [address] Nitrite Ql (U) Negative Normal Negative [facility] Comment on above: Order Comment: CLEAN CATCH Performed By: #### L 506.0200, L501.9520, L501.5200, L501.9985 #### [facility] [address] [place], [address] OCCULT BLOOD-UR Negative Normal Negative [facility] Comment on above: Order Comment: CLEAN CATCH Performed By: #### L 506.0200, L501.9520, L501.5200, L501.9985 #### [facility] [address] [place], [address] pH UR 7.0 Normal 5.0 - 8.0 [facility] Comment on above: Order Comment: CLEAN CATCH Performed By: #### L 506.0200, L501.9520, L501.5200, L501.9985 #### [facility] [address] [place], [address] PROT DIPSTX 15 mg/dl Abnormal Negative [facility] Comment on above: Order Comment: CLEAN CATCH Performed By: #### L 506.0200, L501.9520, L501.5200, [id number] #### [facility] [address] [place], [address] SP.GR. DIPSTX 1.010 Normal 1.002-1.03 0 [facility] Comment on above: Order Comment: CLEAN CATCH Performed By: #### L 506.0200, L501.9520, L501.5200, L501.9985 #### [facility] [address] [place], [address] UROBILI Normal Normal Normal [facility] Comment on above: Order Comment: CLEAN CATCH Performed By: #### L 506.0200, L501.9520, L501.5200, L501.9985 #### [facility] [address] [place], [address] Urine blood detectionOrdered By: Quiana Healy on 11-23-2024 Urine Occult Blood Negative Negative [facility] Urine clarityOrdered By: Alayna Healy on 11-23-2024 Clarity (U) Clear Clear [facility] Urine color determinationOrd ered By: Quiana Healy on 11-23-2024 Color (U) Yellow Yellow [facility] Urine cultureOrdered By: Alayna Healy on 11-23-2024 Bacteria identified Cx Nom (U) Positive Abnormal [facility] Urine glucose detectionOrder ed By: Quiana Healy on 11-23-2024 Glucose Ql (U) Normal mg/dl Normal [facility] Urine leukocyte esterase det ection by dipstickOrdered By: Quiana Healy on 11-23-2024 Leukocyte esterase Test strip Ql (U) 500 /ul High Negative [facility] Urine pHOrdered By: Quiana gonzalez on 11-23-2024 pH (U) 7.0 [pH] 5.0 - 8.0 [facility] Urine specific gravity measu rementOrdered By: Quiana Healy on 11-23-2024 Specific gravity (U) [Rel density] 1.010 1.002-1.03 0 [facility] Urine urobilinogen measureme ntOrdered By: Quiana Healy on 11-23-2024 Urobilinogen Ql (U) Normal mg/dl Normal [facility] Urobilinogen Ql (U)Ordered B y: Quiana Healy on 11-23-2024 Urine Urobilinogen Normal mg/dl Normal [facility] Absolute lymphocyte countOrd ered By: Quiana Healy on 11-21-2024 Lymphocytes Auto (Unsp spec) [#/Vol] 2.33 10*3/uL 0.83-4.51 [facility] Absolute neutrophil countOrd ered By: Quiana Healy on 11-21-2024 Neutrophils (Bld) [#/Vol] 7.5 10*3/uL 2.0-7.7 [facility] Anion gap in Serum or Plasma Ordered By: Quiana Healy on 11-21-2024 Anion gap [Moles/Vol] 11 mmol/L 5-15 [facility] Automated lymphocyte count a s percentage of total leukocytesOrdered By: Quiana Healy on 11-21-2024 Lymphocytes/100 WBC Auto (Unsp spec) 21.2 % 19-41 [facility] BUN/creatinine ratioOrdered By: Quiana Healy on 11-21-2024 Urea nitrogen/Creatinine [Mass ratio] 18.1 mg/mg 10-20 [facility] Basophil percentageOrdered B y: Quiana Healy on 11-21-2024 Basophils/100 WBC (Bld) 0.5 % 0-1 [facility] Bilirubin, totalOrdered By: Quiana Healy on 11-21-2024 Bilirubin [Mass/Vol] 0.53 mg/dL 0.00-1.30 [facility] CBC W/Diff, Automatedon 10-30 Absolute Lymph 2.33 X10 3/uL Normal 0.83-4.51 [facility] Comment on above: Performed By: #### L 506.0200, L501.9232, L501.5200, L501.9961 #### [facility] [address] [place], [place], [id number] Absolute Neut 7.5 X10 3/uL Normal 2.0-7.7 [facility] Comment on above: Performed By: #### L 506.0200, L501.9520, L501.5200, L501.9985 #### [facility] [address] [place], [address] Basophils/100 WBC (Bld) 0.5 % Normal 0-1 [facility] Comment on above: Performed By: #### L 506.0200, L501.9520, L501.5200, L501.9985 #### [facility] [address] [place], [address] Eosinophils/100 WBC (Bld) 1.1 % Normal 0-5 [facility] Comment on above: Performed By: #### L 506.0200, L501.9520, L501.5200, L501.9985 #### [facility] [address] [place], [address] Erythrocyte distribution width (RBC) [Ratio] 13.2 % Normal 11.6-14.6 [facility] Comment on above: Performed By: #### L 506.0200, L501.9520, L501.5200, L501.9985 #### [facility] [address] [place], [address] Hematocrit (Bld) [Volume fraction] 39.5 % Normal 37-47 [facility] Comment on above: Performed By: #### L 506.0200, L501.9520, L501.5200, L501.9985 #### [facility] [address] [place], [address] Hemoglobin (Bld) [Mass/Vol] 13.8 g/dL Normal 12.0-15.0 [facility] Comment on above: Performed By: #### L 506.0200, L501.9520, L501.5200, L501.9985 #### [facility] [address] [place], [address] IG% 0.400 Normal 0.0-0.9 [facility] Comment on above: Result Comment: IG% - Immature Granulocytes (promyelocytes, myelocytes and metamyelocytes) > 1% indicates that a LEFT SHIFT is Present. Performed By: #### L 506.0200, L501.9520, L501.5200, L501.9985 #### [facility] [address] [place], [address] Lymphocytes/100 WBC (Bld) 21.2 % Normal 19-41 [facility] Comment on above: Performed By: #### L 506.0200, L501.9520, L501.5200, L501.9985 #### [facility] [address] [place], [address] MCH (RBC) [Entitic mass] 28.2 pg Normal 27.0-32.0 [facility] Comment on above: Performed By: #### L 506.0200, L501.9520, L501.5200, L501.9985 #### [facility] [address] [place], [address] MCHC (RBC) [Mass/Vol] 34.9 g/dL Normal 32-36 [facility] Comment on above: Performed By: #### L 506.0200, L501.9520, L501.5200, L501.9985 #### [facility] [address] [place], [address] MCV (RBC) [Entitic vol] 80.6 fL Low 81-99 [facility] Comment on above: Performed By: #### L 506.0200, L501.9520, L501.5200, L501.9985 #### [facility] [address] [place], [address] Monocytes/100 WBC (Bld) 8.2 % Normal 0-10 [facility] Comment on above: Performed By: #### L 506.0200, L501.9520, L501.5200, L501.9985 #### [facility] [address] [place], [address] Neutrophils/100 WBC (Bld) 68.6 % Normal 47-70 [facility] Comment on above: Performed By: #### L 506.0200, L501.9520, L501.5200, L501.9985 #### [facility] [address] [place], [address] Nucleated RBC (Bld) [#/Vol] 0 10*3/uL Normal 0-5 [facility] Comment on above: Performed By: #### L 506.0200, L501.9520, L501.5200, L501.9985 #### [facility] [address] [place], [address] Platelet mean volume (Bld) [Entitic vol] 8.9 fL Normal 6.2-12.0 [facility] Comment on above: Performed By: #### L 506.0200, L501.9520, L501.5200, L501.9985 #### [facility] [address] [place], [address] Platelets (Bld) [#/Vol] 342 10*3/uL Normal 150-450 [facility] Comment on above: Performed By: #### L 506.0200, L501.9520, L501.5200, L501.9985 #### [facility] [address] [place], [address] RBC (Bld) [#/Vol] 4.90 10*6/uL Normal 4.2-5.4 [facility] Comment on above: Performed By: #### L 506.0200, L501.9520, L501.5200, L501.9985 #### [facility] [address] [place], [address] RDW SD 38.5 fl Normal 35.1-43.9 [facility] Comment on above: Performed By: #### L 506.0200, L501.9520, L501.5200, L501.9985 #### [facility] [address] [place], [address] WBC (Bld) [#/Vol] 11.0 10*3/uL Normal 4.4-11.0 [facility] Comment on above: Performed By: #### L 506.0200, L501.9520, L501.5200, L501.9985 #### [facility] [address] [place], [address] Carbon dioxide, total [Moles /volume] in Central venous bloodOrdered By: Quiana Healy on 11-21-2024 CO2 [Moles/Vol] 23.1 mmol/L 21.0-32.0 [facility] Chloride assayOrdered By: Randa Healy on 11-21-2024 Chloride [Moles/Vol] 88 mmol/L Low 98-108 [facility] Comprehensive Metabolic Prof ilon 11-21-2024 Albumin [Mass/Vol] 4.1 g/dL Normal 3.4-4.8 [facility] Comment on above: Performed By: #### L 506.0200, L501.9520, L501.5200, L501.9985 #### [facility] [address] [place], [address] Albumin/Globulin [Mass ratio] 1.8 {ratio} Normal 0.9-2.4 [facility] Comment on above: Performed By: #### L 506.0200, L501.9520, L501.5200, L501.9985 #### [facility] [address] [place], [address] ALK PHOS 74 U/L Normal 35-104 [facility] Comment on above: Performed By: #### L 506.0200, L501.9520, L501.5200, L501.9985 #### [facility] [address] [place], [address] ALT [Catalytic activity/Vol] 23 U/L Normal <=34 [facility] Comment on above: Performed By: #### L 506.0200, L501.9520, L501.5200, L501.9985 #### [facility] [address] [place], [address] AST [Catalytic activity/Vol] 22 U/L Normal <=31 [facility] Comment on above: Performed By: #### L 506.0200, L501.9520, L501.5200, L501.9985 #### [facility] [address] [place], [address] Bilirubin [Mass/Vol] 0.53 mg/dL Normal 0.00-1.30 [facility] Comment on above: Performed By: #### L 506.0200, L501.9520, L501.5200, L501.9985 #### [facility] [address] [place], [address] BUN/CRE 18.1 RATIO Normal 10-20 [facility] Comment on above: Performed By: #### L 506.0200, L501.9520, L501.5200, L501.9985 #### [facility] [address] [place], [address] Calcium [Mass/Vol] 9.1 mg/dL Normal 7.6-11.0 [facility] Comment on above: Performed By: #### L 506.0200, L501.9520, L501.5200, L501.9985 #### [facility] [address] [place], [address] Chloride [Moles/Vol] 88 mmol/L Low 98-108 [facility] Comment on above: Performed By: #### L 506.0200, L501.9520, L501.5200, L501.9985 #### [facility] [address] [place], [address] CO2 [Moles/Vol] 23.1 mmol/L Normal 21.0-32.0 [facility] Comment on above: Performed By: #### L 506.0200, L501.9520, L501.5200, L501.9985 #### [facility] [address] [place], [address] Creatinine [Mass/Vol] 0.59 mg/dL Low 0.70-1.20 [facility] Comment on above: Performed By: #### L 506.0200, L501.9520, L501.5200, L501.9985 #### [facility] [address] [place], [address] GAP 11 Normal 5-15 [facility] Comment on above: Performed By: #### L 506.0200, L501.9520, L501.5200, L501.9985 #### [facility] [address] [place], [address] GFR/1.73 sq M.predicted among non-blacks MDRD (S/P/Bld) [Vol rate/Area] 88 mL/min/{1.73_m2} Normal >60 [facility] Comment on above: Result Comment: mL/m in/1.73m2 CKD-EPI Creatinine Equation (2020) Performed By: #### L 506.0200, L501.9520, L501.5200, L501.9985 #### [facility] [address] [place], [address] Globulin (S) [Mass/Vol] 2.3 g/dL Normal 2.2-4.2 [facility] Comment on above: Performed By: #### L 506.0200, L501.9520, L501.5200, L501.9985 #### [facility] [address] [place], [address] Glucose [Mass/Vol] 121 mg/dL High 70-99 [facility] Comment on above: Performed By: #### L 506.0200, L501.9520, L501.5200, L501.9985 #### [facility] [address] [place], [address] Potassium [Moles/Vol] 4.4 mmol/L Normal 3.3-5.1 [facility] Comment on above: Performed By: #### L 506.0200, L501.9520, L501.5200, L501.9985 #### [facility] [address] [place], [address] Sodium [Moles/Vol] 122 mmol/L Low 133-145 [facility] Comment on above: Performed By: #### L 506.0200, L501.9520, L501.5200, L501.9985 #### [facility] [address] [place], [address] T PROT 6.4 g/dL Normal 5.9-8.4 [facility] Comment on above: Performed By: #### L 506.0200, L501.9520, L501.5200, L501.9985 #### [facility] [address] [place], [address] Urea nitrogen [Mass/Vol] 11 mg/dL Normal 4-19 [facility] Comment on above: Performed By: #### L 506.0200, L501.9520, L501.5200, L501.9985 #### [facility] [address] [place], [address] Eosinophil percentageOrdered By: Quiana Healy on 11-21-2024 Eosinophils/100 WBC (Bld) 1.1 % 0-5 [facility] Erythrocyte distribution wid th ratioOrdered By: Quiana Healy on 11-21-2024 Erythrocyte distribution width (RBC) [Ratio] 13.2 % 11.6-14.6 [facility] Erythrocyte distribution wid th standard deviationOrdered By: Quiana Healy on 11-21-2024 Erythrocyte distribution width (RBC) [Entitic vol] 38.5 fL 35.1-43.9 [facility] Erythrocyte distribution width (RBC) [Ratio] 38.5 fl 35.1-43.9 [facility] GFR/1.73 sq M.predicted michael g non-blacks MDRD (S/P/Bld) [Vol rate/Area]Ordered By: Quiana Healy on 11-21-2024 Estimated GFR (MDRD) Non-Af Amer 88 >60 [facility] Comment on above: mL/min/1.73m2 CKD-EP I Creatinine Equation (2020) Glomerular filtration rate ( GFR) estimation/1.73 sq m using serum, plasma, or whole bOrdered By: Quiana Healy on 11-21-2024 GFR/1.73 sq M.predicted among non-blacks MDRD (S/P/Bld) [Vol rate/Area] 88 mL/min/{1.73_m2} >60 [facility] Comment on above: mL/min/1.73m2 CKD-EP I Creatinine Equation (2020) Hematocrit Auto (Bld) [Volum e fraction]Ordered By: Quiana Healy on 11-21-2024 Hematocrit (Bld) [Volume fraction] 39.5 % 37-47 [facility] Hemoglobin measurementOrdere d By: Quiana Healy on 11-21-2024 Hemoglobin (Bld) [Mass/Vol] 13.8 g/dL 12.0-15.0 [facility] Immature granulocytes/100 WB C Auto (Bld)Ordered By: Quiana Healy on 11-21-2024 Immature granulocytes/100 WBC (Bld) 0.400 % 0.0-0.9 [facility] Comment on above: IG% - Immature Granu locytes (promyelocytes, myelocytes and metamyelocytes) > 1% indicates that a LEFT SHIFT is Present. Laboratory - Chemistry and C hemistry - challengeOrdered By: Quiana Healy on 03-24-2025 AST [Catalytic activity/Vol] 22 U/L <32 [facility] Lymphocytes Auto (Unsp spec) [#/Vol]Ordered By: Quiana Healy on 11-21-2024 Lymphocytes (Bld) [#/Vol] 2.33 10*3/uL 0.83-4.51 [facility] Lymphocytes/100 WBC Auto (Un sp spec)Ordered By: Quiana Healy on 11-21-2024 Lymphocytes/100 WBC (Bld) 21.2 % 19-41 [facility] MCV (mean corpuscular volume ) determinationOrdered By: Quiana Healy on 11-21-2024 MCV (RBC) [Entitic vol] 80.6 fL Low 81-99 [facility] Magnesiumon 11-21-2024 Magnesium [Mass/Vol] 2.1 mg/dL Normal 1.5-2.2 [facility] Comment on above: Performed By: #### L 506.0200, L501.9520, L501.5200, L501.9985 #### [facility] [address] [place] [address], [address] Magnesium (Unsp spec) [Mass/ Vol]Ordered By: Quiana Healy on 11-21-2024 Magnesium [Mass/Vol] 2.1 mg/dL 1.5-2.2 [facility] Magnesium measurement (mass/ volume)Ordered By: Quiana Healy on 11-21-2024 Magnesium (Unsp spec) [Mass/Vol] 2.1 mg/dL 1.5-2.2 [facility] Mean corpuscular hemoglobin (MCH) determinationOrdered By: Quiana Healy on 11-21-2024 MCH (RBC) [Entitic mass] 28.2 pg 27.0-32.0 [facility] Mean corpuscular hemoglobin concentration (MCHC) determinationOrdered By: Quiana Healy on 11-21-2024 MCHC (RBC) [Mass/Vol] 34.9 g/dL 32-36 [facility] Mean platelet volume determi nationOrdered By: Quiana Healy on 11-21-2024 Platelet mean volume (Bld) [Entitic vol] 8.9 fL 6.2-12.0 [facility] Monocyte percentageOrdered B y: Quiana Healy on 11-21-2024 Monocytes/100 WBC (Bld) 8.2 % 0-10 [facility] Neutrophil percentageOrdered By: Quiana Healy on 11-21-2024 Neutrophils/100 WBC (Bld) 68.6 % 47-70 [facility] Nucleated red blood cell per centageOrdered By: Quiana Healy on 11-21-2024 Nucleated RBC/100 WBC (Bld) [Ratio] 0 % 0-5 [facility] Platelet countOrdered By: Randa Healy on 11-21-2024 Platelets (Bld) [#/Vol] 342 10*3/uL 150-450 [facility] Potassium (Unsp spec) [Mass/ Vol]Ordered By: Quiana Healy on 11-21-2024 Potassium [Moles/Vol] 4.4 mmol/L 3.3-5.1 [facility] Potassium measurement (mass/ volume)Ordered By: Quiana Healy on 11-21-2024 Potassium (Unsp spec) [Mass/Vol] 4.4 mmol/L 3.3-5.1 [facility] RBC Auto (Bld) [#/Vol]Ordere d By: Quiana Healy on 11-21-2024 RBC (Bld) [#/Vol] 4.90 10*6/uL 4.2-5.4 [facility] Serum creatinine measurement (mass/volume)Ordered By: Quiana Healy on 11-21-2024 Creatinine [Mass/Vol] 0.59 mg/dL Low 0.70-1.20 [facility] Serum globulin measurementOr dered By: Quiana Healy on 11-21-2024 Globulin (S) [Mass/Vol] 2.3 g/dL 2.2-4.2 [facility] Serum glucose measurement (m ass/volume)Ordered By: Quiana Healy on 11-21-2024 Glucose [Mass/Vol] 121 mg/dL High 70-99 [facility] Serum or plasma alanine manriquez otransferase (ALT) measurementOrdered By: Quiana Healy on 11-21-2024 ALT [Catalytic activity/Vol] 23 U/L <35 [facility] Serum or plasma albumin isela urement (mass/volume)Ordered By: Quiana Healy on 11-21-2024 Albumin [Mass/Vol] 4.1 g/dL 3.4-4.8 [facility] Serum or plasma albumin/glob ulin mass ratioOrdered By: Quiana Healy on 11-21-2024 Albumin/Globulin [Mass ratio] 1.8 {ratio} 0.9-2.4 [facility] Serum or plasma alkaline rosa sphatase measurementOrdered By: Quiana Healy on 11-21-2024 ALP [Catalytic activity/Vol] 74 U/L 35-104 [facility] Serum or plasma calcium isela urement (mass/volume)Ordered By: Quiana Healy on 11-21-2024 Calcium [Mass/Vol] 9.1 mg/dL 7.6-11.0 [facility] Serum or plasma urea nitroge n measurement (mass/volume)Ordered By: Quiana Healy on 11-21-2024 Urea nitrogen [Mass/Vol] 11 mg/dL 4-19 [facility] Sodium levelOrdered By: Quiana Healy on 11-21-2024 Sodium [Moles/Vol] 122 mmol/L Low 133-145 [facility] Total proteinOrdered By: Alayna Healy on 11-21-2024 Protein [Mass/Vol] 6.4 g/dL 5.9-8.4 [facility] White blood cell (WBC) count Ordered By: Quiana Healy on 11-21-2024 WBC (Bld) [#/Vol] 11.0 10*3/uL 4.4-11.0 [facility] Chest PA and Lateralon 06-20 Chest PA and Lateral [facility] [address] [place] [address] Chest PA and Lateral MR#: [id number] Acct: [id number] Name: NORM PORTER Rep #: [id number] : 1940 F 83 From: Kindra Rivero PCP: Dr. Quiana Healy, DO Status: REG CLI Study: Chest PA and Lateral Date of Exam: 06/20/24 Exam# [id number] Ordering Dr: Meli CoelloC [id number] INDICATION: ASSESS FOR COPD EXAMINATION/TECHNIQUE: X-RAY - XR Chest 2 Views COMPARISON: 11/05/2021 FINDINGS: LIFE-SUPPORT AND LINES: 1. None HEART AND VESSELS: The cardiac silhouette, pulmonary vasculature have normal appearance. No evidence of congestive failure. LUNGS AND PLEURAL SPACES: Lungs are clear. No focal infiltrate, consolidation or effusions. No evidence of pneumothorax. There are coarse markings at the RIGHT lung base which appear chronic and stable allowing for differences in inspiratory effort.. MEDIASTINUM AND HILAR REGIONS: No masses adenopathy noted. No areas of calcification. Visualized upper airway is normal in position. BONY ELEMENTS: No acute bony changes noted. RAD/Chest PA and Lateral IMPRESSION: 1. No evidence of acute cardiopulmonary process Electronically Signed: Kindra Bazzi MD at 17:09 EDT , CC: STONE CARVER-C Meli Coello; Dr. Quiana Healy DO Customer Relationship Specialist: Signed [facility] CDIFF (PCR)on 05-10-2024 CDIFF MARILU MARQUES, NEEDS RECOLLECTED C diff DNA Spec Ql KISHOR+probe [facility] Comment on above: Performed By: #### L 506.0200, L501.9520, L501.5200, L501.9985 #### [facility] [place], [address] Stool Lactoferrin/WBCon 05-01 WBCST SAMPELE QNS, NEEDS RECOLLECTED Lactoferrin Stl Ql IA [facility] Comment on above: Performed By: #### L 506.0200, L501.9520, L501.5200, L501.9985 #### [facility] [address] [place], [address] Cardiology Visit Reporton Cardiology Visit Report [facility] [address] [place] [address] OFFICE VISIT Date of Service: 03/23/24 MR#: [id number] Acct: [id number] Name: NORM PORTER Rep #: [id number] : 1940 Provider: LENNIE Brooks Age/Sex: 83/F Location: [facility] [place] Status: Signed HPI HPI History of Present Illness Details: Norm Porter is an 83-year-old lady with a history of difficult to control hypertension, palpitations, mitral valve prolapse, obesity, obstructive sleep apnea. She does have preserved left ventricular systolic function on echocardiogram. 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 Previous Holter monitors have not demonstrated any significant abnormalities. 24 hr BP monitor demonstrated and average HR of 129/58. We did make BP adjustments at her last OV. Her biggest concern is still her fatigue. Her Bp have been doing well. Since her PCP adjusted her losartan it is better. Unfortunatley I do not think that she has a correct list of her medications. From a cardiac standpoint, patient is doing well. She does not have any chest discomfort/heaviness/tightn ess. She does not have any worsening symptoms of shortness of breath. She does not have any orthopnea. She denies PND. She does not have any symptoms of congestive heart failure. She does not have any palpitations that she is aware of. She does sometimes have dizziness. She does not have any near-syncope or syncope. She does not have any lower extremity edema. She does not have any symptoms of claudication. Intake Vital Signs 08/12/23 11:30 03/23/24 13:30 Height 5 ft 3 in 5 ft 3 in Weight: 175 lb BMI 30.9 BP 131/78 H Blood Pressure Location Lt brachial Position Sitting Respiration 16 Pulse 61 Pulse Source Monitor Pulse Oximetry (%) 97 Oxygen Delivery Method room air Intake Visit Reasons: 6 M FU Accompanied by: Daughter Is patient in pain?: No Allergies amoxicillin (From Augmentin) Allergy (Intermediate, Verified 03/23/24 13:31) Mild rash clavulanic acid (From Augmentin) Allergy (Intermediate, Verified 03/23/24 13:31) Mild rash benazepril HCl (From Lotensin) Allergy (Verified 03/23/24 13:31) Other betamethasone (From Diprolene) Allergy (Verified 03/23/24 13:31) NEEDS FOLLOW-UP felodipine Allergy (Verified 03/23/24 13:31) Other fexofenadine HCl (From Uyen) Allergy (Verified 03/23/24 13:31) Other ramipril (From Altace) Allergy (Verified 03/23/24 13:31) Other tolterodine tartrate (From Detrol) Allergy (Verified 03/23/24 13:31) Other verapamil HCl (From Covera-HS) Allergy (Verified 03/23/24 13:31) Other lisinopril Adverse Reaction (Intermediate, Verified 03/23/24 13:31) cough Medications ???Medication ???Instructions ???Recorded ???Confirmed ???Type citalopram 10 mg tablet 10 mg PO DAILY bp 01/20/23 03/23/24 History vibegron 75 mg tablet (Gemtesa) 75 mg PO DAILY 04/28/23 03/23/24 History losartan 50 mg tablet 50 mg PO BID bp #180 tabs 08/12/23 03/23/24 Rx amlodipine 2.5 mg tablet 2.5 mg PO DAILY #90 tabs 11/30/23 03/23/24 Rx Lactobacillus 1 cap PO DAILY 03/23/24 03/23/24 History acidophilus-Bifidobac.anima lis 2.5 billion cell capsule (Daily Probiotic) ascorbate calcium (vitamin C) 500 500 mg PO DAILY 03/23/24 03/23/24 History mg tablet carvedilol 6.25 mg tablet 6.25 mg PO BID 03/23/24 03/23/24 History d-mannose 500 mg capsule 500 mg PO BID 03/23/24 03/23/24 History hydralazine 10 mg tablet 10 mg PO TID PRN with food 03/23/24 03/23/24 History isosorbide mononitrate 30 mg 15 mg PO QDAY 03/23/24 03/23/24 History tablet,extended release 24 hr Have you fallen in the past year?: No PFSH Medical History Obesity Venous insufficiency of right lower extremity Nonrheumatic mitral (valve) prolapse Abnormal mammogram of left breast Obstructive sleep apnea Goiter Umbilical hernia Essential hypertension Anxiety Diverticula of colon Arthritis Former smoker Surgical History H/O myringotomy (05/18/19) History of colon surgery Hx of cataract surgery Family History Mother CVA (cerebral vascular accident) Hypertension History of DVT (deep vein thrombosis) Brother History of DVT (deep vein thrombosis) Other Aortic aneurysm Social History household members: spouse Smoking Status: Former smoker alcohol intake: current alcohol intake frequency: other substance use type: does not use ROS Const Const: Positive for fatigue; Negative for weakness, fever(s) or headache(s) Eyes Eyes: Negative for blind spots, loss of peripheral vision o (more content not included)... [facility] Absolute lymphocyte countOrd ered By: Quiana Healy on 12-23-2023 Lymphocytes Auto (Unsp spec) [#/Vol] 2.37 10*3/uL 0.83-4.51 [facility] Automated lymphocyte count a s percentage of total leukocytesOrdered By: Quiana Healy on 12-23-2023 Lymphocytes/100 WBC Auto (Unsp spec) 31.0 % 19-41 [facility] Basophil percentageOrdered B y: Quiana Healy on 12-23-2023 Basophils/100 WBC (Bld) 0.7 % 0-1 [facility] Bilirubin [Mass/Vol] 0.50 mg/dL 0.20-1.00 [facility] Comment on above: For patients on eltr ombopag therapy, use of Dimension [place] TBIL is not recommended. Chloride [Moles/Vol] 107 mmol/L 98-107 [facility] Cholesterol [Mass/Vol] 182 mg/dL <200 [facility] Comment on above: <200 mg/dL Desirable 200-240 mg/dL Borderline >240 mg/dL High Risk Eosinophils/100 WBC (Bld) 3.0 % 0-5 [facility] Glucose [Mass/Vol] 114 mg/dL 74-106 [facility] Comment on above: Fasting Glucose resu lt from 100 to 125 mg/dL suggests IMPAIRED HOMEOSTASIS per A.D.A. criteria. Hemoglobin (Bld) [Mass/Vol] 13.3 g/dL 12.0-15.0 [facility] Monocytes/100 WBC (Bld) 7.3 % 0-10 [facility] Neutrophils (Bld) [#/Vol] 4.4 10*3/uL 2.0-7.7 [facility] Neutrophils/100 WBC (Bld) 57.7 % 47-70 [facility] Potassium [Moles/Vol] 3.9 mmol/L 3.5-5.1 [facility] Protein [Mass/Vol] 6.6 g/dL 6.4-8.2 [facility] Sodium [Moles/Vol] 140 mmol/L 136-145 [facility] Triglyceride [Mass/Vol] 56 mg/dL <199 [facility] Comment on above: The drugs N-Acetylcy steine and Metamizole may falsely depress this assay.Serum Triglycerides Reference Interval Normal <150 mg/dL Borderline high 150 - 199 mg/dL High 200 - 499 mg/dL Very High > or = 500 mg/dL WBC (Bld) [#/Vol] 7.7 10*3/uL 4.4-11.0 [facility] Determination of erythrocyte mean corpuscular volume (MCV)Ordered By: Quiana Healy on 12-23-2023 MCV (RBC) [Entitic vol] 84.8 fL 81-99 [facility] Erythrocyte distribution wid th ratioOrdered By: Quiana Healy on 12-23-2023 Erythrocyte distribution width (RBC) [Ratio] 13.3 % 11.6-14.6 [facility] Erythrocyte distribution wid th standard deviationOrdered By: Quiana Healy on 12-23-2023 Erythrocyte distribution width (RBC) [Entitic vol] 41.2 fL 35.1-43.9 [facility] Hematocrit Auto (Bld) [Volum e fraction]Ordered By: Quiana Healy on 12-23-2023 Hematocrit (Bld) [Volume fraction] 40.7 % 37-47 [facility] Immature granulocytes/100 WB C Auto (Bld)Ordered By: Quiana Healy on 12-23-2023 Immature granulocytes/100 WBC (Bld) 0.300 % 0.0-0.9 [facility] Comment on above: IG% - Immature Granu locytes (promyelocytes, myelocytes and metamyelocytes) > 1% indicates that a LEFT SHIFT is Present. Laboratory - Chemistry and C hemistry - challengeOrdered By: Quiana Healy on 12-23-2023 Albumin/Globulin [Mass ratio] 1.0 {ratio} 0.9-2.4 [facility] ALP [Catalytic activity/Vol] 74 U/L 45-117 [facility] ALT [Catalytic activity/Vol] 25 U/L 13-56 [facility] Cholesterol in HDL [Mass/Vol] 68 mg/dL >40 [facility] Comment on above: The drugs N-Acetylcy steine and Metamizole may falsely depress this assay. Reference Range HDL <40 mg/dL Low HDL Cholesterol HDL >or= 60 mg/dL High HDL Cholesterol Cholesterol in LDL [Mass/Vol] 103 mg/dL 0-130 [facility] CO2 [Moles/Vol] 27.0 mmol/L 21.0-32.0 [facility] Globulin (S) [Mass/Vol] 3.3 g/dL 2.2-4.2 [facility] Urea nitrogen/Creatinine [Mass ratio] 21.0 mg/mg 10-20 [facility] - Hematology and Cell countsOrdered By: Quiana Healy on 12-23-2023 MCH (RBC) [Entitic mass] 27.7 pg 27.0-32.0 [facility] MCHC (RBC) [Mass/Vol] 32.7 g/dL 32-36 [facility] Nucleated RBC/100 WBC (Bld) [Ratio] 0 % 0-5 [facility] Platelet mean volume (Bld) [Entitic vol] 9.5 fL 6.2-12.0 [facility] Platelets (Bld) [#/Vol] 273 10*3/uL 150-450 [facility] No Panel InformationOrdered By: Quiana Healy on 12-23-2023 Estimated GFR (MDRD) Amer 100 mL/min >60 [facility] Comment on above: GFR Calc Estimated GFR (MDRD) Non-Af Amer 83 mL/min >60 [facility] Comment on above: Non- GFR Calc Free Triiodothyronine (T3) pg/dL 2.5 pg/mL 2.18-3.98 [facility] VLDL Cholesterol 11 mg/dL 5-40 [facility] RBC Auto (Bld) [#/Vol]Ordere d By: Quiana Healy on 12-23-2023 RBC (Bld) [#/Vol] 4.80 10*6/uL 4.2-5.4 [facility] Serum or plasma calcium isela urement (mass/volume)Ordered By: Quiana Healy on 12-23-2023 Calcium [Mass/Vol] 8.9 mg/dL 8.5-10.1 [facility] Serum or plasma creatinine m easurement (mass/volume)Ordered By: Quiana Healy on 12-23-2023 Creatinine [Mass/Vol] 0.72 mg/dL 0.55-1.02 [facility] Comment on above: The validity of the calculated GFR & GFRAA in patients over 70 years has not been determined. Clinical correlation is essential. Serum or plasma thyroid stim ulating hormone (TSH) measurement (units/volume)Ordered By: Quiana Healy on 12-23-2023 TSH Qn 2.41 uIU/mL 0.358-3.74 [facility] Serum or plasma urea nitroge n measurement (mass/volume)Ordered By: Quiana Healy on 12-23-2023 Urea nitrogen [Mass/Vol] 15 mg/dL 7-18 [facility] Thin prep Papanicolaou smear with manual screeningOrdered By: Quiana Healy on 12-23-2023 Thin prep Papanicolaou smear with manual screening 3.3 g/dL 3.2-5.0 [facility] Thin prep Papanicolaou smear with manual screening 13 U/L 15-37 [facility] Thin prep Papanicolaou smear with manual screening 6 5-15 [facility] Thin prep Papanicolaou smear with manual screening 1.15 ng/dL 0.76-1.46 [facility] Whole blood hemoglobin A1c/t otal hemoglobin ratio (mass fraction)Ordered By: Quiana Healy on 12-23-2023 HbA1c (Bld) [Mass fraction] 5.7 % 3.8-5.6 [facility] Comment on above: Normal < 5.7 % Predi abetic 5.7 - 6.4 % Diabetic >or= 6.5 % Please note range changes. Basophil percentageOrdered B y: Alyson Garcia on 07-02-2023 Chloride [Moles/Vol] 101 mmol/L 98-107 [facility] Glucose [Mass/Vol] 97 mg/dL 74-106 [facility] Potassium [Moles/Vol] 4.0 mmol/L 3.5-5.1 [facility] Sodium [Moles/Vol] 134 mmol/L 136-145 [facility] WBC (Bld) [#/Vol] 9.7 10*3/uL 4.4-11.0 [facility] Blood erythrocytes count (nu mber/volume)Ordered By: Aylson Garcia on 07-02-2023 RBC (Bld) [#/Vol] 4.63 10*6/uL 4.2-5.4 [facility] Blood hemoglobin measurement (mass/volume)Ordered By: Alyson Garcia on 07-02-2023 Hemoglobin (Bld) [Mass/Vol] 13.1 g/dL 12.0-15.0 [facility] Blood platelet mean volumeOr dered By: Alyson Garcia on 07-02-2023 Platelet mean volume (Bld) [Entitic vol] 9.3 fL 6.2-12.0 [facility] Culture, urineOrdered By: Randa Healy on 07-02-2023 Bacteria identified Cx Nom (U) Presumptive Lactobacillus sp. [facility] Determination of erythrocyte mean corpuscular volume (MCV)Ordered By: Alyson Garcia on 07-02-2023 MCV (RBC) [Entitic vol] 86.0 fL 81-99 [facility] Hematocrit Auto (Bld) [Volum e fraction]Ordered By: Alyson Garcai on 07-02-2023 Hematocrit (Bld) [Volume fraction] 39.8 % 37-47 [facility] - Chemistry and C hemistry - challengeOrdered By: Alyson Garcia on 07-02-2023 CO2 [Moles/Vol] 29.0 mmol/L 21.0-32.0 [facility] Urea nitrogen/Creatinine [Mass ratio] 21.5 mg/mg 10-20 [facility] - Hematology and Cell countsOrdered By: Alyson Garcia on 07-02-2023 Erythrocyte distribution width (RBC) [Entitic vol] 43.9 fL 35.1-43.9 [facility] Erythrocyte distribution width (RBC) [Ratio] 14.1 % 11.6-14.6 [facility] MCH (RBC) [Entitic mass] 28.3 pg 27.0-32.0 [facility] MCHC Auto (RBC) [Mass/Vol]Or dered By: Alyson Garcia on 07-02-2023 MCHC (RBC) [Mass/Vol] 32.9 g/dL 32-36 [facility] No Panel InformationOrdered By: Alyson Garcia on 07-02-2023 Estimated GFR (MDRD) Amer 103 mL/min >60 [facility] Comment on above: GFR Calc Estimated GFR (MDRD) Non-Af Amer 85 mL/min >60 [facility] Comment on above: Non- GFR Calc Platelets bldOrdered By: Juan Garcia on 07-02-2023 Platelets (Bld) [#/Vol] 264 10*3/uL 150-450 [facility] Serum or plasma calcium isela urement (mass/volume)Ordered By: Alyson Garcia on 07-02-2023 Calcium [Mass/Vol] 8.9 mg/dL 8.5-10.1 [facility] Serum or plasma creatinine m easurement (mass/volume)Ordered By: Alyson Garcia on 07-02-2023 Creatinine [Mass/Vol] 0.70 mg/dL 0.55-1.02 [facility] Comment on above: The validity of the calculated GFR & GFRAA in patients over 70 years has not been determined. Clinical correlation is essential. Serum or plasma urea nitroge n measurement (mass/volume)Ordered By: Alyson Garcia on 07-02-2023 Urea nitrogen [Mass/Vol] 15 mg/dL 7-18 [facility] Thin prep Papanicolaou smear with manual screeningOrdered By: Alyson Garcia on 07-02-2023 Thin prep Papanicolaou smear with manual screening 4 5-15 [facility] Culture, urineOrdered By: Dr Guevara Healy on 02-20-2023 Bacteria identified Cx Nom (U) Positive [facility] Basophil percentageOrdered B y: Dr. Biswas on 12-11-2022 Chloride [Moles/Vol] 105 mmol/L 98-107 [facility] Glucose [Mass/Vol] 105 mg/dL 74-106 [facility] Comment on above: Fasting Glucose resu lt from 100 to 125 mg/dL suggests IMPAIRED HOMEOSTASIS per A.D.A. criteria. Potassium [Moles/Vol] 3.9 mmol/L 3.5-5.1 [facility] Sodium [Moles/Vol] 136 mmol/L 136-145 [facility] Laboratory - Chemistry and C hemistry - challengeOrdered By: Dr. Biswas on 12-11-2022 CO2 [Moles/Vol] 28.0 mmol/L 21.0-32.0 [facility] Urea nitrogen/Creatinine [Mass ratio] 26.3 mg/mg 10-20 [facility] No Panel InformationOrdered By: Dr. Biswas on 12-11-2022 Estimated GFR (MDRD) Amer 79 mL/min >60 [facility] Comment on above: GFR Calc Estimated GFR (MDRD) Non-Af Amer 66 mL/min >60 [facility] Comment on above: Non- GFR Calc Serum or plasma calcium isela urement (mass/volume)Ordered By: Dr. Biswas on 12-11-2022 Calcium [Mass/Vol] 8.6 mg/dL 8.5-10.1 [facility] Serum or plasma creatinine m easurement (mass/volume)Ordered By: Dr. Biswas on 12-11-2022 Creatinine [Mass/Vol] 0.87 mg/dL 0.55-1.02 [facility] Comment on above: The validity of the calculated GFR & GFRAA in patients over 70 years has not been determined. Clinical correlation is essential. Serum or plasma urea nitroge n measurement (mass/volume)Ordered By: Dr. Biswas on 12-11-2022 Urea nitrogen [Mass/Vol] 23 mg/dL 7-18 [facility] Thin prep Papanicolaou smear with manual screeningOrdered By: Dr. Biswas on 12-11-2022 Thin prep Papanicolaou smear with manual screening 3 5-15 [facility] Laboratory - Microbiology an d Antimicrobial susceptibilityon 04-16-2022 SARS-CoV-2 (COVID-19) RNA KISHOR+probe Ql (Unsp spec) Not detected Not Detect [facility] Work Phone: Comment on above: Normal Reference Ran ge: Not DetectedMethod:(RT-PCR) real-time reverse transcriptase PCRLuminex Bucky Box Instrument*The Food and Drug Administration (FDA) has issued an Emergency Use Authorization (EAU) for the Bucky Box SARS-CoV-2 Assay for the rapid detection of the virus that causes COVID-19. This test has been validated, but the FDAs independent review of this validation is pending.*Negative results do not preclude infection and should not be used as the sole basis for treatment or patient management. Optimum specimen types and timing for peak viral levels during infections caused by SARS-CoV-2 have not been determined. Collection of multiple specimens from the same patient may be necessary to detect the virus. The possibility of a false negative result should be considered if the patient has clinical presentation or has had recent exposure. Basophil percentageon 2021 Chloride [Moles/Vol] 102 mmol/L 98-107 [facility] Work Phone: Glucose [Mass/Vol] 106 mg/dL 74-106 [facility] Work Phone: Comment on above: Fasting Glucose resu lt from 100 to 125 mg/dL suggests IMPAIRED HOMEOSTASIS per A.D.A. criteria. Potassium [Moles/Vol] 3.6 mmol/L 3.5-5.1 [facility] Work Phone: Sodium [Moles/Vol] 138 mmol/L 136-145 [facility] Work Phone: Laboratory - Chemistry and C hemistry - challengeon 04-08-2022 CO2 [Moles/Vol] 32.0 mmol/L 21.0-32.0 [facility] Work Phone: Sodium (U) [Moles/Vol] 25 mmol/L Not Establ. [facility] Work Phone: Urea nitrogen/Creatinine [Mass ratio] 18.0 mg/mg 10-20 [facility] Work Phone: No Panel Informationon 04-08 Estimated GFR (MDRD) Amer 78 mL/min >60 [facility] Work Phone: Comment on above: GFR Calc Estimated GFR (MDRD) Non-Af Amer 64 mL/min >60 [facility] Work Phone: Comment on above: Non- GFR Calc Serum or plasma calcium isela urement (mass/volume)on 04-08-2022 Calcium [Mass/Vol] 8.7 mg/dL 8.5-10.1 [facility] Work Phone: Serum or plasma creatinine m easurement (mass/volume)on 04-08-2022 Creatinine [Mass/Vol] 0.89 mg/dL 0.55-1.02 [facility] Work Phone: Comment on above: The validity of the calculated GFR & GFRAA in patients over 70 years has not been determined. Clinical correlation is essential. Serum or plasma urea nitroge n measurement (mass/volume)on 04-08-2022 Urea nitrogen [Mass/Vol] 16 mg/dL 7-18 [facility] Work Phone: Thin prep Papanicolaou smear with manual screeningon 04-08-2022 Thin prep Papanicolaou smear with manual screening 4 5-15 [facility] Work Phone: Basophil percentageon 2021 Bilirubin [Mass/Vol] 0.40 mg/dL 0.20-1.00 [facility] Work Phone: Comment on above: For patients on eltr ombopag therapy, use of Dimension [place] TBIL is not recommended. Chloride [Moles/Vol] 101 mmol/L 98-107 [facility] Work Phone: Glucose [Mass/Vol] 95 mg/dL 74-106 [facility] Work Phone: [phone] Potassium [Moles/Vol] 4.3 mmol/L 3.5-5.1 [facility]: [phone] Protein [Mass/Vol] 6.0 g/dL 6.4-8.2 [facility] Work Phone: Sodium [Moles/Vol] 133 mmol/L 136-145 [facility] Work Phone: [phone] Laboratory - Chemistry and C hemistry - challengeon 12-24-2021 ALP [Catalytic activity/Vol] 71 U/L 45-117 [facility] Work Phone: [phone] ALT [Catalytic activity/Vol] 22 U/L 13-56 [facility] Work Phone: [phone] CO2 [Moles/Vol] 27.0 mmol/L 21.0-32.0 [facility] Work Phone: [phone] Globulin (S) [Mass/Vol] 2.8 g/dL 2.2-4.2 [facility] Work Phone: [phone] Urea nitrogen/Creatinine [Mass ratio] 18.1 mg/mg 10-20 [facility] Work Phone: No Panel Informationon 12-24 Estimated GFR (MDRD) Amer 109 mL/min >60 [facility] Work Phone: Comment on above: GFR Calc Estimated GFR (MDRD) Non-Af Amer 90 mL/min >60 [facility] Work Phone: Comment on above: Non- GFR Calc Serum or plasma albumin isela urement (mass/volume)on 12-24-2021 Albumin [Mass/Vol] 3.2 g/dL 3.2-5.0 [facility] Work Phone: [phone] Serum or plasma albumin/glob ulin mass ratioon 12-24-2021 Albumin/Globulin [Mass ratio] 1.1 {ratio} 0.9-2.4 [facility] Work Phone: Serum or plasma calcium isela urement (mass/volume)on 12-24-2021 Calcium [Mass/Vol] 8.4 mg/dL 8.5-10.1 [facility] Work Phone: Serum or plasma creatinine m easurement (mass/volume)on 12-24-2021 Creatinine [Mass/Vol] 0.66 mg/dL 0.55-1.02 [facility] Work Phone: Comment on above: The validity of the calculated GFR & GFRAA in patients over 70 years has not been determined. Clinical correlation is essential. Serum or plasma urea nitroge n measurement (mass/volume)on 12-24-2021 Urea nitrogen [Mass/Vol] 12 mg/dL 7-18 [facility] Work Phone: Thin prep Papanicolaou smear with manual screeningon 12-24-2021 Thin prep Papanicolaou smear with manual screening 11 U/L 15-37 [facility] Work Phone: Thin prep Papanicolaou smear with manual screening 5 5-15 [facility] Work Phone: Whole blood hemoglobin A1c/t otal hemoglobin ratio (mass fraction)on 12-24-2021 HbA1c (Bld) [Mass fraction] 5.8 % 3.8-5.6 [facility] Work Phone: Comment on above: Normal < 5.7 % Predi abetic 5.7 - 6.4 % Diabetic >or= 6.5 % Please note range changes. No Panel Informationon 11-26 Adrenocorticotropic Hormone < 1.5 pg/mL 7.2-63.3 [facility] Work Phone: Comment on above: ACTH reference [place] for samples collected between 7 and10 AM.Performed at: [facility] [employer] [id number] Director: Sujit Serrano PhD, Phone: [phone] Dehydroepiandrosterone Sulfate 45.6 ug/dL 13.9-142.8 [facility] Work Phone: Serum or plasma cortisol tiburcio surement (mass/volume)on 11-26-2021 Cortisol [Mass/Vol] 3.50 ug/dL 3.44-22.45 [facility] Work Phone: Comment on above: Adult (AM) 5.27 - 22 .45 ug/dL Adult (PM) 3.44 - 16.76 ug/dLPlease note revised CORTISOL reference range effective 2019. Basophil percentageon 2021 Chloride [Moles/Vol] 95 mmol/L 98-107 [facility] Work Phone: Glucose [Mass/Vol] 141 mg/dL 74-106 [facility] Work Phone: Comment on above: Fasting Glucose resu lt greater than or equal to 126 mg/dL suggests DIABETES MELLITUS per A.D.A. criteria. Potassium [Moles/Vol] 4.0 mmol/L 3.5-5.1 [facility] Work Phone: Sodium [Moles/Vol] 127 mmol/L 136-145 [facility] Work Phone: Laboratory - Chemistry and C hemistry - challengeon 2021 CO2 [Moles/Vol] 25.0 mmol/L 21.0-32.0 [facility] Work Phone: Urea nitrogen/Creatinine [Mass ratio] 13.9 mg/mg 10-20 [facility] Work Phone: No Panel Informationon 11-20 Estimated GFR (MDRD) Amer 129 mL/min >60 [facility] Work Phone: Comment on above: GFR Calc Estimated GFR (MDRD) Non-Af Amer 107 mL/min >60 [facility] Work Phone: Comment on above: Non- GFR Calc Serum or plasma calcium isela urement (mass/volume)on 2021 Calcium [Mass/Vol] 8.8 mg/dL 8.5-10.1 [facility] Work Phone: Serum or plasma creatinine m easurement (mass/volume)on 2021 Creatinine [Mass/Vol] 0.58 mg/dL 0.55-1.02 [facility] Work Phone: Comment on above: The validity of the calculated GFR & GFRAA in patients over 70 years has not been determined. Clinical correlation is essential. Serum or plasma urea nitroge n measurement (mass/volume)on 2021 Urea nitrogen [Mass/Vol] 8 mg/dL 7-18 [facility] Work Phone: Thin prep Papanicolaou smear with manual screeningon 2021 Thin prep Papanicolaou smear with manual screening 7 5-15 [facility] Work Phone: Basophil percentageon 2021 Chloride [Moles/Vol] 99 mmol/L 98-107 [facility] Work Phone: Glucose [Mass/Vol] 113 mg/dL 74-106 [facility] Work Phone: Comment on above: Fasting Glucose resu lt from 100 to 125 mg/dL suggests IMPAIRED HOMEOSTASIS per A.D.A. criteria. Potassium [Moles/Vol] 3.5 mmol/L 3.5-5.1 [facility] Work Phone: Sodium [Moles/Vol] 130 mmol/L 136-145 [facility] Work Phone: Laboratory - Chemistry and C hemistry - challengeon 11-17-2021 CO2 [Moles/Vol] 26.0 mmol/L 21.0-32.0 [facility] Work Phone: Urea nitrogen/Creatinine [Mass ratio] 17.9 mg/mg 10- [facility] Work Phone: No Panel Informationon 11-17 Estimated Creatinine Clearance Calc 35.88 ml/min [facility] Work Phone: Estimated GFR (MDRD) Amer 119 mL/min >60 [facility] Work Phone: Comment on above: GFR Calc Estimated GFR (MDRD) Non-Af Amer 99 mL/min >60 [facility] Work Phone: Comment on above: Non- GFR Calc Serum or plasma calcium isela urement (mass/volume)on 11-17-2021 Calcium [Mass/Vol] 8.8 mg/dL 8.5-10.1 [facility] Work Phone: Serum or plasma creatinine m easurement (mass/volume)on 11-17-2021 Creatinine [Mass/Vol] 0.62 mg/dL 0.55-1.02 [facility] Work Phone: Comment on above: The validity of the calculated GFR & GFRAA in patients over 70 years has not been determined. Clinical correlation is essential. Serum or plasma urea nitroge n measurement (mass/volume)on 11-17-2021 Urea nitrogen [Mass/Vol] 11 mg/dL 7-18 [facility] Work Phone: Thin prep Papanicolaou smear with manual screeningon 11-17-2021 Thin prep Papanicolaou smear with manual screening 5 5-15 [facility] Work Phone: No Panel Informationon 11-16 Plasma Total Catecholamines Not Reportable [facility] Work Phone: Plasma epinephrine measureme nt (mass/volume)on 11-16-2021 EPINEPHrine (P) [Mass/Vol] 191 pg/mL 0-62 [facility] Work Phone: Plasma norepinephrine measur ement (mass/volume)on 11-16-2021 Norepinephrine (P) [Mass/Vol] 530 pg/mL 0-874 [facility] Work Phone: Serum or plasma dopamine tiburcio surement (mass/volume)on 11-16-2021 DOPamine [Mass/Vol] <30 pg/mL 0-48 [facility] Work Phone: Comment on above: Performed at: [address] [id number] Director: Jaquan Vela MD, Phone: [phone] Absolute lymphocyte counton 11-15-2021 Lymphocytes Auto (Unsp spec) [#/Vol] 2.04 10*3/uL 0.83-4.51 [facility] Work Phone: Basophil percentageon 2021 Basophils/100 WBC (Bld) 0.6 % 0-1 [facility] Work Phone: Eosinophils/100 WBC (Bld) 5.0 % 0-5 [facility] Work Phone: Neutrophils (Bld) [#/Vol] 7.0 10*3/uL 2.0-7.7 [facility] Work Phone: Neutrophils/100 WBC (Bld) 65.9 % 47-70 [facility] Work Phone: WBC (Bld) [#/Vol] 10.6 10*3/uL 4.4-11.0 [facility] Work Phone: Blood erythrocytes count (nu mber/volume)on 11-15-2021 RBC (Bld) [#/Vol] 4.87 10*6/uL 4.2-5.4 [facility] Work Phone: Blood hemoglobin measurement (mass/volume)on 11-15-2021 Hemoglobin (Bld) [Mass/Vol] 14.0 g/dL 12.0-15.0 [facility] Work Phone: Blood lymphocytes/100 leukoc yteson 11-15-2021 Lymphocytes/100 WBC (Bld) 19.3 % 19-41 [facility] Work Phone: Blood monocytes/100 leukocyt eson 11-15-2021 Monocytes/100 WBC (Bld) 8.9 % 0-10 [facility] Work Phone: Blood platelet mean volumeon 11-15-2021 Platelet mean volume (Bld) [Entitic vol] 8.4 fL 6.2-12.0 [facility] Work Phone: Determination of erythrocyte mean corpuscular volume (MCV)on 11-15-2021 MCV (RBC) [Entitic vol] 81.9 fL 81-99 [facility] Work Phone: Hematocrit Auto (Bld) [Volum e fraction]on 11-15-2021 Hematocrit (Bld) [Volume fraction] 39.9 % 37-47 [facility] Work Phone: Laboratory - Hematology and Cell countson 11-15-2021 Erythrocyte distribution width (RBC) [Entitic vol] 37.9 fL 35.1-43.9 [facility] Work Phone: Erythrocyte distribution width (RBC) [Ratio] 12.6 % 11.6-14.6 [facility] Work Phone: Immature granulocytes/100 WBC (Bld) 0.300 % 0.0-0.9 [facility] Work Phone: Comment on above: IG% - Immature Granu locytes (promyelocytes, myelocytes and metamyelocytes) > 1% indicates that a LEFT SHIFT is Present. MCH (RBC) [Entitic mass] 28.7 pg 27.0-32.0 [facility] Work Phone: Nucleated RBC/100 WBC (Bld) [Ratio] 0 % 0-5 [facility] Work Phone: MCHC Auto (RBC) [Mass/Vol]on 11-15-2021 MCHC (RBC) [Mass/Vol] 35.1 g/dL 32-36 [facility] Work Phone: No Panel Informationon 11-15 Troponin I High Sensitivity 20 pg/mL 3.0-54.0 [facility] Work Phone: Comment on above: Please Note: New [place] t Units and Gender Specific Reference Ranges. For more information see Policy Stat Procedure [place] High Sensitivity Troponin (TNIH) and attachments. Platelets bldon 11-15-2021 Platelets (Bld) [#/Vol] 341 10*3/uL 150-450 [facility] Work Phone: Absolute lymphocyte counton 11-12-2021 Lymphocytes Auto (Unsp spec) [#/Vol] 2.20 10*3/uL 0.83-4.51 [facility] Work Phone: Basophil percentageon 2021 Basophils/100 WBC (Bld) 0.6 % 0-1 [facility] Work Phone: Chloride [Moles/Vol] 96 mmol/L 98-107 [facility] Work Phone: Eosinophils/100 WBC (Bld) 4.4 % 0-5 [facility] Work Phone: Glucose [Mass/Vol] 123 mg/dL 74-106 [facility] Work Phone: Comment on above: Fasting Glucose resu lt from 100 to 125 mg/dL suggests IMPAIRED HOMEOSTASIS per A.D.A. criteria. Neutrophils (Bld) [#/Vol] 7.6 10*3/uL 2.0-7.7 [facility] Work Phone: [phone] Neutrophils/100 WBC (Bld) 67.2 % 47-70 [facility] Work Phone: Potassium [Moles/Vol] 3.7 mmol/L 3.5-5.1 [facility] Work Phone: Sodium [Moles/Vol] 130 mmol/L 136-145 [facility] Work Phone: WBC (Bld) [#/Vol] 11.3 10*3/uL 4.4-11.0 [facility] Work Phone: [phone] Basophil percentage 0 SEEN /hpf 0-5 [facility] Work Phone: [phone] Bilirubin Test strip Ql (U)o n 11-12-2021 Bilirubin Ql (U) Negative Negative [facility] Work Phone: [phone] Blood erythrocytes count (nu mber/volume)on 11-12-2021 RBC (Bld) [#/Vol] 5.06 10*6/uL 4.2-5.4 [facility] Work Phone: [phone] Blood hemoglobin measurement (mass/volume)on 11-12-2021 Hemoglobin (Bld) [Mass/Vol] 14.9 g/dL 12.0-15.0 [facility] Work Phone: Blood lymphocytes/100 leukoc yteson 11-12-2021 Lymphocytes/100 WBC (Bld) 19.5 % 19-41 [facility] Work Phone: Blood monocytes/100 leukocyt eson 11-12-2021 Monocytes/100 WBC (Bld) 7.9 % 0-10 [facility] Work Phone: Blood platelet mean volumeon 11-12-2021 Platelet mean volume (Bld) [Entitic vol] 8.3 fL 6.2-12.0 [facility] Work Phone: [phone] Determination of erythrocyte mean corpuscular volume (MCV)on 11-12-2021 MCV (RBC) [Entitic vol] 80.2 fL 81-99 [facility] Work Phone: Hematocrit Auto (Bld) [Volum e fraction]on 11-12-2021 Hematocrit (Bld) [Volume fraction] 40.6 % 37-47 [facility] Work Phone: [phone] Ketones Test strip Ql (U)on 11-12-2021 Ketones Ql (U) Negative Negative [facility] Work Phone: Laboratory - Chemistry and C hemistry - challengeon 11-12-2021 CO2 [Moles/Vol] 27.0 mmol/L 21.0-32.0 [facility] Work Phone: [phone] Urea nitrogen/Creatinine [Mass ratio] 13.6 mg/mg 10-20 [facility] Work Phone: Laboratory - Hematology and Cell countson 11-12-2021 Erythrocyte distribution width (RBC) [Entitic vol] 36.1 fL 35.1-43.9 [facility] Work Phone: [phone] Erythrocyte distribution width (RBC) [Ratio] 12.6 % 11.6-14.6 [facility] Work Phone: [phone] Immature granulocytes/100 WBC (Bld) 0.400 % 0.0-0.9 [facility] Work Phone: Comment on above: IG% - Immature Granu locytes (promyelocytes, myelocytes and metamyelocytes) > 1% indicates that a LEFT SHIFT is Present. MCH (RBC) [Entitic mass] 29.4 pg 27.0-32.0 [facility] Work Phone: Nucleated RBC/100 WBC (Bld) [Ratio] 0 % 0-5 [facility] Work Phone: MCHC Auto (RBC) [Mass/Vol]on 11-12-2021 MCHC (RBC) [Mass/Vol] 36.7 g/dL 32-36 [facility] Work Phone: Mucus LM Ql (Urine sed)on Mucus Ql (Urine sed) 0 SEEN /hpf [facility] Work Phone: Nitrite Test strip Ql (U)on 11-12-2021 Nitrite Ql (U) Negative Negative [facility] Work Phone: No Panel Informationon 11-12 Estimated Creatinine Clearance Calc 35.88 ml/min [facility] Work Phone: Estimated GFR (MDRD) Amer 109 mL/min >60 [facility] Work Phone: Comment on above: GFR Calc Estimated GFR (MDRD) Non-Af Amer 90 mL/min >60 [facility] Work Phone: Comment on above: Non- GFR Calc Platelets bldon 11-12-2021 Platelets (Bld) [#/Vol] 277 10*3/uL 150-450 [facility] Work Phone: Protein Test strip Ql (U)on 11-12-2021 Protein Ql (U) Negative Negative [facility] Work Phone: Serum or plasma calcium isela urement (mass/volume)on 11-12-2021 Calcium [Mass/Vol] 9.2 mg/dL 8.5-10.1 [facility] Work Phone: Serum or plasma creatinine m easurement (mass/volume)on 11-12-2021 Creatinine [Mass/Vol] 0.66 mg/dL 0.55-1.02 [facility] Work Phone: Comment on above: The validity of the calculated GFR & GFRAA in patients over 70 years has not been determined. Clinical correlation is essential. Serum or plasma urea nitroge n measurement (mass/volume)on 11-12-2021 Urea nitrogen [Mass/Vol] 9 mg/dL 7-18 [facility] Work Phone: Squamous epithelial cells de tection in urine sediment by light microscopyon 11-12-2021 Epithelial cells.squamous LM Ql (Urine sed) 0 SEEN /hpf 5-10 [facility] Work Phone: Thin prep Papanicolaou smear with manual screeningon 11-12-2021 Thin prep Papanicolaou smear with manual screening 7 01-12 [facility] Work Phone: Urine blood detectionon 10-29 RBC Ql (U) Negative Negative [facility] Work Phone: RBC Ql (U) 0 SEEN /hpf 0-5 [facility] Work Phone: Urine clarityon 11-12-2021 Clarity (U) Clear Clear [facility] Work Phone: Urine color determinationon 11-12-2021 Color (U) Yellow Yellow [facility] Work Phone: Urine glucose detectionon Glucose Ql (U) Normal mg/dl Normal [facility] Work Phone: Urine leukocyte esterase det ection by dipstickon 11-12-2021 Leukocyte esterase Test strip Ql (U) Negative Negative [facility] Work Phone: Urine pHon 11-12-2021 pH (U) 7.0 [pH] 5.0 - 8.0 [facility] Work Phone: Urine sediment bacteria coun t by microscopy (number/high power field)on 11-12-2021 Bacteria LM.HPF (Urine sed) [#/Area] 0 /[HPF] None Seen [facility] Work Phone: Urine specific gravity measu rementon 11-12-2021 Specific gravity (U) [Rel density] 1.010 1.002-1.03 0 [facility] Work Phone: Urobilinogen Auto test strip Ql (U)on 11-12-2021 Urobilinogen Ql (U) Normal mg/dl Normal [facility] Work Phone: Absolute lymphocyte counton 11-06-2021 Lymphocytes Auto (Unsp spec) [#/Vol] 1.06 10*3/uL 0.83-4.51 [facility] Work Phone: Basophil percentageon 2021 Basophils/100 WBC (Bld) 0.4 % 0-1 [facility] Work Phone: Chloride [Moles/Vol] 99 mmol/L 98-107 [facility] Work Phone: Eosinophils/100 WBC (Bld) 2.1 % 0-5 [facility] Work Phone: Glucose [Mass/Vol] 108 mg/dL 74-106 [facility] Work Phone: Comment on above: Fasting Glucose resu lt from 100 to 125 mg/dL suggests IMPAIRED HOMEOSTASIS per A.D.A. criteria. Neutrophils (Bld) [#/Vol] 4.9 10*3/uL 2.0-7.7 [facility] Work Phone: Neutrophils/100 WBC (Bld) 72.5 % 47-70 [facility] Work Phone: Potassium [Moles/Vol] 3.7 mmol/L 3.5-5.1 [facility] Work Phone: Sodium [Moles/Vol] 129 mmol/L 136-145 [facility] Work Phone: WBC (Bld) [#/Vol] 6.8 10*3/uL 4.4-11.0 [facility] Work Phone: Blood erythrocytes count (nu mber/volume)on 11-06-2021 RBC (Bld) [#/Vol] 4.41 10*6/uL 4.2-5.4 [facility] Work Phone: [phone] Blood hemoglobin measurement (mass/volume)on 11-06-2021 Hemoglobin (Bld) [Mass/Vol] 12.9 g/dL 12.0-15.0 [facility] Work Phone: Blood lymphocytes/100 leukoc yteson 11-06-2021 Lymphocytes/100 WBC (Bld) 15.7 % 19-41 [facility] Work Phone: Blood monocytes/100 leukocyt eson 11-06-2021 Monocytes/100 WBC (Bld) 8.9 % 0-10 [facility] Work Phone: Blood platelet mean volumeon 11-06-2021 Platelet mean volume (Bld) [Entitic vol] 8.8 fL 6.2-12.0 [facility] Work Phone: [phone] Determination of erythrocyte mean corpuscular volume (MCV)on 11-06-2021 MCV (RBC) [Entitic vol] 82.3 fL 81-99 [facility] Work Phone: Hematocrit Auto (Bld) [Volum e fraction]on 11-06-2021 Hematocrit (Bld) [Volume fraction] 36.3 % 37-47 [facility] Work Phone: [phone] Laboratory - Chemistry and C hemistry - challengeon 11-06-2021 CO2 [Moles/Vol] 24.0 mmol/L 21.0-32.0 [facility] Work Phone: [phone] Urea nitrogen/Creatinine [Mass ratio] 14.2 mg/mg 10-20 [facility] Work Phone: [phone] Laboratory - Hematology and Cell countson 11-06-2021 Erythrocyte distribution width (RBC) [Entitic vol] 37.7 fL 35.1-43.9 [facility] Work Phone: [phone] Erythrocyte distribution width (RBC) [Ratio] 12.5 % 11.6-14.6 [facility] Work Phone: Immature granulocytes/100 WBC (Bld) 0.400 % 0.0-0.9 [facility] Work Phone: Comment on above: IG% - Immature Granu locytes (promyelocytes, myelocytes and metamyelocytes) > 1% indicates that a LEFT SHIFT is Present. MCH (RBC) [Entitic mass] 29.3 pg 27.0-32.0 [facility] Work Phone: Nucleated RBC/100 WBC (Bld) [Ratio] 0 % 0-5 [facility] Work Phone: MCHC Auto (RBC) [Mass/Vol]on 11-06-2021 MCHC (RBC) [Mass/Vol] 35.5 g/dL 32-36 [facility] Work Phone: No Panel Informationon 11-06 Estimated Creatinine Clearance Calc 35.88 ml/min [facility] Work Phone: Estimated GFR (MDRD) Amer 102 mL/min >60 [facility] Work Phone: Comment on above: GFR Calc Estimated GFR (MDRD) Non-Af Amer 85 mL/min >60 [facility] Work Phone: Comment on above: Non- GFR Calc Miscellaneous Test See comment [facility] Work Phone: Comment on above: TEST RESULT UNITS RE F INTERVALMetanephrines, Frac., Pl. FreeNormetanephrine, Pl A, 45.7 pg/mL 0.0-297.2Metanephrine, Pl A, 36.6 pg/mL 0.0-88.0COMMENTSA: This test was developed and its performance characteristics determined by [facility]. It has not been cleared or approved by the Food and Drug Administration. TESTING PERFORMED AT [facility]. ORIGINAL REPORT ON FILE IN LAB CONTAINS ADDITIONAL TEST SITE INFORMATION. Platelets bldon 11-06-2021 Platelets (Bld) [#/Vol] 266 10*3/uL 150-450 [facility] Work Phone: Serum or plasma calcium isela urement (mass/volume)on 11-06-2021 Calcium [Mass/Vol] 8.1 mg/dL 8.5-10.1 oste r [facility] Work Phone: Serum or plasma cortisol tiburcio surement (mass/volume)on 11-06-2021 Cortisol [Mass/Vol] 3.90 ug/dL 3.44-22.45 [facility] Work Phone: Comment on above: Adult (AM) 5.27 - 22 .45 ug/dL Adult (PM) 3.44 - 16.76 ug/dLPlease note revised CORTISOL reference range effective 2019. Serum or plasma creatinine m easurement (mass/volume)on 11-06-2021 Creatinine [Mass/Vol] 0.70 mg/dL 0.55-1.02 [facility] Work Phone: Comment on above: The validity of the calculated GFR & GFRAA in patients over 70 years has not been determined. Clinical correlation is essential. Serum or plasma urea nitroge n measurement (mass/volume)on 11-06-2021 Urea nitrogen [Mass/Vol] 10 mg/dL 7-18 [facility] Work Phone: Thin prep Papanicolaou smear with manual screeningon 11-06-2021 Thin prep Papanicolaou smear with manual screening 6 5-15 [facility] Work Phone: Basophil percentageon 2021 Bilirubin [Mass/Vol] 0.50 mg/dL 0.20-1.00 [facility] Work Phone: Comment on above: For patients on eltr ombopag therapy, use of Dimension [place] TBIL is not recommended. Lactate [Moles/Vol] 0.6 mmol/L 0.4-2.0 [place] [facility] Work Phone: [phone] Protein [Mass/Vol] 7.2 g/dL 6.4-8.2 [facility] Work Phone: Basophil percentage 0-5 SEEN /hpf 0-5 [place] [facility] Work Phone: [phone] Bilirubin Test strip Ql (U)o n 11-05-2021 Bilirubin Ql (U) Negative Negative [facility] Work Phone: Ketones Test strip Ql (U)on 11-05-2021 Ketones Ql (U) 5 mg/dl Negative [facility] Work Phone: [phone] Laboratory - Chemistry and C hemistry - challengeon 11-05-2021 Sodium (U) [Moles/Vol] 43 mmol/L Not Establ. [facility] Work Phone: ALP [Catalytic activity/Vol] 86 U/L 45-117 [facility] Work Phone: ALT [Catalytic activity/Vol] 28 U/L 13-56 [facility] Work Phone: [phone] Globulin (S) [Mass/Vol] 3.4 g/dL 2.2-4.2 [facility] Work Phone: Mucus LM Ql (Urine sed)on Mucus Ql (Urine sed) 0 SEEN /hpf [facility] Work Phone: Nitrite Test strip Ql (U)on 11-05-2021 Nitrite Ql (U) Negative Negative [facility] Work Phone: Protein Test strip Ql (U)on 11-05-2021 Protein Ql (U) 15 mg/dl Negative [facility] Work Phone: Serum or plasma albumin isela urement (mass/volume)on 11-05-2021 Albumin [Mass/Vol] 3.8 g/dL 3.2-5.0 [facility]: [phone] Serum or plasma albumin/glob ulin mass ratioon 11-05-2021 Albumin/Globulin [Mass ratio] 1.1 {ratio} 0.9-2.4 [facility] Work Phone: Squamous epithelial cells de tection in urine sediment by light microscopyon 11-05-2021 Epithelial cells.squamous LM Ql (Urine sed) 5-10 SEEN /hpf 5-10 [facility] Work Phone: Thin prep Papanicolaou smear with manual screeningon 11-05-2021 Thin prep Papanicolaou smear with manual screening 263 mOsm/KG 280-301 [facility] Work Phone: Thin prep Papanicolaou smear with manual screening 16 U/L 15-37 [facility] Work Phone: Urine blood detectionon RBC Ql (U) Negative Negative [facility] Work Phone: RBC Ql (U) 0 SEEN /hpf 0-5 [facility] Work Phone: Urine clarityon 11-05-2021 Clarity (U) Clear Clear [facility] Work Phone: Urine color determinationon 11-05-2021 Color (U) Yellow Yellow [facility] Work Phone: Urine glucose detectionon Glucose Ql (U) Normal mg/dl Normal [facility] Work Phone: Urine leukocyte esterase det ection by dipstickon 11-05-2021 Leukocyte esterase Test strip Ql (U) Negative Negative [facility] Work Phone: Urine osmolality measurement on 11-05-2021 Osmolality (U) [Osmolality] 163 mOsm/KG >50 [facility] Work Phone: Comment on above: Normal Urine Referen ce Ranges Random: 50 - 1200 mOsm/kg H20 depending on fluid intake Random: >850 mOsm/kg after 12 hour fluid restriction 24 hour: ~300 - 900 mOsm/kg H2O Urine pHon 11-05-2021 pH (U) 6.0 [pH] 5.0 - 8.0 [facility] Work Phone: Urine sediment bacteria coun t by microscopy (number/high power field)on 11-05-2021 Bacteria LM.HPF (Urine sed) [#/Area] 1 /[HPF] None Seen [facility] Work Phone: Urine specific gravity measu rementon 11-05-2021 Specific gravity (U) [Rel density] 1.010 1.002-1.03 0 [facility] Work Phone: Urobilinogen Auto test strip Ql (U)on 11-05-2021 Urobilinogen Ql (U) Normal mg/dl Normal [facility] Work Phone: Absolute lymphocyte counton 10-25-2021 Lymphocytes Auto (Unsp spec) [#/Vol] 3.13 10*3/uL 0.83-4.51 [facility] Work Phone: Basophil percentageon 2021 Basophils/100 WBC (Bld) 0.5 % 0-1 [facility] Work Phone: Chloride [Moles/Vol] 97 mmol/L 98-107 [facility] Work Phone: Eosinophils/100 WBC (Bld) 1.1 % 0-5 [facility] Work Phone: Glucose [Mass/Vol] 131 mg/dL 74-106 [facility] Work Phone: Comment on above: Fasting Glucose resu lt greater than or equal to 126 mg/dL suggests DIABETES MELLITUS per A.D.A. criteria. Neutrophils (Bld) [#/Vol] 6.9 10*3/uL 2.0-7.7 [facility] Work Phone: Neutrophils/100 WBC (Bld) 62.1 % 47-70 [facility] Work Phone: Potassium [Moles/Vol] 3.8 mmol/L 3.5-5.1 [facility] Work Phone: Sodium [Moles/Vol] 130 mmol/L 136-145 [facility] Work Phone: WBC (Bld) [#/Vol] 11.1 10*3/uL 4.4-11.0 [facility] Work Phone: Blood erythrocytes count (nu mber/volume)on 10-25-2021 RBC (Bld) [#/Vol] 5.11 10*6/uL 4.2-5.4 [facility] Work Phone: Blood hemoglobin measurement (mass/volume)on 10-25-2021 Hemoglobin (Bld) [Mass/Vol] 15.0 g/dL 12.0-15.0 [facility] Work Phone: Blood lymphocytes/100 leukoc yteson 10-25-2021 Lymphocytes/100 WBC (Bld) 28.3 % 19-41 [facility] Work Phone: Blood monocytes/100 leukocyt eson 10-25-2021 Monocytes/100 WBC (Bld) 7.6 % 0-10 [facility] Work Phone: Blood platelet mean volumeon 10-25-2021 Platelet mean volume (Bld) [Entitic vol] 9.0 fL 6.2-12.0 [facility] Work Phone: [phone] Determination of erythrocyte mean corpuscular volume (MCV)on 10-25-2021 MCV (RBC) [Entitic vol] 84.3 fL 81-99 [facility] Work Phone: Hematocrit Auto (Bld) [Volum e fraction]on 10-25-2021 Hematocrit (Bld) [Volume fraction] 43.1 % 37-47 [facility] Work Phone: [phone] Laboratory - Chemistry and C hemistry - challengeon 10-25-2021 CO2 [Moles/Vol] 26.0 mmol/L 21.0-32.0 [facility] Work Phone: Magnesium [Mass/Vol] 2.4 mg/dL 1.6-2.6 [facility] Work Phone: [phone] Urea nitrogen/Creatinine [Mass ratio] 19.1 mg/mg 10-20 [facility] Work Phone: Laboratory - Hematology and Cell countson 10-25-2021 Erythrocyte distribution width (RBC) [Entitic vol] 38.1 fL 35.1-43.9 [facility] Work Phone: Erythrocyte distribution width (RBC) [Ratio] 12.5 % 11.6-14.6 [facility] Work Phone: Immature granulocytes/100 WBC (Bld) 0.400 % 0.0-0.9 [facility] Work Phone: Comment on above: IG% - Immature Granu locytes (promyelocytes, myelocytes and metamyelocytes) > 1% indicates that a LEFT SHIFT is Present. MCH (RBC) [Entitic mass] 29.4 pg 27.0-32.0 [facility] Work Phone: Nucleated RBC/100 WBC (Bld) [Ratio] 0 % 0-5 [facility] Work Phone: MCHC Auto (RBC) [Mass/Vol]on 10-25-2021 MCHC (RBC) [Mass/Vol] 34.8 g/dL 32-36 [facility] Work Phone: No Panel Informationon 10-25 Troponin I High Sensitivity 19 pg/mL 3.0-54.0 [facility] Work Phone: Comment on above: Please Note: New [place] t Units and Gender Specific Reference Ranges. For more information see Policy Stat Procedure [place] High Sensitivity Troponin (TNIH) and attachments. Estimated Creatinine Clearance Calc 35.88 ml/min [facility] Work Phone: Estimated GFR (MDRD) Amer 117 mL/min >60 [facility] Work Phone: Comment on above: GFR Calc Estimated GFR (MDRD) Non-Af Amer 96 mL/min >60 [facility] Work Phone: Comment on above: Non- GFR Calc Platelets bldon 10-25-2021 Platelets (Bld) [#/Vol] 310 10*3/uL 150-450 [facility] Work Phone: Serum or plasma calcium isela urement (mass/volume)on 10-25-2021 Calcium [Mass/Vol] 8.8 mg/dL 8.5-10.1 [facility] Work Phone: Serum or plasma creatinine m easurement (mass/volume)on 10-25-2021 Creatinine [Mass/Vol] 0.63 mg/dL 0.55-1.02 [facility] Work Phone: Comment on above: The validity of the calculated GFR & GFRAA in patients over 70 years has not been determined. Clinical correlation is essential. Serum or plasma urea nitroge n measurement (mass/volume)on 10-25-2021 Urea nitrogen [Mass/Vol] 12 mg/dL 7-18 [facility] Work Phone: Thin prep Papanicolaou smear with manual screeningon 10-25-2021 Thin prep Papanicolaou smear with manual screening 7 5-15 [facility] Work Phone: CNOVon 09-12-2021 CNOV Office Visit (GENSWS ) NORM PORTER ([id number]) 1940 F Date Time Provider Department 09/12/21 2:00 PM KINDRA CAMPBELL GENSWS During your visit today, we recorded the following information about you: Temperature Pulse Blood pressure Weight 97.9 degrees 63/minute 187/93 83.9 kg Height 1.6 m Beverley Whitney 09/12/2021 2:51 PM Signed REVIEW OF SYSTEMS: General: The patient denies fatigue, denies weight loss, denies weight gain, denies feeling hot, and denies feelings of cold. Eyes: The patient denies glaucoma, denies eye injury/surgery, does not wear glasses or contacts. Ear/Nose/Throat: The patient denies allergies, denies hayfever, denies ear infections, and denies bloody noses. Cardiovascular: The patient denies chest pain, denies heart disease, NOTES high blood pressure,denies cardiac stent, denies prior heart attack, NOTES irregular heart beat, denies high cholesterol, denies poor circulation, denies heart failure, other cardiac issues, denies claudication, denies cold feet, denies peripheral arterial stent. Respiratory: The patient denies tuberculosis, denies pneumonia, denies frequent cough, denies pulmonary embolism, denies shortness of breath, and denies coughing up blood. Gastrointestinal: The patient denies difficulty swallowing, denies acid reflux, denies ulcers, denies vomiting, denies jaundice/hepatitis, denies gallbladder problems, denies black or tarry stools, denies hemorrhoids, denies bleeding from rectum, NOTES diverticulitis, denies constipation, denies diarrhea, denies loss of stool control, and denies hernias. Kidney/Bladder: The patient denies kidney stones, denies urine infections, and denies bloody urine. Skin: The patient denies a history of skin cancer, denies bleeding/changing moles, and denies a history of skin rash. Neurologic: The patient denies a history of epilepsy/convulsions, denies headaches, denies head/spinal injuries, and denies stroke/TIA. Psychiatric: The patient denies psychiatric medications, denies depression, and denies voices, denies substance abuse. Endocrine: The patient denies thyroid disorders, denies diabetes, and denies hormonal problems. Hematologic: The patient denies a history of bruising, denies bleeding, and denies anemia, denies blood clots. Infections: The patient denies a history of measles and mumps, denies rheumatic fever, and denies sexually transmitted diseases. Musculoskeletal: The patient denies back pain/injury, denies back problems, denies sciatica, denies knee/foot trouble, NOTES arthritis, or denies gout. When was patient's last Mammogram screening? 07/2021 Last Colonoscopy: 12/19/2015 Beverley Campbell MD 09/12/2021 5:19 PM Signed HISTORY AND PHYSICAL - BREAST COMPLAINT Norm Porter 1940 REFERRING PHYSICIAN: Malys, Quiana A, DO CHIEF COMPLAINT: Second opinion regarding breast biopsy HPI: The patient is a 80 year old female with a finding of an abnormal mammogram. The patient had a mammogram with tomograms performed on July 04, 2021. This demonstrated: IMPRESSION: INCOMPLETE: NEEDS ADDITIONAL IMAGING EVALUATION The possible multiple architectural distortions in the right breast are indeterminate. Additional views are recommended. She then had follow-up right breast diagnostic tomograms and right breast ultrasound on August 21, 2021. This demonstrated: IMPRESSION: SUSPICIOUS FINDING - BIOPSY SHOULD BE CONSIDERED The possible multiple architectural distortions in the right breast are suspicious of malignancy. A stereotactic biopsy is recommended. There are possible multiple vague areas of architechtural distortion in the anterior aspect of the breast seen only on the CC view. No corresponding finding by ultrasound. The patient did indicate that she may have had a remote injury to this area. No prior surgery. Tomosynthesis guided biopsy of one of these areas would be recommended. The area central to the nipple adjacent to the calcifications may be the best area to target. She was referred to a site with 3D biopsy capability. ? ? ? LIMITED ULTRASOUND OF RIGHT BREAST: 08/21/2021 RESULT: Comparison is made to exams dated: 07/04/2021 mammogram, 12/21/2019 mammogram, 12/15/2019 mammogram, 09/08/2018 mammogram, and 07/29/2018 mammogram - [facility]. Color flow and real-time ultrasound of the right breast 11-1 o'clock, and retroareolar regions were performed. Stewart scale images of the real-time examination were reviewed. ? IMPRESSION: NEGATIVE There is no sonographic evidence of malignancy. There is no abnormality seen in the right breast to correspond with the architectural distortion, however, biopsy is recommended. The patient denies breast masses. She does perform a self breast exam routinely. She notes no skin changes. She denies nipple d (more content not included)... Normal [facility] DIAG W JANETTE RTon 021 [facility] DIAG W JANETTE RT * * *Final Report* * * DATE OF EXAM: Aug 21 2021 2:49PM [id number] - [facility] DIAG W JANETTE RT / PROCEDURE REASON: Callback right // abnormal mammogram * * * * Physician Interpretation * * * * RESULT: #[id number] [facility] DIAG W JANETTE RT #[id number] - [facility] US BREAST LTD RT UNILATERAL RIGHT DIGITAL DIAGNOSTIC MAMMOGRAM TOMOSYNTHESIS WITH CAD: 08/21/2021 HISTORY: Callback Right // Abnormal Mammogram Abnormal Mammogram. RESULT: TECHNIQUE: The study was acquired using full field digital technology and interpreted from soft copy. Digital Breast Tomosynthesis (DBT) images were obtained and used to assist in the interpretation of this examination. Current study was also evaluated with a Computer Aided Detection (CAD). Comparison is made to exams dated: 07/04/2021 mammogram, 12/21/2019 mammogram, 12/15/2019 mammogram, 09/08/2018 mammogram, and 07/29/2018 mammogram - [facility]. The tissue of right breast is heterogeneously dense. This may lower the sensitivity of mammography. There are possible multiple architectural distortions in the right breast anterior depth central to the nipple seen on the craniocaudal view only. No other significant masses or calcifications are seen in the breast. IMPRESSION: SUSPICIOUS FINDING - BIOPSY SHOULD BE CONSIDERED The possible multiple architectural distortions in the right breast are suspicious of malignancy. A stereotactic biopsy is recommended. There are possible multiple vague areas of architechtural distortion in the anterior aspect of the breast seen only on the CC view. No corresponding finding by ultrasound. The patient did indicate that she may have had a remote injury to this area. No prior surgery. Tomosynthesis guided biopsy of one of these areas would be recommended. The area central to the nipple adjacent to the calcifications may be the best area to target. She was referred to a site with 3D biopsy capability. LIMITED ULTRASOUND OF RIGHT BREAST: 08/21/2021 RESULT: Comparison is made to exams dated: 07/04/2021 mammogram, 12/21/2019 mammogram, 12/15/2019 mammogram, 09/08/2018 mammogram, and 07/29/2018 mammogram - [facility]. Color flow and real-time ultrasound of the right breast 11-1 o'clock, and retroareolar regions were performed. Stewart scale images of the real-time examination were reviewed. IMPRESSION: NEGATIVE There is no sonographic evidence of malignancy. There is no abnormality seen in the right breast to correspond with the architectural distortion, however, biopsy is recommended. Sy Grossman M.D. tab/penrad:08/21/2021 15:58:10 copy to: QUIANA HEALY, ph: [phone] Multiple national specialty organizations have released breast cancer screening guidelines for women at average risk for developing breast cancer - guidelines that are based on both evidence and opinion, yet differ on when to start and how often to screen for breast cancer. With representation from Breast Imaging, Internal Medicine, Women's Health, Family Medicine, and Medical/Surgical Oncology, the [facility] has carefully reviewed the data and reached the following consensus: 1) All women should engage in shared decision-making with their providers to decide when to start and how often to screen; 2) All women should have the opportunity to start screening mammography at age 40; 3) For women ages 45-55, we recommend annual screening mammograms; 4) For women ages 55 and over, we support both the transition from an annual to a biennial interval if this aligns more with patient's values and preferences, or continuation with annual screening; 5) All women should discuss with their providers when to stop screening mammograms. Security Intern(s): Carrie Taylor, [facility]; Ruth Martel, RT(R)(M), [facility] OVERALL STUDY BIRADS: 4 Suspicious finding - Biopsy should be considered Customer Relationship Specialist: Radha Transcribe Date/Time: Aug 21 2021 2:07P Dictated by: SY GROSSMAN MD This examination was interpreted and the report reviewed and electronically signed by: SY GROSSMAN MD on Aug 21 2021 3:58PM EST [id number] Normal [facility] US BREAST LTD RTon 08-21 [facility] US BREAST LTD RT * * *Final Report* * * DATE OF EXAM: Aug 21 2021 3:01PM [id number] - [facility] US BREAST LTD RT / PROCEDURE REASON: Abnormal mammogram * * * * Physician Interpretation * * * * #[id number] - [facility] [place] W JANETTE RT #[id number] - [facility] US BREAST LTD RT UNILATERAL RIGHT DIGITAL DIAGNOSTIC MAMMOGRAM TOMOSYNTHESIS WITH CAD: 08/21/2021 HISTORY: Callback Right // Abnormal Mammogram Abnormal Mammogram. RESULT: TECHNIQUE: The study was acquired using full field digital technology and interpreted from soft copy. Digital Breast Tomosynthesis (DBT) images were obtained and used to assist in the interpretation of this examination. Current study was also evaluated with a Computer Aided Detection (CAD). Comparison is made to exams dated: 07/04/2021 mammogram, 12/21/2019 mammogram, 12/15/2019 mammogram, 09/08/2018 mammogram, and 07/29/2018 mammogram - [facility]. The tissue of right breast is heterogeneously dense. This may lower the sensitivity of mammography. There are possible multiple architectural distortions in the right breast anterior depth central to the nipple seen on the craniocaudal view only. No other significant masses or calcifications are seen in the breast. IMPRESSION: SUSPICIOUS FINDING - BIOPSY SHOULD BE CONSIDERED The possible multiple architectural distortions in the right breast are suspicious of malignancy. A stereotactic biopsy is recommended. There are possible multiple vague areas of architechtural distortion in the anterior aspect of the breast seen only on the CC view. No corresponding finding by ultrasound. The patient did indicate that she may have had a remote injury to this area. No prior surgery. Tomosynthesis guided biopsy of one of these areas would be recommended. The area central to the nipple adjacent to the calcifications may be the best area to target. She was referred to a site with 3D biopsy capability. LIMITED ULTRASOUND OF RIGHT BREAST: 08/21/2021 RESULT: Comparison is made to exams dated: 07/04/2021 mammogram, 12/21/2019 mammogram, 12/15/2019 mammogram, 09/08/2018 mammogram, and 07/29/2018 mammogram - [facility]. Color flow and real-time ultrasound of the right breast 11-1 o'clock, and retroareolar regions were performed. Stewart scale images of the real-time examination were reviewed. IMPRESSION: NEGATIVE There is no sonographic evidence of malignancy. There is no abnormality seen in the right breast to correspond with the architectural distortion, however, biopsy is recommended. Sy mota/radha:08/21/2021 15:58:10 copy to: QUIANA HEALY, ph: [phone] Multiple national specialty organizations have released breast cancer screening guidelines for women at average risk for developing breast cancer - guidelines that are based on both evidence and opinion, yet differ on when to start and how often to screen for breast cancer. With representation from Breast Imaging, Internal Medicine, Women's Health, Family Medicine, and Medical/Surgical Oncology, the [facility] has carefully reviewed the data and reached the following consensus: 1) All women should engage in shared decision-making with their providers to decide when to start and how often to screen; 2) All women should have the opportunity to start screening mammography at age 40; 3) For women ages 45-55, we recommend annual screening mammograms; 4) For women ages 55 and over, we support both the transition from an annual to a biennial interval if this aligns more with patient's values and preferences, or continuation with annual screening; 5) All women should discuss with their providers when to stop screening mammograms. Security Intern(s): Carrie Taylor, [facility]; RT Jocy(R)(M), [facility] OVERALL STUDY BIRADS: 4 Suspicious finding - Biopsy should be considered Customer Relationship Specialist: Radha Transcribe Date/Time: Aug 21 2021 2:07P Dictated by : SY GROSSMAN MD This examination was interpreted and the report reviewed and electronically signed by: SY GROSSMAN MD on Aug 21 2021 3:58PM EST [id number] Normal [facility] CNCOon 07-05-2021 CNCO HNO ID: [id number] Author: Mammography Coordinator Service: ? Author Type: Physician Type: Letter Filed: 07/08/2021 11:35 PM Note Text: July 05, 2021 PID: [id number] Norm Porter [address] [place] [address] Dear Ms. Porter, Your recent breast imaging exam on 07/04/2021 showed a possible finding that requires additional imaging studies for a complete evaluation. Most such findings are probably benign (not cancer). Your mammogram demonstrates that you have dense breast tissue, which could hide abnormalities. Dense breast tissue, in and of itself, is a relatively common condition. Therefore, this information is not provided to cause undue concern; rather, it is to raise your awareness and promote discussion with your health care provider regarding the presence of dense breast tissue in addition to other risk factors. If you have a healthcare provider who ordered/prescribed your screening mammogram: Please call [phone] or [phone]: [phone] to schedule an appointment for your additional imaging (if you have not already done so). If you DO NOT have a healthcare provider (ie you did not have an order/prescription for your screening mammogram): Please call to schedule an appointment for your additional imaging (if you have not already done so). You must have an order/prescription from your physician when calling to schedule your appointment. If your order/prescription is not electronic, you must bring the hard copy with you on the day of your exam to avoid delays. Your imaging studies and reports are kept on file at [facility] as part of your permanent medical record, and are available for your continuing care. Thank you for allowing us to help in meeting your health care needs. Sincerely, Dr. Higginbotham Interpreting Radiologist [facility] (Additional imaging) Normal [facility] SCREENING W TOMOon 07-04 [facility] SCREENING W JANETTE * * *Final Report* * * DATE OF EXAM: Jul 04 2021 2:37PM [id number] - [facility] SCREENING W JANETTE / PROCEDURE REASON: routine screening mammogram * * * * Physician Interpretation * * * * RESULT: #[id number] - [place] [facility] SCREENING W JANETTE BILATERAL DIGITAL SCREENING MAMMOGRAM TOMOSYNTHESIS WITH CAD: 07/04/2021 HISTORY: Routine Screening Mammogram / Screening Mammogram-Patient reports NO symptoms. /priors available for comparison / SEE TECH NOTE. RESULT: TECHNIQUE: The study was acquired using full field digital technology and interpreted from soft copy. Digital Breast Tomosynthesis (DBT) images were obtained and used to assist in the interpretation of this examination. Current study was also evaluated with a Computer Aided Detection (CAD). Comparison is made to exams dated: 09/08/2018 mammogram, 03/24/2018 mammogram - [facility], 06/29/2017 mammogram, and 06/26/2016 mammogram. The tissue of both breasts is heterogeneously dense. This may lower the sensitivity of mammography. There are possible multiple architectural distortions in the right breast anterior depth central to the nipple seen on the craniocaudal view only. Findings are best noted on tomographic CC slice 23. No other significant masses, calcifications, or other findings are seen in either breast. IMPRESSION: INCOMPLETE: NEEDS ADDITIONAL IMAGING EVALUATION The possible multiple architectural distortions in the right breast are indeterminate. Additional views are recommended. Maya Higginbotham M.D., jr/radha:07/05/2021 09:00:46 copy to: QUIANA HEALY, ph: [phone] Security Intern(s): Ruth Martel RT(R)(M), [facility] letter sent: Additional Imaging Needed Mammogram BI-RADS: 0 Incomplete: needs additional imaging evaluation If this report indicates you need additional imaging, and it has NOT yet been performed, please call , to schedule. We sincerely thank you for choosing the [facility] for your breast imaging needs. Multiple national specialty organizations have released breast cancer screening guidelines for women at average risk for developing breast cancer - guidelines that are based on both evidence and opinion, yet differ on when to start and how often to screen for breast cancer. With representation from Breast Imaging, Internal Medicine, Women's Health, Family Medicine, and Medical/Surgical Oncology, the [facility] has carefully reviewed the data and reached the following consensus: 1) All women should engage in shared decision-making with their providers to decide when to start and how often to screen; 2) All women should have the opportunity to start screening mammography at age 40; 3) For women ages 45-55, we recommend annual screening mammograms; 4) For women ages 55 and over, we support both the transition from an annual to a biennial interval if this aligns more with patient's values and preferences, or continuation with annual screening; 5) All women should discuss with their providers when to stop screening mammograms. Customer Relationship Specialist: Radha Transcribe Date/Time: Jul 04 2021 2:18P Dictated by: MAYA HIGGINBOTHAM MD This examination was interpreted and the report reviewed and electronically signed by: MAYA HIGGINBOTHAM MD on Jul 05 2021 9:00AM EST [id number] Normal [facility] ANES Yash 07-29-2017 ANES POST HNO ID: [id number] thor: Viola Del CidinService: AnesthesiologyAuthor Type: AnesthesiologistType: Anesthesia PostOpFiled: 07/29/2017 12:18 PMNote Text:POST ANESTHESIA EVALUATION NOTESERVICE DATE: 07/29/2017SERVICE TIME: 12:18 PMDOB: 1940Vitals: 07/29/1709Temp: 36.5 ?C (97.7 ?F) 36.6 ?C (97.9 ?F) 36.5 ?C (97.7 ?F) 07/29/1710BP: 170/74 174/88 178/85 181/79 07/29/1710Pulse: 60 60 60 64 07/29/1710Resp: 18 18 16 16 07/29/1710SpO2: 97% 97% 92% 95%Validated Vital Signs: YesPOST ANES STATUS: No apparent anesthetic complications. The patient isappropriately hydrated with stable respiratory and cardiovascular status.Patient has safe and adequate airway control. The patient has appropriatepain relief and no significant post operative nausea or vomiting. Thepatient has achieved baseline mental status.Further assessment by Anesthesia Service: NoneOther Remarks:SIGNATURE: Viola Restrepo MD PATIENT NAME: Norm GodinezheyDATE: July 29, 2017 : 12:18 PM PAGER/CONTACT #: [phone] [facility] ANES PREOPon 07-29-2017 ANES PREOP HNO ID: [id number] thor: Germán MoonService: AnesthesiologyAuthor Type: AnesthesiologistType: Anesthesia PreOpFiled: 07/29/2017 6:36 AMNote Text: ANESTHESIOLOGY DAY OF SURGERY NOTESERVICE DATE: 07/29/2017SERVICE TIME: 6:36 AMDOB: 1940Procedure(s) (LRB):LAPAROSCOPIC REPAIR HERNIA REDUCIBLE INCISIONAL W/MESH (N/A)Surgeon(s):Kindra T GuttmanEstimated body mass index is 32.43 kg/(m2) as calculated from thefollowing: Height as of this encounter: 161.3 cm (5' 3.5). Weight as of this encounter: 84.4 kg (186 lb).Most recent hematocrit and potassium results:Hematocrit 28.5 10/17/2016Potassium 4.1 10/27/2016ANES DOS/PREOP NOTE: Vitals: 07/29/848213RW: 197/93Pulse: 72Resp: 18Temp: 36.5 ?C (97.7 ?F)TempSrc: Temporal ArterySpO2: 97%Weight: 84.4 kg (186 lb)Height: 161.3 cm (5' 3.5)ACTIVE PROBLEM LISTDiverticulitisSevere Protein-Calorie Malnutrition (Hcc)Intra-Abdominal Abscess (Hcc)Pseudomonas Aeruginosa InfectionHyponatremiaAbdomi nal AdhesionsHypoalbuminemiaHyp oproteinemia (Hcc)Hernia, IncisionalPAST MEDICAL HISTORYDiagnosis Date- Diverticulitis large intestine- HypertensionPAST SURGICAL HISTORYProcedure Laterality Date- BREAST BIOPSY W/STEREOTACTIC GUIDANCE Left 07/27/2017 left stereotactic biopsy - intraductal hyperplasia without atypia, focalatypical lobular hyperplasia, fibroadenomatous changes withmicrocalcifications- CATARACT EXTRACTION HX Bilateral 2014- PAST SURGICAL HISTORY OF 10/08/2016 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.FAMILY HISTORYProblem Relation Age of Onset- Hypertension Mother- Stroke Mother- Prostate Cancer Father- DVT BrotherSocial History:Social HistorySubstance Use Topics- Smoking status: Former Smoker Packs/day: 0.20 Types: Cigarettes Start date: 05/01/1982 Quit date: 05/01/1987- Smokeless tobacco: Not on file- Alcohol use Yes Comment: rarelyNo current facility-administered medications on file prior to encounter.Current Outpatient Prescriptions on File Prior to Encounter:amLODIPine (NORVASC) 2.5 mg tabletmetoprolol succinate ER (TOPROL XL) 100 mg Tb24 Take 1 tablet by mouthonce daily.hydroCHLOROthiazide (HYDRODIURIL, ESIDRIX) 50 mg tablet Take 50 mg bymouth once daily.losartan (COZAAR) 100 mg tablet Take 100 mg by mouth once daily.MULTI-VITAMIN ORAL Take by mouth.LACTOBACILLUS ACIDOPHILUS (FLORAJEN ORAL) Take by mouth.ondansetron orally disintegrating (ZOFRAN ODT) 4 mg disintegrating tabletTake 1 tablet by mouth every 8 hours as needed for Nausea/Vomiting.potassium chloride ER (K-DUR, KLOR-CON) 20 mEq tablet Take 1 tablet bymouth once daily.Current Facility-Administered Medications:lactated ringers infusion 30 mL/hr INTRAVENOUS CONTINUOUS Kindra MOTTAuttmanclindamycin 600 mg in D5W 50 mL (CLEOCIN) 600 mg INTRAVENOUS Pre-Op OnceRichbairon PembertonanAllergies:ALLERGIESA llergen Reactions- Augmentin [Amoxicil* Unknown Patient could not remember her reaction to the medication and toleratedZosyn as of September 23, 2016DOS EXAM: Adequate NPO status: YesAnesthetic risks, benefits, alternatives, personnel and consent discussed:YesPatient agrees to proceed: YesPrevious Anesthesia: No history of adverse event.Airway Assessment: MP 2; Neck ROM: Full ROM without neurologic symptoms;Airway Evaluation: No significant abnormalitiesSymptoms of Sleep Apnea: NoneDentition: Teeth intactAdditional Physical Exam:Lungs: Patient health status unchanged since recent history and physical.See history and physical for exam findings.Cardiac: Patient health status unchanged since recent history andphysical. See history and physical for exam findings.Additional Pertinent Findings: N/ABlood Products: Not anticipated for this procedure.Anesthetic Plan: GenPain Management Plan: Parenteral or OralASA Class: 3Other Medical Problems:htnhyponatremiaChr onic Beta Griffin medication administered within 24 hours: N/AI have interviewed and examined the patient. I have reviewed the medicalrecord and/or the pre-anesthesia evaluation, pertinent labs, and testresults.Significant changes in the patient's condition since the History andPhysical, not otherwise documented in primary service progress notes: NoThis contains updated information obtained within 48 hours ofSurgery/Procedure.SIGNATU RE: Germán Moon MD PATIENT NAME: Norm GodinezheyDATE: July 29, 2017 : 6:36 AM CSN: [id number] [facility] BRIEF OP NOTon 07-29-2017 BRIEF OP NOT HNO ID: [id number] thor: Kindra PembertonanService: General SurgeryAuthor Type: PhysicianType: Brief Op NoteFiled: 07/29/2017 9:26 AMNote Text:BRIEF OPERATIVE NOTATION FOR SURGICAL PROCEDURE.Norm Workman [place] 1940 [id number] femaleLOG ID: [id number]/Procedure Date: 07/29/2017Incision/Procedur e Start Time: 8:04 AMIncision Close/Procedure End Time: 9:18 AMSurgeon(s)/Proceduralist( s) and Sack Repairer(s):Surgeon(s) and Role: * Kindra Campbell - PrimaryRegistered Nurse Construction Tech: Letty (Rn) IGNACIA GeeREFERRING PHYSICIAN:OutpatientDEPT: GUY PROVIDER: Barbara POS:[id number] A: GeneralASA CLASS: 3 - SevereDIAGNOSIS: incisional herniaPROCEDURE: laparoscopic incisional hernia repair - [id number]: 1200EBL: 10Specimens: hernia sacADDITIONAL DIAGNOSES:FINDINGS: 5-6cm -closed - 11x[address] meshCOMPLICATIONS: NonePMHx -PAST MEDICAL HISTORYDiagnosis Date- Diverticulitis large intestine- HypertensionCOMORBIDITIES - HTNPost Op Occurrences - NoneWound Classification - CleanOperative note dictated in the dictation system.- [id number] Campbell MD [facility] HISTORY PHYSICALon 7 HISTORY PHYSICAL HNO ID: [id number] thor: Kindra Carrollervice: General SurgeryAuthor Type: PhysicianType: HANDPFiled: 07/29/2017 6:51 AMNote Text:HISTORY AND PHYSICAL?Norm Porter1940??REFERRING PHYSICIAN: Benoit Hubbard MD?CHIEF COMPLAINT: Patient Update?HPI: I am following this patient with Dr. Campbell for incisional hernia.Norm is a 76 year old female with a complaint of a bulge ?anddiscomfort ?in her prior umbilical?incision. ?The patient notes discomfortin this area with lifting and moving. ?The symptoms have increased, overthe past few months.??The patient notes no symptoms of bowel obstruction and denies nausea orvomiting.The patient was seen by her?primary care physician ?who felt the patienthas a hernia. ?Norm was referred for evaluation and treatment.??The patient previously underwent a laparoscopic sigmoid resection/lowanterior anastomosis and takedown of colovesical fistula on October for complicated diverticulitis with a diverticular abscess andcolovesical fistula. ?This was performed laparoscopically but the patientdid have issues with a pre-surgical abscess requiring percutaneousdrainage and perioperative C. difficile colitis. ?She was felt to beprotein malnourished when she was referred and had a protractedpostoperative course with a prolonged postoperative ileus. ?She notes noissues of wound infection at either the umbilical or her Pfannenstiel siteincision postoperatively.??[facility].The patient denies any significant change to her overall health since herlast visit. Her medications and allergies are up to date as of thisvisit. The patient does mention that she recently had a callback foradditional mammogram views and was told she would need to be referred forbreast biopsy. She denies any palpable lumps or skin changes of eitherbreast.?? PAST?MEDICAL?HISTORYPAST MEDICAL HISTORYDiagnosis Date- Diverticulitis large intestine ?- Hypertension ??? PAST?SURGICAL?HISTORYPAST SURGICAL HISTORYProcedure Laterality Date- CATARACT EXTRACTION HX Bilateral 2014- PAST SURGICAL HISTORY OF ? 10/08/2016? 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.??? CURRENT?MEDICATIONS ?Current Outpatient Prescriptions:hydroCHLOROth iazide (HYDRODIURIL, ESIDRIX) 25 mg tablet ?amLODIPine (NORVASC) 2.5 mg tablet ?MULTI-VITAMIN ORAL Take by mouth.LACTOBACILLUS ACIDOPHILUS (PROBIOTIC ORAL) Take by mouth.vancomycin (VANCOCIN) 250 mg capsule Take 250 mg by mouth three timesdaily.LACTOBACILLUS ACIDOPHILUS (FLORAJEN ORAL) Take by mouth.vancomycin (VANCOCIN HCL) 250 mg capsule Take 1 capsule by mouth fourtimes daily.ondansetron orally disintegrating (ZOFRAN ODT) 4 mg disintegrating tabletTake 1 tablet by mouth every 8 hours as needed for Nausea/Vomiting.metoprolol succinate ER (TOPROL XL) 100 mg Tb24 Take 1 tablet by mouthonce daily.potassium chloride ER (K-DUR, KLOR-CON) 20 mEq tablet Take 1 tablet bymouth once daily.oxyCODONE IR (ROXICODONE) 5 mg immediate release tablet Take 1-2 tabletsby mouth every 4 hours as needed.hydroCHLOROthiazide (HYDRODIURIL, ESIDRIX) 50 mg tablet Take 50 mg bymouth once daily.losartan (COZAAR) 100 mg tablet Take 100 mg by mouth once daily.?No current facility-administered medications for this visit.?ALLERGIES: Augmentin [Amoxicillin-Pot Clavulanate]; Ciprofloxacin; Flagyl[Metronidazole]?PERSO NAL HISTORY: SOCIAL?HISTORY Social History Marital status: Spouse name: Years of education: Number of children:?Social History Main Topics Smoking status: Former Smoker Packs/day: 0.20 Years: 0.00 Types: Cigarettes Start date: 05/01/1982 Quit date: 05/01/1987 Alcohol use: Yes Comment: rarely Drug use: No?FAMILY HISTORY: FAMILY?HISTORYFAMILY HISTORYProblem Relation Age of Onset- Hypertension Mother ?- Stroke Mother ?- Prostate Cancer Father ?- DVT Brother ???REVIEW OF SYMPTOMS: The review of systems data was entered by the nurse and reviewed by me?Nursing Notes:Charito Guzman LPN 07/13/2017 10:59 AM SignedREVIEW OF SYSTEMS: General: The patient denies fatigue, denies weight loss, deniesweight gain, denies feeling hot, and denies feelings of cold. Eyes: The patient denies glaucoma, NOTES eye injury/surgery, doesnot wear glasses or contacts. Ear/Nose/Throat: The patient denies allergies, denies hayfever,denies ear infections, and denies bloody noses. Cardiovascular: The patient denies chest pain, denies heart disease,NOTES high blood pressure,denies cardiac stent, denies prior heart attack,denies irregular heart beat, denies high cholesterol, denies poorcirculation, denies heart failure, other cardiac issues, deniesclaudication, denies cold feet, denies peripheral arterial stent. Respiratory: The patient denies tuberculosis, denies pneumonia,denies frequent cough, denies pulmonary embolism, denies shortness ofbreath, and denies coughing up blood. Gastrointestinal: The patient denies difficulty swallowing, deniesacid reflux, denies ulcers, denies vomiting, denies jaundice/hepatitis,denies gallbladder problems, denies black or tarry stools, denieshemorrhoids, denies bleeding from rectum, NOTES diverticulitis, deniesconstipation, denies diarrhea, denies loss of stool control, and NOTEShernias. Kidney/Bladder: The patient denies kidney stones, denies urineinfections, and denies bloody urine. Skin: The patient denies a history of skin cancer, deniesbleeding/changing moles, and denies a history of skin rash. Neurologic: The patient denies a history of epilepsy/convulsions,denies headaches, denies head/spinal injuries, and denies stroke/TIA. Psychiatric: The patient denies psychiatric medications, deniesdepression, and denies voices, denies substance abuse. Endocrine: The patient denies thyroid disorders, denies diabetes,and denies hormonal problems. Hematologic: The patient denies a history of bruising, deniesbleeding, and denies anemia, denies blood clots. Infections: The patient denies a history of measles and mumps,denies rheumatic fever, and denies sexually transmitted diseases. Musculoskeletal: The patient denies back pain/injury, denies backproblems, denies sciatica, denies knee/foot trouble, denies arthritis, ordenies gout.??When was patient's last Mammogram screening? N/A? Last Colonoscopy: None?Charito Miranda PA-C???PHYSICAL EXAMINATION:?General: The patient is 76 year old female, well nourished, well hydratedin no acute distress. The patient is oriented to time, place, and person.?VITALS: Blood pressure 164/86, pulse 66, weight 84.4 kg (186 lb). Bodymass index is 32.43 kg/(m2).?HEENT: Normal cephalic, ataumatic, pupils are equally round, sclera areanicteric, mucous membranes are moist, oropharynx is clear. Neck has nomasses, asymmetry or lymphadenopathy.?Respirator y: Clear to auscultation and percussion. Normal respiratoryexcursion and pattern.?Cardiac: Examination is regular rate and rhythm.?Abdominal exam: Soft, nontender, with no palpable masses. Nohepatosplenomegaly. A moderate reducible incisional hernia is noted atthe umbilicus?Rectal exam: exam deferred?Extremities: no clubbing, cyanosis or edema. No adenopathy.?Other:??LABORAT ORY VALUES: As Noted?RADIOLOGIC STUDIES: As Noted?AssessmentIMPRESSION: prior umbilical incisional hernia. Left breastmicrocalcifications?P SEAN: Dr. aCmpbell will proceed with incisional hernia repair. Theplanned surgical procedure was discussed extensively with the patient.The risks, benefits, anticipated outcomes and possible complications werementioned. Norm singerands that all hernia repair surgery has a chanceof recurrence and/or chronic post operative pain. My staff has alsoexplained the procedure in understandable terms and the patient was giventhe option to take printed material concerning the planned procedure. Thepatient had the opportunity to ask questions concerning the plannedprocedure. The patient freely consents to the planned procedure.?The patient had also mentioned during course of visit that she hadsuspicious microcalcifications on recent mammogram and was told to makeappt to discuss biopsy. Dr. Campbell reviewed patient's mammograms andevaluated patient in office today. He plans to perform left stereotacticbreast biopsy, at a separate time than the hernia surgery. Consent: Theproposed procedure, risks, benefits, and alternatives were discussed withthe patient in detail. All the patient's questions were answered, and thepatient voiced understanding. The patient desires to proceed with biopsy.?Diagnoses: (K43.2) Incisional hernia, without obstruction or gangrene(primary encounter diagnosis)(R92.8) Abnormal mammogram of left breast?Anticipated Anesthetic: General?Patient weight: Blood pressure 164/86, pulse 66, weight 84.4 kg (186 lb). BMI: Body mass index is 32.43 kg/(m2).?Planned antibiotic: Ancef 2gm IVPB carbon brusher assembler to OR?SCDs needed - Yes??Return to Clinic: The patient is instructed to follow-up with me 1 weekpost operatively.? Gina Miranda PA-C [facility] NURSING PROGon 07-29-2017 NURSING PROG HNO ID: [id number] thor: Rocio HernandezRnAMBER Medinaervice: NursingAuthor Type: Registered NurseType: Nursing Progress NoteFiled: 07/29/2017 2:49 PMNote Text:[id number] Received from pacu C/o abd pain level 8 4 abd lap sites [id number]'s and tegaderm [id number] Fentanyl 50mcg iv Continuous pulse ox [id number] norco po one [id number] 02 sat 88 02 2l [id number] Pt [id number] Awakened for assessment States pain level 96737 Report to maile [id number] Assumed care of pt Pain level 5 Pt states right eye is sore andscratchy States her daughter got her some eye drops Artificial tears atbedside Sclera of right eye very slightly reddened Dr moonupdated and talked with [id number] Dr campbell updated on above and talked with [id number] Up to br Steady when up Voided States pain level 04108 toradol 30mg iv per order dr [id number] Pt states she's ready to go home Iv removedDischarge instructions reviewed with pt and [id number] Assisting pt to dress Pain level 4 to 5 Pt states right eyeslightly better Pt verbalizes understanding to follow up with dr kam eye discomfort does not improve with artificial [id number] Discharged by wheelchair Normal [facility] OPERATIVE NOon 07-29-2017 OPERATIVE NO HNO ID: [id number] thor: Kindra Carrollervice: General SurgeryAuthor Type: PhysicianType: Operative ReportFiled: 07/31/2017 5:24 PMNote Text:[facility]- Operative ReportNORM PORTER FDOB: 1940 AGE: 76 SEX: FMRN: [id number] ACCTNUM: [id number] SVC: GENS LOCATION: [address] PHYSICIAN: KINDRA BANKSTE OF PROCEDURE: 07/29/2017SURGEON: Kindra Campbell M.D.SHOTWELD OPERATOR: NONEANESTHESIA: General tracheal.PREOPERATIVE DIAGNOSIS(ES): Incisional hernia.POSTOPERATIVE DIAGNOSIS(ES): Incisional hernia with mesh 5 x 6 cmcircular defect.NAME OF OPERATION: Laparoscopic incisional hernia repair using a VentrioST 11 x 14 cm patch, reference number [id number], lot number [id number],expires 12/26/2018.INDICATIONS:CATHRYN MATED BLOOD LOSS: 10 cc.COMPLICATIONS: None.SPECIMENS: Hernia sac.DRAINS: None.START TIME: 8:04.END TIME: 9:18.ANESTHESIOLOGIST: Dr. Restrepo.ASA: 3.IV FLUIDS: 1200 cc.DISPOSITION: The patient taken to PACU in stable condition.PROCEDURE: The patient was brought back to the operative suite. Sign-was performed verifying the patient, site, procedure, position, criticalcondition, VTE, and antibiotic prophylaxis. The patient received 600 mgof clindamycin. We had sequential compression devices were placed.Following induction of general anesthetic, the patient was prepped anddraped in usual fashion. Time-out was performed verifying the patient,site, procedure, and position. Incision was made over the priorumbilical incisional hernia. Dissection was carried down and the herniasac was opened. A 10 mm Gina trocar was placed into the hernia sac andheld in place. Pneumoperitoneum was insufflated. Three 5 mm ports wereplaced in the left lateral position. Visual inspection revealed that isthe only defect. The hernia sac was then excised both through the skinincision and then laparoscopically circumferentially to give good fascialmargin. At this point, the defect measured 5 x 6 cm and an 11 x 14Ventrio patch was going to be placed. The 0 Surgipro hqttcb-fy-mrpzpgzpsano were placed through the fascial defect through the umbilicalincision in a fzdjhi-qo-vrfrc fashion to close the midline fascial defectbefore the sutures were secured. 0 Surgipro suture was placed just abovethe midpoint of the Ventrio mesh. This was placed intra-abdominally andbrought up with a granee needle through the fascial defect. The fascialsutures were secured and then the fascia securing the mesh was secured.The mesh also should be noted was oriented with the top and bottommarking. It was then placed along the abdominal wall and secured withReliaTack tackers at the outer rim, at the middle rim, and theninternally. Due to the fact the fascial defect was closed completely, nolateral retention sutures were placed with good position of the mesh.The 5 ports were removed. Pneumoperitoneum was released. Skin incisionswere closed with interrupted 4-0 Biosynsubcuticular suture. Steri-Strips dressings were applied. The patientbrought to the recovery room in stable condition.Kindra Campbell M.D.General SurgeryRG:[id number]: 07/29/2017 09:25:55T: 07/29/2017 20:13:54Job #: [id number] [facility] PT EDon 07-29-2017 PT ED HNO ID: [id number] thor: Rocio (Rn) Ana RNService: NursingAuthor Type: Registered NurseType: Patient EducationFiled: 07/29/2017 6:47 AMNote Text:PRE OP LEARNING ASSESSMENTPROCEDURE/SURGERY : umbilical hernia repair}READINESS TO LEARNCOGNITIVE ABILITY: Alert and orientedMOTIVATION TO LEARN: InterestedFAMILY SUPPORT: High - Very involved in pt carePATIENT LEARNS BEST BY: Verbal InstructionFACTORS AFFECTING LEARNING: NonePHYSICAL LIMITATIONS AFFECTING LEARNING: NoneElectronically Signed By: Rocio Perez RN In Department: [facility] SURGERY [facility] SURGICAL PATHOLOGYon 017 SURGICAL PATHOLOGY [facility]: [id number] Physician: KINDRA CAMPBELL MD FINAL DIAGNOSISAbdominal hernia, herniorrhaphy - Hernia sac.SERA/ARCADIO/gayle 07/30/2017Paul Carvajal M.D.(Electronic Signature) SPEC IMEN SUBMITTEDA: ABDOMINAL HERNIA SAC CLINICAL DATAHERNIA, INCISIONAL, LMP: PMPGROSS DESCRIPTIONA. Received in formalin labeled with the patient's name and abdominalhernia sac are multiple unoriented irregular, pink-morales, cauterized,rubbery fibromembranous tissue fragments, aggregating to 4.3 x 3.5 x 1.0cm. Sectioned to reveal stewart-morales, rubbery, glistening cut surfaces. Nodiscrete areas of induration are appreciated. Stained Glass Window Designer sections aresubmitted in cassette A1.ALFREDITO/ka 07/29/17Gross examination performed at [facility], [address] [place] [address] of Report: 07/31/2017Date of Procedure: 07/29/2017Date of Receipt: 07/29/2017Submitted by: KINDRA CAMPBELL MDLocation: MEORDiagnostic interpretation performed at [facility], [address] [place] [address]. [facility] Comment on above: Performed By: #### P ATHS ####[facility] [id number] [place], [place] [phone] NURSING PROGon 07-28-2017 NURSING PROG HNO ID: [id number] thor: Christine (Rn) Aliza, RNService: (none)Author Type: Registered NurseType: Nursing Progress NoteFiled: 07/28/2017 9:37 AMNote Text:PACC Nurse Progress NoteHistory AND Physical:PACC Visit Date:N/AOriginal HANDP Date: 07/13/17 by Clarissa Bryant Within Last 6 Months:N/AImaging Within Last 12 Months:N/ACardiac Testing:EKG in last 12 Months: Yes: Date: 10/2016, Comment: NSR, left axisdeviationLast Menstrual Period:LMP Date: N/APostmenopausal >1yr: Yes,S/P Hysterectomy: NoBMI 32.4Risk Assessment:N/AAnesthesia Review:N/ANarrative:N/APre- op Considerations:N/AChart Check:IN PROGRESS Needs pre op instructions.Christine Abrams RNNovember 2016 8:54 AM07/28/17 9:30 am Spoke with pt per phone and reviewed pre opinstructions. No food after 12mn,clear liquids( up to 12 oz) ok up to 2hrs prior to arrival. Ok to take metoprolol and norvasc am of or with sipof water. Shower pre op, no creams,lotions,powders dos. Loose clothing,no rings,jewelry, valubaes, contacts,piercings dos. Aware if get sick orunable to come in- notify surgeon. Aware time to be called today- if notcontacted by 3pm- given [place] # to call for time. Transportation post opper , per pt. Pt had issues with post op ileus after bowel surgeryin Oct. ,No anesthesia issues.Chart check complete IGNACIA Grissom [facility] HOSPon 05-18-2017 HOSP Patient:Roxanna Porter cca FMRN: Height:5' 3.5(1.613 m)Weight:186 lb (84.369 kg)Outpatient Medications as of 07/29/17:amLODIPine (NORVASC) 2.5 mg tabletMULTI-VITAMIN ORALLACTOBACILLUS ACIDOPHILUS (FLORAJEN ORAL)ondansetron orally disintegrating (ZOFRAN ODT) 4 mg disintegrating tabletmetoprolol succinate ER (TOPROL XL) 100 mg [id number] chloride ER (K-DUR, KLOR-CON) 20 mEq tablethydroCHLOROthiazide (HYDRODIURIL, ESIDRIX) 50 mg tabletlosartan (COZAAR) 100 mg tabletAdmission/Clinic Administered Medications as of 07/29/17:lactated ringers infusionclindamycin 600 mg in D5W 50 mL (CLEOCIN)Problem List:Diverticulitis [K57.92]Severe protein-calorie malnutrition (HCC) [E43]Intra-abdominal abscess (HCC) [K65.1]Pseudomonas aeruginosa infection [A49.8]Hyponatremia [E87.1]Abdominal adhesions [K66.0]Hypoalbuminemia [E88.09]Hypoproteinemia (HCC) [E77.8]Hernia, incisional [K43.2]Allergies:Augmentin [Amoxicillin-Pot Clavulanate]Date Verified: 07/29/17Lab ValuesNo results within the last 30 days for the following basenames: K,HCTProgress Notes ([facility]):Charito Guzman LPN 07/28/2017 7:54 AM SignedPlease contact patient for post OP breast biopsy with Dr. Campbell.KARY Tobar 07/28/2017 10:30 AM SignedPatient is scheduled for post op breast biopsy with Dr. Campbell on 07/31/17.Alma Escobar PSRProgress Notes ([facility]):Kindra Campbell MD 07/28/2017 6:47 PM SignedOPERATIVE NOTATION FOR [facility] SURGICAL PROCEDURE.July 27, 2017Rebobo Porter 1940 [id number] femalePROCEDURE: left VACCUUM NEEDLE STEREOTACTIC BREAST BIOPSY WITH SPECIMENRADIOGRAPH - [id number]: Di Campbell M.D. FACS SHOTWELD OPERATOR: NoneDEPT: WQ PROVIDER: [id number] Campbell MD POS:[id number] : (R92.8) Abnormal mammogram of left breast (primary encounterdiagnosis)ASA CLASS: 2 - mildFINDINGS: benignCOMPLICATIONS: NonePMHx -PAST MEDICAL HISTORYDiagnosis Date- Diverticulitis large intestine- HypertensionCOMORBIDITIES - HTNPost Op Occurrences - NoneWound Classification - CleanOperative note dictated in the [facility] dictation system.Kindra Campbell MD [facility] Culture, urine Bacteria identified Cx Nom (U) Citrobacter freundii [facility] Work Phone: Vital Signs Date Time Vital Sign Value Performing Clinician Faci loretta 11-25-2024 14:06-0400 Inhaled oxygen flow rate 2 L/min Dr. Quiana Healy DO Work Phone: [facility] 11-25-2024 13:58-0400 Body temperature 98 [degF] Dr. Quiana Healy DO Work Phone: [facility] 11-25-2024 13:58-0400 Diastolic blood pressure 65 mm[Hg] Dr. Quiana Healy DO Work Phone: [facility] 11-25-2024 13:58-0400 Heart rate 67 /min Dr. Quiana Healy DO Work Phone: [facility] 11-25-2024 13:58-0400 Respiratory rate 17 /min Dr. Quiana Healy DO Work Phone: [facility] 11-25-2024 13:58-0400 SaO2% (BldA) [Mass fraction] 98 % Dr. Quiana Healy DO Work Phone: [facility] 11-25-2024 13:58-0400 Systolic blood pressure 106 mm[Hg] Dr. Quiana Healy DO Work Phone: [facility] 11-25-2024 09:57-0400 Body height 160.[address] Quiana Healy DO Work Phone: [facility] 11-25-2024 09:57-0400 Body weight 80.[address] Quiana Healy DO Work Phone: [facility] 11-25-2024 06:00-0400 Body mass index (BMI) [Ratio] 31.5 kg/m2 Dr. Quiana Healy DO Work Phone: [facility] 11-25-2024 02:07-0400 Body temperature 97 [degF] Dr. Quiana Healy DO Work Phone: [facility] 11-25-2024 02:07-0400 Diastolic blood pressure 74 mm[Hg] Dr. Quiana Healy DO Work Phone: [facility] 11-25-2024 02:07-0400 Heart rate 65 /min Dr. Quiana Healy DO Work Phone: [facility] 11-25-2024 02:07-0400 Respiratory rate 15 /min Dr. Quiana Healy DO Work Phone: [facility] 11-25-2024 02:07-0400 SaO2% (BldA) [Mass fraction] 97 % Dr. Quiana Healy DO Work Phone: [facility] 11-25-2024 02:07-0400 Systolic blood pressure 170 mm[Hg] Dr. Quiana Healy DO Work Phone: [facility] 11-24-2024 22:06-0400 Body mass index (BMI) [Ratio] 28.3 kg/m2 Dr. Quiana Healy DO Work Phone: [facility] 11-24-2024 22:06-0400 Body weight 72.[address] Quiana Healy DO Work Phone: [facility] 11-24-2024 22:04-0400 Body height 160.[address] Quiana Healy DO Work Phone: [facility] 05-27-2023 09:56-0400 Diastolic blood pressure 90 mm[Hg] Dr. Quiana Healy Work Phone: [facility] 05-27-2023 09:56-0400 Heart rate 65 /min Dr. Quiana Healy Work Phone: [facility] 05-27-2023 09:56-0400 Respiratory rate 16 /min Dr. Quiana Healy Work Phone: [facility] 05-27-2023 09:56-0400 Systolic blood pressure 172 mm[Hg] Dr. Quiana Healy Work Phone: [facility] 04-28-2023 14:45-0400 Body height 160.[address] Quiana Healy Work Phone: [facility] 04-28-2023 14:45-0400 Body mass index (BMI) [Ratio] 31.3 kg/m2 Dr. Quiana Healy Work Phone: [facility] 04-28-2023 14:45-0400 Body weight 80.[address] Quiana Healy Work Phone: [facility] 04-28-2023 14:45-0400 Diastolic blood pressure 83 mm[Hg] Dr. Quiana Healy Work Phone: [facility] 04-28-2023 14:45-0400 Heart rate 57 /min Dr. Quiana Healy Work Phone: [facility] 04-28-2023 14:45-0400 Respiratory rate 18 /min Dr. Quiana Healy Work Phone: [facility] 04-28-2023 14:45-0400 SaO2% (BldA) [Mass fraction] 99 % Dr. Quiana Healy Work Phone: [facility] 04-28-2023 14:45-0400 Systolic blood pressure 165 mm[Hg] Dr. Quiana Healy Work Phone: [facility] 01-20-2023 08:35-0400 Body height 160.[address] Quiana Healy Work Phone: [facility] 01-20-2023 08:35-0400 Body mass index (BMI) [Ratio] 32.2 kg/m2 Dr. Quiana Healy Work Phone: [facility] 01-20-2023 08:35-0400 Body weight 82.[address] Quiana Healy Work Phone: [facility] 01-20-2023 08:35-0400 Diastolic blood pressure 79 mm[Hg] Dr. Quiana Healy Work Phone: [facility] 01-20-2023 08:35-0400 Heart rate 50 /min Dr. Quiana Healy Work Phone: [facility] 01-20-2023 08:35-0400 Respiratory rate 16 /min Dr. Quiana Healy Work Phone: [facility] 01-20-2023 08:35-0400 Systolic blood pressure 132 mm[Hg] Dr. Quiana Healy Work Phone: [facility] 12-11-2022 08:41-0400 Body mass index (BMI) [Ratio] 31.6 kg/m2 Dr. Quiana Healy Work Phone: [facility] 12-11-2022 08:41-0400 Body weight 81.[address] Quiana Healy Work Phone: [facility] 04-13-2023 08:41-0400 Diastolic blood pressure 64 mm[Hg] Dr. Quiana Healy Work Phone: [facility] 12-11-2022 08:41-0400 Heart rate 53 /min Dr. Quiana Healy Work Phone: [facility] 12-11-2022 08:41-0400 Respiratory rate 18 /min Dr. Quiana Healy Work Phone: [facility] 12-11-2022 08:41-0400 Systolic blood pressure 108 mm[Hg] Dr. Quiana Healy Work Phone: [facility] 06-10-2022 11:13-0400 Diastolic blood pressure 79 mm[Hg] Dr. Quiana Healy Work Phone: [facility] Work Phone: 06-10-2022 11:13-0400 Systolic blood pressure 150 mm[Hg] Dr. Quiana Healy Work Phone: [facility] Work Phone: 06-10-2022 09:19-0400 Body height 160.[address] Quiana Healy Work Phone: [facility] Work Phone: 06-10-2022 09:19-0400 Body mass index (BMI) [Ratio] 30.9 kg/m2 Dr. Quiana Healy Work Phone: [facility] Work Phone: 06-10-2022 09:19-0400 Body weight 79.[address] Quiana Healy Work Phone: [facility] Work Phone: 06-10-2022 09:19-0400 Heart rate 52 /min Dr. Quiana Healy Work Phone: [facility] Work Phone: 06-10-2022 09:19-0400 Respiratory rate 16 /min Dr. Quiana Healy Work Phone: [facility] Work Phone: 06-10-2022 09:19-0400 SaO2% (BldA) [Mass fraction] 97 % Dr. Quiana Healy Work Phone: [facility] Work Phone: 11-27-2021 09:54-0400 Body height 160.[address] Quiana Healy Work Phone: [facility] Work Phone: 11-27-2021 09:54-0400 Body mass index (BMI) [Ratio] 30.2 kg/m2 Dr. Quiana Healy Work Phone: [facility] Work Phone: 11-27-2021 09:54-0400 Body weight 77.[address] Quiana eHaly Work Phone: [facility] Work Phone: 11-27-2021 09:54-0400 Diastolic blood pressure 85 mm[Hg] Dr. Quiana Healy Work Phone: [facility] Work Phone: 11-27-2021 09:54-0400 Heart rate 58 /min Dr. Quiana Healy Work Phone: [facility] Work Phone: 11-27-2021 09:54-0400 Respiratory rate 16 /min Dr. Quiana Healy Work Phone: [facility] Work Phone: 11-27-2021 09:54-0400 SaO2% (BldA) [Mass fraction] 96 % Dr. Quiana Healy Work Phone: [facility] Work Phone: 11-27-2021 09:54-0400 Systolic blood pressure 175 mm[Hg] Dr. Quiana Healy Work Phone: [facility] Work Phone: 11-27-2021 09:54-0400 Body height 160.[address] Quiana Healy Work Phone: [facility] Work Phone: 11-27-2021 09:54-0400 Body mass index (BMI) [Ratio] 30.2 kg/m2 Dr. Quiana Healy Work Phone: [facility] Work Phone: 11-27-2021 09:54-0400 Body weight 77.[address] Quiana Healy Work Phone: [facility] Work Phone: 11-27-2021 09:54-0400 Diastolic blood pressure 85 mm[Hg] Dr. Quiana Healy Work Phone: [facility] Work Phone: 11-27-2021 09:54-0400 Heart rate 58 /min Dr. Quiana Healy Work Phone: [facility] Work Phone: 11-27-2021 09:54-0400 Respiratory rate 16 /min Dr. Quiana Healy Work Phone: [facility] Work Phone: 11-27-2021 09:54-0400 SaO2% (BldA) [Mass fraction] 96 % Dr. Quiana Healy Work Phone: [facility] Work Phone: 11-27-2021 09:54-0400 Systolic blood pressure 175 mm[Hg] Dr. Quiana Heayl Work Phone: [facility] Work Phone: 11-17-2021 14:35-0400 Body temperature 98.1 [degF] Dr. Quiana Healy Work Phone: [facility] Work Phone: 11-17-2021 14:35-0400 Diastolic blood pressure 68 mm[Hg] Dr. Quiana Healy Work Phone: [facility] Work Phone: 11-17-2021 14:35-0400 Heart rate 65 /min Dr. Quiana Healy Work Phone: [facility] Work Phone: 11-17-2021 14:35-0400 Respiratory rate 18 /min Dr. Quiana Healy Work Phone: [facility] Work Phone: 11-17-2021 14:35-0400 SaO2% (BldA) [Mass fraction] 97 % Dr. Quiana Healy Work Phone: [facility] Work Phone: 11-17-2021 14:35-0400 Systolic blood pressure 141 mm[Hg] Dr. Quiana Healy Work Phone: [facility] Work Phone: 11-17-2021 04:37-0400 Body weight 78.[address] Quiana Healy Work Phone: [facility] Work Phone: 11-15-2021 20:41-0400 Body mass index (BMI) [Ratio] 30 kg/m2 Dr. Quiana Healy Work Phone: [facility] Work Phone: 11-12-2021 20:16-0400 Diastolic blood pressure 64 mm[Hg] Dr. Quiana Healy Work Phone: [facility] Work Phone: 11-12-2021 20:16-0400 Heart rate 71 /min Dr. Quiana Healy Work Phone: [facility] Work Phone: 11-12-2021 20:16-0400 Respiratory rate 16 /min Dr. Quiana Healy Work Phone: [facility] Work Phone: 11-12-2021 20:16-0400 SaO2% (BldA) [Mass fraction] 97 % Dr. Quiana Healy Work Phone: [facility] Work Phone: 11-12-2021 20:16-0400 Systolic blood pressure 146 mm[Hg] Dr. Quiana Healy Work Phone: [facility] Work Phone: 11-12-2021 15:17-0400 Body mass index (BMI) [Ratio] 30.1 kg/m2 Dr. Quiana Healy Work Phone: [facility] Work Phone: 11-12-2021 15:17-0400 Body temperature 96.1 [degF] Dr. Quiana Healy Work Phone: [facility] Work Phone: 11-12-2021 15:17-0400 Body weight 77.[address] Quiana Healy Work Phone: [facility] Work Phone: 11-06-2021 14:05-0500 Body temperature 98.4 [degF] Dr. Quiana Healy Work Phone: [facility] Work Phone: 11-06-2021 14:05-0500 Diastolic blood pressure 61 mm[Hg] Dr. Quiana Healy Work Phone: [facility] Work Phone: 11-06-2021 14:05-0500 Heart rate 62 /min Dr. Quiana Healy Work Phone: [facility] Work Phone: 11-06-2021 14:05-0500 Respiratory rate 16 /min Dr. Quiana Healy Work Phone: [facility] Work Phone: 11-06-2021 14:05-0500 SaO2% (BldA) [Mass fraction] 96 % Dr. Quiana Healy Work Phone: [facility] Work Phone: 11-06-2021 14:05-0500 Systolic blood pressure 159 mm[Hg] Dr. Quiana Healy Work Phone: [facility] Work Phone: 11-06-2021 13:05-0500 Body temperature 98.4 [degF] Dr. Quiana Healy Work Phone: [facility] Work Phone: 11-06-2021 13:05-0500 Diastolic blood pressure 61 mm[Hg] Dr. Quiana Healy Work Phone: [facility] Work Phone: 11-06-2021 13:05-0500 Heart rate 62 /min Dr. Quiana Healy Work Phone: [facility] Work Phone: 11-06-2021 13:05-0500 Respiratory rate 16 /min Dr. Quiana Healy Work Phone: [facility] Work Phone: 11-06-2021 13:05-0500 SaO2% (BldA) [Mass fraction] 96 % Dr. Quiana Healy Work Phone: [facility] Work Phone: 11-06-2021 13:05-0500 Systolic blood pressure 159 mm[Hg] Dr. Quiana Healy Work Phone: [facility] Work Phone: 11-05-2021 15:38-0500 Body mass index (BMI) [Ratio] 30.4 kg/m2 Dr. Quiana Healy Work Phone: [facility] Work Phone: 11-05-2021 15:38-0500 Body weight 78.[address] Quiana Healy Work Phone: [facility] Work Phone: 11-05-2021 14:38-0500 Body mass index (BMI) [Ratio] 30.4 kg/m2 Dr. Quiana Healy Work Phone: [facility] Work Phone: 11-05-2021 14:38-0500 Body weight 78.[address] Quiana Healy Work Phone: [facility] Work Phone: 10-29-2021 09:18-0500 Diastolic blood pressure 77 mm[Hg] Dr. Quiana Healy Work Phone: [facility] Work Phone: 10-29-2021 09:18-0500 Heart rate 51 /min Dr. Quiana Healy Work Phone: [facility] Work Phone: 10-29-2021 09:18-0500 Respiratory rate 13 /min Dr. Quiana Healy Work Phone: [facility] Work Phone: 10-29-2021 09:18-0500 SaO2% (BldA) [Mass fraction] 97 % Dr. Quiana Healy Work Phone: [facility] Work Phone: 10-29-2021 09:18-0500 Systolic blood pressure 189 mm[Hg] Dr. Quiana Healy Work Phone: [facility] Work Phone: 10-29-2021 07:01-0500 Body mass index (BMI) [Ratio] 31.3 kg/m2 Dr. Quiana Healy Work Phone: [facility] Work Phone: 10-29-2021 07:01-0500 Body temperature 96.5 [degF] Dr. Quiana Healy Work Phone: [facility] Work Phone: 10-29-2021 07:01-0500 Body weight 80.[address] Quiana Healy Work Phone: [facility] Work Phone: 10-26-2021 18:22-0500 Diastolic blood pressure 74 mm[Hg] Dr. Quiana Healy Work Phone: [facility] Work Phone: 10-26-2021 18:22-0500 Systolic blood pressure 172 mm[Hg] Dr. Quiana Healy Work Phone: [facility] Work Phone: 10-26-2021 18:17-0500 Heart rate 58 /min Dr. Quiana Healy Work Phone: [facility] Work Phone: 10-26-2021 18:17-0500 Respiratory rate 16 /min Dr. Quiana Healy Work Phone: [facility] Work Phone: 10-26-2021 18:17-0500 SaO2% (BldA) [Mass fraction] 97 % Dr. Quiana Healy Work Phone: [facility] Work Phone: 10-26-2021 13:50-0500 Body mass index (BMI) [Ratio] 31.3 kg/m2 Dr. Quiana Healy Work Phone: [facility] Work Phone: 10-26-2021 13:50-0500 Body temperature 97.1 [degF] Dr. Quiana Healy Work Phone: [facility] Work Phone: 10-26-2021 13:50-0500 Body weight 80.[address] Quiana Healy Work Phone: [facility] Work Phone: 10-25-2021 06:45-0500 Diastolic blood pressure 56 mm[Hg] Dr. Quiana Healy Work Phone: [facility] Work Phone: 10-25-2021 06:45-0500 Heart rate 54 /min Dr. Quiana Healy Work Phone: [facility] Work Phone: 10-25-2021 06:45-0500 Respiratory rate 14 /min Dr. Quiana Healy Work Phone: [facility] Work Phone: 10-25-2021 06:45-0500 SaO2% (BldA) [Mass fraction] 94 % Dr. Quiana Healy Work Phone: [facility] Work Phone: 10-25-2021 06:45-0500 Systolic blood pressure 142 mm[Hg] Dr. Quiana Healy Work Phone: [facility] Work Phone: 10-25-2021 04:02-0500 Body mass index (BMI) [Ratio] 31.8 kg/m2 Dr. Quiana Healy Work Phone: [facility] Work Phone: 10-25-2021 04:02-0500 Body temperature 98.1 [degF] Dr. Quiana Healy Work Phone: [facility] Work Phone: 10-25-2021 04:02-0500 Body weight 81.[address] Quiana Healy Work Phone: [facility] Work Phone: Encounters Encounter Date Encounter Type Care Provider Facility Start: 02-07-2025 End: 02-07-[address] Quiana Healy DO Work Phone: [facility] Work Phone: Start: 02-07-2025 End: 02-07-[address] Quiana [facility] Work Phone: Start: 02-07-2025 End: 02-07-2025 [facility] Start: 01-03-2025 End: 01-03-[address] Quiana Healy DO Work Phone: [facility] Work Phone: Start: 01-03-2025 End: 01-03-[address] Quiana [facility], [facility] Work Phone: Start: 01-02-2025 End: 01-03-[address] Quiana Healy DO Work Phone: [facility] Work Phone: Start: 01-02-2025 End: 01-02-[address] Quiana Healy DO -Laboratory, [place] Work Phone: Start: 01-02-2025 End: 01-02-2025 ambulatory Quiana Healy Facility:[facility] Start: 12-05-2024 End: 12-05-[address] Quiana Healy DO Work Phone: [facility] Work Phone: Start: 12-05-2024 End: 12-05-[address] Quiana Healy DO -Laboratory, [facility] Start: 12-05-2024 End: 12-05-2024 ambulatory Quiana Healy Facility:[facility] Start: 11-25-2024 [facility] Start: 11-25-2024 End: 11-25-2024 Evaluation and management of inpatient Dr. Sacha Kay DO -[facility] Work Phone: Start: 11-24-2024 End: 11-24-[address] Quiana Healy DO Work Phone: [facility] Work Phone: Start: 11-24-2024 End: 11-24-[address] Quiana Healy DO -Laboratory, Nadine Maier [facility] Start: 11-23-2024 End: 11-24-[address] Quiana Healy DO Work Phone: [facility] Work Phone: Start: 11-23-2024 End: 11-23-[address] Quiana Healy DO -Laboratory, Spec[facility] Work Phone: Start: 11-23-2024 End: 11-23-2024 [facility] Start: 11-21-2024 End: 11-21-[address] Quiana Healy DO Work Phone: [facility] Work Phone: Start: 11-21-2024 End: 11-21-[address] Quiana Healy DO -Laboratory, Nadine Maier [facility] Start: 11-21-2024 End: 11-21-2024 [facility] Start: 06-20-2024 End: 06-20-2024 [facility] Start: 05-12-2024 [facility] Start: 05-10-2024 End: 05-10-2024 [facility] Start: 03-23-2024 End: 03-23-2024 ambulatory Alyson HOGUE Facility:[facility] Start: 02-26-2024 ambulatory Fransico Dimas Facility :[facility] Start: 12-23-2023 End: 12-23-[address] Quiana Healy Work Phone: [facility] Work Phone: Start: 12-23-2023 End: 12-23-[address] Quiana Healy Work Phone: [facility]Nadine Mack JAIME Start: 12-08-2023 Non-patient / Non-visit Dr. Randa Healy Work Phone: [facility] Work Phone: Start: 07-08-2023 End: 07-08-[address] Quiana Healy Work Phone: [facility] Work Phone: Start: 07-08-2023 End: 07-08-[address] Quiana Healy Work Phone: [facility] Services/Neurology Work Phone: Start: 07-02-2023 End: 07-02-[address] [facility] Start: 05-27-2023 End: 05-27-[address] Quiana Healy Work Phone: [facility] Work Phone: Start: 04-28-2023 End: 04-28-[address] Quiana Healy Work Phone: [facility] Work Phone: Start: 02-19-2023 End: 02-19-[address] Qiuana Healy Work Phone: [facility] Work Phone: Start: 02-19-2023 End: 02-19-[address] Quiana Healy Work Phone: [facility] Start: 01-20-2023 End: 01-20-[address] Quiana Healy Work Phone: [facility] Start: 12-11-2022 End: 12-11-[address] Quiana Healy Work Phone: [facility] Start: 06-23-2022 End: 06-23-[address] Quiana Healy Work Phone: [facility] Work Phone: Start: 06-23-2022 End: 06-23-[address] Quiana Healy Work Phone: [facility]Cardiovascular Services Start: 06-10-2022 End: 06-10-[address] Quiana Healy Work Phone: [facility] Start: 04-21-2022 End: 04-21-2022 ambulatory [facility] Work Phone: Start: 04-21-2022 End: 04-21-2022 Patient encounter procedure [facility], [facility] Start: 04-16-2022 End: 04-16-2022 Patient encounter procedure [facility], [facility] Start: 04-08-2022 End: 04-08-2022 [facility] [place] Start: 03-12-2022 End: 03-12-[address] Quiana Healy [facility] Start: 02-28-2022 End: 02-28-[address] Quiana Healy [facility] Start: 12-24-2021 End: 12-24-[address] Qu[facility] Start: 11-27-2021 End: 11-27-[address] Quiana Healy Work Phone: [facility] Start: 11-26-2021 End: 11-26-[address] Quiana Healy Work Phone: [facility]Laboratory Start: 11-22-2021 Non-patient / Non-visit Dr. Randa Healy Work Phone: [facility] Start: 2021 End: [address] Quiana Healy Work Phone: [facility]Laboratory, Phy Office 3rd Flr Start: 11-17-2021 Non-patient / Non-visit Dr. Randa Healy Work Phone: [facility] [facility] Start: 11-16-2021 Non-patient / Non-visit Dr. Randa Healy Work Phone: [facility] Start: 11-15-2021 Non-patient / Non-visit Dr. Randa Healy Work Phone: [facility] Start: 11-15-2021 End: 11-17-2021 Evaluation and management of inpatient Dr. Quiana Healy Work Phone: [facility] Start: 11-12-2021 End: 11-12-2021 Emergency department patient visit Dr. Quiana Healy Work Phone: [facility] Start: 11-08-2021 Non-patient / Non-visit Dr. Randa Healy Work Phone: [facility] Start: 11-08-2021 End: 11-08-[address] Quiana Healy Work Phone: [facility] Start: 11-06-2021 Non-patient / Non-visit Dr. Randa Healy Work Phone: [facility] Start: 11-06-2021 Non-patient / Non-visit Dr. Randa Healy Work Phone: [facility] Start: 11-05-2021 End: 11-06-2021 Evaluation and management of inpatient Dr. Quiana Healy Work Phone: [facility] Start: 10-29-2021 End: 10-29-2021 Emergency department [facility] Qu[facility] Start: 10-26-2021 End: 10-26-2021 Emergency department patient [facility] Quiana Healy [facility] Start: 10-25-2021 End: 10-25-2021 Emergency department patient visit Dr. Quiana Healy [facility] Start: 07-29-2017 End: 07-29-2017 Ambulatory [facility] Procedures Date Procedure Procedure Detail Performing Clinician Start: 02-07-[address] Quiana Healy DO Work Phone: Start: 01-03-[address] Quiana Healy DO Work Phone: Start: 01-02-2025 Serum inorganic phos phate measurement Dr. Quiana Healy DO Work Phone: Start: 12-05-[address] Quiana Healy DO Work Phone: Start: 11-25-[address] Quiana Healy DO Work Phone: Start: 11-25-2024 Serum inorganic phos phate measurement Dr. Quiana Healy DO Work Phone: Start: 11-25-2024 Urnls dip stick/tabl et reagent auto microscopy Dr. Quiana Healy DO Work Phone: Start: 11-25-2024 CT of thorax, abdome n and pelvis with contrast Dr. Quiana Healy DO Work Phone: Start: 11-24-2024 X-ray of chest, PA a nd lateral views Dr. Quiana Healy DO Work Phone: Start: 11-24-2024 Osmolality measureme nt, serum Dr. Quiana Healy DO Work Phone: Start: 11-23-2024 Urnls dip stick/tabl et reagent auto microscopy Dr. Quiana Healy DO Work Phone: Start: 11-23-[address] Quiana Healy DO Work Phone: Start: 07-02-[address] Quiana Healy Work Phone: Start: 04-21-2022 US urinary tract Start: 11-05-2021 Plain chest X-ray Dr. Veronika Healy Work Phone: Start: 11-05-2021 CT of head without contrast Dr. Quiana Healy Work Phone: Start: 10-25-2021 Plain chest X-ray Dr. Veronika Healy Work Phone: Urine culture Dr. Quiana Healy Work Phone: Urine culture Dr. Quiana Healy Work Phone: Plan of Treatment Date Care Activity Detail Author Start: 01-03-2025 Bacteria identified in Urine by Culture Urine Culture [facility] Start: 01-03-2025 [facility] Start: 11-25-2024 [facility] Start: 11-25-2024 Patient discharge [facility] Start: 11-25-2024 End: 11-25-2024 Following clinical pathway protocol [facility] Start: 11-25-2024 Application of inter mittent pneumatic compression device [facility] Start: 11-25-2024 Assessment of risk o f venous thromboembolism [facility] Start: 11-25-2024 Incentive spirometry [facility] Start: 11-25-2024 Insertion of cathete r into peripheral vein [facility] Start: 11-25-2024 Measuring intake and output [facility] Start: 11-25-2024 Oxygen therapy [facility] Start: 11-25-2024 Providing care accor ding to standard [facility] Start: 11-25-2024 Provision of activit y privileges [facility] Start: 11-25-2024 Referral to service [facility] Start: 11-25-2024 Seizure precautions [facility] Start: 11-25-2024 [facility] Start: 11-25-2024 Thyroid stimulating hormone measurement [facility] Start: 11-25-2024 Verification routine [facility] Start: 11-25-2024 Admission procedure [facility] Start: 11-25-2024 CT Abdomen and Pelvi s W contrast IV [facility] Start: 11-25-2024 CT of thorax, abdome n and pelvis with contrast CT Chest, Abd, Pel w/Contrast [facility] Start: 11-25-2024 Hospital admission, emergency, from emergency room, medical nature [facility] Start: 11-25-2024 Patient referral to dietitian [facility] Start: 11-24-2024 End: 11-24-2024 [facility] Start: 11-23-2024 Bacteria identified in Urine by Culture Urine Culture [facility] Start: 11-23-2024 [facility] Start: 04-21-2022 US Kidney - bilatera l and Urinary bladder [facility] Work Phone: Start: 04-21-2022 US urinary tract Kidney and Bladder [facility] Work Phone: Start: 11-17-2021 Patient discharge [facility] Work Phone: Start: 11-15-2021 Assessment of risk o f venous thromboembolism [facility] Work Phone: Start: 11-15-2021 Insertion of cathete r into peripheral vein [facility] Work Phone: Start: 11-15-2021 Measuring intake and output [facility] Work Phone: Start: 11-15-2021 End: 11-15-2021 Patient referral to dietitian [facility] Work Phone: Start: 11-15-2021 Providing care accor ding to standard [facility] Work Phone: Start: 11-15-2021 Vital signs measurements [facility] Work Phone: Start: 11-15-2021 [facility] Work Phone: Start: 11-15-2021 Following clinical p athway protocol [facility] Work Phone: Start: 11-15-2021 Admission procedure [facility] Work Phone: Start: 11-06-2021 Patient discharge [facility] Work Phone: Start: 11-05-2021 Referral to kettle cook [facility] Work Phone: Start: 11-05-2021 Assessment of risk o f venous thromboembolism [facility] Work Phone: Start: 11-05-2021 Insertion of cathete r into peripheral vein [facility] Work Phone: Start: 11-05-2021 Measuring intake and output [facility] Work Phone: Start: 11-05-2021 Providing care accor ding to standard [facility] Work Phone: Start: 11-05-2021 Provision of activit y privileges [facility] Work Phone: Start: 11-05-2021 Referral to occupati onal therapist [facility] Work Phone: Start: 11-05-2021 Referral to service [facility] Work Phone: Start: 11-05-2021 [facility] Work Phone: Start: 11-05-2021 Following clinical p athway protocol [facility] Work Phone: Start: 11-05-2021 End: 11-05-2021 Admission procedure [facility] Work Phone: Start: 11-05-2021 Patient referral to dietitian [facility] Work Phone: Bilirubin measurement, urine [facility] Folate [Moles/volume ] in Serum or Plasma [facility] Hemoglobin [Presence ] in Urine [facility] Hemoglobin A1c/Hemoglobin.total in Blood [facility] Magnesium measurement [facility] Measurement of keton es in urine using dipstick [facility] Microscopic urinalysis [facility] Patient Education [facility] Work Phone: Patient referral [facility] Work Phone: pH of Urine [facility] Specific gravity of Urine [facility] Thyroid stimulating hormone measurement [facility] Urine blood test [facility] Urine culture [facility] Urine dipstick for glucose [facility] Urine dipstick for l eukocyte esterase [facility] Urine dipstick for nitrite [facility] Urine dipstick for protein [facility] Urine examination [facility] Urine microscopy: ep ithelial cells [facility] Urine Microscopy: wh ite cells [facility] Urobilinogen [Presen ce] in Urine [facility] Payers Date Payer Category Payer Self-pay [id number] 2014 Unknown [id number] Unknown [id number] 2.16.8 [id number] Unknown [id number] 2.16.8 [id number] Unknown [id number] 2.16.8 [id number] Unknown [id number] 2.16.8 [id number] Unknown [id number] 2.16.8 [id number] Unknown [id number] 2.16.8 [id number] Unknown [id number] 2.16.8 [id number] Unknown [id number] 2.16.8 [id number] Unknown [id number] 2.16.8 [id number] Unknown [id number] 2.16.8 [id number] Unknown [id number] 2.16.8 [id number] Unknown [id number] 2.16.8 [id number] Unknown [id number] 2.16.8 [id number] Unknown [id number] 2.16.8 [id number] Social History Date Type Detail Facility Start: 11-27-2021 End: 08-12-2023 Tobacco smoking status CAIS Unknown if ever smoked [facility] Start: 1940 Sex Assigned At Female [facility] Start: 11-24-2024 End: 11-25-2024 Tobacco smoking status NHIS Ex-smoker (finding) [facility] Start: 11-25-2024 End: 12-08-2024 Sex Female (finding) [facility] Goals Date Patient Goal Desired Activity /State Functional Status Date Assessment Result Facility 11-25-2024 Functional status Ambulates [facility] Work Phone: 11-17-2021 Functional status Chair [facility] Work Phone: 11-17-2021 Functional status Assistive Devices None [facility] Work Phone: 11-06-2021 Functional status Ambulates [facility] Work Phone: Mental Status Date Assessment Result Facility 11-25-2024 Cognitive function Voice/Name [facility] Work Phone: 11-24-2024 Cognitive function Level Of Cons ciousness Awake;Alert;Appropriate;Follow s Commands [facility] Work Phone: 11-17-2021 Cognitive function Voice/Name [facility] Work Phone: 11-12-2021 Cognitive function Level Of Cons ciousness Awake;Alert;Appropriate [facility] Work Phone: 11-06-2021 Cognitive function Voice/Name [facility] Work Phone: 10-29-2021 Cognitive function Level Of Cons ciousness Awake;Alert;Appropriate;Follow s Commands [facility] Work Phone: 10-26-2021 Cognitive function Level Of Cons ciousness Awake;Alert;Appropriate;Follow s Commands [facility] Work Phone: 10-25-2021 Cognitive function Voice/Name [facility] Work Phone: Clinical Notes 07-04-2021 to 11-25-2024 Note Date & Type Note Facility 11-25-2024 Discharge summary Note Date/Time November 25, 2024 11:43am [facility] Medical Records Department [address] [place] [id number] Discharge Summary 11/25/24 1138 MR#: [id number] Acct: [id number] Name: NORM PORTER Rep #:[id number] : 1940 84 From: Juan Sanchez DO PCP: Dr. Quiana Healy DO Status:ADM [facility] Prov[facility] Date of Admission: 11/25/24 Primary Care Physician: Dr. Quiana Healy DO Consultations 11/25/24 03:27 Consult: Nephrology Routine Consulting Provider: Latosha Bee Reason for Consult: Hyponatremia. 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 improved with NS CT C/A/P: showed no masses, but bladder distention and mild bilateral hydroureteronephrosis. TSH WNL. Check cortisol. Advised fluid restriction 1.5 liters/day and liberal salt intake. Plan HTN: continue amlodipine, carvedilol, isosorbide, losartan VTE prophylaxis: LMWH Medications at Discharge Home Medications vibegron 75 mg tablet (Gemtesa) 75 mg PO DAILY 04/28/23 Lactobacillus acidophilus-Bifidobac.animalis 2.5 billion cell capsule (Daily Probiotic) 1 cap PO DAILY 03/23/24 carvedilol 6.25 mg tablet 6.25 mg PO BID 03/23/24 d-mannose 500 mg capsule 500 mg PO BID 03/23/24 isosorbide mononitrate 30 mg tablet,extended release 24 hr 15 mg PO QDAY 03/23/24 losartan 50 mg tablet 50 mg PO BID bp #180 tabs 05/16/24 amlodipine 2.5 mg tablet 2.5 mg PO DAILY #90 tabs 11/15/24 Hospital Course Operations None Procedures None Summary of Care Provided Minutes Spent on Discharge: 32 Weight / BMI Weight Weight: 80.7 kg Body Mass Index (BMI) 31.5 ABG / Lab / Microbiology Data 11/25/24 07:07 11/25/24 07:07 Laboratory: Laboratory Results - last 24 hr 11/24/24 22:14: WBC 11.6 H, RBC 5.17, Hgb 14.7, Hct 40.9, MCV 79.1 L, MCH 28.4, MCHC 35.9, RDW Std Deviation 36.9, RDW Coeff of Milena 13.0, Plt Count 354, MPV 8.4, Immature Gran % (Auto) 0.300, Neut % (Auto) 64.2, Lymph % (Auto) 24.9, Power% (Auto) 8.7, Eos % (Auto) 1.5, Baso % (Auto) 0.4, Absolute Neuts (auto) 7.4, Absolute Lymphs (auto) 2.88, Nucleated RBC % 0, Sodium 121 L, Potassium 3.9, Chloride 88 L, Carbon Dioxide 19.9 L, Anion Gap 14, BUN 9, Creatinine 0.67 L, Estim Creat Clear Calc 48.23 L, Est GFR (MDRD) Non-Af 85, BUN/Creatinine Ratio 13.2, Glucose 124 H, Hemoglobin A1c 5.9, Calcium 9.2, Magnesium 2.0, NT pro BNP II 173, TSH 3.550 11/25/24 03:15: Urine Color Straw, Urine Clarity Clear, Urine pH 7.0, Ur Specific [place] 1.010, Urine Protein Negative, Urine Glucose (UA) Normal, UrineKetones 5 H, Urine Occult Blood 10 H, Urine Nitrite Negative, Urine Bilirubin Negative, Urine Urobilinogen Normal, Ur Leukocyte Esterase 25 H, Urine RBC 0-5 SEEN, Urine WBC 0-5 SEEN, Ur Squamous Epith Cells 0 SEEN, Urine Bacteria RARE, Urine Mucus 0 SEEN 11/25/24 07:07: WBC 10.1, RBC 5.00, Hgb 14.3, Hct 39.0, MCV 78.0 L, MCH 28.6, MCHC 36.7 H, RDW Std Deviation 37.2, RDW Coeff of Milena 13.1, Plt Count 311, MPV 8.1, Immature Gran % (Auto) 0.400, Neut % (Auto) 64.6, Lymph % (Auto) 22.6, Power% (Auto) 10.9 H, Eos % (Auto) 1.1, Baso % (Auto) 0.4, Absolute Neuts (auto) 6.6,Absolute Lymphs (auto) 2.29, Nucleated RBC % 0, Sodium 128 L, Potassium 3.4, Chloride 94 L, Carbon Dioxide 23.8, Anion Gap 10, BUN 7, Creatinine 0.67 L, EstimCreat Clear Calc 50.78, Est GFR (MDRD) Non-Af 85, BUN/Creatinine Ratio 10.0, Glucose 139 H, Calcium 8.8, Phosphorus 2.7, Total Bilirubin 0.38, AST 18, ALT 21,Alkaline Phosphatase 68, Total Protein 6.3, Albumin 4.1, Globulin 2.2, Albumin/Globulin Ratio 1.8, Triglycerides 38, Cholesterol 158, LDL Cholesterol, Calc 77, VLDL Cholesterol 8, HDL Cholesterol 73, Cholesterol/HDL Ratio 2.15, Vitamin B12 1895 H, Serum Folate 8.68, Cortisol AM Sample 14.30 Radiography Diagnostic Testing: Radiology Impression Chest X-Ray 11/24/24 22:45 IMPRESSION: NO ACUTE FINDINGS. Reading Location: [facility] Chest/Abdomen/Pelvis CT 11/25/24 02:28 IMPRESSION: No evidence of acute process within the chest. The bladder appears mildly distended without evidence of wall thickening or surrounding inflammatory change. Associated mild bilateral hydroureteronephrosis. Symmetric appearing nephrogramswithout perinephric stranding, edema. No evidence of urothelial thickening. What appears to be a possible bladder diverticulum at the left dome of the bladder measuring 3 x 2 x 2.4 cm axial 70, coronal 50 and sagittal 100 with appearance of possible small areas of wall punctate calcification. No free fluid seen. Reading Location: [id number] D/C Instructions Discharge Diet: No restrictions DC O2, CPAP, BIPAP Needs Home O2 Discharge instructions: No Meaningful Use Info Meaningful Use Meaningful Use Diagnoses (Choose all that apply): None applicable Ischemic Stroke Statin Dosing Therapy Reference: STATIN DOSE THERAPY REFERENCE: * Patients > 75 years receive moderate or high dose statin therapy. * Patients 75 years or YOUNGER should receive HIGH intensity statin dose unless contraindicated. You will be required to document reason for non-treatment if statin daily dose does not meet guidelines. HIGH DOSE STATIN THERAPY DAILY Atorvastatin > than or = to 40 mg Rosuvastatin > than or = to 20 mg Amlodipine + Atorvastatin > than or = to 2.5/40 mg Ezetimibe + Simvastatin 10/80 mg Simvastatin 80mg Discharge Plan Admission Admit Date/Time: 11/25/24 02:46 Primary Reason for Your Visit: hyponatremia Attending Provider: Juan Sanchez Primary Care Provider: Quiana Healy Consulting Providers: Sacha Kay; Latosha Bee Instructions Patient Instructions: Hyponatremia Dc Additional Instructions / Restrictions: Your sodium level was low. Likely due to excessive fluid intake. It is recommended to limit your total fluid intake to 1.5 liters/day and adding more salt to your food. Please follow up with you primary care doctor for follow up labs next week. Discharge Orders/Prescriptions Prescriptions: Continued d-mannose 500 mg capsule 500 mg PO BID Gemtesa 75 mg tablet 75 mg PO DAILY carvedilol 6.25 mg tablet 6.25 mg PO BID Rx Instructions: must administer with a meal/food isosorbide mononitrate 30 mg tablet extended release 24 hr 15 mg PO QDAY Daily Probiotic 2.5 billion cell capsule 1 cap PO DAILY losartan 50 mg tablet 50 mg PO BID Qty: 180 3RF amlodipine 2.5 mg tablet 2.5 mg PO DAILY Qty: 90 3RF Referrals / Follow Up: Quiana Healy DO [Primary Care Provider] - Disposition Disposition (needs filled in before D/C Order can be placed): Home, Self Care Charges/Coding Visit Charges Inpatient E&M: 98116 Disch Hosp >30min 11/25/24 1143 <Electronically signed by Juan Sanchez DO> Cosigner Signature (if applicable): CC: Dr. Juan Sanchez DO; Dr. Quiana Healy DO~ Signed [facility] Work Phone: 1(582) 603-928403-28-2025 Progress note Author Juan Sanchez [facility] Note Date/Time November 25, 2024 11: 38am [facility] Medical Records Department [address] [place] [address] Progress Note - Hospitalist 11/25/24 0717 MR#: [id number] Acct: [id number] Name: NORM PORTER Rep #:[id number] : 1940 84 From: Juan Sanchez DO PCP: Dr. Quiana Healy DO Status:ADM IN Location: [place] [address] Reason for Visit Reason for Visit: Diagnoses Elevated white blood cell count, unspecified (11/25/24) Hypo-osmolality and hyponatremia (11/25/24) Other fluid overload (11/25/24) Essential (primary) hypertension (11/25/24) Nausea (11/25/24) Weakness (11/25/24) Subjective Subjective No new issues. Objective Data Objective Data Vital Signs: Vital Signs Temp Pulse Resp BP Pulse Ox O2 Del Method 36.6 C 74 18 164/91 H 98 Room Air 11/25/24 04:07 11/25/24 04:07 11/25/24 04:07 11/25/24 04:07 11/25/24 04:07 11/25/24 04:22 Oxygen Delivery Method Room Air Weight: 80.7 kg Body Mass Index (BMI) 31.5 Intake & Output: Intake and Output for Last 24 Hours 11/23/24 11/24/24 11/25/24 23:59 23:59 23:59 Intake Total 1240 / 1240 Output Total 550 / 550 Balance 690 / 690 Lab / Micro Data 11/25/24 07:07 11/25/24 07:07 Labs: Laboratory Results - last 24 hr 11/24/24 22:14: WBC 11.6 H, RBC 5.17, Hgb 14.7, Hct 40.9, MCV 79.1 L, MCH 28.4, MCHC 35.9, RDW Std Deviation 36.9, RDW Coeff of Milena 13.0, Plt Count 354, MPV 8.4, Immature Gran % (Auto) 0.300, Neut % (Auto) 64.2, Lymph % (Auto) 24.9, Power% (Auto) 8.7, Eos % (Auto) 1.5, Baso % (Auto) 0.4, Absolute Neuts (auto) 7.4, Absolute Lymphs (auto) 2.88, Nucleated RBC % 0, Sodium 121 L, Potassium 3.9, Chloride 88 L, Carbon Dioxide 19.9 L, Anion Gap 14, BUN 9, Creatinine 0.67 L, Estim Creat Clear Calc 48.23 L, Est GFR (MDRD) Non-Af 85, BUN/Creatinine Ratio 13.2, Glucose 124 H, Hemoglobin A1c 5.9, Calcium 9.2, Magnesium 2.0, NT pro BNP II 173, TSH 3.550 11/25/24 03:15: Urine Color Straw, Urine Clarity Clear, Urine pH 7.0, Ur Specific [place] 1.010, Urine Protein Negative, Urine Glucose (UA) Normal, UrineKetones 5 H, Urine Occult Blood 10 H, Urine Nitrite Negative, Urine Bilirubin Negative, Urine Urobilinogen Normal, Ur Leukocyte Esterase 25 H, Urine RBC 0-5 SEEN, Urine WBC 0-5 SEEN, Ur Squamous Epith Cells 0 SEEN, Urine Bacteria RARE, Urine Mucus 0 SEEN Radiography Diagnostic Testing: Radiology Impression Chest X-Ray 11/24/24 22:45 IMPRESSION: NO ACUTE FINDINGS. Reading Location: [id number] Chest/Abdomen/Pelvis CT 11/25/24 02:28 IMPRESSION: No evidence of acute process within the chest. The bladder appears mildly distended without evidence of wall thickening or surrounding inflammatory change. Associated mild bilateral hydroureteronephrosis. Symmetric appearing nephrogramswithout perinephric stranding, edema. No evidence of urothelial thickening. What appears to be a possible bladder diverticulum at the left dome of the bladder measuring 3 x 2 x 2.4 cm axial 70, coronal 50 and sagittal 100 with appearance of possible small areas of wall punctate calcification. No free fluid seen. Reading Location: [facility] Physical Exam Const Constitutional Narrative: up in bed non-toxic. afebrile. Psych affect normal Assessment & Plan Assessment/Plan (1) Acute hyponatremia: PLAN: 2/2 polydipsia + SIADH. improved with NS CT C/A/P: showed no masses, but bladder distention and mild bilateral hydroureteronephrosis. TSH WNL. Check cortisol. Advised fluid restriction 1.5 liters/day and liberal salt intake. PLAN: Plan HTN: continue amlodipine, carvedilol, isosorbide, losartan VTE prophylaxis: LMWH 11/25/24 1138 <Electronically signed by Juan Sanchez DO> Cosigner Signature (if applicable): CC: ~ Signed [facility] Work Phone: 1(296) 798-116403-28-2025 Discharge summary [facility] Medical Records Department [address] [place] [address] Discharge Summary 11/25/24 1138 MR#: [id number] Acct: [id number] Name: NORM PORTER Rep #:[id number] : 1940 84 From: Juan Sanchez DO PCP: Dr. Quiana Healy DO Status:ADM IN Location: [place] [address]- Providers Date of Admission: 11/25/24 Primary Care Physician: Dr. Quiana Healy DO Consultations 11/25/24 03:27 Consult: Nephrology Routine Consulting Provider: Latosha Bee Reason for Consult: Hyponatremia. 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 improved with NS CT C/A/P: showed no masses, but bladder distention and mild bilateral hydroureteronephrosis. TSH WNL. Check cortisol. Advised fluid restriction 1.5 liters/day and liberal salt intake. Plan HTN: continue amlodipine, carvedilol, isosorbide, losartan VTE prophylaxis: LMWH Medications at Discharge Home Medications vibegron 75 mg tablet (Gemtesa) 75 mg PO DAILY 04/28/23 Lactobacillus acidophilus-Bifidobac.animalis 2.5 billion cell capsule (Daily Probiotic) 1 cap PO DAILY 03/23/24 carvedilol 6.25 mg tablet 6.25 mg PO BID 03/23/24 d-mannose 500 mg capsule 500 mg PO BID 03/23/24 isosorbide mononitrate 30 mg tablet,extended release 24 hr 15 mg PO QDAY 03/23/24 losartan 50 mg tablet 50 mg PO BID bp #180 tabs 05/16/24 amlodipine 2.5 mg tablet 2.5 mg PO DAILY #90 tabs 11/15/24 Hospital Course Operations None Procedures None Summary of Care Provided Minutes Spent on Discharge: 32 Weight / BMI Weight Weight: 80.7 kg Body Mass Index (BMI) 31.5 ABG / Lab / Microbiology Data 11/25/24 07:07 11/25/24 07:07 Laboratory: Laboratory Results - last 24 hr 11/24/24 22:14: WBC 11.6 H, RBC 5.17, Hgb 14.7, Hct 40.9, MCV 79.1 L, MCH 28.4, MCHC 35.9, RDW Std Deviation 36.9, RDW Coeff of Milena 13.0, Plt Count 354, MPV 8.4, Immature Gran % (Auto) 0.300, Neut % (Auto) 64.2, Lymph % (Auto) 24.9, Power% (Auto) 8.7, Eos % (Auto) 1.5, Baso % (Auto) 0.4, Absolute Neuts (auto) 7.4, Absolute Lymphs (auto) 2.88, Nucleated RBC % 0, Sodium 121 L, Potassium 3.9, Chloride 88 L, Carbon Dioxide 19.9 L, Anion Gap 14, BUN 9, Creatinine 0.67 L, Estim Creat Clear Calc 48.23 L, Est GFR (MDRD) Non-Af 85, BUN/Creatinine Ratio 13.2, Glucose 124 H, Hemoglobin A1c 5.9, Calcium 9.2, Magnesium 2.0, NT pro BNP II 173, TSH 3.550 11/25/24 03:15: Urine Color Straw, Urine Clarity Clear, Urine pH 7.0, Ur Specific [place] 1.010, Urine Protein Negative, Urine Glucose (UA) Normal, UrineKetones 5 H, Urine Occult Blood 10 H, Urine Nitrite Negative, Urine Bilirubin Negative, Urine Urobilinogen Normal, Ur Leukocyte Esterase 25 H, Urine RBC 0-5 SEEN, Urine WBC 0-5 SEEN, Ur Squamous Epith Cells 0 SEEN, Urine Bacteria RARE, Urine Mucus 0 SEEN 11/25/24 07:07: WBC 10.1, RBC 5.00, Hgb 14.3, Hct 39.0, MCV 78.0 L, MCH 28.6, MCHC 36.7 H, RDW Std Deviation 37.2, RDW Coeff of Milena 13.1, Plt Count 311, MPV 8.1, Immature Gran % (Auto) 0.400, Neut % (Auto) 64.6, Lymph % (Auto) 22.6, Power% (Auto) 10.9 H, Eos % (Auto) 1.1, Baso % (Auto) 0.4, AbsoluteNeuts (auto) 6.6,Absolute Lymphs (auto) 2.29, Nucleated RBC % 0, Sodium 128 L, Potassium 3.4, Chloride 94 L, Carbon Dioxide 23.8, Anion Gap 10, BUN 7, Creatinine 0.67 L, EstimCreat Clear Calc 50.78, Est GFR (MDRD) Non-Af 85, BUN/Creatinine Ratio 10.0, Glucose 139 H, Calcium 8.8, Phosphorus 2.7, Total Bilirubin 0.38, AST 18, ALT 21,Alkaline Phosphatase 68, Total Protein 6.3, Albumin 4.1, Globulin 2.2, Albumin/Globulin Ratio 1.8, Triglycerides 38, Cholesterol 158, LDL Cholesterol, Calc 77, VLDL Cholesterol 8, HDL Cholesterol 73, Cholesterol/HDL Ratio 2.15, Vitamin B12 1895 H, Serum Folate 8.68,Cortisol AM Sample 14.30 Radiography Diagnostic Testing: Radiology Impression Chest X-Ray 11/24/24 22:45 IMPRESSION: NO ACUTE FINDINGS. Reading Location: [facility] Chest/Abdomen/Pelvis CT 11/25/24 02:28 IMPRESSION: No evidence of acute process within the chest. The bladder appears mildly distended without evidence of wall thickening or surrounding inflammatory change. Associated mild bilateral hydroureteronephrosis. Symmetric appearing nephrogramswithout perinephricstranding, edema. No evidence of urothelial thickening. What appears to be a possible bladder diverticulum at the left dome of the bladder measuring 3 x 2 x 2.4 cm axial 70, coronal 50 and sagittal 100 with appearance of possible small areas of wall punctate calcification. No free fluid seen. Reading Location: [facility] D/C Instructions Discharge Diet: No restrictions DC O2, CPAP, BIPAP Needs Home O2 Discharge instructions: No Meaningful Use Info Meaningful Use Meaningful Use Diagnoses (Choose all that apply): None applicable Ischemic Stroke Statin Dosing Therapy Reference: STATIN DOSE THERAPY REFERENCE: * Patients > 75 years receive moderate or high dose statin therapy. * Patients 75 years or YOUNGER should receive HIGH intensity statin dose unless contraindicated. You will be required to document reason for non-treatment if statin daily dose does not meet guidelines. HIGH DOSE STATIN THERAPY DAILY Atorvastatin > than or = to 40 mg Rosuvastatin > than or = to 20 mg Amlodipine + Atorvastatin > than or = to 2.5/40 mg Ezetimibe + Simvastatin 10/80 mg Simvastatin 80mg Discharge Plan Admission Admit Date/Time: 11/25/24 02:46 Primary Reason for Your Visit: hyponatremia Attending Provider: Juan Sanchez Primary Care Provider: Quiana Healy Consulting Providers: Sacha Kay; Latosha Bee Instructions Patient Instructions: Hyponatremia Dc Additional Instructions / Restrictions: Your sodium level was low. Likely due to excessive fluid intake. It is recommended to limit your total fluid intake to 1.5 liters/day and adding more salt to your food. Please follow up with you primary care doctor for follow up labs next week. Discharge Orders/Prescriptions Prescriptions: Continued d-mannose 500 mg capsule 500 mg PO BID Gemtesa 75 mg tablet 75 mg PO DAILY carvedilol 6.25 mg tablet 6.25 mg PO BID Rx Instructions: must administer with a meal/food isosorbide mononitrate 30 mg tablet extended release 24 hr 15 mg PO QDAY Daily Probiotic 2.5 billion cell capsule 1 cap PO DAILY losartan 50 mg tablet 50 mg PO BID Qty: 180 3RF amlodipine 2.5 mg tablet 2.5 mg PO DAILY Qty: 90 3RF Referrals / Follow Up: Quiana Healy DO [Primary Care Provider] - Disposition Disposition (needs filled in before D/C Order can be placed): Home, Self Care Charges/Coding Visit Charges Inpatient E&M: 18467 Disch Hosp >30min 11/25/24 1143 Cosigner Signature (if applicable): CC: Dr. Juan Sanchez DO; Dr. Quiana Healy DO~ Signed [facility]03-28-2025 [facility] Medical Records Department [address] [place] [address] Discharge Summary 11/25/24 1138 MR#: [id number] Acct: [id number] Name: NORM PORTER Rep #: [id number] : 1940 84 From: Juan Sanchez DO PCP: Dr. Quiana Healy DO Status:ADM IN Location: [place] [address] Providers Date of Admission: 11/25/24 Primary Care Physician: Dr. Quiana Healy DO Consultations 11/25/24 03:27 Consult: Nephrology Routine Consulting Provider: Latosha Bee Reason for Consult: Hyponatremia. 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 improved with NS CT C/A/P: showed no masses, but bladder distention and mild bilateral hydroureteronephrosis. TSH WNL. Check cortisol. Advised fluid restriction 1.5 liters/day and liberal salt intake. Plan HTN: continue amlodipine, carvedilol, isosorbide, losartan VTE prophylaxis: LMWH Medications at Discharge Home Medications vibegron 75 mg tablet (Gemtesa) 75 mg PO DAILY 04/28/23 Lactobacillus acidophilus-Bifidobac.animalis 2.5 billion cell capsule (Daily Probiotic) 1 cap PO DAILY 03/23/24 carvedilol 6.25 mg tablet 6.25 mg PO BID 03/23/24 d-mannose 500 mg capsule 500 mg PO BID 03/23/24 isosorbide mononitrate 30 mg tablet,extended release 24 hr 15 mg PO QDAY 03/23/24 losartan 50 mg tablet 50 mg PO BID bp #180 tabs 05/16/24 amlodipine 2.5 mg tablet 2.5 mg PO DAILY #90 tabs 11/15/24 Hospital Course Operations None Procedures None Summary of Care Provided Minutes Spent on Discharge: 32 Weight / BMI Weight Weight: 80.7 kg Body Mass Index (BMI) 31.5 ABG / Lab / Microbiology Data 11/25/24 07:07 11/25/24 07:07 Laboratory: Laboratory Results - last 24 hr 11/24/24 22:14: WBC 11.6 H, RBC 5.17, Hgb 14.7, Hct 40.9, MCV 79.1 L, MCH 28.4, MCHC 35.9, RDW Std Deviation 36.9, RDW Coeff of Milena 13.0, Plt Count 354, MPV 8.4, Immature Gran % (Auto) 0.300, Neut % (Auto) 64.2, Lymph % (Auto) 24.9, Power % (Auto) 8.7, Eos % (Auto) 1.5, Baso % (Auto) 0.4, Absolute Neuts (auto) 7.4, Absolute Lymphs (auto) 2.88, Nucleated RBC % 0, Sodium 121 L, Potassium 3.9, C hloride 88 L, Carbon Dioxide 19.9 L, Anion Gap 14, BUN 9, Creatinine 0.67 L, Estim Creat Clear Calc 48.23 L, Est GFR (MDRD) Non-Af 85, BUN/Creatinine Ratio 13.2, Glucose 124 H, Hemoglobin A1c 5.9, Calcium 9.2, Magnesium 2.0, NT pro BNP II 173, TSH 3.550 11/25/24 03:15: Urine Color Straw, Urine Clarity Clear, Urine pH 7.0, Ur Specific [place] 1.010, Urine Protein Negative, Urine Glucose (UA) Normal, Urine Ketones 5 H, Urine Occult Blood 10 H, Urine Nitrite Negative, Urine Bilirubin Negative, Urine Urobilinogen Normal, Ur Leukocyte Esterase 25 H, Urine RBC 0-5 SEEN, Urine WBC 0-5 SEEN, Ur Squamous Epith Cells 0 SEEN, Urine Bacteria RARE, Urine Mucus 0 SEEN 11/25/24 07:07: WBC 10.1, RBC 5.00, Hgb 14.3, Hct 39.0, MCV 78.0 L, MCH 28.6, MCHC 36.7 H, RDW Std Deviation 37.2, RDW Coeff of Milena 13.1, Plt Count 311, MPV 8.1, Immature Gran % (Auto) 0.400, Neut % (Auto) 64.6, Lymph % (Auto) 22.6, Power % (Auto) 10.9 H, Eos % (Auto) 1.1, Baso % (Auto) 0.4, Absolute Neuts (auto) 6.6, Absolute Lymphs (auto) 2.29, Nucleated RBC % 0, Sodium 128 L, Potassium 3.4, Chloride 94 L, Carbon Dioxide 23.8, Anion Gap 10, BUN 7, Creatinine 0.67 L, Estim Creat Clear Calc 50.78, Est GFR (MDRD) Non-Af 85, BUN/Creatinine Ratio 10.0, Glucose 139 H, Calcium 8.8, Phosphorus 2.7, Total Bilirubin 0.38, AST 18, ALT 21, Alkaline Phosphatase 68, Total Protein 6.3, Albumin 4.1, Globulin 2.2, Albumin/Globulin Ratio 1.8, Triglycerides 38, Cholesterol 158, LDL Cholesterol, Calc 77, VLDL Cholesterol 8, HDL Cholesterol 73, Cholesterol/HDL Ratio 2.15, Vitamin B12 1895 H, Serum Folate 8.68, Cortisol AM Sample 14.30 Radiography Diagnostic Testing: Radiology Impression Chest X-Ray 11/24/24 22:45 IMPRESSION: NO ACUTE FINDINGS. Reading Location: [facility] Chest/Abdomen/Pelvis CT 11/25/24 02:28 IMPRESSION: No evidence of acute process within the chest. The bladder appears mildly distended without evidence of wall thickening or surrounding inflammatory change. Associated mild bilateral hydroureteronephrosis. Symmetric appearing nephrograms without perinephric stranding, edema. No evidence of urothelial thickening. What appears to be a possible bladder diverticulum at the left dome of the bladder measuring 3 x 2 x 2.4 cm axial 70, coronal 50 and sagittal 100 with appearance of possible small areas of wall punctate calcification. No free fluid s (more content not included)...[facility]24 Progress note [facility] Medical Records Department [address] [place] [address] Progress Note - Hospitalist 11/25/24 0717 MR#: [id number] Acct: [id number] Name: NORM PORTER Rep #:[id number] : 1940 84 From: Juan Sanchez DO PCP: Dr. Quiana Healy DO Status:ADM IN Location: [place] [address] Reason for Visit Reason for Visit: Diagnoses Elevated white blood cell count, unspecified (11/25/24) Hypo-osmolality and hyponatremia (11/25/24) Other fluid overload (11/25/24) Essential (primary) hypertension (11/25/24) Nausea (11/25/24) Weakness (11/25/24) Subjective Subjective No new issues. Objective Data Objective Data Vital Signs: Vital Signs Temp Pulse Resp BP Pulse Ox O2 Del Method 36.6 C 74 18 164/91 H 98 Room Air 11/25/24 04:07 11/25/24 04:07 11/25/24 04:07 11/25/24 04:07 11/25/24 04:07 11/25/24 04:22 Oxygen Delivery Method Room Air Weight: 80.7 kg Body Mass Index (BMI) 31.5 Intake & Output: Intake and Output for Last 24 Hours 11/23/24 11/24/24 11/25/24 23:59 23:59 23:59 Intake Total 1240 / 1240 Output Total 550 / 550 Balance 690 / 690 Lab / Micro Data 11/25/24 07:07 11/25/24 07:07 Labs: Laboratory Results - last 24 hr 11/24/24 22:14: WBC 11.6 H, RBC 5.17, Hgb 14.7, Hct 40.9, MCV 79.1 L, MCH 28.4, MCHC 35.9, RDW Std Deviation 36.9, RDW Coeff of Milena 13.0, Plt Count 354, MPV 8.4, Immature Gran % (Auto) 0.300, Neut % (Auto) 64.2, Lymph % (Auto) 24.9, Power% (Auto) 8.7, Eos % (Auto) 1.5, Baso % (Auto) 0.4, Absolute Neuts (auto) 7.4, Absolute Lymphs (auto) 2.88, Nucleated RBC % 0, Sodium 121 L, Potassium 3.9, Chloride 88 L, Carbon Dioxide 19.9 L, Anion Gap 14, BUN 9, Creatinine 0.67 L, Estim Creat Clear Calc 48.23 L, Est GFR (MDRD) Non-Af 85, BUN/Creatinine Ratio 13.2, Glucose 124 H, Hemoglobin A1c 5.9, Calcium 9.2, Magnesium 2.0, NT pro BNP II 173, TSH 3.550 11/25/24 03:15: Urine Color Straw, Urine Clarity Clear, Urine pH 7.0, Ur Specific [place] 1.010, Urine Protein Negative, Urine Glucose (UA) Normal, UrineKetones 5 H, Urine Occult Blood 10 H, Urine Nitrite Negative, Urine Bilirubin Negative, Urine Urobilinogen Normal, Ur Leukocyte Esterase 25 H, Urine RBC 0-5 SEEN, Urine WBC 0-5 SEEN, Ur Squamous Epith Cells 0 SEEN, Urine Bacteria RARE, Urine Mucus 0 SEEN Radiography Diagnostic Testing: Radiology Impression Chest X-Ray 11/24/24 22:45 IMPRESSION: NO ACUTE FINDINGS. Reading Location: [facility] Chest/Abdomen/Pelvis CT 11/25/24 02:28 IMPRESSION: No evidence of acute process within the chest. The bladder appears mildly distended without evidence of wall thickening or surrounding inflammatory change. Associated mild bilateral hydroureteronephrosis. Symmetric appearing nephrogramswithout perinephricstranding, edema. No evidence of urothelial thickening. What appears to be a possible bladder diverticulum at the left dome of the bladder measuring 3 x 2 x 2.4 cm axial 70, coronal 50 and sagittal 100 with appearance of possible small areas of wall punctate calcification. No free fluid seen. Reading Location: [facility] Physical Exam Const Constitutional Narrative: up in bed non-toxic. afebrile. Psych affect normal Assessment & Plan Assessment/Plan (1) Acute hyponatremia: PLAN: 2/2 polydipsia + SIADH. improved with NS CT C/A/P: showed no masses, but bladder distention and mild bilateral hydroureteronephrosis. TSH WNL. Check cortisol. Advised fluid restriction 1.5 liters/day and liberal salt intake. PLAN: Plan HTN: continue amlodipine, carvedilol, isosorbide, losartan VTE prophylaxis: LMWH 11/25/24 1138 Cosigner Signature (if applicable): CC: ~ Signed [facility]03-28-2025 History and physical note Author Sacha Kennedy [facility] Note Date/Time November 25, 2024 6:4 1am [facility] Medical Records Department [address] [place] [address] H&P Exam - Hospitalist 11/25/24 0229 MR#: [id number] Acct: [id number] Name: NORM PORTER Rep #:[id number] : 1940 84 From: Sacha Pascal DO PCP: Dr. Quiana Healy, DO Status:ADM IN Location: [place] [address] HPI - General General Date of Admission: 11/25/24 Date of Service: 11/25/24 Chief Complaint: Low Sodium on Outpatient Labs. HPI Narrative NORM PORTER, is a 84 F with a past medical history of essential hypertension; on carvedilol, losartan and amlodipine, history of goiter, overweight; with BMI of 28.4 this admission, CARLA; on CPAP, former tobacco abuse,history of nonrheumatic mitral valve prolapse, history of venous insufficiency of RLE, history of colonic diverticulosis; with subsequent colon surgery to drain a diverticular abscess, history of umbilical hernia, history of abnormal mammogram of the Left breast, history of myringotomy (2018), history of cataractsurgery, OAB; on vibegron, history of anxiety and OA who presents to [facility] ER complaining of a Critical Hyponatremia of 118 mmol/L incidentally noted on outpatient labs. Ms. Porter reports her symptoms began approximately 3-4 days prior to admissionwhen she began to feel unwell so she went to her PCP and when her labs were checked she was noted to have a low sodium of 120 mmol/L. Her symptoms persisted and when she followed up with him yesterday her sodium had dropped to 118 mmol/L so she was instructed to come in to the hospital for further evaluation and treatment. She admits to associated nausea and generalized weakness along with uncontrolled hypertension in the ~200 mmHg systolic. A review of her records shows transient low sodiums but only down to 125 mmol/L inMar2021 before rebounding to 133 mmol/L - 140 mmol/L as of December 23, 2023. She admits to routine free-water intake of ~64 oz. daily. She denies alcohol use, drug use or recent tobacco abuse. There was no report of fever, chills, nausea, vomiting, headache, seizures, paresthesias, visual changes, SOB, cough, chest pain or rash. In the ER she was diagnosed with Severe Hyponatremia of 121mmol/L present on admission likely due to Water Intoxication with mild Leukocytosis of 11.6K present on admission complicated by Uncontrolled Hypertension of 170/104 mmHg noted shortly after admission and she was then admitted to the PCU for ongoing care for a stay that is expected to be greater than 2 midnights. PFSH Medical History Obesity Venous insufficiency of right lower extremity Nonrheumatic mitral (valve) prolapse Abnormal mammogram of left breast Obstructive sleep apnea Goiter Umbilical hernia Essential hypertension Anxiety Diverticula of colon Arthritis Former smoker Home Medications ?Medication ?Instructions ?Recorded ?Last Taken ?Type vibegron 75 mg tablet (Gemtesa) 75 mg PO DAILY 3 Unknown History Lactobacillus 1 cap PO DAILY 03/23/24 Unkn own History acidophilus-Bifidobac.animalis 2.5 billion cell capsule (Daily Probiotic) carvedilol 6.25 mg tablet 6.25 mg PO BID 03/23/24 Unkn own History d-mannose 500 mg capsule 500 mg PO BID 03/23/24 Unkno wn History isosorbide mononitrate 30 mg 15 mg PO QDAY 03/23/24 Un known History tablet,extended release 24 hr losartan 50 mg tablet 50 mg PO BID bp #180 tabs Unknown Rx amlodipine 2.5 mg tablet 2.5 mg PO DAILY #90 tabs Unknown Rx Allergy/AdvReac Type Severity Reaction Status Date / Time amoxicillin (From Augmentin) Allergy Intermediate Mild rash Verified 11/24/24 22:04 clavulanic acid (From Allergy Intermediate Mild rash Verified 11/24/24 22:04 Augmentin) benazepril HCl (From Allergy Other Verified 11/24/24 22:04 Lotensin) betamethasone (From Allergy NEEDS Verified 11/24/24 22:04 Diprolene) FOLLOW-UP felodipine Allergy Other Verified 11/24/24 22:04 fexofenadine HCl (From Allergy Other Verified 11/24/24 22:04 Uyen) ramipril (From Altace) Allergy Other Verified 11/24/24 22:04 tolterodine tartrate (From Allergy Other Verified 11/24/24 22:04 Detrol) verapamil HCl (From Allergy Other Verified 11/24/24 22:04 Covera-HS) lisinopril AdvReac Intermediate cough Verified 11/24/24 22:04 Family History Mother CVA (cerebral vascular accident) Hypertension History of DVT (deep vein thrombosis) Brother History of DVT (deep vein thrombosis) Other Aortic aneurysm Surgical History H/O myringotomy (05/18/19) History of colon surgery Hx of cataract surgery Social History household members: spouse Smoking Status: Former smoker alcohol intake: current alcohol intake frequency: other substance use type: does not use ROS ROS Narrative Review of Systems: Constitutional: Patient denies fever or chills. Eyes: Patient denies changes in vision or discharge from eyes. ENT: Patient denies runny nose, sore throat or ear pain. Resp: Patient denies SOB or cough. CV: Patient denies chest pain, palpitations, heart racing or LE edema. GI: Patient admits to nausea but she denies vomiting, diarrhea or constipation. : Patient denies dysuria or hematuria. MSK: Patient admits to generalized weakness but she denies arthralgias or myalgias. Skin: Patient denies rash, abscess, wounds or jaundice. Psych: Patient denies symptoms of uncontrolled depression or anxiety. Neuro: Patient denies headache, paresthesias or focal neurologic deficits. Allergy: Patient denies lip swelling, tongue swelling or urticaria. Hematology: Patient denies east bleeding or easy bruisability. Endocrinology: Patient denies polyuria, polydipsia or polyphagia. 14 point ROS otherwise negative except for positives noted above as per HPI. Vital Signs Vital Signs Vital Signs: 11/24/24 22:04 11/24/24 22:24 11/25/24 00:03 Temperature 97.5 F L Temperature Source Temporal Pulse Rate 77 72 Respiratory Rate 18 15 Blood Pressure 157/94 H 162/73 H Blood Pressure Mean 115 102 Pulse Ox 98 Oxygen Delivery Method Room Air Room Air 11/25/24 02:07 Temperature 97 F L Temperature Source Pulse Rate 65 Respiratory Rate 15 Blood Pressure 170/74 H Blood Pressure Mean 106 Pulse Ox 97 Oxygen Delivery Method Weight Weight: 160 lb 4.417 oz Body Mass Index (BMI) 28.3 Physical Exam Const alert, oriented x3, no apparent distress, average body habitus and healthy appearing General Appearance: cooperative HEENT normocephalic, head/scalp atraumatic, hearing grossly normal bilaterally and moist oral mucous membranes Eyes PERRL and EOMs intact bilaterally Neck no lymphadenopathy and supple Resp normal respiratory effort, no retractions, no use of accessory muscles and clearto auscultation bilaterally Cardio regular rate and regular rhythm GI normal to inspection, nondistended, normoactive bowel sounds, soft to palpation,non-tender and non-distended Extremity normal to inspection, full ROM and no clubbing, cyanosis or edema Skin Skin Narrative: Patient has no evidence of rash, abscess, wounds or jaundice. Neuro oriented x3, CN's II-XII intact bilaterally, moves all extremities and no focal motor deficits Sensorium / Orientation: awake, alert, oriented to person, oriented to place andoriented to time Speech: speech normal Psych affect normal Results Medical Records Data Attestation: I reviewed the patient's medical records Lab / Micro Data Attestation: I reviewed the patient's lab results. 11/24/24 22:14 11/24/24 22:14 Labs: Laboratory Results - last 24 hr 11/24/24 22:14: WBC 11.6 H, RBC 5.17, Hgb 14.7, Hct 40.9, MCV 79.1 L, MCH 28.4, MCHC 35.9, RDW Std Deviation 36.9, RDW Coeff of Milena 13.0, Plt Count 354, MPV 8.4, Immature Gran % (Auto) 0.300, Neut % (Auto) 64.2, Lymph % (Auto) 24.9, Power% (Auto) 8.7, Eos % (Auto) 1.5, Baso % (Auto) 0.4, Absolute Neuts (auto) 7.4, Absolute Lymphs (auto) 2.88, Nucleated RBC % 0, Sodium 121 L, Potassium 3.9, Chloride 88 L, Carbon Dioxide 19.9 L, Anion Gap 14, BUN 9, Creatinine 0.67 L, Estim Creat Clear Calc 48.23 L, Est GFR (MDRD) Non-Af 85, BUN/Creatinine Ratio 13.2, Glucose 124 H, Calcium 9.2, NT pro BNP II 173 Imaging Radiology Impression Chest X-Ray 11/24/24 22:45 IMPRESSION: NO ACUTE FINDINGS. Reading Location: [id number] Imaging Services [address] [place] [id number] Chest, Abd, Pel w/Contrast MR#: [id number] Acct: [id number] Name: NORM PORTER Rep #: [id number] : 1940 F 84 From: Simba Carlisle MD PCP: Dr. Quiana Healy DO Status: ADM IN Study: CT Chest, Abd, Pel w/Contrast Date of Exam: 11/25/24 Exam# [id number] Ordering Dr: Nayan Dixon DO PROCEDURE: CT CHEST, ABD, PEL W/CONTRAST 11/25/2024 REASON FOR EXAM: HYPONATREMIA TECHNIQUE: Chest, abdomen and pelvis CT with intravenous contrast. Coronal and Sagittal reconstruction series were provided. One or more dose reduction techniques were used (e.g., Automated exposure control, adjustment of the mA and/or kV according to patient size, use of iterative reconstruction technique. CONTRAST: 99 cc Isovue 370 RADIATION DOSE SUMMARY: CTDlvol: 10.17, 19.49 mGy DLP: 1249.51 mGycm COMPARISON: None. FINDINGS: CT CHEST: The central airways appear patent. The lungs are clear. Ectatic thoracic aorta appears within limits and visualized great vessels. No pericardial or pleural effusion. No adenopathy. No large central or hilar saddle pulmonary embolism. Right shoulder severe appearing osteoarthrosis. CT ABDOMEN/PELVIS: The liver, adrenal glands, gallbladder, kidneys, pancreas and spleen appear within limits. No bowel dilation or free air. Normal caliber appendix without secondary signs. Aortoiliac atherosclerotic change without abdominal aortic aneurysm. No adenopathy. The uterus and adnexa appear within limits. The bladder appears mildly distended without evidence of wall thickening or surrounding inflammatory change. Associated mild bilateral hydroureteronephrosis. Symmetric appearing nephrograms without perinephric stranding, edema. No evidence of urothelial thickening. What appears to be a possible bladder diverticulum at the left dome of the bladder measuring 3 x 2 x 2.4 cm axial 70, coronal 50 and sagittal 100 with appearance of possible small areas of wall punctate calcification. No free fluid seen. Lower lumbar spondylosis. Mild anterolisthesis L4 on L5. Multilevel facet degenerative changes. CT/CT Chest, Abd, Pel w/Contrast IMPRESSION: No evidence of acute process within the chest. The bladder appears mildly distended without evidence of wall thickening or surrounding inflammatory change. Associated mild bilateral hydroureteronephrosis. Symmetric appearing nephrogramswithout perinephric stranding, edema. No evidence of urothelial thickening. What appears to be a possible bladder diverticulum at the left dome of the bladder measuring 3 x 2 x 2.4 cm axial 70, coronal 50 and sagittal 100 with appearance of possible small areas of wall punctate calcification. No free fluid seen. Reading Location: [facility] CC: Dr. Quiana Healy, DO; Dr. Nayan Dixon, DO ~ Customer Relationship Specialist: Signed Assessment & Plan Assessment/Plan (1) Acute hyponatremia: (2) Water intoxication: (3) Nausea: (4) Uncontrolled hypertension: (5) Leukocytosis: QUALIFIERS: Leukocytosis type: unspecified Qualified Code(s): D72.829 - Elevated white blood cell count, unspecified (6) Generalized weakness: PLAN: Plan 1. Severe Hyponatremia of 121 mmol/L present on admission - Admit to PCU. Continue NS IVF and recheck BMP q. 6 hours to aim for correction of no > 8-10 mmol/L per day. Give acetaminophen prn for pain or fever. 2. Water Intoxication likely causing #1 with associated Nausea - Patient counseled to cut free water intake by ~50% to prevent recurrence. Give ondansetron IV prn for nausea and vomiting. 3. Uncontrolled Hypertension due to relative volume overload complicating #1 & #2 - Maintain home regimen plus give one dose of IV furosemide to promote excretion of dilute urine. 4. Mild Leukocytosis of 11.6K present on admission due to suspected acute phasereactant due #1 - #3 - Check CBC daily to follow trend. UA negative for infection but does show signs of colonization. 5. Generalized Weakness attributable to #1 - #4 - PT/OT and Case Management to consult and treat on rounds in the AM for further recommendations with help appreciated in advance. 6. History of goiter - Noted. CT pending to reassess. Check TSH. 7. Overweight; with BMI of 28.4 this admission plus CARLA; on CPAP - Weight loss will be recommended. Resume nocturnal CPAP. 8. Former tobacco abuse - Noted. 9. History of nonrheumatic mitral valve prolapse - Noted. Check echocardiogramto evaluate LVEF in light of #3. 10. History of venous insufficiency of RLE - Noted. 11. History of colonic diverticulosis; with subsequent colon surgery to drain adiverticular abscess - Noted. 12. History of umbilical hernia - Noted. 13. History of abnormal mammogram of the Left breast - Noted. 14. History of myringotomy (2019) - Noted for the sake of completeness. 15. History of cataract surgery - Noted. 16. OAB; on vibegron - Continue current treatment. 17. History of anxiety - Stable with patient currently not on treatment. 18. OA - Give acetaminophen prn. who presents to [facility] ER complaining of a Critical Hyponatremia of 118 mmol/L incidentally noted on outpatient labs. 19. DVT prophylaxis - Lovenox 40 mg sq daily plus SCD's. Total time: Approximately (but not less than) 75 minutes. Charges/Coding Visit Charges Inpatient E&M: 98495 Init Hosp L3 11/25/24 0641 <Electronically signed by Sacha Kay DO> Cosigner Signature (if applicable): CC: Dr. Sacha Kay DO; Dr. Quiana Healy DO~ Signed [facility] Work Phone: [phone] 935-462603-28-2025 History and physical note [facility] Medical Records Department [address] [place] [address] H&P Exam - Hospitalist 11/25/24 0229 MR#: [id number] Acct: [id number] Name: NORM PORTER Rep #:[id number] : 1940 84 From: Sacha Pascal DO PCP: Dr. Quiana Healy DO Status:ADM IN Location: [place] [id number] HPI - General General Date of Admission: 11/25/24 Date of Service: 11/25/24 Chief Complaint: Low Sodium on Outpatient Labs. HPI Narrative NORM PORTER, is a 84 F with a past medical history of essential hypertension; on carvedilol, losartan and amlodipine, history of goiter, overweight; with BMI of 28.4 this admission, CARLA; on CPAP,former tobacco abuse,history of nonrheumatic mitral valve prolapse, history of venous insufficiencyof RLE, history of colonic diverticulosis; with subsequent colon surgery to drain a diverticular abscess, history of umbilical hernia, history of abnormal mammogram of the Left breast, history of myringotomy (2018), history of cataractsurgery, OAB; on vibegron, history of anxiety and OA who presents to [facility] ER complaining of a Critical Hyponatremia of 118 mmol/L incidentallynoted on outpatient labs. Ms. Porter reports her symptoms began approximately 3-4 days prior to admissionwhen she began to feel unwell so she went to her PCP and when her labs were checked she was noted to have a low sodium of 120 mmol/L. Her symptoms persisted and when she followed up with him yesterday her sodium had dropped to 118 mmol/L so she was instructed to come in to the hospital for further evaluation and treatment. She admits to associated nausea and generalized weakness along with uncontrolled hypertension in the ~200 mmHg systolic. A review of her records shows transient low sodiums but only down to 125 mmol/L inMar2021 before rebounding to 133 mmol/L - 140 mmol/L as of December 23, 2023. She admits toroutine free-water intake of ~64 oz. daily. She denies alcohol use, drug use or recent tobacco abuse. There was no report of fever, chills, nausea, vomiting, headache, seizures, paresthesias, visual changes, SOB, cough, chest pain or rash. In the ER she was diagnosed with Severe Hyponatremia of 121mmol/L present on admission likely due to Water Intoxication with mild Leukocytosis of 11.6K presenton admission complicated by Uncontrolled Hypertension of 170/104 mmHg noted shortly after admissionand she was then admitted to the PCU for ongoing care for a stay that is expected to be greater than 2 midnights. [facility] History Obesity Venous insufficiency of right lower extremity Nonrheumatic mitral (valve) prolapse Abnormal mammogram of left breast Obstructive sleep apnea Goiter Umbilical hernia Essential hypertension Anxiety Diverticula of colon Arthritis Former smoker Home Medications ?Medication ?Instructions ?Recorded ?Last Taken ?Type vibegron 75 mg tablet (Gemtesa) 75 mg PO DAILY 3 Unknown History Lactobacillus 1 cap PO DAILY 03/23/24 Unkn own History acidophilus-Bifidobac.animalis 2.5 billion cell capsule (Daily Probiotic) carvedilol 6.25 mg tablet 6.25 mg PO BID 03/23/24 Unkn own History d-mannose 500 mg capsule 500 mg PO BID 03/23/24 Unkno wn History isosorbide mononitrate 30 mg 15 mg PO QDAY 03/23/24 Un known History tablet,extended release 24 hr losartan 50 mg tablet 50 mg PO BID bp #180 tabs Unknown Rx amlodipine 2.5 mg tablet 2.5 mg PO DAILY #90 tabs Unknown Rx Allergy/AdvReac Type Severity Reaction Status Date / Time amoxicillin (From Augmentin) Allergy Intermediate Mild rash Verified 11/24/24 22:04 clavulanic acid (From Allergy Intermediate Mild rash Verified 11/24/24 22:04 Augmentin) benazepril HCl (From Allergy Other Verified 11/24/24 22:04 Lotensin) betamethasone (From Allergy NEEDS Verified 11/24/24 22:04 Diprolene) FOLLOW-UP felodipine Allergy Other Verified 11/24/24 22:04 fexofenadine HCl (From Allergy Other Verified 11/24/24 22:04 Uyen) ramipril (From Altace) Allergy Other Verified 11/24/24 22:04 tolterodine tartrate (From Allergy Other Verified 11/24/24 22:04 Detrol) verapamil HCl (From Allergy Other Verified 11/24/24 22:04 Covera-HS) lisinopril AdvReac Intermediate cough Verified 11/24/24 22:04 Family History Mother CVA (cerebral vascular accident) Hypertension History of DVT (deep vein thrombosis) Brother History of DVT (deep vein thrombosis) Other Aortic aneurysm Surgical History H/O myringotomy (05/18/19) History of colon surgery Hx of cataract surgery Social History household members: spouse Smoking Status: Former smoker alcohol intake: current alcohol intake frequency: other substance use type: does not use ROS ROS Narrative Review of Systems: Constitutional: Patient denies fever or chills. Eyes: Patient denies changes in vision or discharge from eyes. ENT: Patient denies runny nose, sore throat or ear pain. Resp: Patient denies SOB or cough. CV: Patient denies chest pain, palpitations, heart racing or LE edema. GI: Patient admits to nausea but she denies vomiting, diarrhea or constipation. : Patient denies dysuria or hematuria. MSK: Patient admits to generalized weakness but she denies arthralgias or myalgias. Skin: Patient denies rash, abscess, wounds or jaundice. Psych: Patient denies symptoms of uncontrolled depression or anxiety. Neuro: Patient denies headache, paresthesias or focal neurologic deficits. Allergy: Patient denies lip swelling, tongue swelling or urticaria. Hematology: Patient denies east bleeding or easy bruisability. Endocrinology: Patient denies polyuria, polydipsia or polyphagia. 14 point ROS otherwise negative except for positives noted above as per HPI. Vital Signs Vital Signs Vital Signs: 11/24/24 22:04 11/24/24 22:24 11/25/24 00:03 Temperature 97.5 F L Temperature Source Temporal Pulse Rate 77 72 Respiratory Rate 18 15 Blood Pressure 157/94 H 162/73 H Blood Pressure Mean 115 102 Pulse Ox 98 Oxygen Delivery Method Room Air Room Air 11/25/24 02:07 Temperature 97 F L Temperature Source Pulse Rate 65 Respiratory Rate 15 Blood Pressure 170/74 H Blood Pressure Mean 106 Pulse Ox 97 Oxygen Delivery Method Weight Weight: 160 lb 4.417 oz Body Mass Index (BMI) 28.3 Physical Exam Const alert, oriented x3, no apparent distress, average body habitus and healthy appearing General Appearance: cooperative HEENT normocephalic, head/scalp atraumatic, hearing grossly normal bilaterally and moist oral mucous membranes Eyes PERRL and EOMs intact bilaterally Neck no lymphadenopathy and supple Resp normal respiratory effort, no retractions, no use of accessory muscles and clearto auscultation bilaterally Cardio regular rate and regular rhythm GI normal to inspection, nondistended, normoactive bowel sounds, soft to palpation,non-tender and non-distended Extremity normal to inspection, full ROM and no clubbing, cyanosis or edema Skin Skin Narrative: Patient has no evidence of rash, abscess, wounds or jaundice. Neuro oriented x3, CN's II-XII intact bilaterally, moves all extremities and no focal motor deficits Sensorium / Orientation: awake, alert, oriented to person, oriented to place andoriented to time Speech: speech normal Psych affect normal Results Medical Records Data Attestation: I reviewed the patient's medical records Lab / Micro Data Attestation: I reviewed the patient's lab results. 11/24/24 22:14 11/24/24 22:14 Labs: Laboratory Results - last 24 hr 11/24/24 22:14: WBC 11.6 H, RBC 5.17, Hgb 14.7, Hct 40.9, MCV 79.1 L, MCH 28.4, MCHC 35.9, RDW Std Deviation 36.9, RDW Coeff of Milena 13.0, Plt Count 354, MPV 8.4, Immature Gran % (Auto) 0.300, Neut % (Auto) 64.2, Lymph % (Auto) 24.9, Power% (Auto) 8.7, Eos % (Auto) 1.5, Baso % (Auto) 0.4, Absolute Neuts (auto) 7.4, Absolute Lymphs (auto) 2.88, Nucleated RBC % 0, Sodium 121 L, Potassium 3.9, Chloride 88 L, Carbon Dioxide 19.9 L, Anion Gap 14, BUN 9, Creatinine 0.67 L, Estim Creat Clear Calc 48.23 L, Est GFR (MDRD) Non-Af 85, BUN/Creatinine Ratio 13.2, Glucose 124 H, Calcium 9.2, NT pro BNP II 173 Imaging Radiology Impression Chest X-Ray 11/24/24 22:45 IMPRESSION: NO ACUTE FINDINGS. Reading Location: [id number] Imaging Services [address] [place] [id number] Chest, Abd, Pel w/Contrast MR#: [id number] Acct: [id number] Name: NORM PORTER Rep #: [id number] : 1940 F 84 From: Simba Carlisle MD PCP: Dr. Quiana Healy, DO Status: ADM IN Study: CT Chest, Abd, Pel w/Contrast Date of Exam: 11/25/24 Exam# [id number] Ordering Dr: Nayan Dixon DO PROCEDURE: CT CHEST, ABD, PEL W/CONTRAST 11/25/2024 REASON FOR EXAM: HYPONATREMIA TECHNIQUE: Chest, abdomen and pelvis CT with intravenous contrast. Coronal and Sagittal reconstruction series were provided. One or more dose reduction techniques were used (e.g., Automated exposure control, adjustment of the mA and/or kV according to patient size, use of iterative reconstruction technique. CONTRAST: 99 cc Isovue 370 RADIATION DOSE SUMMARY: CTDlvol: 10.17, 19.49 mGy DLP: 1249.51 mGycm COMPARISON: None. FINDINGS: CT CHEST: The central airways appear patent. The lungs are clear. Ectatic thoracic aorta appears within limits and visualized great vessels. No pericardial or pleural effusion. No adenopathy. No large central or hilar saddle pulmonary embolism. Right shoulder severe appearing osteoarthrosis. CT ABDOMEN/PELVIS: The liver, adrenal glands, gallbladder, kidneys, pancreas and spleen appear within limits. No bowel dilation or free air. Normal caliber appendix without secondary signs. Aortoiliac atherosclerotic change without abdominal aortic aneurysm. No adenopathy. The uterus and adnexa appear within limits. The bladder appears mildly distended without evidence of wall thickening or surrounding inflammatory change. Associated mild bilateral hydroureteronephrosis. Symmetric appearing nephrograms without perinephric stranding, edema. No evidence of urothelial thickening. What appears to be a possible bladder diverticulum at the left dome of the bladder measuring 3 x 2 x 2.4 cm axial 70, coronal 50 and sagittal 100 with appearance of possible small areas of wall punctate calcification. No free fluid seen. Lower lumbar spondylosis. Mild anterolisthesis L4 on L5. Multilevel facet degenerative changes. CT/CT Chest, Abd, Pel w/Contrast IMPRESSION: No evidence of acute process within the chest. The bladder appears mildly distended without evidence of wall thickening or surrounding inflammatory change. Associated mild bilateral hydroureteronephrosis. Symmetric appearing nephrogramswithout perinephricstranding, edema. No evidence of urothelial thickening. What appears to be a possible bladder diverticulum at the left dome of the bladder measuring 3 x 2 x 2.4 cm axial 70, coronal 50 and sagittal 100 with appearance of possible small areas of wall punctate calcification. No free fluid seen. Reading Location: [facility] CC: Dr. Quiana Healy, DO; Dr. Nayan Dixon DO ~ Customer Relationship Specialist: Signed Assessment & Plan Assessment/Plan (1) Acute hyponatremia: (2) Water intoxication: (3) Nausea: (4) Uncontrolled hypertension: (5) Leukocytosis: QUALIFIERS: Leukocytosis type: unspecified Qualified Code(s): D72.829 - Elevated white blood cell count, unspecified (6) Generalized weakness: PLAN: Plan 1. Severe Hyponatremia of 121 mmol/L present on admission - Admit to PCU. Continue NS IVF and recheck BMP q. 6 hours to aim for correction of no > 8-10 mmol/L per day. Give acetaminophen prn for pain or fever. 2. Water Intoxication likely causing #1 with associated Nausea - Patient counseled to cut free water intake by ~50% to prevent recurrence. Give ondansetron IV prn for nausea and vomiting. 3. Uncontrolled Hypertension due to relative volume overload complicating #1 & #2 - Maintain home regimen plus give one dose of IV furosemide to promote excretion of dilute urine. 4. Mild Leukocytosis of 11.6K present on admission due to suspected acute phasereactant due #1 - #3- Check CBC daily to follow trend. UA negative for infection but does show signs of colonization. 5. Generalized Weakness attributable to #1 - #4 - PT/OT and Case Management to consult and treat onrounds in the AM for further recommendations with help appreciated in advance. 6. History of goiter - Noted. CT pending to reassess. Check TSH. 7. Overweight; with BMI of 28.4 this admission plus CARLA; on CPAP - Weight loss will be recommended.Resume nocturnal CPAP. 8. Former tobacco abuse - Noted. 9. History of nonrheumatic mitral valve prolapse - Noted. Check echocardiogramto evaluate LVEF in light of #3. 10. History of venous insufficiency of RLE - Noted. 11. History of colonic diverticulosis; with subsequent colon surgery to drain adiverticular abscess- Noted. 12. History of umbilical hernia - Noted. 13. History of abnormal mammogram of the Left breast - Noted. 14. History of myringotomy (2019) - Noted for the sake of completeness. 15. History of cataract surgery - Noted. 16. OAB; on vibegron - Continue current treatment. 17. History of anxiety - Stable with patient currently not on treatment. 18. OA - Give acetaminophen prn. who presents to [facility] ER complaining of a Critical Hyponatremia of 118 mmol/L incidentally noted on outpatient labs. 19. DVT prophylaxis - Lovenox 40 mg sq daily plus SCD's. Total time: Approximately (but not less than) 75 minutes. Charges/Coding Visit Charges Inpatient E&M: 83957 Init Hosp L3 11/25/24 0641 Cosigner Signature (if applicable): CC: Dr. Sacha Kay DO; Dr. Quiana Healy DO~ Signed [facility]03-28-2025 Evaluation note* Diagnosis Onset Date Resolution Status Admit Date Acute hyponatremia acute November 25, 2024 2:46am Generalized weakness acute Narciso h 2024 2:46am Leukocytosis acute November 25, 2024 2:46am Nausea acute November 25 2:46am Uncontrolled hypertension acute November 25, 2024 2:46am Water intoxication acute November 25, 2024 2:46am [facility] Work Phone: 1(330) 726-921203-28-2025 Evaluation note* Diagnosis Onset Date Resolution Status Admit Date Acute hyponatremia resolved November 25, 2024 2:46am Generalized weakness resolved Narciso h 2024 2:46am Leukocytosis resolved November 25, 2024 2:46am Nausea resolved November 25 2:46am Uncontrolled hypertension resolved November 25, 2024 2:46am Water intoxication resolved November 25, 2024 2:46am [facility] Work Phone: 1(513) 389-899603-28-2025 Discharge summary Author Nayan Dixon [facility] Note Date/Time November 25, 2024 2:3 1am [facility] Medical Records Department [address] [place] [address] Emergency Department Summary 11/24/24 MR#: [id number] Acct: [id number] Name: NORM PORTER Rep #:[id number] : 1940 84 From: Nayan Dixon DO PCP: Dr. Quiana Healy DO Status:REG ER Location: ED HPI History of Present Illness Chief Complaint: Abn Labs Narrative Narrative: Patient is a 84-year-old female with a past medical history of CARLA, anxiety, andhypertension who presents to the emergency department the chief complaint of lowsodium. Patient states that she has not been feeling well recently and her blood physician checked her blood work and noted that her sodium was low. They repeated this blood work today and noted that it was lower which then she was advised to come to the emergency department to be evaluated. Patient denies anyalcohol use, drug use, and states that she does not smoke. Patient has no othercomplaints outside of nausea and generalized weakness. PFSH PFSH Medical History Obesity Venous insufficiency of right lower extremity Nonrheumatic mitral (valve) prolapse Abnormal mammogram of left breast Obstructive sleep apnea Goiter Umbilical hernia Essential hypertension Anxiety Diverticula of colon Arthritis Former smoker Home Medications ?Medication ?Instructions ?Recorded ?Last Taken ?Type vibegron 75 mg tablet (Gemtesa) 75 mg PO DAILY 3 Unknown History Lactobacillus 1 cap PO DAILY 03/23/24 Unkn own History acidophilus-Bifidobac.animalis 2.5 billion cell capsule (Daily Probiotic) carvedilol 6.25 mg tablet 6.25 mg PO BID 03/23/24 Unkn own History d-mannose 500 mg capsule 500 mg PO BID 03/23/24 Unkno wn History isosorbide mononitrate 30 mg 15 mg PO QDAY 03/23/24 Un known History tablet,extended release 24 hr losartan 50 mg tablet 50 mg PO BID bp #180 tabs Unknown Rx amlodipine 2.5 mg tablet 2.5 mg PO DAILY #90 tabs Unknown Rx Allergy/AdvReac Type Severity Reaction Status Date / Time amoxicillin (From Augmentin) Allergy Intermediate Mild rash Verified 11/24/24 22:04 clavulanic acid (From Allergy Intermediate Mild rash Verified 11/24/24 22:04 Augmentin) benazepril HCl (From Allergy Other Verified 11/24/24 22:04 Lotensin) betamethasone (From Allergy NEEDS Verified 11/24/24 22:04 Diprolene) FOLLOW-UP felodipine Allergy Other Verified 11/24/24 22:04 fexofenadine HCl (From Allergy Other Verified 11/24/24 22:04 Uyen) ramipril (From Altace) Allergy Other Verified 11/24/24 22:04 tolterodine tartrate (From Allergy Other Verified 11/24/24 22:04 Detrol) verapamil HCl (From Allergy Other Verified 11/24/24 22:04 Covera-HS) lisinopril AdvReac Intermediate cough Verified 11/24/24 22:04 Family History Mother CVA (cerebral vascular accident) Hypertension History of DVT (deep vein thrombosis) Brother History of DVT (deep vein thrombosis) Other Aortic aneurysm Surgical History H/O myringotomy (05/18/19) History of colon surgery Hx of cataract surgery Social History household members: spouse Smoking Status: Former smoker alcohol intake: current alcohol intake frequency: other substance use type: does not use ROS ROS ED ROS Narrative Constitutional: Denies fever, chills, headaches, lightness, dizziness Eyes: Denies double vision blurry vision Cardiovascular: Denies chest pain or palpitations Respiratory: Denies coughing wheezing shortness of breath Abdomen: Complains of nausea denies abdominal pain vomiting diarrhea : States that she recently was treated for urinary tract infection is doing better Neurological: Denies numbness, tingling Musculoskeletal: Denies back pain Skin: Denies rashes or lesions EXAM Physical Exam Narrative Exam Narrative: General: Patient was lying in bed rest comfortably did not appear to be in acutedistress Head: Atraumatic, normocephalic Eyes: PERRL bilateral, EOMI bilateral, no conjunctival injection noted Neck: Soft, supple, trachea midline Cardiovascular: Regular rate and rhythm no murmurs gallops rubs noted Respiratory: Clear to auscultation bilaterally Abdomen: Soft, nondistended, no tenderness palpation Extremities: +4/5 strength noted in the bilateral upper and lower extremities, no pedal edema on exam Neurological: Patient follow commands and that she was at [facility] [id number] Skin: Warm, dry, intact no rashes or lesions noted Const Vital Signs: 11/24/24 22:04 11/24/24 22:24 11/25/24 00:03 Temperature 97.5 F L Temperature Source Temporal Pulse Rate 77 72 Respiratory Rate 18 15 Blood Pressure 157/94 H 162/73 H Blood Pressure Mean 115 102 Pulse Ox 98 Oxygen Delivery Method Room Air Room Air 11/25/24 02:07 Temperature 97 F L Temperature Source Pulse Rate 65 Respiratory Rate 15 Blood Pressure 170/74 H Blood Pressure Mean 106 Pulse Ox 97 Oxygen Delivery Method MDM MDM MDM Narrative Medical decision making narrative: Patient is a 84-year-old female who presented to the emergency department chief complaint of hyponatremia. On the differential diagnose includes but limited tohypervolemic hyponatremia, SIADH, dehydration. Once workup is obtained reviewedshe will be reevaluated. Patient be given a liter of IV fluids. Patient's CBC was reviewed and showed a white blood count 11,000, hemoglobin 14.7, plate count 354. Patient's sodium here in the emergency department was noted be 121 earlier today was 118, potassium normal 3.9, creatinine of 0.67. Patient's serum osmolality was 254, proBNP was 173. Patient's chest x-ray reviewed by myself by radiology showed no acute findings. At this point time will discuss case with hospitalist for her admission for hyponatremia, generalized weakness and not feeling well. Patient's EKG was reviewed and showed sinus rhythm with a rate of 65 bpm. Discussed case with hospitalist Dr. Cardenas who accept patient for admission he is recommending a CT scan of chest abdomen pelvis which were ordered. Patient was notified that should be admitted with all question concerns answeredat bedside. Lab Data Labs: Laboratory Results - last 24 hr 11/24/24 22:14 WBC 11.6 H RBC 5.17 Hgb 14.7 Hct 40.9 MCV 79.1 L MCH 28.4 MCHC 35.9 RDW Std Deviation 36.9 RDW Coeff of Milena 13.0 Plt Count 354 MPV 8.4 Immature Gran % (Auto) 0.300 Neut % (Auto) 64.2 Lymph % (Auto) 24.9 Power % (Auto) 8.7 Eos % (Auto) 1.5 Baso % (Auto) 0.4 Absolute Neuts (auto) 7.4 Absolute Lymphs (auto) 2.88 Nucleated RBC % 0 Sodium 121 L Potassium 3.9 Chloride 88 L Carbon Dioxide 19.9 L Anion Gap 14 BUN 9 Creatinine 0.67 L Estim Creat Clear Calc 48.23 L Est GFR (MDRD) Non-Af 85 BUN/Creatinine Ratio 13.2 Glucose 124 H Calcium 9.2 NT pro BNP II 173 Radiography Diagnostic Testing: Clinical Impression(s) from Imaging Studies Chest X-Ray 11/24/24 22:45 IMPRESSION: NO ACUTE FINDINGS. Reading Location: [facility] Discharge Plan Triage Chief Complaint: Abn Labs ED Provider: Nayan Dixon Dx/Rx/DC Orders Clinical Impression: Acute hyponatremia, Generalized weakness Prescriptions: No Action d-mannose 500 mg capsule 500 mg PO BID Gemtesa 75 mg tablet 75 mg PO DAILY carvedilol 6.25 mg tablet 6.25 mg PO BID Rx Instructions: must administer with a meal/food isosorbide mononitrate 30 mg tablet extended release 24 hr 15 mg PO QDAY Daily Probiotic 2.5 billion cell capsule 1 cap PO DAILY losartan 50 mg tablet 50 mg PO BID Qty: 180 3RF amlodipine 2.5 mg tablet 2.5 mg PO DAILY Qty: 90 3RF Primary Care Provider: Quiana Healy Referrals: Quiana Healy DO [Primary Care Provider] - Print Language: Icelandic Disposition Disposition: Acute Care Hospital [facility] What to do if you have Problems For any increased pain, shortness of breath, bleeding, nausea or vomiting, chestpain, or any unexpected problems, contact your Primary Care Provider. Call [facility] ([phone]) or report to the closest Emergency Room. Call 911 if necessary. 11/25/24 0231 <Electronically signed by Nayan Dixon DO> Cosigner Signature (if applicable): CC: Dr. Quiana Healy DO ~ Signed [facility] Work Phone: [phone] 999-614503-28-2025 Radiology Diagnostic study note [facility] Imaging Services [address] [place], [place] [address] CT Chest, Abd, Pel w/Contrast MR#: [id number] Acct: [id number] Name: NORM PORTER Rep #: [id number] : 1940 F 84 From: Clark Carlisle MD PCP: Dr. Quiana Healy DO Status: ADM IN Study:CT Chest, Abd, Pel w/Contrast Date of Theodore nguyen: 11/25/24 Exam# [id number] Ordering Dr: Belkis Dixon DO PROCEDURE: CT CHEST, ABD, PEL W/CONTRAST 11/25/2024 REASON FOR EXAM: HYPONATREMIA TECHNIQUE: Chest, abdomen and pelvis CT with intravenous contrast. Coronal and Sagittal reconstruction series were provided. One or more dose reduction techniques were used (e.g., Automated exposure control, adjustment of the mA and/or kV according to patient size, use of iterative reconstruction technique. CONTRAST: 99 cc Isovue 370 RADIATION DOSE SUMMARY: CTDlvol: 10.17, 19.49 mGy DLP: 1249.51 mGycm COMPARISON: None. FINDINGS: CT CHEST: The central airways appear patent. The lungs are clear. Ectatic thoracic aorta appears within limits and visualized great vessels. No pericardial or pleural effusion. No adenopathy. No large central or hilar saddle pulmonary embolism. Right shoulder severe appearing osteoarthrosis. CT ABDOMEN/PELVIS: The liver, adrenal glands, gallbladder, kidneys, pancreas and spleen appear within limits. No bowel dilation or free air. Normal caliber appendix without secondary signs. Aortoiliac atherosclerotic change without abdominal aortic aneurysm. No adenopathy. The uterus and adnexa appear within limits. The bladder appears mildly distended without evidence of wall thickening or surrounding inflammatory change. Associated mild bilateral hydroureteronephrosis. Symmetric appearing nephrograms without perinephric stranding, edema. No evidence of urothelial thickening. What appears to be a possible bladder diverticulum at the left dome of the bladder measuring 3 x 2 x 2.4 cm axial 70, coronal 50 and sagittal 100 with appearance of possible small areas of wall punctate calcification. No free fluid seen. Lower lumbar spondylosis. Mild anterolisthesis L4 on L5. Multilevel facet degenerative changes. CT/CT Chest, Abd, Pel w/Contrast IMPRESSION: No evidence of acute process within the chest. The bladder appears mildly distended without evidence of wall thickening or surrounding inflammatory change. Associated mild bilateral hydroureteronephrosis. Symmetric appearing nephrogramswithout perinephricstranding, edema. No evidence of urothelial thickening. What appears to be a possible bladder diverticulum at the left dome of the bladder measuring 3 x 2 x 2.4 cm axial 70, coronal 50 and sagittal 100 with appearance of possible small areas of wall punctate calcification. No free fluid seen. Reading Location: [id number] CC: Dr. Quiana Healy DO; Dr. Nayan Dixon DO ~ Customer Relationship Specialist: Signed [facility]03-28-2025 Discharge summary [facility] Medical Records Department [address] [place] [address] Emergency Department Summary 11/24/24 MR#: [id number] Acct: [id number] Name: NORM PORTER Rep #:[id number] : 1940 84 From: Nayan Dixon DO PCP: Dr. Quiana Healy DO Status:REG ER Location: ED HPI History of Present Illness Chief Complaint: Abn Labs Narrative Narrative: Patient is a 84-year-old female with a past medical history of CARLA, anxiety, andhypertension who presents to the emergency department the chief complaint of lowsodium. Patient states that she has notbeen feeling well recently and her blood physician checked her blood work and noted that her sodiumwas low. They repeated this blood work today and noted that it was lower which then she was advisedto come to the emergency department to be evaluated. Patient denies anyalcohol use, drug use, and states that she does not smoke. Patient has no othercomplaints outside of nausea and generalized weakness. PFSH PFSH Medical History Obesity Venous insufficiency of right lower extremity Nonrheumatic mitral (valve) prolapse Abnormal mammogram of left breast Obstructive sleep apnea Goiter Umbilical hernia Essential hypertension Anxiety Diverticula of colon Arthritis Former smoker Home Medications ?Medication ?Instructions ?Recorded ?Last Taken ?Type vibegron 75 mg tablet (Gemtesa) 75 mg PO DAILY 04/28/ 3 Unknown History Lactobacillus 1 cap PO DAILY 03/23/24 Unkn own History acidophilus-Bifidobac.animalis 2.5 billion cell capsule (Daily Probiotic) carvedilol 6.25 mg tablet 6.25 mg PO BID 03/23/24 Unkn own History d-mannose 500 mg capsule 500 mg PO BID 03/23/24 Unkno wn History isosorbide mononitrate 30 mg 15 mg PO QDAY 03/23/24 Un known History tablet,extended release 24 hr losartan 50 mg tablet 50 mg PO BID bp #180 tabs Unknown Rx amlodipine 2.5 mg tablet 2.5 mg PO DAILY #90 tabs Unknown Rx Allergy/AdvReac Type Severity Reaction Status Date / Time amoxicillin (From Augmentin) Allergy Intermediate Mild rash Verified 11/24/24 22:04 clavulanic acid (From Allergy Intermediate Mild rash Verified 11/24/24 22:04 Augmentin) benazepril HCl (From Allergy Other Verified 11/24/24 22:04 Lotensin) betamethasone (From Allergy NEEDS Verified 11/24/24 22:04 Diprolene) FOLLOW-UP felodipine Allergy Other Verified 11/24/24 22:04 fexofenadine HCl (From Allergy Other Verified 11/24/24 22:04 Uyen) ramipril (From Altace) Allergy Other Verified 11/24/24 22:04 tolterodine tartrate (From Allergy Other Verified 11/24/24 22:04 Detrol) verapamil HCl (From Allergy Other Verified 11/24/24 22:04 Covera-HS) lisinopril AdvReac Intermediate cough Verified 11/24/24 22:04 Family History Mother CVA (cerebral vascular accident) Hypertension History of DVT (deep vein thrombosis) Brother History of DVT (deep vein thrombosis) Other Aortic aneurysm Surgical History H/O myringotomy (05/18/19) History of colon surgery Hx of cataract surgery Social History household members: spouse Smoking Status: Former smoker alcohol intake: current alcohol intake frequency: other substance use type: does not use ROS ROS ED ROS Narrative Constitutional: Denies fever, chills, headaches, lightness, dizziness Eyes: Denies double vision blurry vision Cardiovascular: Denies chest pain or palpitations Respiratory: Denies coughing wheezing shortness of breath Abdomen: Complains of nausea denies abdominal pain vomiting diarrhea : States that she recently was treated for urinary tract infection is doing better Neurological: Denies numbness, tingling Musculoskeletal: Denies back pain Skin: Denies rashes or lesions EXAM Physical Exam Narrative Exam Narrative: General: Patient was lying in bed rest comfortably did not appear to be in acutedistress Head: Atraumatic, normocephalic Eyes: PERRL bilateral, EOMI bilateral, no conjunctival injection noted Neck: Soft, supple, trachea midline Cardiovascular: Regular rate and rhythm no murmurs gallops rubs noted Respiratory: Clear to auscultation bilaterally Abdomen: Soft, nondistended, no tenderness palpation Extremities: +4/5 strength noted in the bilateral upper and lower extremities, no pedal edema on exam Neurological: Patient follow commands and that she was at [facility] [id number] Skin: Warm, dry, intact no rashes or lesions noted Const Vital Signs: 11/24/24 22:04 11/24/24 22:24 11/25/24 00:03 Temperature 97.5 F L Temperature Source Temporal Pulse Rate 77 72 Respiratory Rate 18 15 Blood Pressure 157/94 H 162/73 H Blood Pressure Mean 115 102 Pulse Ox 98 Oxygen Delivery Method Room Air Room Air 11/25/24 02:07 Temperature 97 F L Temperature Source Pulse Rate 65 Respiratory Rate 15 Blood Pressure 170/74 H Blood Pressure Mean 106 Pulse Ox 97 Oxygen Delivery Method MDM MDM MDM Narrative Medical decision making narrative: Patient is a 84-year-old female who presented to the emergency department chief complaint of hyponatremia. On the differential diagnose includes but limited tohypervolemic hyponatremia, SIADH, dehydration. Once workup is obtained reviewedshe will be reevaluated. Patient be given a liter of IV fluids. Patient's CBC was reviewed and showed a white blood count 11,000, hemoglobin 14.7, plate count 354.Patient's sodium here in the emergency department was noted be 121 earlier today was 118, potassiumnormal 3.9, creatinine of 0.67. Patient's serum osmolality was 254, proBNP was 173. Patient's chestx-ray reviewed by myself by radiology showed no acute findings. At this point time will discuss case with hospitalist for her admission for hyponatremia, generalized weakness and not feeling well. Patient's EKG was reviewed and showed sinus rhythm with a rate of 65 bpm. Discussed case with hospitalist Dr. Cardenas who accept patient for admission he is recommending aCT scan of chest abdomen pelvis which were ordered. Patient was notified that should be admitted with all question concerns answeredat bedside. Lab Data Labs: Laboratory Results - last 24 hr 11/24/24 22:14 WBC 11.6 H RBC 5.17 Hgb 14.7 Hct 40.9 MCV 79.1 L MCH 28.4 MCHC 35.9 RDW Std Deviation 36.9 RDW Coeff of Milena 13.0 Plt Count 354 MPV 8.4 Immature Gran % (Auto) 0.300 Neut % (Auto) 64.2 Lymph % (Auto) 24.9 Power % (Auto) 8.7 Eos % (Auto) 1.5 Baso % (Auto) 0.4 Absolute Neuts (auto) 7.4 Absolute Lymphs (auto) 2.88 Nucleated RBC % 0 Sodium 121 L Potassium 3.9 Chloride 88 L Carbon Dioxide 19.9 L Anion Gap 14 BUN 9 Creatinine 0.67 L Estim Creat Clear Calc 48.23 L Est GFR (MDRD) Non-Af 85 BUN/Creatinine Ratio 13.2 Glucose 124 H Calcium 9.2 NT pro BNP II 173 Radiography Diagnostic Testing: Clinical Impression(s) from Imaging Studies Chest X-Ray 11/24/24 22:45 IMPRESSION: NO ACUTE FINDINGS. Reading Location: [facility] Discharge Plan Triage Chief Complaint: Abn Labs ED Provider: Nayan Dixon Dx/Rx/DC Orders Clinical Impression: Acute hyponatremia, Generalized weakness Prescriptions: No Action d-mannose 500 mg capsule 500 mg PO BID Gemtesa 75 mg tablet 75 mg PO DAILY carvedilol 6.25 mg tablet 6.25 mg PO BID Rx Instructions: must administer with a meal/food isosorbide mononitrate 30 mg tablet extended release 24 hr 15 mg PO QDAY Daily Probiotic 2.5 billion cell capsule 1 cap PO DAILY losartan 50 mg tablet 50 mg PO BID Qty: 180 3RF amlodipine 2.5 mg tablet 2.5 mg PO DAILY Qty: 90 3RF Primary Care Provider: Quiana Healy Referrals: Quiana Healy DO [Primary Care Provider] - Print Language: Icelandic Disposition Disposition: Acute Care Hospital [facility] What to do if you have Problems For any increased pain, shortness of breath, bleeding, nausea or vomiting, chestpain, or any unexpected problems, contact your Primary Care Provider. Call [facility] ([phone]) or report tothe closest Emergency Room. Call 911 if necessary. 11/25/24 0231 Cosigner Signature (if applicable): CC: Dr. Quiana Healy DO ~ Signed [facility]03-27-2025 Radiology Diagnostic study note [facility] Imaging Services [address] [place] [address] Chest PA and Lateral MR#: [id number] Acct: [id number] Name: NORM PORTER Rep #: [id number] : 1940 F 84 From: Radha Urena MD PCP: Dr. Quiana Healy DO Status: REG ER Study:Chest PA and Lateral Date of Exam: 11/24/24 Exam# [id number] Ordering Dr: Belkis Dixon DO PROCEDURE: CHEST PA AND LATERAL 11/24/2024 REASON FOR EXAM: 84-year-old female, hyponatremia. TECHNIQUE: Frontal and lateral views of the chest. COMPARISON: Chest radiograph 06/20/2024. FINDINGS: Hardware: None. Heart: The heart size is normal. Mediastinum: The mediastinal contour is unremarkable. Lungs: Mild atelectasis/scarring within the right middle lobe. No focal consolidation, pleural effusion or pneumothorax. Bones: Degenerative changes are identified within the thoracic spine. Arthrosisof the bilateral glenohumeral joints. RAD/Chest PA and Lateral IMPRESSION: NO ACUTE FINDINGS. Reading Location: [facility] CC: Dr. Quiana Healy DO; Dr. Nayan Dixon DO ~ Customer Relationship Specialist: Signed [facility]03-27-2025 Discharge summary Author Nayan Dixon [facility] Note Date/Time November 25, 2024 2:3 1am [facility] Medical Records Department [address] [place] [address] Emergency Department Summary 11/24/24 MR#: [id number] Acct: [id number] Name: NORM PORTER Rep #:[id number] : 1940 84 From: Nayan Dixon DO PCP: Dr. Quiana Healy, DO Status:REG ER Location: ED HPI History of Present Illness Chief Complaint: Abn Labs Narrative Narrative: Patient is a 84-year-old female with a past medical history of CARLA, anxiety, andhypertension who presents to the emergency department the chief complaint of lowsodium. Patient states that she has not been feeling well recently and her blood physician checked her blood work and noted that her sodium was low. They repeated this blood work today and noted that it was lower which then she was advised to come to the emergency department to be evaluated. Patient denies anyalcohol use, drug use, and states that she does not smoke. Patient has no othercomplaints outside of nausea and generalized weakness. PFSH PFSH Medical History Obesity Venous insufficiency of right lower extremity Nonrheumatic mitral (valve) prolapse Abnormal mammogram of left breast Obstructive sleep apnea Goiter Umbilical hernia Essential hypertension Anxiety Diverticula of colon Arthritis Former smoker Home Medications ?Medication ?Instructions ?Recorded ?Last Taken ?Type vibegron 75 mg tablet (Gemtesa) 75 mg PO DAILY 3 Unknown History Lactobacillus 1 cap PO DAILY 03/23/24 Unkn own History acidophilus-Bifidobac.animalis 2.5 billion cell capsule (Daily Probiotic) carvedilol 6.25 mg tablet 6.25 mg PO BID 03/23/24 Unkn own History d-mannose 500 mg capsule 500 mg PO BID 03/23/24 Unkno wn History isosorbide mononitrate 30 mg 15 mg PO QDAY 03/23/24 Un known History tablet,extended release 24 hr losartan 50 mg tablet 50 mg PO BID bp #180 tabs Unknown Rx amlodipine 2.5 mg tablet 2.5 mg PO DAILY #90 tabs Unknown Rx Allergy/AdvReac Type Severity Reaction Status Date / Time amoxicillin (From Augmentin) Allergy Intermediate Mild rash Verified 11/24/24 22:04 clavulanic acid (From Allergy Intermediate Mild rash Verified 11/24/24 22:04 Augmentin) benazepril HCl (From Allergy Other Verified 11/24/24 22:04 Lotensin) betamethasone (From Allergy NEEDS Verified 11/24/24 22:04 Diprolene) FOLLOW-UP felodipine Allergy Other Verified 11/24/24 22:04 fexofenadine HCl (From Allergy Other Verified 11/24/24 22:04 Uyen) ramipril (From Altace) Allergy Other Verified 11/24/24 22:04 tolterodine tartrate (From Allergy Other Verified 11/24/24 22:04 Detrol) verapamil HCl (From Allergy Other Verified 11/24/24 22:04 Covera-HS) lisinopril AdvReac Intermediate cough Verified 11/24/24 22:04 Family History Mother CVA (cerebral vascular accident) Hypertension History of DVT (deep vein thrombosis) Brother History of DVT (deep vein thrombosis) Other Aortic aneurysm Surgical History H/O myringotomy (05/18/19) History of colon surgery Hx of cataract surgery Social History household members: spouse Smoking Status: Former smoker alcohol intake: current alcohol intake frequency: other substance use type: does not use ROS ROS ED ROS Narrative Constitutional: Denies fever, chills, headaches, lightness, dizziness Eyes: Denies double vision blurry vision Cardiovascular: Denies chest pain or palpitations Respiratory: Denies coughing wheezing shortness of breath Abdomen: Complains of nausea denies abdominal pain vomiting diarrhea : States that she recently was treated for urinary tract infection is doing better Neurological: Denies numbness, tingling Musculoskeletal: Denies back pain Skin: Denies rashes or lesions EXAM Physical Exam Narrative Exam Narrative: General: Patient was lying in bed rest comfortably did not appear to be in acutedistress Head: Atraumatic, normocephalic Eyes: PERRL bilateral, EOMI bilateral, no conjunctival injection noted Neck: Soft, supple, trachea midline Cardiovascular: Regular rate and rhythm no murmurs gallops rubs noted Respiratory: Clear to auscultation bilaterally Abdomen: Soft, nondistended, no tenderness palpation Extremities: +4/5 strength noted in the bilateral upper and lower extremities, no pedal edema on exam Neurological: Patient follow commands and that she was at [facility] [id number] Skin: Warm, dry, intact no rashes or lesions noted Const Vital Signs: 11/24/24 22:04 11/24/24 22:24 11/25/24 00:03 Temperature 97.5 F L Temperature Source Temporal Pulse Rate 77 72 Respiratory Rate 18 15 Blood Pressure 157/94 H 162/73 H Blood Pressure Mean 115 102 Pulse Ox 98 Oxygen Delivery Method Room Air Room Air 11/25/24 02:07 Temperature 97 F L Temperature Source Pulse Rate 65 Respiratory Rate 15 Blood Pressure 170/74 H Blood Pressure Mean 106 Pulse Ox 97 Oxygen Delivery Method MDM MDM MDM Narrative Medical decision making narrative: Patient is a 84-year-old female who presented to the emergency department chief complaint of hyponatremia. On the differential diagnose includes but limited tohypervolemic hyponatremia, SIADH, dehydration. Once workup is obtained reviewedshe will be reevaluated. Patient be given a liter of IV fluids. Patient's CBC was reviewed and showed a white blood count 11,000, hemoglobin 14.7, plate count 354. Patient's sodium here in the emergency department was noted be 121 earlier today was 118, potassium normal 3.9, creatinine of 0.67. Patient's serum osmolality was 254, proBNP was 173. Patient's chest x-ray reviewed by myself by radiology showed no acute findings. At this point time will discuss case with hospitalist for her admission for hyponatremia, generalized weakness and not feeling well. Patient's EKG was reviewed and showed sinus rhythm with a rate of 65 bpm. Discussed case with hospitalist Dr. Cardenas who accept patient for admission he is recommending a CT scan of chest abdomen pelvis which were ordered. Patient was notified that should be admitted with all question concerns answeredat bedside. Lab Data Labs: Laboratory Results - last 24 hr 11/24/24 22:14 WBC 11.6 H RBC 5.17 Hgb 14.7 Hct 40.9 MCV 79.1 L MCH 28.4 MCHC 35.9 RDW Std Deviation 36.9 RDW Coeff of Milena 13.0 Plt Count 354 MPV 8.4 Immature Gran % (Auto) 0.300 Neut % (Auto) 64.2 Lymph % (Auto) 24.9 Power % (Auto) 8.7 Eos % (Auto) 1.5 Baso % (Auto) 0.4 Absolute Neuts (auto) 7.4 Absolute Lymphs (auto) 2.88 Nucleated RBC % 0 Sodium 121 L Potassium 3.9 Chloride 88 L Carbon Dioxide 19.9 L Anion Gap 14 BUN 9 Creatinine 0.67 L Estim Creat Clear Calc 48.23 L Est GFR (MDRD) Non-Af 85 BUN/Creatinine Ratio 13.2 Glucose 124 H Calcium 9.2 NT pro BNP II 173 Radiography Diagnostic Testing: Clinical Impression(s) from Imaging Studies Chest X-Ray 11/24/24 22:45 IMPRESSION: NO ACUTE FINDINGS. Reading Location: [facility] Discharge Plan Triage Chief Complaint: Abn Labs ED Provider: Nayan Dixon Dx/Rx/DC Orders Clinical Impression: Acute hyponatremia, Generalized weakness Prescriptions: No Action d-mannose 500 mg capsule 500 mg PO BID Gemtesa 75 mg tablet 75 mg PO DAILY carvedilol 6.25 mg tablet 6.25 mg PO BID Rx Instructions: must administer with a meal/food isosorbide mononitrate 30 mg tablet extended release 24 hr 15 mg PO QDAY Daily Probiotic 2.5 billion cell capsule 1 cap PO DAILY losartan 50 mg tablet 50 mg PO BID Qty: 180 3RF amlodipine 2.5 mg tablet 2.5 mg PO DAILY Qty: 90 3RF Primary Care Provider: Quiana Healy Referrals: Quiana Healy DO [Primary Care Provider] - Print Language: Icelandic Disposition Disposition: Acute Care Hospital [facility] What to do if you have Problems For any increased pain, shortness of breath, bleeding, nausea or vomiting, chestpain, or any unexpected problems, contact your Primary Care Provider. Call [facility] ([phone]) or report to the closest Emergency Room. Call 911 if necessary. 11/25/24 0231 <Electronically signed by Nayan Dixon DO> Cosigner Signature (if applicable): CC: Dr. Quiana Healy DO ~ Signed [facility] Work Phone: 1(205) 687-182101-13-2022 NoteHNO ID: [id number] Author: Kindra Campbell MD Service: ? Author Type: Physician Type: Progress Notes Filed: 09/12/2021 5:19 PM Note Text: HISTORY AND PHYSICAL - BREAST COMPLAINT Norm F [place] 1940 REFERRING PHYSICIAN: Quiana Healy DO CHIEF COMPLAINT: Second opinion regarding breast biopsy HPI: The patient is a 80 year old female with a finding of an abnormal mammogram. The patient had a mammogram with tomograms performed on July 04, 2021. This demonstrated: IMPRESSION: INCOMPLETE: NEEDS ADDITIONAL IMAGING EVALUATION The possible multiple architectural distortions in the right breast are indeterminate. Additional views are recommended. She then had follow-up right breast diagnostic tomograms and right breast ultrasound on August 21, 2021. This demonstrated: IMPRESSION: SUSPICIOUS FINDING - BIOPSY SHOULD BE CONSIDERED The possible multiple architectural distortions in the right breast are suspicious of malignancy. A stereotactic biopsy is recommended. There are possible multiple vague areas of architechtural distortion in the anterior aspect of the breast seen only on the CC view. No corresponding finding by ultrasound. The patient did indicate that she may have had a remote injury to this area. No prior surgery. Tomosynthesis guided biopsy of one of these areas would be recommended. The area central to the nipple adjacent to the calcifications may be the best area to target. She was referred to a site with 3D biopsy capability. ? ? ? LIMITED ULTRASOUND OF RIGHT BREAST: 08/21/2021 RESULT: Comparison is made to exams dated: 07/04/2021 mammogram, 12/21/2019 mammogram, 12/15/2019 mammogram, 09/08/2018 mammogram, and 07/29/2018 mammogram - [facility]. Color flow and real-time ultrasound of the right breast 11-1 o'clock, and retroareolar regions were performed. Stewart scale images of the real-time examination were reviewed. ? IMPRESSION: NEGATIVE There is no sonographic evidence of malignancy. There is no abnormality seen in the right breast to correspond with the architectural distortion, however, biopsy is recommended. The patient denies breast masses. She does perform a self breast exam routinely. She notes no skin changes. She denies nipple discharge. She notes no axillary masses. She notes no family history of breast problems. I performed a left stereotactic core needle mammotome breast biopsy with specimen radiograph and marker placement on July 29, 2017. Pathology demonstrated: ? MICROSCOPIC DIAGNOSIS Left breast, stereotactic needle core biopsy: Intraductal hyperplasia without atypia. Fibrocystic change with associated microcalcifications. Fibroadenomatous change with clustered microcalcifications. Focal atypical lobular hyperplasia. Involutional change. No evidence of carcinoma. The patient is being seen by me today at the request of Dr. Quiana Healy, , DO for my opinion and advice regarding a second opinion about the necessity for right-sided breast biopsy. 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 - REPAIR INCISIONAL HERNIA,REDUCIBLE 07/29/2017 Hernia repair, incisional lap Concepcion - 11x[address] mesh Current Outpatient Medications Medication Sig Dispense Refill - fluticasone (FLONASE) 50 mcg/actuation nasal spray INSTILL 2 SPRAYS IN EACH NOSTRIL 1 - metoprolol succinate ER (TOPROL XL) 100 mg Tb24 Take 1 tablet by mouth once daily. 30 tablet 1 - losartan (COZAAR) 100 mg tablet Take 100 mg by mouth once daily. Taking 125 mg - hydroCHLOROthiazide (HYDRODIURIL, ESIDRIX) 25 mg tablet Take 25 mg by mouth once daily. 0 - oxyCODONE-acetaminophen (PERCOCET) 5-325 mg tablet Take 1 tablet by mouth every 4 hours as needed for Pain. 28 tablet 0 - amLODIPine (NORVASC) 2.5 mg tablet - MULTI-VITAMIN ORAL Take by mouth. - LACTOBACILLUS ACIDOPHILUS (FLORAJEN ORAL) Take by mouth. - ondansetron orally disintegrating (ZOFRAN ODT) 4 mg disintegrating tablet Take 1 tablet by mouth every 8 hours as needed for Nausea/Vomiting. 20 tablet 0 - potassium chloride ER (K-DUR, KLOR-CON) 20 mEq tablet Take 1 tablet by mouth once daily. 30 tablet 0 - hydroCHLOROthiazide (HYDRODIURIL, ESIDRIX) 50 mg tablet Take 50 mg by mouth once daily. No current facility-administered medications for this visit. ALLERGIES: Augmentin [Amoxicillin-Pot Clavulanate] PERSONAL HISTORY: Social History Tobacco Use - Smoki (more content not included)...[facility]12-28-2021 Note HNO ID: [id number] Author: Theresa Flowers MD Service: ? Author Type: Physician Type: Progress Notes Filed: 08/27/2021 10:22 AM Note Text: Reviewed mammograms dated 07/04/2021 and 08/21/2021. Agree with recommendation for right breast stereotactic biopsy x1. Patient will be contacted to schedule.[facility]12-22-2021 NoteHNO ID: [id number] Author: RT Jocy(R) Service: ? Author Type: Technologist Type: Progress Notes Filed: 08/21/2021 2:10 PM Note Text: Radiology Service Progress Note PATIENT NAME: Norm Porter DATE OF SERVICE: August 21, 2021 TIME: 2:03 PM PATIENT IDENTITY VERIFICATION COMPLETED USING TWO (2) IDENTIFIERS: Name and Date of confirmed by patient verbally. FALL SCREENING: Has the patient had 2 falls in the last year or 1 fall with injury or currently using an Ambulatory Assistive Device (Walker, Cane, Wheelchair, Crutches, etc.)? No PATIENT GENDER DATA: Female. status: : No status: NO. PATIENT RELEVANT IMPLANT DATA REVIEWED: Not Applicable RADIOLOGY DEPARTMENT: Mammography PERIPHERAL IV DATA: Not applicable SIGNED BY: RT Jocy(R) August 21, 2021 2:03 [facility]11-04-2021 NoteHNO ID: [id number] Author: RT Jocy(R) Service: ? Author Type: Technologist Type: Progress Notes Filed: 07/04/2021 2:13 PM Note Text: Radiology Service Progress Note PATIENT NAME: Norm Porter DATE OF SERVICE: July 04, 2021 TIME: 2:12 PM PATIENT IDENTITY VERIFICATION COMPLETED USING TWO (2) IDENTIFIERS: Name and Date of confirmed by patient verbally. FALL SCREENING: Has the patient had 2 falls in the last year or 1 fall with injury or currently using an Ambulatory Assistive Device (Walker, Cane, Wheelchair, Crutches, etc.)? No PATIENT GENDER DATA: Female. status: : No status: NO. PATIENT RELEVANT IMPLANT DATA REVIEWED: Not Applicable RADIOLOGY DEPARTMENT: Mammography PERIPHERAL IV DATA: Not applicable SIGNED BY: RT Jocy(R) July 04, 2021 2:12 [facility] Diagnosis Onset Date Resolution Status Acute metabolic encephalopathy resolved Altered mental status, unspecified resolved Bradycardia resolved Confusion resolved Hyponatremia resolved Hypertensive urgency resolve d Essential hypertension acute [facility] Work Phone: Evaluation note* Diagnosis Onset Date Resolution Status Hypertensive urgency resolve d Essential hypertension acute [facility] Work Phone: Evaluation noteNo assessment information available [facility] Work Phone: Evaluation note* Diagnosis Onset Date Resolution Status Essential hypertension acute Palpitations acute [facility] Work Phone: Evaluation note* Diagnosis Onset Date Resolution Status Essential hypertension acute Palpitations acute Essential hypertension acute Palpitations acute [facility] Work Phone: Evaluation note* Diagnosis Onset Date Resolution Status Essential hypertension acute [facility] Work Phone: [facility] Phone: [facility] Phone[facility] Work Phone[facility] Work Phone: Hospital Discharge instructions Additional Instructions Your sodium level was low. Likely due to excessive fluid intake. It is recommended to limit your total fluid intake to 1.5 liters/day and adding more salt to your food. Please follow up with you primary care doctor for follow up labs next week.[facility] Work Phone: Reason for referral (narrative)No reason for referral information availableWOur Lady of [facility] Work Phone: Summary Purpose Family History No Family History Records Found Relationship Condition Age at Onset Recorded Date/T callum Not Specified Aortic aneurysm Unknown mother Cerebrovascular accident (CVA) Unknown Hypertension Unknown History of deep venous thrombosis Unknown brother History of deep venous thrombosis Unknown Advance Directives No Advanced Directives Records Found Advance Directive Response Recorded Date/ Time Advance Directives No September 30, 2016 12:13pm Living Will No November 15, 2021 8:41pm Power of Senior Graphic Designer No November 15 8:41pm Advance Directive Response Recorded Date/ Time Advance Directives No September 30, 2016 11:13am Living Will No November 15, 2021 7:41pm Power of Senior Graphic Designer No November 15 7:41pm Advance Directive Response Recorded Date/ Time Living Will No November 24, 2024 10:21pm Do you have a Healthcare Power of Senior Graphic Designer? No November 24, 2024 10:21pm Advance Directives No September 30, 2016 12:13pm Advance Directive Response Recorded Date/ Time Living Will No November 25, 2024 3:28am Do you have a Healthcare Power of Senior Graphic Designer? No November 25, 2024 3:28am Advance Directives No September 30, 2016 12:13pm Chief Complaint and Reason for Visit Chief Complaint CP HTN HTN HYPONATREMIA, ACUTE METABOLIC ENCEPHALOPATHY HYPONATREMIA, ACUTE METABOLIC ENCEPHALOPATHY CHEST PAIN HTN HYPERTENSIVE URGENCY HYPERTENSIVE URGENCY HYPERTENSIVE URGENCY HYPERTENSIVE URGENCY Amb Documentation bp issues (MALYS) Reason for Visit Acute metabolic ence phalopathy Altered mental status, unspecified Bradycardia Confusion Hyponatremia Hypertensive urgency Essential hypertension Chief Complaint HYPONATREMIA, ACUTE METABOLIC ENCEPHALOPATHY HYPONATREMIA, ACUTE METABOLIC ENCEPHALOPATHY CHEST PAIN HTN HYPERTENSIVE URGENCY HYPERTENSIVE URGENCY HYPERTENSIVE URGENCY HYPERTENSIVE URGENCY Amb Documentation bp issues (MALYS) Reason for Visit Acute metabolic ence phalopathy Altered mental status, unspecified Bradycardia Confusion Hyponatremia Hypertensive urgency Essential hypertension Chief Complaint HYPERTENSIVE URGENCY HYPERTENSIVE URGENCY Amb Documentation bp issues (MALYS) Reason for Visit Hypertensive urgency Essential hypertension Chief Complaint UTI Chief Complaint UTI 9 M FU HYPERTENSION Reason for Visit Essential hypertensi on Palpitations Chief Complaint 6 M FU SWELLING LEGS/MED QUESTIONS Reason for Visit Essential hypertensi on Palpitations Essential hypertension Palpitations Chief Complaint 4 M FU B/P CHECK Syncope and collapse Reason for Visit Essential hypertensi on Chief Complaint Amb Documentation Chief Complaint Admit Date HYPONATREMIA November 25, 2024 2:4 6am Reason for Visit Admit Date Acute hyponatremia November 25, 2024 2:4 6am Generalized weakness November 25, 2024 2: 46am Leukocytosis November 25, 2024 2:4 6am Nausea November 25, 2024 2:4 6am Uncontrolled hypertension November 25 2:46am Water intoxication November 25, 2024 2:4 6am Additional Source Comments INFORMATION SOURCE (unrecogn ized section and content) DATE CREATED AUTHOR 02/23/2018 [facility] DATE CREATED AUTHOR AUTHOR'S ORGANIZ ATION 09/29/2021 [facility] DATE CREATED AUTHOR AUTHOR'S ORGANIZ ATION 02/15/2025 [facility] Goals (unrecognized section and content) Goals may be documented in a n alternate sectionGoals may be documented in an alternate sectionGoals may be documented in an alternate sectionGoals may be documented in an alternate sectionGoals may be documented in an alternate sectionGoals may be documented in an alternate sectionGoals may be documented in an alternate sectionGoals may be documented in an alternate sectionGoals may be documented in an alternate sectionGoals may be documented in an alternate section Care Teams (unrecognized sec tion and content) Team Status: Active Member Role Status Dates Dr. Quiana Healy DO Primary Care Provider Active Team Status: Inactive Member Role Status Dates Dr. Quiana Healy DO Primary Care Provider Active Start: November 21, 2024 End: November 21, 2024 Dr. Quiana Healy DO Attending Provider Active St art: November 21, 2024 End: November 21, 2024 Team Status: Active Member Role Status Dates Dr. Quiana Healy DO Primary Care Provider Active Start: November 23, 2024 Dr. Quiana Healy DO Attending Provider Active St art: November 23, 2024 Team Status: Inactive Member Role Status Dates Dr. Quiana Healy DO Primary Care Provider Active Start: November 24, 2024 End: November 24, 2024 Dr. Quiana Healy DO Attending Provider Active St art: November 24, 2024 End: November 24, 2024 Dr. Quiana Healy DO Referring Provider Active St art: November 24, 2024 End: November 24, 2024 Team Status: Inactive Member Role Status Dates Dr. Quiana Healy DO Primary Care Provider Active Start: November 25, 2024 End: November 25, 2024 Dr. Nayan Dixon , Emergency Provider Active Start: November 25, 2024 End: November 25, 2024 Dr. Sacha Kay , Admit Provider Active Start: November 25, 2024 End: November 25, 2024 Dr. Sacha Kay , Other Provider Active Start: November 25, 2024 End: November 25, 2024 Dr. Juan Sanchez DO Attending Provider Active Start: November 25, 2024 End: November 25, 2024 Dr. Juan Sanchez , Other Provider Active Star t: November 25, 2024 Team Status: Active Member Role Status Dates Dr. Quiana Healy DO Family Provider Active Dr. Quiana Healy DO Primary Care Provider Active Team Status: Inactive Member Role Status Dates Dr. Quiana Healy DO Primary Care Provider, Referring P rovider Active Alyson Garcia PA, PA Attending Provider Active Team Status: Inactive Member Role Status Dates Dr. Quiana Healy DO Primary Care Provider Active Dr. Charis Biswas DO Attending Provider, Referring P rovider Active Team Status: Inactive Member Role Status Dates Dr. Quiana Healy DO Primary Care Provider, Attending P rovider Active Team Status: Inactive Member Role Status Dates Dr. Quiana Healy DO Primary Care Provider, Referring P rovider Active Clare Zhu Attending Provider Active Team Status: Inactive Member Role Status Dates Dr. Quiana Healy DO Primary Care Provider Active Alyson HOGUE, PA Attending Provider, Referr ing Provider Active Team Status: Inactive Member Role Status Dates Dr. Quiana Healy DO Primary Care Provider Active Alyson HOGUE, PA Attending Provider Active Team Status: Active Member Role Status Dates Dr. Quiana Healy DO Primary Care Provider Active Le Rothman Attending Provider Active Team Status: Active Member Role Status Dates Dr. Quiana Healy DO Primary Care Provider Active Start: November 21, 2024 Dr. Quiana Healy DO Attending Provider Active St art: November 21, 2024 Team Status: Active Member Role Status Dates Dr. Quiana Healy DO Primary Care Provider Active Start: November 24, 2024 Dr. Quiana Healy DO Attending Provider Active St art: November 24, 2024 Dr. Quiana Healy DO Referring Provider Active St art: November 24, 2024 Team Status: Active Member Role Status Dates Dr. Quiana Healy DO Primary Care Provider Active Start: November 25, 2024 Dr. Nayan Dixon , Emergency Provider Active Start: November 25, 2024 Dr. Sacha Kay , Admit Provider Active Start: November 25, 2024 Dr. Sacha Kay DO Attending Provider Active Start: November 25, 2024 Team Status: Inactive Member Role Status Dates Dr. Quiana Healy DO Primary Care Provider Active Start: November 23, 2024 End: November 23, 2024 Dr. Quiana Healy DO Attending Provider Active St art: November 23, 2024 End: November 23, 2024 Team Status: Inactive Member Role Status Dates Dr. Quiana Healy DO Primary Care Provider Active Start: December 05, 2024 End: December 05, 2024 Dr. Quiana Healy DO Attending Provider Active St art: December 05, 2024 End: December 05, 2024 Team Status: Inactive Member Role Status Dates Dr. Quiana Healy DO Primary Care Provider Active Start: January 02, 2025 End: January 02, 2025 Dr. Quiana Healy DO Attending Provider Active St art: January 02, 2025 End: January 02, 2025 Dr. Quiana Healy DO Referring Provider Active St art: January 02, 2025 End: January 02, 2025 Team Status: Active Member Role Status Dates Dr. Quiana Healy DO Primary Care Provider Active Start: January 03, 2025 Dr. Quiana Healy DO Attending Provider Active St art: January 03, 2025 Dr. Quiana Healy DO Referring Provider Active St art: January 03, 2025 Team Status: Inactive Member Role Status Dates Dr. Quiana Healy DO Primary Care Provider Active Start: January 03, 2025 End: January 03, 2025 Dr. Quiana Healy DO Attending Provider Active St art: January 03, 2025 End: January 03, 2025 Dr. Quiana Healy DO Referring Provider Active St art: January 03, 2025 End: January 03, 2025 Team Status: Inactive Member Role Status Dates Dr. Quiana Healy DO Primary Care Provider Active Start: February 07, 2025 End: February 07, 2025 Dr. Quiana Healy DO Attending Provider Active St art: February 07, 2025 End: February 07, 2025 FOR RECORDS PERTAINING TO PATIENTS WHO ARE OR HAVE BEEN ENROLLED IN A CHEMICAL DEPENDENCY/SUBSTANCEABUSE PROGRAM, SOME INFORMATION MAY BE OMITTED. This clinical summary was aggregated from multiple sources. Caution should be exercised in using it in the provision of clinical care. This summary normalizes information from multiple sources, and as a consequence, information in this document may materially change the coding, format and clinical context of patient data. In addition, data may be omitted in some cases. CLINICAL DECISIONS SHOULD BE BASED ON THE PRIMARY CLINICAL RECORDS. [facility]. provides no warranty or guarantee of the accuracy or completeness of information in this document.
[2025-02-22 23:14] LABS: Osmolality, Urine 529 mOsm/KG
[2025-02-22 23:15] LABS: Osmolality, Serum 286 mOsm/KG (280-301)
== END | disposition home or self-care (01) ==
LOC: BIMLAB 14:15
PROVIDERS: PCP Family Medicine; Referring Provider Internal Medicine Nephrology; Visit Provider Internal Medicine Nephrology
DX: E87.1 Hypo-osmolality and hyponatremia (principal)
CPT/HCPCS: 36415; 80048; 83930; 83935; 84300

== ENCOUNTER → 2025-05-15 | Outpatient (CLI) | payer MEDICARE, SELFPAY ==
[2025-05-15 18:19] LABS: AST(SGOT) 18 U/L (<=31); Alanine Aminotransfer ALT/SGPT 25 U/L (<=34); Albumin, Serum 3.8 g/dL (3.4-4.8); Alkaline Phosphatase 77 U/L (35-104); Anion Gap 10 (5-15); BUN 17 mg/dL (4-19); BUN/Creat Ratio 21.5 RATIO (10-20); Calcium,Total 9.0 mg/dL (7.6-11.0); Carbon Dioxide 25.4 mmol/L (21.0-32.0); Chloride 100 mmol/L (98-108); Globulin 2.6 g/dL (2.2-4.2); Glucose 92 mg/dL (70-99); Magnesium 2.2 mg/dL (1.5-2.2); Potassium 4.1 mmol/L (3.3-5.1)
== END | disposition home or self-care (01) ==
LOC: BFHLAB 16:02
PROVIDERS: PCP Family Medicine; Visit Provider Family Medicine
DX: E87.1 Hypo-osmolality and hyponatremia (principal); I10 Essential (primary) hypertension; E83.42 Hypomagnesemia; E04.9 Nontoxic goiter, unspecified
CPT/HCPCS: 36415; 80053; 83735; 84443